=== PATIENT | male | born 1945 | race Caucasian/White ===

== ENCOUNTER 2016-04-23 08:18 | Emergency (ER) | payer MEDICARE ==
[2016-04-23 08:26] VITALS: BP 155/69; PULSE 93; RESP 18; TEMP 97
--- NOTE | 2016-04-23 08:52 | ED ---
General Adult HPI - General Source: patient, RN notes reviewed Mode of arrival: ambulatory Limitations: no limitations <Rickey Chatman - Last Filed: 04/23/16 08:49> <Grupo Lopez - Last Filed: 04/23/16 08:57> - General Chief complaint: Dental/Oral Stated complaint: POSS DENTAL ABSCESS Time Seen by Provider: 04/23/16 08:48 - History of Present Illness Initial comments: The patient is a 71-year-old male who presents emergency room today with a chief complaint of dental pain. He does admit that he had a sore tooth a few days ago. States that his noticed some increased swelling over the last day. States that similar symptoms in the past but usually go away on her own. Patient denies any other complaints or symptoms. Denies any drainage or discharge. Does admit to pain over tooth #26. Patient denies any recent fever, chills, shortness of breath, chest pain, back pain, abdominal pain, nausea or vomiting, numbness or tingling, dysuria or hematuria, constipation or diarrhea, headaches or visual changes, or any other complaints. (Rickey Chatman) - Related Data Home Medications Medication Instructions Recorded Confirmed Aspirin 81 mg PO DAILY 02/10/14 02/14/16 Atenolol [Tenormin] 25 mg PO DAILY 02/10/14 02/14/16 Atorvastatin [Lipitor] 40 mg PO DAILY 02/10/14 02/14/16 Dutasteride [Avodart] 0.5 mg PO DAILY 02/10/14 02/14/16 Ezetimibe [Zetia] 10 mg PO DAILY 02/10/14 02/14/16 Fenofibrate [Tricor] 145 mg PO DAILY 02/10/14 02/14/16 Folic Acid 1 mg PO DAILY 02/10/14 02/14/16 Lisinopril [Zestril] 10 mg PO DAILY 02/10/14 02/14/16 Methotrexate Sodium [Methotrexate] 25 mg PO WEEKLY 02/10/14 02/14/16 Multivitamin [Men's Multi-Vitamin] 1 each PO DAILY 02/10/14 02/14/16 Simponi 20 mg IV DIRECTED 02/10/14 02/14/16 Tamsulosin [Flomax] 0.4 mg PO DAILY 02/10/14 02/14/16 Levothyroxine Sodium [Synthroid] 25 mcg PO DAILY 02/26/15 02/14/16 Tadalafil [Cialis] 2.5 mg PO HS PRN 02/07/16 02/14/16 buPROPion HCL [Wellbutrin XL] 150 mg PO DAILY 02/07/16 02/14/16 Previous Rx's Medication Instructions Recorded Penicillin V Potassium [Pen Vee K] 500 mg PO QID 10 Days 04/23/16 Allergies Allergy/AdvReac Type Severity Reaction Status Date / Time Sulfa (Sulfonamide Allergy Rash/Hives Verified 04/23/16 08:26 Antibiotics) Review of Systems ROS Other: All systems not noted in ROS Statement are negative. <Rickey Chatman - Last Filed: 04/23/16 08:49> ROS Other: All systems not noted in ROS Statement are negative. <Grupo Lopez - Last Filed: 04/23/16 08:57> ROS Statement: Those systems with pertinent positive or pertinent negative responses have been documented in the HPI. Past Medical History Past Medical History: Cancer, Hyperlipidemia, Myocardial Infarction ([place]), Pneumonia, Prostate Disorder, Rheumatoid Arthritis ([place]) Additional Past Medical History / Comment(s): Lung CA- currently undergoing tx Last Myocardial Infarction Date:: 2003 History of Any Multi-Drug Resistant Organisms: None Reported Past Surgical History: Heart Catheterization With Stent Additional Past Surgical History / Comment(s): cardiac stents x2 Past Anesthesia/Blood Transfusion Reactions: No Reported Reaction Date of Last Stent Placement:: 05/07/03 Past Psychological History: Anxiety Additional Psychological History / Comment(s): anxiety related to health issues Smoking Status: Former smoker Past Alcohol Use History: Occasional Past Drug Use History: None Reported - Past Family History Father Family Medical History: Cancer, Diabetes Mellitus <Rickey Chatman - Last Filed: 04/23/16 08:49> General Exam Limitations: no limitations <Rickey Chatman - Last Filed: 04/23/16 08:49> <Grupo Lopez - Last Filed: 04/23/16 08:57> - General Exam Comments Initial Comments: General: The patient is awake and alert, in no distress, and does not appear acutely ill. Eye: Pupils are equal, round and reactive to light, extra-ocular movements are intact. No nystagmus. There is normal conjunctiva bilaterally. No signs of icterus. Ears, nose, mouth and throat: There are moist mucous membranes and no oral lesions. Patient does have tenderness over tooth and gumline of #26. Uvula midline. Swallows without difficulty. No obvious abscess to drain. Neck: The neck is supple, there is no tenderness or JVD. Cardiovascular: There is a regular rate and rhythm. No murmur, rub or gallop is appreciated. Respiratory: Lungs are clear to auscultation, respirations are non-labored, breath sounds are equal. No wheezes, stridor, rales, or rhonchi. Musculoskeletal: Normal ROM, no tenderness. Strength 5/5. Sensation intact. Pulses equal bilaterally 2+. Neurological: A&O x 3. CN II-XII intact, There are no obvious motor or sensory deficits. Coordination appears grossly intact. Speech is normal. Skin: Skin is warm and dry and no rashes or lesions are noted. Psychiatric: Cooperative, appropriate mood & affect, normal judgment. (Rickey Chatman) Course <Rickey Chatman - Last Filed: 04/23/16 08:49> <Grupo Lopez - Last Filed: 04/23/16 08:57> Vital Signs 04/23/16 08:23 Temperature 97.0 F L Pulse Rate 93 Respiratory 18 Rate Blood Pressure 155/69 O2 Sat by Pulse 100 Oximetry - Reevaluation(s) Reevaluation #1: 04/23/16 08:56 I did personally evaluate the patient with a [id number] examination. I did discuss the findings with him he complains some lower dental pain he does demonstrate some erythema to the gumline and erosion of the lower incisors. No submandibular lymphadenopathy. Patient is a start chemotherapy this week for lung cancer. I did advise him to follow-up with his dentist Dr. Day and also did notify Dr. Cannon of the development. He will be placed on oral antibiotics. (Grupo Lopez) Medical Decision Making <Rickey Chatman - Last Filed: 04/23/16 08:49> <Grupo Lopez - Last Filed: 04/23/16 08:57> - Medical Decision Making Patient advised to follow-up with his oncologist and dentist. He states he is supposed to start chemo again this coming week. He'll be placed on antibiotics of penicillin advised follow-up dentist over the next 2-3 days. Case discussed and seen by attending physician Dr. Lopez. (Rickey Chatman) Disposition Time of Disposition: 08:52 <Rickey Chatman - Last Filed: 04/23/16 08:49> <Grupo Lopez - Last Filed: 04/23/16 08:57> Clinical Impression: Pain, dental Disposition: HOME SELF-CARE Condition: Good Instructions: Dental Abscess (ED) Additional Instructions: Resolved her oncologist dentist over the next 1-2 days as discussed. Please use antibiotic as prescribed. Please return to emergency room if any symptoms increase or worsen or for any other concerns. Prescriptions: Penicillin V Potassium [Pen Vee K] 500 mg PO QID 10 Days Referrals: Talia Arzola DO [Primary Care Provider] - 1-2 days
== END 2016-04-23 09:01 | disposition home or self-care (01) ==
LOC: EC 08:18
DX: K08.89 Other specified disorders of teeth and supporting structures (principal); E78.5 Hyperlipidemia, unspecified; I25.2 Old myocardial infarction; C34.90 Malignant neoplasm of unspecified part of unspecified bronchus or lung; N42.9 Disorder of prostate, unspecified; M06.9 Rheumatoid arthritis, unspecified; Z87.891 Personal history of nicotine dependence; Z88.2 Allergy status to sulfonamides; Z79.82 Long term (current) use of aspirin; Z79.899 Other long term (current) drug therapy; Z95.1 Presence of aortocoronary bypass graft
CPT/HCPCS: 99282

== ENCOUNTER → 2016-05-13 | Outpatient (CLI) | payer MEDICARE ==
--- NOTE | 2016-05-16 13:31 | PE ---
Nuclear medicine PET/CT HISTORY: Lung carcinoma Patient received 14.6 mCi of F-18 FDG intravenously and delayed scanning was performed from the skull base through the mid thighs. Localization and attenuation correction CT scan was performed. Correlation to prior nuclear medicine PET/CT January Neck and CHEST: There is no evidence cervical adenopathy. No mediastinal, axillary, or hilar adenopat hy is present. Coronary artery calcifications are present, the heart is enlarged. There is a hiatal h ernia. No pleural or pericardial effusion. Left upper lobe lung mass is present with extension to the pleura medially and just posterior to the aorta, the mass measures approximately 2.8 cm in diameter. SUV is approximately 5.2. No additional hy permetabolic uptake. This shows a marked reduction in size. Interstitial changes are present within t he lungs. Honeycombing is present as well as emphysematous change. Abdomen pelvis: No suspicious mass. No suspicious hypermetabolic uptake. Diverticular changes associa [place] with the sigmoid colon. IMPRESSION: Interval decrease in size of mass in the left upper lobe as described. Additional finding s above.
== END | disposition home or self-care (01) ==
LOC: RADPETMAIN 09:30
PROVIDERS: ATTEND Internal Medicine Hematology & Oncology
DX: C34.92 Malignant neoplasm of unspecified part of left bronchus or lung (principal)
CPT/HCPCS: 78815; A9552

== ENCOUNTER 2016-08-14 18:38 | Inpatient (IN) | payer MEDICARE ==
[2016-08-14] MEDS ORDERED: IPRATROPIUM-ALBUTEROL 3 ML NEB INHALATION STA (19:05)
[2016-08-14] MEDS ORDERED: SODIUM CHLORIDE 0.9% 1,000 ML IV STA (19:05)
[2016-08-14] MEDS ORDERED: methylPREDNISolone SOD SUCCI 125 MG/2 ML VIAL IV STA (19:05)
[2016-08-14] MEDS ORDERED: SODIUM CHLORIDE 0.9% 500 ML IV STA (19:05)
[2016-08-14] MEDS ORDERED: RX INFO: IV CONTRAST WAS GIVEN 1 EACH MISC MISCELLANE PRN (19:06)
[2016-08-14 19:50] LABS: Anisocytosis Slight; Basophils # (A) 0.2 k/uL (0-0.2); Basophils % (A) 2 %; CH 29.5; CHCM 31.7; Eosinophils # (A) 0.1 k/uL (0-0.7); Eosinophils % (A) 1 %; HCT 33.5 % (39.0-53.0); HDW 2.69; HGB 10.8 gm/dL (13.0-17.5); Hypochromasia Slight; Luc # (Auto) 0.11; Luc % (Auto) 1; Lymphocytes # (A) 0.3 k/uL (1.0-4.8); Lymphocytes % (A) 4 %; MCH 30.1 pg (25.0-35.0); MCHC 32.2 g/dL (31.0-37.0); MCV 93.4 fL (80.0-100.0); Mean Platelet Volume 7.7; Monocytes # (A) 0.2 k/uL (0-1.0); Monocytes % (A) 3 %; Neutrophils # (A) 6.9 k/uL (1.3-7.7); Neutrophils % (A) 88 %; RBC 3.59 m/uL (4.30-5.90); RDW 17.1 % (11.5-15.5); WBC 7.8 k/uL (3.8-10.6); WBC (Perox) 7.56
[2016-08-14 19:53] LABS: INR 1.3 (<1.1); Partial Thromboplastin Time 23.7 sec (22.0-30.0); Prothrombin Time 12.9 sec (9.0-12.0)
[2016-08-14 20:08] LABS: ALT 105 U/L (21-72); AST 122 U/L (17-59); Alkaline Phosphatase 160 U/L (38-126); Anion Gap 8 mmol/L; Blood Urea Nitrogen 35 mg/dL (9-20); Calcium 9.1 mg/dL (8.4-10.2); Carbon Dioxide 24 mmol/L (22-30); Chloride 98 mmol/L (98-107); Glucose 113 mg/dL (74-99); Non-African American GFR(MDRD) 59 (>60 ml/min/1.73 sqM); Potassium 5.5 mmol/L (3.5-5.1); Sodium 130 mmol/L (137-145); Total Bilirubin 1.1 mg/dL (0.2-1.3); Total Protein 6.7 g/dL (6.3-8.2)
[2016-08-14 20:29] LABS: Creatine Kinase MB 3.4 ng/mL (0.0-2.4); Troponin I 0.58 ng/mL (0.000-0.034)
--- NOTE | 2016-08-14 20:46 | ED ---
SOB HPI - General Chief Complaint: Shortness of Breath Stated Complaint: diff breathing Time Seen by Provider: 08/14/16 18:58 Source: patient Mode of arrival: wheelchair Limitations: no limitations - History of Present Illness Initial Comments: This 71-year-old white male presents with a complaint of some shortness of breath. He does have a history of lung cancer which was treated with chemotherapy as well as surgery. He also had radiation therapy to his brain for prophylaxis. He states that the shortness of breath is been worse over the past few days. He recently traveled to [place] and just came back today. He was in the car for approximately 10 hours. He denies any chest pain or fever. He does present hypoxic. [place] apparently did some blood work as well as a chest x-ray and gave him some breathing treatments. He denies any leg pain or swelling. He denies any history of DVT or PE. No other complaints or modifying factors. - Related Data Home Medications Medication Instructions Recorded Confirmed Atenolol [Tenormin] 25 mg PO DAILY 02/10/14 08/14/16 Folic Acid 1 mg PO DAILY 02/10/14 08/14/16 Lisinopril [Zestril] 10 mg PO DAILY 02/10/14 08/14/16 Tamsulosin [Flomax] 0.4 mg PO DAILY 02/10/14 08/14/16 Atorvastatin Calcium [Lipitor] 40 mg PO DAILY 08/14/16 08/14/16 Fenofibrate Nanocrystallized 145 mg PO DAILY 08/14/16 08/14/16 [Tricor] Multivitamins, Thera [Multivitamin 1 tab PO DAILY 08/14/16 08/14/16 (formulary)] Omeprazole 20 mg PO DAILY 08/14/16 08/14/16 Tadalafil [Cialis] 20 mg PO DAILY PRN 08/14/16 08/14/16 Allergies Allergy/AdvReac Type Severity Reaction Status Date / Time Sulfa (Sulfonamide Allergy Rash/Hives Verified 08/14/16 19:04 Antibiotics) Review of Systems ROS Statement: Those systems with pertinent positive or pertinent negative responses have been documented in the HPI. ROS Other: All systems not noted in ROS Statement are negative. Past Medical History Past Medical History: Cancer, Hyperlipidemia, Myocardial Infarction ([place]), Pneumonia, Prostate Disorder, Rheumatoid Arthritis ([place]) Additional Past Medical History / Comment(s): Lung CA- currently undergoing tx Last Myocardial Infarction Date:: 2003 History of Any Multi-Drug Resistant Organisms: None Reported Past Surgical History: Heart Catheterization With Stent Additional Past Surgical History / Comment(s): cardiac stents x2 Past Anesthesia/Blood Transfusion Reactions: No Reported Reaction Date of Last Stent Placement:: 05/07/03 Past Psychological History: Anxiety Additional Psychological History / Comment(s): anxiety related to health issues Smoking Status: Former smoker Past Alcohol Use History: Occasional Past Drug Use History: None Reported - Past Family History Father Family Medical History: Cancer, Diabetes Mellitus General Exam - General Exam Comments Initial Comments: GENERAL: The patient is well nourished and well hydrated. VITAL SIGNS: Heart rate, blood pressure, respiratory rate reviewed as recorded in nurse's notes. EYES: Pupils are round and reactive. Extraocular movements are intact. No conjunctival / lid redness or swelling. ENT: No external evidence of injury, swelling, or ecchymosis. Airway is patent. Throat is clear. NECK: Nontender. No swelling or evidence of injury. No subcutaneous emphysema. Trachea is midline. No thyroid mass. HEART: Regular rate and rhythm. Good peripheral pulses. LUNGS/CHEST: Breath sounds clear and equal bilaterally. No rales, rhonchi, or wheezes. No ecchymosis, subcutaneous emphysema, or tenderness. ABDOMEN: Abdomen soft without tenderness. No palpable masses or organomegaly. No peritoneal signs. No abdominal wall swelling or ecchymosis. EXTREMITIES: No extremity tenderness. Normal muscle tone and function. No thoracolumbar tenderness. NEUROLOGIC: Sensation is grossly intact. Cranial nerve exam reveals face is symmetrical, tongue is midline, speech is clear. SKIN: No abrasions or ecchymosis is noted. No induration or masses noted. PSYCHIATRIC: Alert and oriented. Appropriate behavior and judgment. Limitations: no limitations Course Vital Signs 08/14/16 08/14/16 08/14/16 18:40 18:51 19:21 Temperature 96.7 F L Pulse Rate 110 H 99 Respiratory 20 24 22 Rate Blood Pressure 141/65 133/74 O2 Sat by Pulse 68 L 99 Oximetry 08/14/16 08/14/16 08/14/16 19:34 20:00 20:17 Temperature Pulse Rate 102 H 101 H 105 H Respiratory 20 Rate Blood Pressure 146/73 O2 Sat by Pulse 96 Oximetry 08/14/16 21:18 Temperature Pulse Rate 104 H Respiratory 20 Rate Blood Pressure 125/60 O2 Sat by Pulse 97 Oximetry Medical Decision Making - Medical Decision Making The patient was seen and examined. All diagnostics were reviewed. His EKG was completed and shows a sinus tachycardia at a rate of 104. There is evidence of a right bundle-branch block with associated ST-T wave changes noted. The WA interval is 176, QRS duration is 140 and the QTC intervals 465. The patient also had multiple lab abnormalities including an elevated troponin, elevated d- dimer, elevated potassium, transaminitis, elevated BNP, and a decreased sodium. He receives a DuoNeb breathing treatment as well as some Solu-Medrol. The CT angiogram was done of the chest as it is felt as though he is fairly high risk for pulmonary embolism with his history of lung cancer. The CT did not show any evidence of pulmonary embolism. The previously noted masses now not present. They do note significant parenchymal changes/inflammation. The laboratory shows multiple abnormalities including an elevated d-dimer, elevated troponin, elevated BNP, a decreased hemoglobin, and elevated potassium and decreased sodium. His pulse ox initially was 68% on arrival. On recheck he is approximately 92% on a nonrebreather. He is in no respiratory distress on recheck. He did receive some IV steroids as well as DuoNeb breathing treatments. Antibiotics will be started as well. It is felt as though he would require admission to the hospital. He started on heparin due to his elevated troponin possibility of a non-ST elevation myocardial infarction. The case is discussed with Dr. Sapp and he is agreeable to admission. He will take cardiology, oncology, and pulmonology to consult. Approximately 30 minutes of critical care time was utilized and the treatment of the patient. - Lab Data Result diagrams: 08/14/16 19:38 08/14/16 19:38 Lab Results 08/14/16 08/14/16 08/14/16 Range/Units 19:15 19:38 19:38 WBC 7.8 (3.8-10.6) k/uL RBC 3.59 L (4.30-5.90) m/uL Hgb 10.8 L (13.0-17.5) gm/dL Hct 33.5 L (39.0-53.0) % MCV 93.4 (80.0-100.0) fL MCH 30.1 (25.0-35.0) pg MCHC 32.2 (31.0-37.0) g/dL RDW 17.1 H (11.5-15.5) % Plt Count 133 L (150-450) k/uL Neutrophils % 88 % Lymphocytes % 4 % Monocytes % 3 % Eosinophils % 1 % Basophils % 2 % Neutrophils # 6.9 (1.3-7.7) k/uL Lymphocytes # 0.3 L (1.0-4.8) k/uL Monocytes # 0.2 (0-1.0) k/uL Eosinophils # 0.1 (0-0.7) k/uL Basophils # 0.2 (0-0.2) k/uL Hypochromasia Slight Anisocytosis Slight PT 12.9 H (9.0-12.0) sec INR 1.3 (<1.1) APTT 23.7 (22.0-30.0) sec D-Dimer (<0.60) mg/L FEU Sodium (137-145) mmol/L Potassium (3.5-5.1) mmol/L Chloride (98-107) mmol/L Carbon Dioxide (22-30) mmol/L Anion Gap mmol/L BUN (9-20) mg/dL Creatinine (0.66-1.25) mg/dL Est GFR (MDRD) Af Amer (>60 ml/min/1.73 sqM) Est GFR (MDRD) Non-Af (>60 ml/min/1.73 sqM) Glucose (74-99) mg/dL Calcium (8.4-10.2) mg/dL Total Bilirubin (0.2-1.3) mg/dL AST (17-59) U/L ALT (21-72) U/L Alkaline Phosphatase (38-126) U/L Total Creatine Kinase 66 (55-170) U/L CK-MB (CK-2) 3.4 H* (0.0-2.4) ng/mL CK-MB (CK-2) Rel Index 5.2 Troponin I 0.580 H* (0.000-0.034) ng/mL NT-Pro-B Natriuret Pep pg/mL Total Protein (6.3-8.2) g/dL Albumin (3.5-5.0) g/dL 08/14/16 08/14/16 08/14/16 Range/Units 19:38 19:38 19:38 WBC (3.8-10.6) k/uL RBC (4.30-5.90) m/uL Hgb (13.0-17.5) gm/dL Hct (39.0-53.0) % MCV (80.0-100.0) fL MCH (25.0-35.0) pg MCHC (31.0-37.0) g/dL RDW (11.5-15.5) % Plt Count (150-450) k/uL Neutrophils % % Lymphocytes % % Monocytes % % Eosinophils % % Basophils % % Neutrophils # (1.3-7.7) k/uL Lymphocytes # (1.0-4.8) k/uL Monocytes # (0-1.0) k/uL Eosinophils # (0-0.7) k/uL Basophils # (0-0.2) k/uL Hypochromasia Anisocytosis PT (9.0-12.0) sec INR (<1.1) APTT (22.0-30.0) sec D-Dimer 3.04 H (<0.60) mg/L FEU Sodium 130 L (137-145) mmol/L Potassium 5.5 H (3.5-5.1) mmol/L Chloride 98 (98-107) mmol/L Carbon Dioxide 24 (22-30) mmol/L Anion Gap 8 mmol/L BUN 35 H (9-20) mg/dL Creatinine 1.21 (0.66-1.25) mg/dL Est GFR (MDRD) Af Amer >60 (>60 ml/min/1.73 sqM) Est GFR (MDRD) Non-Af 59 (>60 ml/min/1.73 sqM) Glucose 113 H (74-99) mg/dL Calcium 9.1 (8.4-10.2) mg/dL Total Bilirubin 1.1 (0.2-1.3) mg/dL AST 122 H (17-59) U/L ALT 105 H (21-72) U/L Alkaline Phosphatase 160 H (38-126) U/L Total Creatine Kinase (55-170) U/L CK-MB (CK-2) (0.0-2.4) ng/mL CK-MB (CK-2) Rel Index Troponin I (0.000-0.034) ng/mL NT-Pro-B Natriuret Pep 1370 pg/mL Total Protein 6.7 (6.3-8.2) g/dL Albumin 2.8 L (3.5-5.0) g/dL Disposition Clinical Impression: Lung cancer, Acute respiratory failure, Elevated troponin, Elevated d-dimer, Hyponatremia, Transaminitis, Anemia, Dyspnea, Hyperkalemia, Non-ST elevated myocardial infarction, Acute exacerbation of chronic obstructive airways disease Disposition: ADMITTED IP TO THIS HOSP Condition: Fair Time of Disposition: 21:43 Decision Date: 08/14/16 Decision Time: :43
[2016-08-14] MEDS ORDERED: ASPIRIN 81 MG CHEW PO STA (20:55)
--- NOTE | 2016-08-14 21:15 | CT ---
EXAMINATION TYPE: CT ANGIO CHEST DATE OF EXAM: 08/14/2016 8:56 PM COMPARISON: NONE HISTORY: PT STATES OF DIFFICULTY BREATHING AND ELEVATED D-DIMER. HX OF LUNG CA. CT DLP: 352.4 mGycm Automated exposure control for dose reduction was used. TECHNIQUE: High-resolution departmental CTA technique. CTA scan of the thorax is performed with IV Co ntrast, patient injected with 60 mL of Visipaque 320, pulmonary embolism protocol, complete with mult iple 3-D reconstruction images. FINDINGS: AIRWAYS: The tracheobronchial tree is diffusely clear. PLEURAL SPACES: Negative LUNGS: There is a striking pattern of diffuse interstitial and airspace lung parenchymal disease thro ughout the upper, mid and lower lung zones, including cicatrizing changes and with pleural-parenchyma l thickening at the left lung base posterolaterally. There is interval resolution of the previously noted 2.8 cm left upper lobe apical segment pulmonary mass located posterior to the proximal descending thoracic aorta. MEDIASTINUM: There is satisfactory enhancement of the pulmonary artery and its branches, there is no CT evidence for pulmonary embolism. There are no greater than 1 cm hilar or mediastinal lymph nodes. No pericardial effusion is seen. There is mild cardiomegaly with panchamber enlargement and with e xtensive coronary calcifications and a left coronary stent. There is a 6 cm hiatal hernia present. IMPRESSION: 1. NEGATIVE FOR PULMONARY EMBOLISM. 2. POSITIVE FOR WIDESPREAD SEVERE PULMONARY DISEASE, MUCH MORE PROMINENT THAN SEEN ON THE 05/13/2016 P ET/CT.
[2016-08-14] MEDS ORDERED: HEPARIN SODIUM,PORCINE 5,000 UNIT/ML 1 ML VIAL IV PRN (21:32)
[2016-08-14] MEDS ORDERED: HEPARIN SODIUM,PORCINE 5,000 UNIT/ML 1 ML VIAL IV ONE (21:32)
[2016-08-14] MEDS ORDERED: guaiFENesin-Coden 100-10MG/5ML 10 ML CUP PO PRN (21:44)
[2016-08-14] MEDS ORDERED: LEVOFLOXACIN 750MG-D5W PMX 750 MG in DEXTROSE/WATER 1 150ML.BAG IVPB STA (21:44)
[2016-08-14] MEDS ORDERED: HEPARIN SODIUM,PORCINE/D5W PMX 25,000 UNIT in DEXTROSE/WATER 1 500ML.BAG IV SCH (21:45)
[2016-08-14] MEDS ORDERED: NITROGLYCERIN SL TABS 0.4 MG TAB SUBLINGUAL PRN (22:05)
[2016-08-15 02:41] LABS: Creatine Kinase MB 2.7 ng/mL (0.0-2.4); Troponin I 0.609 ng/mL (0.000-0.034)
[2016-08-15] MEDS: IPRATROPIUM-ALBUTEROL 3 ML NEB INHALATION SCH ×7 (04:05→20:14)
[2016-08-15 05:40] LABS: Glucose,Whole Blood 152 mg/dL (75-99)
[2016-08-15] MEDS: INSULIN LISPRO (humaLOG) 300 UNIT/3 ML VIAL SQ SCH ×4 (06:17→22:09)
[2016-08-15] MEDS: PANTOPRAZOLE 40 MG TABLET PO SCH (06:54)
[2016-08-15 07:07] LABS: Partial Thromboplastin Time 43.4 sec (22.0-30.0)
[2016-08-15 07:14] LABS: INR 1.5 (<1.1); Prothrombin Time 14.5 sec (9.0-12.0)
[2016-08-15] MEDS: BUDESONIDE 0.5 MG/2 ML NEBU INHALATION SCH ×2 (07:21→19:10)
[2016-08-15 07:29] LABS: Anion Gap 11 mmol/L; Blood Urea Nitrogen 32 mg/dL (9-20); Carbon Dioxide 17 mmol/L (22-30); Chloride 105 mmol/L (98-107); Cholesterol 137 mg/dL (<200); Glucose 155 mg/dL (74-99); HDL Cholesterol 27 mg/dL (40-60); Non-African American GFR(MDRD) >60 (>60 ml/min/1.73 sqM); Potassium 4.9 mmol/L (3.5-5.1); Sodium 133 mmol/L (137-145); Triglycerides 133 mg/dL (<150)
[2016-08-15 07:34] LABS: Anisocytosis Slight; Basophils % (A) 0 %; CH 28.7; CHCM 29.4; Eosinophils % (A) 0 %; HCT 33.5 % (39.0-53.0); HDW 2.54; HGB 10.2 gm/dL (13.0-17.5); Hypochromasia Marked; Luc # (Auto) 0.05; Luc % (Auto) 1; Lymphocytes # (A) 0.2 k/uL (1.0-4.8); Lymphocytes % (A) 3 %; MCH 29.8 pg (25.0-35.0); MCHC 30.4 g/dL (31.0-37.0); MCV 97.9 fL (80.0-100.0); Macrocytosis Slight; Mean Platelet Volume 7.9; Monocytes # (A) 0.1 k/uL (0-1.0); Monocytes % (A) 2 %; Neutrophils # (A) 5.9 k/uL (1.3-7.7); Neutrophils % (A) 94 %; RBC 3.42 m/uL (4.30-5.90); RDW 16.5 % (11.5-15.5); WBC 6.3 k/uL (3.8-10.6); WBC (Perox) 6.07
[2016-08-15 07:53] LABS: Creatine Kinase MB 3.5 ng/mL (0.0-2.4)
[2016-08-15 07:54] LABS: Troponin I 0.371 ng/mL (0.000-0.034)
[2016-08-15] MEDS ORDERED: ASPIRIN 325 MG TAB PO SCH (09:00)
[2016-08-15] MEDS ORDERED: NITROGLYCERIN OINT 1 INCH/GM PACKET TOPICAL SCH (09:00)
--- NOTE | 2016-08-15 09:15 | P.CRDCN ---
History of Present Illness Consult date: 08/15/16 Requesting physician: Aracely Sapp Consult reason: shortness of breath Chief complaint: Shortness of breath History of present illness: This is a pleasant 71-year-old gentleman with history of coronary artery disease and prior stent placement, hypertension, hyperlipidemia, lung cancer for which the patient underwent chemotherapy and radiation, most recently patient underwent surgery on the lung, he was also receiving chemotherapy for brain CA. Patient has not followed up in the office for the past several years. He presents to the hospital on this occasion with symptoms of progressively worsening shortness of breath. EKG on arrival showed a sinus tachycardia with a right bundle branch block pattern and nonspecific ST-T wave changes. CTA of the chest was performed which was negative for pulmonary embolism, positive for widespread severe pulmonary disease, much more prominent than CT performed in April. Dr. Davis chaves oncologist has also been requested to see the patient in consult and he felt that the changes on the chest x-ray along with patient's symptoms could be secondary to radiation pneumonitis. Patient denies having any chest discomfort. A cardiology consultation was requested because of abnormal troponin values. Troponins 0.58, 0.60, 0.37. BNP level 1370. AST 122, ALT 105, alk phos 160, sodium 133, potassium 4.9, d- dimer 3.04, PE ruled out. Hemoglobin 10.2 white blood cell count normal platelet count 112. Blood... pressure on arrival here 140/60 with a heart rate of 110, oxygen saturation 68% on admission. Blood pressure this morning 136/70 with a heart rate in the 80s, 96% on 10% Ventimask. Patient is currently on IV heparin. Past Medical History Past Medical History: Cancer, Hyperlipidemia, Myocardial Infarction ([place]), Pneumonia, Prostate Disorder, Rheumatoid Arthritis ([place]) Additional Past Medical History / Comment(s): Lung CA- currently undergoing tx Last Myocardial Infarction Date:: 2003 History of Any Multi-Drug Resistant Organisms: None Reported Past Surgical History: Heart Catheterization With Stent Additional Past Surgical History / Comment(s): cardiac stents x2 Past Anesthesia/Blood Transfusion Reactions: No Reported Reaction Date of Last Stent Placement:: 05/07/03 Past Psychological History: Anxiety Additional Psychological History / Comment(s): anxiety related to health issues Smoking Status: Former smoker Past Alcohol Use History: Occasional Past Drug Use History: None Reported - Past Family History Father Family Medical History: Cancer Medications and Allergies Home Medications Medication Instructions Recorded Confirmed Type Atenolol [Tenormin] 25 mg PO DAILY 02/10/14 08/14/16 History Folic Acid 1 mg PO DAILY 02/10/14 08/14/16 History Lisinopril [Zestril] 10 mg PO DAILY 02/10/14 08/14/16 History Tamsulosin [Flomax] 0.4 mg PO DAILY 02/10/14 08/14/16 History Atorvastatin Calcium [Lipitor] 40 mg PO DAILY 08/14/16 08/14/16 History Fenofibrate Nanocrystallized 145 mg PO DAILY 08/14/16 08/14/16 History [Tricor] Multivitamins, Thera [Multivitamin 1 tab PO DAILY 08/14/16 08/14/16 History (formulary)] Omeprazole 20 mg PO DAILY 08/14/16 08/14/16 History Tadalafil [Cialis] 20 mg PO DAILY PRN 08/14/16 08/14/16 History Allergies Allergy/AdvReac Type Severity Reaction Status Date / Time Sulfa (Sulfonamide Allergy Rash/Hives Verified 08/14/16 19:04 Antibiotics) Physical Exam Vitals: Vital Signs Temp Pulse Pulse Resp BP BP Pulse Ox 08/15/16 07:36 90 08/15/16 07:23 88 08/15/16 07:22 95 08/15/16 04:19 90 08/15/16 04:09 80 95 08/15/16 04:00 97.4 F L 80 20 137/73 96 08/15/16 00:10 97.4 F L 95 88 18 133/73 108/57 96 08/14/16 23:01 98.1 F 96 20 130/65 93 L Intake and Output 08/14/16 08/15/16 08/15/16 22:59 06:59 14:59 Intake Total 299.92 Output Total 400 Balance -100.08 Intake: IV 299.92 0.9 @20mls/hr 120 Heparin Sodium,Porcine/ 79.92 D5w Pmx 25,000 unit In Dextrose/Water 1 500ml. bag @ 11.3 UNITS/KG/HR 19 .98 mls/hr IV .Q24H [facility] Rx#:[id number] Levofloxacin 750Mg-D5w 100 Pmx 750 mg In Dextrose/ Water 1 150ml.bag @ 100 mls/hr IVPB HS [facility] Rx#: [id number] Output: Urine 400 Other: Voiding Method Urinal # Voids 1 Weight 89.5 kg PHYSICAL EXAMINATION: HEENT: Head is atraumatic, normocephalic. Pupils equal, round. Neck is supple. There is elevated jugular venous pressure. HEART EXAMINATION: Heart S1 and S2 systolic murmur is heard. CHEST EXAMINATION: Lungs reveal bilateral crackles to the bases. Decreased air exchange. ABDOMEN: Soft, nontender. Bowel sounds are heard. No organomegaly noted. EXTREMITIES: 2+ peripheral pulses with evidence of peripheral edema and no calf tenderness noted. NEUROLOGIC patient is awake, alert and oriented -3. . Results 08/15/16 06:40 08/15/16 06:40 Cardiac Enzymes 08/15/16 08/15/16 Range/Units 01:23 06:40 CK-MB (CK-2) 2.7 H* 3.5 H* (0.0-2.4) ng/mL Troponin I 0.609 H* 0.371 H* (0.000-0.034) ng/mL Coagulation 08/15/16 Range/Units 06:40 PT 14.5 H (9.0-12.0) sec APTT 43.4 H (22.0-30.0) sec Lipids 08/15/16 Range/Units 06:40 Triglycerides 133 (<150) mg/dL Cholesterol 137 (<200) mg/dL HDL Cholesterol 27 L (40-60) mg/dL CBC 08/15/16 Range/Units 06:40 WBC 6.3 (3.8-10.6) k/uL RBC 3.42 L (4.30-5.90) m/uL Hgb 10.2 L (13.0-17.5) gm/dL Hct 33.5 L (39.0-53.0) % Plt Count 112 L (150-450) k/uL Comprehensive Metabolic Panel 08/15/16 Range/Units 06:40 Sodium 133 L (137-145) mmol/L Potassium 4.9 (3.5-5.1) mmol/L Chloride 105 (98-107) mmol/L Carbon Dioxide 17 L (22-30) mmol/L BUN 32 H (9-20) mg/dL Creatinine 0.99 (0.66-1.25) mg/dL Glucose 155 H (74-99) mg/dL Calcium 9.0 (8.4-10.2) mg/dL Current Medications Generic Name Dose Route Start Last Admin Trade Name Freq PRN Reason Stop Dose Admin Albuterol/Ipratropium 3 ml 08/15/16 00:00 08/15/16 07:21 Duoneb 0.5 Mg-3 Mg/3 Ml Soln INHALATION 3 ml RT-Q4H [facility] Administration Aspirin 325 mg 08/15/16 09:00 Aspirin PO DAILY [facility] Atenolol 25 mg 08/15/16 09:00 Tenormin PO DAILY [facility] Atorvastatin Calcium 40 mg 08/15/16 09:00 Lipitor PO DAILY [facility] Budesonide 0.5 mg 08/15/16 08:00 08/15/16 07:21 Pulmicort INHALATION 0.5 mg RT-BID [facility] Administration Fenofibrate 160 mg 08/15/16 09:00 Lofibra PO DAILY [facility] Folic Acid 1 mg 08/15/16 09:00 Folic Acid PO DAILY [facility] Guaifenesin/Codeine Phosphate 10 ml 08/14/16 21:44 Robitussin Ac PO Q6H PRN Cough Heparin Sodium (Porcine) 0 unit 08/14/16 21:32 Heparin IV PER PROTOCOL PRN Low PTT Protocol Heparin Sodium/Dextrose 25,000 500 mls @ 19.98 mls/hr 08/14/16 21:45 22:59 unit/ IV Solution IV 11.3 units/kg/hr .Q24H [facility] 19.98 mls/hr Protocol Administration 11.3 UNITS/KG/HR Levofloxacin 750 mg/ IV 150 mls @ 100 mls/hr 08/15/16 21:00 Solution IVPB HS [facility] Insulin Human Lispro 0 unit 08/15/16 07:30 08/15/16 06:17 Humalog SQ Not Given ACHS [facility] Protocol Lisinopril 10 mg 08/15/16 09:00 Zestril PO DAILY [facility] Methylprednisolone Sodium Succinate 60 mg 08/16/16 09:00 Solu-Medrol IV QID [facility] Miscellaneous Information 1 each 08/14/16 19:06 08/14/16 19:26 Rx Info: Iv Contrast Was Given MISCELLANE 08/16/16 19:06 1 each DAILY PRN Administration Per Protocol Multivitamins 1 each 08/15/16 09:00 Theragran PO DAILY [facility] Nitroglycerin 0.4 mg 08/14/16 22:05 Nitrostat SUBLINGUAL Q5M PRN Chest Pain Pantoprazole Sodium 40 mg 08/15/16 07:30 08/15/16 06:54 Protonix PO Not Given AC-BRKFST [facility] Tamsulosin HCl 0.4 mg 08/15/16 09:00 Flomax PO DAILY [facility] Intake and Output 08/14/16 08/15/16 08/15/16 22:59 06:59 14:59 Intake Total 299.92 Output Total 400 Balance -100.08 Intake: IV 299.92 0.9 @20mls/hr 120 Heparin Sodium,Porcine/ 79.92 D5w Pmx 25,000 unit In Dextrose/Water 1 500ml. bag @ 11.3 UNITS/KG/HR 19 .98 mls/hr IV .Q24H [facility] Rx#:[id number] Levofloxacin 750Mg-D5w 100 Pmx 750 mg In Dextrose/ Water 1 150ml.bag @ 100 mls/hr IVPB HS [facility] Rx#: [id number] Output: Urine 400 Other: Voiding Method Urinal # Voids 1 Weight 89.5 kg 08/15/16 06:40 08/15/16 06:40 EKG Interpretations (text) EKG shows sinus tachycardia with a right bundle branch block pattern. Assessment and Plan Plan: Assessment and plan #1 symptoms of respiratory distress with significant hypoxia on admission, likely secondary to possible radiation pneumonitis and congestive cardiac failure. LV function unknown at this time. BNP level 1370. #2 known history of coronary artery disease with prior stent placement #3 abnormal troponins, not consistent with acute coronary syndrome, could be secondary to oxygen supply and demand mismatch #4 abnormal liver functions, could be secondary to congestion. #5 lung CA with recent chemotherapy and radiation, status post surgery. #6 status post radiation to the brain for prophylaxis #7 hyperlipidemia Plan We will obtain an echocardiogram with Doppler study. We will also start the patient on IV Lasix, monitor intake and output along with daily weights closely. Decrease aspirin 81 mg daily. Further recommendations to follow. DNP note has been reviewed, I agree with a documented findings and plan of care. Patient was seen and examined.
--- NOTE | 2016-08-15 09:24 | P.HPIM ---
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 Cannon, he presented to emergency room at [facility] his oxygen saturation was low d- dimer was significantly elevated and troponin level was elevated at 0.58, patient was started on IV heparin and was admitted to telemetry floor computed tomography scan of the chest was negative for pulmonary embolism, oncology consultation pulmonary consultation and cardiology consultation were initiated, computed tomography scan revealed patchy infiltrates in both lungs and patient was started on IV Levaquin in the emergency room. Past Medical History Past Medical History: Cancer, Hyperlipidemia, Myocardial Infarction ([place]), Pneumonia, Prostate Disorder, Rheumatoid Arthritis ([place]) Additional Past Medical History / Comment(s): Lung CA- currently undergoing tx Last Myocardial Infarction Date:: 2003 History of Any Multi-Drug Resistant Organisms: None Reported Past Surgical History: Heart Catheterization With Stent Additional Past Surgical History / Comment(s): cardiac stents x2 Past Anesthesia/Blood Transfusion Reactions: No Reported Reaction Date of Last Stent Placement:: 05/07/03 Past Psychological History: Anxiety Additional Psychological History / Comment(s): anxiety related to health issues Smoking Status: Former smoker Past Alcohol Use History: Occasional Past Drug Use History: None Reported - Past Family History Father Family Medical History: Cancer Medications and Allergies Home Medications Medication Instructions Recorded Confirmed Type Atenolol [Tenormin] 25 mg PO DAILY 02/10/14 08/14/16 History Folic Acid 1 mg PO DAILY 02/10/14 08/14/16 History Lisinopril [Zestril] 10 mg PO DAILY 02/10/14 08/14/16 History Tamsulosin [Flomax] 0.4 mg PO DAILY 02/10/14 08/14/16 History Atorvastatin Calcium [Lipitor] 40 mg PO DAILY 08/14/16 08/14/16 History Fenofibrate Nanocrystallized 145 mg PO DAILY 08/14/16 08/14/16 History [Tricor] Multivitamins, Thera [Multivitamin 1 tab PO DAILY 08/14/16 08/14/16 History (formulary)] Omeprazole 20 mg PO DAILY 08/14/16 08/14/16 History Tadalafil [Cialis] 20 mg PO DAILY PRN 08/14/16 08/14/16 History Allergies Allergy/AdvReac Type Severity Reaction Status Date / Time Sulfa (Sulfonamide Allergy Rash/Hives Verified 08/14/16 19:04 Antibiotics) Physical Exam Vitals: Vital Signs Temp Pulse Pulse Resp BP BP Pulse Ox 08/15/16 07:36 90 08/15/16 07:23 88 08/15/16 07:22 95 08/15/16 04:19 90 08/15/16 04:09 80 95 08/15/16 04:00 97.4 F L 80 20 137/73 96 08/15/16 00:10 97.4 F L 95 88 18 133/73 108/57 96 08/14/16 23:01 98.1 F 96 20 130/65 93 L Intake and Output 08/14/16 08/15/16 08/15/16 22:59 06:59 14:59 Intake Total 299.92 Output Total 400 Balance -100.08 Intake: IV 299.92 0.9 @20mls/hr 120 Heparin Sodium,Porcine/ 79.92 D5w Pmx 25,000 unit In Dextrose/Water 1 500ml. bag @ 11.3 UNITS/KG/HR 19 .98 mls/hr IV .Q24H [facility] Rx#:[id number] Levofloxacin 750Mg-D5w 100 Pmx 750 mg In Dextrose/ Water 1 150ml.bag @ 100 mls/hr IVPB HS [facility] Rx#: [id number] Output: Urine 400 Other: Voiding Method Urinal # Voids 1 Weight 89.5 kg In general patient is alert and oriented 3 in no apparent distress HEENT head normocephalic and atraumatic Neck is supple no JVD no goiter no lymphadenopathy Chest exam reveals tachypnea with scattered crackles in both lung ortega no wheezing Cardiac exam reveals tachycardia with S1 and S2 regular rhythm no gallops no murmurs Abdomen is soft nontender no organomegaly Extremity exam reveals no edema no cyanosis or clubbing Neurological examination reveals no focal deficit Skin exam reveals no open ulcers no rashes or ecchymoses Results CBC & Chem 7: 08/15/16 06:40 08/15/16 06:40 Labs: Abnormal Lab Results - Last 24 Hours (Table) 08/15/16 08/15/16 08/15/16 Range/Units 01:23 05:38 06:40 RBC 3.42 L (4.30-5.90) m/uL Hgb 10.2 L (13.0-17.5) gm/dL Hct 33.5 L (39.0-53.0) % MCHC 30.4 L (31.0-37.0) g/dL RDW 16.5 H (11.5-15.5) % Plt Count 112 L (150-450) k/uL Lymphocytes # 0.2 L (1.0-4.8) k/uL PT (9.0-12.0) sec APTT (22.0-30.0) sec Sodium (137-145) mmol/L Carbon Dioxide (22-30) mmol/L BUN (9-20) mg/dL Glucose (74-99) mg/dL POC Glucose (mg/dL) 152 H (75-99) mg/dL Total Creatine Kinase 52 L (55-170) U/L CK-MB (CK-2) 2.7 H* (0.0-2.4) ng/mL Troponin I 0.609 H* (0.000-0.034) ng/mL HDL Cholesterol (40-60) mg/dL 08/15/16 08/15/16 08/15/16 Range/Units 06:40 06:40 06:40 RBC (4.30-5.90) m/uL Hgb (13.0-17.5) gm/dL Hct (39.0-53.0) % MCHC (31.0-37.0) g/dL RDW (11.5-15.5) % Plt Count (150-450) k/uL Lymphocytes # (1.0-4.8) k/uL PT 14.5 H (9.0-12.0) sec APTT 43.4 H (22.0-30.0) sec Sodium 133 L (137-145) mmol/L Carbon Dioxide 17 L (22-30) mmol/L BUN 32 H (9-20) mg/dL Glucose 155 H (74-99) mg/dL POC Glucose (mg/dL) (75-99) mg/dL Total Creatine Kinase (55-170) U/L CK-MB (CK-2) 3.5 H* (0.0-2.4) ng/mL Troponin I 0.371 H* (0.000-0.034) ng/mL HDL Cholesterol 27 L (40-60) mg/dL Thrombosis Risk Factor Assmnt - Choose All That Apply Each Risk Factor Represents 2 Points: Age 61-74 years Other congenital or acquired thrombophilia - If yes, enter type in comment: No Thrombosis Risk Factor Assessment Total Risk Factor Score: 2 Thrombosis Risk Factor Assessment Level: Low Risk Assessment and Plan Plan: #1 acute hypoxic respiratory failure, pulse ox on presentation was 68% on room air, patient was started on nonrebreather mask and pulse ox was up to 99% Currently patient is on oxygen 6 L via nasal cannula and his pulse ox is 95%, patient was started on IV Solu-Medrol and inhaled bronchodilators #2 diffuse disease in both lung ortega possibly representing acute bronchitis with pneumonia, patient was started on IV Levaquin in the emergency room, will obtain sputum sample for culture and Gram stain pulmonary consultation has been requested #3 elevated troponin level patient denies any chest pain, he was started on IV heparin in the emergency room cardiology consultation has been requested #4 underlying history of lung cancer, awaiting consult from Dr. Cannon, to assess status of his malignancy. #5 hyponatremia on presentation improving with IV fluid #6 underlying history of hypertension well-controlled on current medications #7 underlying history of hyperlipidemia maintained on Lipitor and fenofibrate continue #8 elevated d-dimer with negative computed tomography scan of the chest without any evidence of pulmonary embolism #9 underlying history of benign prostatic hypertrophy maintained on Flomax continue Medication and labs were reviewed will continue was current management at this time will discuss case was cardiology pulmonary and oncology Prognosis is guarded due to history of lung cancer and evidence of diffuse disease on computed tomography scan will follow closely
[2016-08-15] MEDS: TAMSULOSIN 0.4 MG CAP.ER.24H PO SCH (09:37)
[2016-08-15] MEDS: ATORVASTATIN 40 MG TAB PO SCH (09:37)
[2016-08-15] MEDS: FENOFIBRATE 160 MG TAB PO SCH (09:37)
[2016-08-15] MEDS: MULTIVITAMINS, THERA 1 EACH TAB PO SCH (09:37)
[2016-08-15] MEDS: FOLIC ACID 1 MG TAB PO SCH (09:37)
[2016-08-15] MEDS: LISINOPRIL 10 MG TAB PO SCH (09:37)
[2016-08-15] MEDS: ATENOLOL 25 MG TAB PO SCH (09:38)
[2016-08-15] MEDS: FUROSEMIDE 10 MG/ML 4 ML VIAL IV SCH ×2 (10:03→20:38)
[2016-08-15 11:45] LABS: Glucose,Whole Blood 206 mg/dL (75-99)
--- NOTE | 2016-08-15 11:56 | ECHOF ---
Referral Reason:sob MEASUREMENTS -------- HEIGHT: 177.8 cm WEIGHT: 89.4 kg BP: 137/73 IVSd: 1.0 cm (0.6 - 1.1) LVIDd: 4.1 cm (3.9 - 5.3) LVPWd: 0.9 cm (0.6 - 1.1) IVSs: 1.4 cm LVIDs: 1.9 cm LVPWs: 1.4 cm Ao Diam: 3.2 cm (2.0 - 3.7) AV Cusp: 2.0 cm (1.5 - 2.6) LA Diam: 3.8 cm (2.7 - 3.8) MV EXCURSION: 15.965 mm (> 18.000) MV EF SLOPE: 88 mm/s (70 - 150) EPSS: 0.6 cm MV E Cb: 0.84 m/s MV DecT: 127 ms MV A Cb: 1.06 m/s MV E/A Ratio: 0.79 RAP: 5.00 mmHg RVSP: 60.11 mmHg FINDINGS -------- Sinus rhythm. This was a technically good study. There is mild concentric left ventricular hypertrophy. Overall left ventricular systolic function is normal with, an EF between 55 - 60 %. The right ventricle is normal in size and function. The left atrium is normal in size. The right atrium is normal in size. Aortic valve is trileaflet and is mildly thickened. The mitral valve leaflets are mildly thickened. Mild mitral regurgitation is present. Moderate tricuspid regurgitation present. There is moderate pulmonary hypertension. The right ventricular systolic pressure, as measured by Doppler, is 60.11mmHg. Pulmonic valve appears structurally normal. The aortic root size is normal. The pericardium is normal. CONCLUSIONS -------- 1. Sinus rhythm. 2. Mild mitral regurgitation is present. 3. Moderate tricuspid regurgitation present. 4. There is moderate pulmonary hypertension. 5. The right ventricular systolic pressure, as measured by Doppler, is 60.11mmHg. 6. Pulmonic valve appears structurally normal. 7. The aortic root size is normal. 8. The pericardium is normal. 9. This was a technically good study. 10. There is mild concentric left ventricular hypertrophy. 11. Overall left ventricular systolic function is normal with, an EF between 55 - 60 %. 12. The right ventricle is normal in size and function. 13. The left atrium is normal in size. 14. The right atrium is normal in size. 15. Aortic valve is trileaflet and is mildly thickened. 16. The mitral valve leaflets are mildly thickened. DINKEY OPERATOR SLAG: Jennifer Duque RDCS
--- NOTE | 2016-08-15 14:52 | P.CNPUL ---
History of Present Illness Consult date: 08/15/16 Requesting physician: Aracely Sapp Reason for consult: abnormal CXR/CT Chief complaint: Worsening shortness of breath History of present illness: This is a 71-year-old white male with history of small cell lung cancer which was diagnosed by CT-guided biopsy in January of 2016. Patient underwent radiation treatment and chemotherapy given to him by Dr. Cannon. Patient also underwent prophylactic brain radiation, and he was maintained on oxygen until recently. In June of 2016, patient continued to have residual tumor in the left lung, that did not improve much with radiation, hence the patient was referred to see Dr. Baron at [facility], and he underwent thoracotomy and wedge resection of the residual presumptively small cell lung cancer. However the patient was told that the biopsy report came back showing no evidence of active cancer in the lung tissue that was removed. His postoperative course was relatively uneventful, and going back to x-rays in the last 6 months, on his x-rays were showing that left lung mass, but none of them showed any significant urinary fibrosis or interstitial lung disease. Patient is known to be have history of rheumatoid arthritis, and he was on methotrexate until January of 2016 which was discontinued at the time he was receiving chemotherapy and radiation therapy. At any rate patient did relatively well post surgery in June of 2016, and he even went to visit family in [place]. While there, the patient developed increased shortness of breath, and he was taken to the [place] clinic where in he was noted to be hypoxemic, and a chest x-ray was significantly abnormal showing diffuse interstitial type of lung disease. Patient was told that he needs to be referred to a tertiary care center but he declined, and family decided to bring him back to [facility]. Patient was admitted yesterday with a picture of acute on chronic hypoxic respiratory failure and significantly abnormal CT of the chest showing diffuse severe pulmonary disease, much worse compared to 05/13/2016, consistent with diffuse interstitial and airspace lung parenchymal disease throughout both lungs including cicatrizing changes with pleural parenchymal thickening in the left lung base posterolaterally. However there is interval resolution of the previously noted 2.8 cm mass in the left upper lobe apical segment which apparently was recently removed by Dr. Baron at [facility]. Of course after reviewing the CT of the chest, the differential diagnoses would definitely include radiation type of pneumonitis, nonspecific interstitial pneumonitis related to rheumatoid arthritis, or underlying connective tissue disease, lymphangitic carcinomatosis, acute pneumonitis and congestive heart failure will be all considered in the picture of differential diagnosis. Today I have recommended that to retrieve the last biopsy report which was done at [facility] to determine what was actually read on the lung tissue which was obtained from thoracoscopic wedge resection of the left upper lobe abnormality. That by itself alone may give us an answer of what's happening in the lung parenchyma at this point. In the meantime the patient will be treated with antibiotics, steroids, and I will seriously consider bronchoscopy and transbronchial biopsy, however the patient is not the most ideal candidate for biopsy, he will likely desaturate significantly up on IV conscious sedation. Hence I proceeded. Empiric treatment for now with steroids and antibiotics. And closely follow up the chest x-ray changes over the next few days. Review of Systems Constitutional: Weight loss, no fever, no chills. No aches and pains. HEENT: Negative Pulmonary: Shortness of breath minimal dry hacking cough, no hemoptysis and no chest pain. Cardiac: Denies any chest pain, no palpitations, no symptoms to suggest angina. GI: No nausea no vomiting no abdominal pain no melena no hematemesis. Genitourinary: No hematuria dysuria frequency urgency. Neurologic: No headache, no blurred vision, no dizziness, patient had previous history of alcohol brain irradiation after the diagnosis of small cell lung cancer was made. Hematologic/oncologic: History of small cell lung cancer Rheumatologic: History of rheumatoid arthritis. Patient has been on treatment until January of 2017. Using methotrexate. Past Medical History Past Medical History: Cancer, Hyperlipidemia, Myocardial Infarction ([place]), Pneumonia, Prostate Disorder, Rheumatoid Arthritis ([place]) Additional Past Medical History / Comment(s): Lung CA- currently undergoing tx Last Myocardial Infarction Date:: 2003 History of Any Multi-Drug Resistant Organisms: None Reported Past Surgical History: Heart Catheterization With Stent Additional Past Surgical History / Comment(s): cardiac stents x2 Past Anesthesia/Blood Transfusion Reactions: No Reported Reaction Date of Last Stent Placement:: 05/07/03 Past Psychological History: Anxiety Additional Psychological History / Comment(s): anxiety related to health issues Smoking Status: Former smoker Past Alcohol Use History: Occasional Past Drug Use History: None Reported - Past Family History Father Family Medical History: Cancer Medications and Allergies Home Medications Medication Instructions Recorded Confirmed Type Atenolol [Tenormin] 25 mg PO DAILY 02/10/14 08/14/16 History Folic Acid 1 mg PO DAILY 02/10/14 08/14/16 History Lisinopril [Zestril] 10 mg PO DAILY 02/10/14 08/14/16 History Tamsulosin [Flomax] 0.4 mg PO DAILY 02/10/14 08/14/16 History Atorvastatin Calcium [Lipitor] 40 mg PO DAILY 08/14/16 08/14/16 History Fenofibrate Nanocrystallized 145 mg PO DAILY 08/14/16 08/14/16 History [Tricor] Multivitamins, Thera [Multivitamin 1 tab PO DAILY 08/14/16 08/14/16 History (formulary)] Omeprazole 20 mg PO DAILY 08/14/16 08/14/16 History Tadalafil [Cialis] 20 mg PO DAILY PRN 08/14/16 08/14/16 History Allergies Allergy/AdvReac Type Severity Reaction Status Date / Time Sulfa (Sulfonamide Allergy Rash/Hives Verified 08/14/16 19:04 Antibiotics) Physical Exam Vitals: Vital Signs Temp Pulse Pulse Resp BP BP Pulse Ox 08/15/16 11:51 72 18 110/60 92 L 08/15/16 11:16 90 08/15/16 11:01 90 08/15/16 08:00 98 F 96 18 115/64 90 L 08/15/16 07:36 90 08/15/16 07:23 88 08/15/16 07:22 95 08/15/16 04:19 90 08/15/16 04:09 80 95 08/15/16 04:00 97.4 F L 80 20 137/73 96 08/15/16 00:10 97.4 F L 95 88 18 133/73 108/57 96 08/14/16 23:01 98.1 F 96 20 130/65 93 L Intake and Output 08/14/16 08/15/16 08/15/16 22:59 06:59 14:59 Intake Total 299.92 236 Output Total 400 500 Balance -100.08 -264 Intake: IV 299.92 0.9 @20mls/hr 120 Heparin Sodium,Porcine/ 79.92 D5w Pmx 25,000 unit In Dextrose/Water 1 500ml. bag @ 11.3 UNITS/KG/HR 19 .98 mls/hr IV .Q24H [facility] Rx#:[id number] Levofloxacin 750Mg-D5w 100 Pmx 750 mg In Dextrose/ Water 1 150ml.bag @ 100 mls/hr IVPB HS [facility] Rx#: [id number] Oral 236 Output: Urine 400 500 Other: Voiding Method Urinal # Voids 1 Weight 89.5 kg Physical Exam: Revealed a 71-year-old white male, frail looking, chronically ill , pale, in mild respiratory distress. HEENT:[Neck is supple.] [No neck masses.] [No thyromegaly.] [No JVD.] Chest: [Rectal that the bases bilaterally. No wheezes noted.] Cardiac Exam: [Normal S1 and S2, no S3 gallop, no murmur.] Abdomen: [Soft, nontender, no megaly, no rebound, no guarding, normal bowel sounds.] Extremities: [No clubbing, no edema, no cyanosis.] Neurological Exam: [No focal neurologic deficit.] Lymphatics: No evidence of lymphadenopathy noted. Skin: No evidence of rashes or ecchymosis, no open ulcers. Results - Laboratory Findings CBC and BMP: 08/15/16 06:40 08/15/16 06:40 PT/INR, D-dimer PT 14.5 sec (9.0-12.0) H 08/15/16 06:40 INR 1.5 (<1.1) 08/15/16 06:40 D-Dimer 3.04 mg/L FEU (<0.60) H 08/14/16 19:38 Abnormal lab findings: Abnormal Labs 08/15/16 08/15/16 08/15/16 01:23 05:38 06:40 RBC 3.42 L Hgb 10.2 L Hct 33.5 L MCHC 30.4 L RDW 16.5 H Plt Count 112 L Lymphocytes # 0.2 L PT APTT Sodium Carbon Dioxide BUN Glucose POC Glucose (mg/dL) 152 H Total Creatine Kinase 52 L CK-MB (CK-2) 2.7 H* Troponin I 0.609 H* HDL Cholesterol 08/15/16 08/15/16 08/15/16 06:40 06:40 06:40 RBC Hgb Hct MCHC RDW Plt Count Lymphocytes # PT 14.5 H APTT 43.4 H Sodium 133 L Carbon Dioxide 17 L BUN 32 H Glucose 155 H POC Glucose (mg/dL) Total Creatine Kinase CK-MB (CK-2) 3.5 H* Troponin I 0.371 H* HDL Cholesterol 27 L 08/15/16 11:43 RBC Hgb Hct MCHC RDW Plt Count Lymphocytes # PT APTT Sodium Carbon Dioxide BUN Glucose POC Glucose (mg/dL) 206 H Total Creatine Kinase CK-MB (CK-2) Troponin I HDL Cholesterol - Diagnostic Findings Chest x-ray: image reviewed CT scan - chest: image reviewed (Agree with reading as per radiology.) Assessment and Plan Plan: Impression: 1 acute on chronic hypoxic respiratory failure secondary to severe interstitial and parenchymal lung disease. Differential diagnoses includes lymphangitic carcinomatosis, radiation pneumonitis which is unusual considering the patient had only radiation to the left upper lobe area only. Infection, and interstitial lung disease including UIP and NSIp/rheumatoid lungs. Atypical pulmonary edema 2 history of coronary artery disease and previous stent placement 3 abnormal troponins not consistent with acute coronary syndrome 4 history of small cell lung cancer with recent chemotherapy radiation therapy and recent wedge resection of the left upper lobe 5 history of rheumatoid arthritis 6 history of hyperlipidemia 7 abnormal liver enzymes, etiology is not clear at this point, could be secondary to passive congestion. However recommend ultrasound of the liver and further workup if liver enzymes persists to be elevated. Recommendation: Keep patient on antibiotics and steroids, continue diuretics, retrieve recent pathology report from [facility], apparently the patient had wedge resection of the left upper lobe mass, and that may give us a clue as to what is going on in the background on the biopsy. I would definitely consider bronchoscopy, BAL, and transbronchial lung biopsy of this patient, however the patient seems to be quite frail and ill, I'm afraid he may not be able to tolerate such procedure. Discussed my findings and recommendation with the family and with the patient at bedside. All their questions were answered, and we'll continue to follow. I'm hoping we could get the report from [facility] which was supposedly in June of 2016. Time with Patient: Greater than 30
[2016-08-15 16:51] LABS: Glucose,Whole Blood 166 mg/dL (75-99)
[2016-08-15 20:49] LABS: Glucose,Whole Blood 153 mg/dL (75-99)
--- NOTE | 2016-08-15 20:58 | P.CONS ---
History of Present Illness - Reason for Consult Consult date: 08/15/16 - History of Present Illness Mr Worthington is a pleasant WM, who had a screening low dose lung Ct based on smoking, on 01/20/16. This revealed a 5.8 x5.4 cm rounded soft tissue mass in the LLL, abutting the posteromedial pleural surface. Boderline nodes in the mediastinum were noted, the largest 9mm in the subcarinal region. He was thus referred here for further evaluation and recommendations. He denied any associated respiratory symptoms. A PET scan was done showing uptake only in the mass. CT guided biopsy on 02/13 was positive for small cell lung cancer. PET scan showed disease limited only to the lung. He was started on concurrent chemoRT, with a plan to consider surgery ( despite the histology) based on the lung limited stage, if he responded well He had cycle 1 with [employer] 16 and cisplatin. He developed MARKOS, with improvement with hydration. Thus he was changed to Carbo for cycle2. He is s/p 4 cycles of chemo, completing those by 05/04/16. He completed RT on 04/03/16. Repeat PET scan showed decrease in size of the mass to 2.8 cm, with SUV of 5.2 He was referred for a surgical evaluation and had a lobectomy with node sampling on 06/27/16. This revealed a necrotic mass with no viable tumor, and 0/ 12 nodes involved. He did well post surgery and proceeded to PCI completing that on 07/28/16 The pt presented to the ER with c/o progressive SOB since the past 7-8 days. He denied any cough/fever or chills. CTA of the chest and CXR were reviewed. He was found to have extensive interstitial changes. He was therefore admitted for further management. Consult was placed for further evaluation. Review of Systems Constitutional: Reports fatigue, Reports weakness Eyes: denies blurred vision, denies pain Ears: deny: decreased hearing, ear discharge, earache, tinnitus Ears, nose, mouth and throat: Denies headache, Denies sore throat Cardiovascular: Reports shortness of breath Respiratory: Reports as per HPI, Reports dyspnea Gastrointestinal: Denies abdominal pain, Denies diarrhea, Denies nausea, Denies vomiting Genitourinary: Reports as per HPI Musculoskeletal: Reports hot joints (h/o RA- currently in remission) Integumentary: Denies pruritus, Denies rash Neurological: Reports weakness Psychiatric: Denies anxiety, Denies depression Endocrine: Reports fatigue Hematologic/Lymphatic: Reports as per HPI Past Medical History Past Medical History: Cancer, Hyperlipidemia, Myocardial Infarction ([place]), Pneumonia, Prostate Disorder, Rheumatoid Arthritis ([place]) Additional Past Medical History / Comment(s): Lung CA- currently undergoing tx Last Myocardial Infarction Date:: 2003 History of Any Multi-Drug Resistant Organisms: None Reported Past Surgical History: Heart Catheterization With Stent Additional Past Surgical History / Comment(s): cardiac stents x2 Past Anesthesia/Blood Transfusion Reactions: No Reported Reaction Date of Last Stent Placement:: 05/07/03 Past Psychological History: Anxiety Additional Psychological History / Comment(s): anxiety related to health issues Smoking Status: Former smoker Past Alcohol Use History: Occasional Past Drug Use History: None Reported - Past Family History Father Family Medical History: Cancer Medications and Allergies Home Medications Medication Instructions Recorded Confirmed Type Atenolol [Tenormin] 25 mg PO DAILY 02/10/14 08/14/16 History Folic Acid 1 mg PO DAILY 02/10/14 08/14/16 History Lisinopril [Zestril] 10 mg PO DAILY 02/10/14 08/14/16 History Tamsulosin [Flomax] 0.4 mg PO DAILY 02/10/14 08/14/16 History Atorvastatin Calcium [Lipitor] 40 mg PO DAILY 08/14/16 08/14/16 History Fenofibrate Nanocrystallized 145 mg PO DAILY 08/14/16 08/14/16 History [Tricor] Multivitamins, Thera [Multivitamin 1 tab PO DAILY 08/14/16 08/14/16 History (formulary)] Omeprazole 20 mg PO DAILY 08/14/16 08/14/16 History Tadalafil [Cialis] 20 mg PO DAILY PRN 08/14/16 08/14/16 History Allergies Allergy/AdvReac Type Severity Reaction Status Date / Time Sulfa (Sulfonamide Allergy Rash/Hives Verified 08/14/16 19:04 Antibiotics) Physical Exam Vitals: Vital Signs Temp Pulse Pulse Resp BP BP Pulse Ox 08/15/16 15:43 18 92 L 08/15/16 15:41 96 18 89/55 88 L 08/15/16 15:35 92 08/15/16 15:21 90 08/15/16 11:51 72 18 110/60 92 L 08/15/16 11:16 90 08/15/16 11:01 90 08/15/16 08:00 98 F 96 18 115/64 90 L 08/15/16 07:36 90 08/15/16 07:23 88 08/15/16 07:22 95 08/15/16 04:19 90 08/15/16 04:09 80 95 08/15/16 04:00 97.4 F L 80 20 137/73 96 08/15/16 00:10 97.4 F L 95 88 18 133/73 108/57 96 08/14/16 23:01 98.1 F 96 20 130/65 93 L Intake and Output 08/15/16 08/15/16 08/15/16 06:59 14:59 22:59 Intake Total 299.92 496 Output Total 400 500 Balance -100.08 -4 Intake: IV 299.92 0.9 @20mls/hr 120 Heparin Sodium,Porcine/ 79.92 D5w Pmx 25,000 unit In Dextrose/Water 1 500ml. bag @ 11.3 UNITS/KG/HR 19 .98 mls/hr IV .Q24H [facility] Rx#:[id number] Levofloxacin 750Mg-D5w 100 Pmx 750 mg In Dextrose/ Water 1 150ml.bag @ 100 mls/hr IVPB HS [facility] Rx#: [id number] Oral 496 Output: Urine 400 500 Other: Voiding Method Urinal # Voids 1 Weight 89.5 kg - Constitutional General appearance: mild distress - EENT Eyes: EOMI, PERRLA ENT: hearing grossly normal, normal oropharynx - Neck Neck: no lymphadenopathy Thyroid: bilateral: normal size - Respiratory Respiratory: bilateral: rales (mild, fine) - Cardiovascular Rhythm: regular Heart sounds: normal: S1, S2 - Gastrointestinal General gastrointestinal: normal bowel sounds, soft - Integumentary Integumentary: normal - Neurologic Neurologic: CNII-XII intact - Musculoskeletal Musculoskeletal: strength equal bilaterally - Psychiatric Psychiatric: A&O x's 3, appropriate affect Results CBC & Chem 7: 08/15/16 06:40 08/15/16 06:40 Labs: Abnormal Lab Results - Last 24 Hours (Table) 08/15/16 08/15/16 08/15/16 Range/Units 01:23 05:38 06:40 RBC 3.42 L (4.30-5.90) m/uL Hgb 10.2 L (13.0-17.5) gm/dL Hct 33.5 L (39.0-53.0) % MCHC 30.4 L (31.0-37.0) g/dL RDW 16.5 H (11.5-15.5) % Plt Count 112 L (150-450) k/uL Lymphocytes # 0.2 L (1.0-4.8) k/uL PT (9.0-12.0) sec APTT (22.0-30.0) sec Sodium (137-145) mmol/L Carbon Dioxide (22-30) mmol/L BUN (9-20) mg/dL Glucose (74-99) mg/dL POC Glucose (mg/dL) 152 H (75-99) mg/dL Total Creatine Kinase 52 L (55-170) U/L CK-MB (CK-2) 2.7 H* (0.0-2.4) ng/mL Troponin I 0.609 H* (0.000-0.034) ng/mL HDL Cholesterol (40-60) mg/dL 08/15/16 08/15/16 08/15/16 Range/Units 06:40 06:40 06:40 RBC (4.30-5.90) m/uL Hgb (13.0-17.5) gm/dL Hct (39.0-53.0) % MCHC (31.0-37.0) g/dL RDW (11.5-15.5) % Plt Count (150-450) k/uL Lymphocytes # (1.0-4.8) k/uL PT 14.5 H (9.0-12.0) sec APTT 43.4 H (22.0-30.0) sec Sodium 133 L (137-145) mmol/L Carbon Dioxide 17 L (22-30) mmol/L BUN 32 H (9-20) mg/dL Glucose 155 H (74-99) mg/dL POC Glucose (mg/dL) (75-99) mg/dL Total Creatine Kinase (55-170) U/L CK-MB (CK-2) 3.5 H* (0.0-2.4) ng/mL Troponin I 0.371 H* (0.000-0.034) ng/mL HDL Cholesterol 27 L (40-60) mg/dL 08/15/16 08/15/16 Range/Units 11:43 16:48 RBC (4.30-5.90) m/uL Hgb (13.0-17.5) gm/dL Hct (39.0-53.0) % MCHC (31.0-37.0) g/dL RDW (11.5-15.5) % Plt Count (150-450) k/uL Lymphocytes # (1.0-4.8) k/uL PT (9.0-12.0) sec APTT (22.0-30.0) sec Sodium (137-145) mmol/L Carbon Dioxide (22-30) mmol/L BUN (9-20) mg/dL Glucose (74-99) mg/dL POC Glucose (mg/dL) 206 H 166 H (75-99) mg/dL Total Creatine Kinase (55-170) U/L CK-MB (CK-2) (0.0-2.4) ng/mL Troponin I (0.000-0.034) ng/mL HDL Cholesterol (40-60) mg/dL Chest x-ray: report reviewed CT scan - chest: report reviewed Assessment and Plan (1) Acute respiratory failure Narrative/Plan: The pt's symptoms are fairly acute in onset. with CTA showing new interstitial changes. The 2 main differentials in my opinion would be radiation pneumonitis vs infection. Case d/w IM. He is on steroids, O2 , breathing treatments and levaquin, which would cover both of these. Risk of atypical infections is not very high, as he has been off chemo for some months, and was not on prolonged steroids. Pulmonary consultation is pending. If he does not improve with the above, I would discuss with them re bronchoscopy Case d/w Rheumatology. He has been off methotrexate for some months. Thus methotrexate toxicity is unlikely. Rheumatoid involvement of the lung is also unlikely based on the acute presentation. Status: Acute (2) Elevated troponin Narrative/Plan: Case d/w Cardiology. A major ischemic event is not suspected, with the mild troponin leak felt to be due to hypoxia Status: Acute
[2016-08-15] MEDS ORDERED: LEVOFLOXACIN 750MG-D5W PMX 750 MG in DEXTROSE/WATER 1 150ML.BAG IVPB SCH (21:00)
[2016-08-16 05:43] LABS: Glucose,Whole Blood 104 mg/dL (75-99)
[2016-08-16] MEDS: INSULIN LISPRO (humaLOG) 300 UNIT/3 ML VIAL SQ SCH ×4 (06:31→21:40)
[2016-08-16] MEDS: PANTOPRAZOLE 40 MG TABLET PO SCH (06:31)
[2016-08-16 06:55] LABS: Anisocytosis Slight; Basophils % (A) 0 %; CH 29.4; CHCM 31.2; Eosinophils % (A) 0 %; HCT 31.6 % (39.0-53.0); HDW 2.64; HGB 9.7 gm/dL (13.0-17.5); Hypochromasia Slight; Luc # (Auto) 0.06; Luc % (Auto) 1; Lymphocytes # (A) 0.3 k/uL (1.0-4.8); Lymphocytes % (A) 3 %; MCH 29.1 pg (25.0-35.0); MCHC 30.8 g/dL (31.0-37.0); MCV 94.4 fL (80.0-100.0); Monocytes # (A) 0.2 k/uL (0-1.0); Monocytes % (A) 3 %; Neutrophils # (A) 8.3 k/uL (1.3-7.7); Neutrophils % (A) 93 %; RBC 3.35 m/uL (4.30-5.90); RDW 17.1 % (11.5-15.5); WBC 8.9 k/uL (3.8-10.6); WBC (Perox) 9.25
--- NOTE | 2016-08-16 08:19 | XR ---
EXAMINATION TYPE: XR chest 1V portable DATE OF EXAM: 08/16/2016 7:19 AM COMPARISON: Prior chest x-ray 14 February 2016 HISTORY: Pneumonitis, interstitial lung disease TECHNIQUE: Single frontal view of the chest is obtained. FINDINGS: Interstitial changes are somewhat more conspicuous as compared to prior exam bilaterally. There is obscured left hemidiaphragm and heart border, airspace disease suspected. No evident pneumot horax. Patient is rotated. Heart is likely enlarged. There are overlying cardiac leads. IMPRESSION: Findings may be due to interstitial lung disease, difficult to exclude pneumonia, associ ated airspace disease. Cardiomegaly. Prominence of the left hilum seen on prior exam is obscured, exa m is limited, follow-up is recommended
[2016-08-16] MEDS: IPRATROPIUM-ALBUTEROL 3 ML NEB INHALATION SCH ×4 (09:03→20:41)
[2016-08-16] MEDS: BUDESONIDE 0.5 MG/2 ML NEBU INHALATION SCH ×2 (09:03→20:41)
[2016-08-16] MEDS: IPRATROPIUM-ALBUTEROL 3 ML NEB INHALATION PRN (09:03)
[2016-08-16] MEDS: ATENOLOL 25 MG TAB PO SCH (09:11)
[2016-08-16] MEDS: ASPIRIN 81 MG CHEW PO SCH (09:11)
[2016-08-16] MEDS: FUROSEMIDE 10 MG/ML 4 ML VIAL IV SCH ×2 (09:12→20:52)
[2016-08-16] MEDS: FENOFIBRATE 160 MG TAB PO SCH (09:12)
[2016-08-16] MEDS: LISINOPRIL 10 MG TAB PO SCH (09:12)
[2016-08-16] MEDS: FOLIC ACID 1 MG TAB PO SCH (09:12)
[2016-08-16] MEDS: ATORVASTATIN 40 MG TAB PO SCH (09:12)
[2016-08-16] MEDS: TAMSULOSIN 0.4 MG CAP.ER.24H PO SCH (09:13)
[2016-08-16] MEDS: MULTIVITAMINS, THERA 1 EACH TAB PO SCH (09:13)
[2016-08-16] MEDS: methylPREDNISolone SOD SUCCI 125 MG/2 ML VIAL IV SCH ×4 (09:13→20:53)
[2016-08-16 12:35] LABS: Glucose,Whole Blood 104 mg/dL (75-99)
--- NOTE | 2016-08-16 12:40 | P.PN ---
Subjective Principal diagnosis: interstitial pneumonitis and hypoxic respiratory failure acte on chronic. 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 Patient underwent radiation treatment and chemotherapy given to him by Dr. Cannon. Patient also underwent prophylactic brain radiation, and he was maintained on oxygen until recently. In June of 2016, patient continued to have residual tumor in the left lung, that did not improve much with radiation, hence the patient was referred to see Dr. Baron at [facility], and he underwent thoracotomy and wedge resection of the residual presumptively small cell lung cancer. However the patient was told that the biopsy report came back showing no evidence of active cancer in the lung tissue that was removed. His postoperative course was relatively uneventful, and going back to x-rays in the last 6 months, on his x-rays were showing that left lung mass, but none of them showed any significant urinary fibrosis or interstitial lung disease. Patient is known to be have history of rheumatoid arthritis, and he was on methotrexate until January of 2016 which was discontinued at the time he was receiving chemotherapy and radiation therapy. At any rate patient did relatively well post surgery in June of 2016, and he even went to visit family in [place]. While there, the patient developed increased shortness of breath, and he was taken to the [place] [facility] where in he was noted to be hypoxemic, and a chest x-ray was significantly abnormal showing diffuse interstitial type of lung disease. Patient was told that he needs to be referred to a tertiary care center but he declined, and family decided to bring him back to [facility]. Patient was admitted yesterday with a picture of acute on chronic hypoxic respiratory failure and significantly abnormal CT of the chest showing diffuse severe pulmonary disease, much worse compared to 05/13/2016, consistent with diffuse interstitial and airspace lung parenchymal disease throughout both lungs including cicatrizing changes with pleural parenchymal thickening in the left lung base posterolaterally. However there is interval resolution of the previously noted 2.8 cm mass in the left upper lobe apical segment which apparently was recently removed by Dr. Baron at [facility]. Of course after reviewing the CT of the chest, the differential diagnoses would definitely include radiation type of pneumonitis, nonspecific interstitial pneumonitis related to rheumatoid arthritis, or underlying connective tissue disease, lymphangitic carcinomatosis, acute pneumonitis and congestive heart failure will be all considered in the picture of differential diagnosis. Today I have recommended that to retrieve the last biopsy report which was done at [facility] to determine what was actually read on the lung tissue which was obtained from thoracoscopic wedge resection of the left upper lobe abnormality. That by itself alone may give us an answer of what's happening in the lung parenchyma at this point. In the meantime the patient will be treated with antibiotics, steroids, and I will seriously consider bronchoscopy and transbronchial biopsy, however the patient is not the most ideal candidate for biopsy, he will likely desaturate significantly up on IV conscious sedation. Hence I proceeded. Empiric treatment for now with steroids and antibiotics. And closely follow up the chest x-ray changes over the next few days. Patient was reevaluated today on 09/12/2016, feeling better breathing a bit easier, patient again is on combination of steroids, antibiotics, and diuretics. no official pathology report noted from [facility], family stated that Dr. Cannon has the official pathology report, in his note he mentioned mostly findings of necrotic tissue, but I would like to look at the report in more details to see if there is any other background of pulmonary fibrosis or interstitial findings. at any rate patient remains on high flow nasal cannula about 8 L, clearly not the most ideal candidate to consider for bronchoscopy and biopsy at this point, but that could be considered however the patient may have to be done while he is on mechanical ventilation. I have a strong feeling that the patient will desaturate significantly upon initiation of IV conscious sedation. clinically however, the patient is feeling better, and I felt it is best to continue present supportive care measures and medications as listed although we have no specific dianoses at this point. Objective - Vital Signs Vital signs: Vital Signs Temp 96 F L 08/16/16 08:00 Pulse 93 08/16/16 12:00 Resp 16 08/16/16 12:00 BP 110/66 08/16/16 12:00 Pulse Ox 95 08/16/16 12:00 Intake & Output 08/15/16 08/16/16 08/16/16 18:59 06:59 18:59 Intake Total 496 300 200 Output Total 500 2700 Balance -4 -2400 200 Weight 87.5 kg Intake: IV 300 0.9 @20mls/hr 200 Levofloxacin 750Mg-D5w 100 Pmx 750 mg In Dextrose/ Water 1 150ml.bag @ 100 mls/hr IVPB HS [facility] Rx#: [id number] Oral 496 200 Output: Urine 500 2700 Other: Voiding Method Urinal Urinal - Exam Physical Exam: Revealed a 71-year-old white male, frail looking, chronically ill , pale, in mild respiratory distress. HEENT:[Neck is supple.] [No neck masses.] [No thyromegaly.] [No JVD.] Chest: [Rectal that the bases bilaterally. No wheezes noted.] Cardiac Exam: [Normal S1 and S2, no S3 gallop, no murmur.] Abdomen: [Soft, nontender, no megaly, no rebound, no guarding, normal bowel sounds.] Extremities: [No clubbing, no edema, no cyanosis.] Neurological Exam: [No focal neurologic deficit.] Lymphatics: No evidence of lymphadenopathy noted. Skin: No evidence of rashes or ecchymosis, no open ulcers. - Labs CBC & Chem 7: 08/16/16 05:54 08/15/16 06:40 Labs: Abnormal Lab Results - Last 24 Hours (Table) 08/15/16 08/15/16 08/16/16 Range/Units 16:48 20:48 05:42 RBC (4.30-5.90) m/uL Hgb (13.0-17.5) gm/dL Hct (39.0-53.0) % MCHC (31.0-37.0) g/dL RDW (11.5-15.5) % Plt Count (150-450) k/uL Neutrophils # (1.3-7.7) k/uL Lymphocytes # (1.0-4.8) k/uL POC Glucose (mg/dL) 166 H 153 H 104 H (75-99) mg/dL 08/16/16 08/16/16 Range/Units 05:54 12:33 RBC 3.35 L (4.30-5.90) m/uL Hgb 9.7 L (13.0-17.5) gm/dL Hct 31.6 L (39.0-53.0) % MCHC 30.8 L (31.0-37.0) g/dL RDW 17.1 H (11.5-15.5) % Plt Count 111 L (150-450) k/uL Neutrophils # 8.3 H (1.3-7.7) k/uL Lymphocytes # 0.3 L (1.0-4.8) k/uL POC Glucose (mg/dL) 104 H (75-99) mg/dL Assessment and Plan Plan: Impression: 1 acute on chronic hypoxic respiratory failure secondary to severe interstitial and parenchymal lung disease. Differential diagnoses includes lymphangitic carcinomatosis, radiation pneumonitis which is unusual considering the patient had only radiation to the left upper lobe area only. Infection, and interstitial lung disease including UIP and NSIp/rheumatoid lungs. Atypical pulmonary edema 2 history of coronary artery disease and previous stent placement 3 abnormal troponins not consistent with acute coronary syndrome 4 history of small cell lung cancer with recent chemotherapy radiation therapy and recent wedge resection of the left upper lobe 5 history of rheumatoid arthritis 6 history of hyperlipidemia 7 abnormal liver enzymes, etiology is not clear at this point, could be secondary to passive congestion. However recommend ultrasound of the liver and further workup if liver enzymes persists to be elevated. Recommendation: Keep patient on antibiotics and steroids, continue diuretics, retrieve recent pathology report from [facility], apparently the patient had wedge resection of the left lower lobe mass and that may give us a clue as to what is going on in the background on the biopsy. I would definitely consider bronchoscopy, BAL, and transbronchial lung biopsy of this patient, however the patient seems to be quite frail and ill, I'm afraid he may not be able to tolerate such procedure. Discussed my findings and recommendation with the family and with the patient at bedside. All their questions were answered, and we'll continue to follow. I'm hoping we could get the report from [facility] which was supposedly in June of 2016. Time with Patient: Less than 30
--- NOTE | 2016-08-16 13:38 | P.PN ---
Subjective Principal diagnosis: Acute on chronic hypoxic respiratory failure Patient is a 71-year-old male with known history of lung cancer who underwent left lower lobe resection and underwent radiation and chemotherapy in January 2016 and subsequently had prophylactic brain radiation, patient was maintained on home oxygen until recently, he discontinued using home oxygen and went to [place] for a family member graduation, he states that he was doing worse he was unable to sleep and was developing worsening shortness of breath, his [id number] is working on a base and patient was [place] to a [place] [facility] he was told that his oxygen with saturation was very low in the 70 % He was told he could not be treated in the [place] because he was not in the he was offered to be transferred to a regular hospital however patient decided to be discharged and decided to drive back with his and his daughter back to [place], patient is well known to Dr. Cannon, he presented to emergency room at [facility] his oxygen saturation was low d- dimer was significantly elevated and troponin level was elevated at 0.58, patient was started on IV heparin and was admitted to telemetry floor computed tomography scan of the chest was negative for pulmonary embolism, oncology consultation pulmonary consultation and cardiology consultation were initiated, computed tomography scan revealed patchy infiltrates in both lungs and patient was started on IV Levaquin in the emergency room. Since yesterday patient reports improvement in his shortness of breath he denies any new symptoms at this Objective - Vital Signs Vital signs: Vital Signs Temp 96 F L 08/16/16 08:00 Pulse 102 H 08/16/16 13:19 Resp 16 08/16/16 12:00 BP 110/66 08/16/16 12:00 Pulse Ox 95 08/16/16 12:00 Intake & Output 08/15/16 08/16/16 08/16/16 18:59 06:59 18:59 Intake Total 496 300 200 Output Total 500 2700 Balance -4 -2400 200 Weight 87.5 kg Intake: IV 300 0.9 @20mls/hr 200 Levofloxacin 750Mg-D5w 100 Pmx 750 mg In Dextrose/ Water 1 150ml.bag @ 100 mls/hr IVPB HS [facility] Rx#: [id number] Oral 496 200 Output: Urine 500 2700 Other: Voiding Method Urinal Urinal - Exam In general patient is alert and oriented 3 in no apparent distress HEENT head normocephalic and atraumatic Neck is supple no JVD no goiter no lymphadenopathy Chest exam reveals tachypnea with scattered crackles in both lung ortega no wheezing Cardiac exam reveals tachycardia with S1 and S2 regular rhythm no gallops no murmurs Abdomen is soft nontender no organomegaly Extremity exam reveals no edema no cyanosis or clubbing Neurological examination reveals no focal deficit Skin exam reveals no open ulcers no rashes or ecchymoses - Labs CBC & Chem 7: 08/16/16 05:54 08/15/16 06:40 Labs: Abnormal Lab Results - Last 24 Hours (Table) 08/15/16 08/15/16 08/16/16 Range/Units 16:48 20:48 05:42 RBC (4.30-5.90) m/uL Hgb (13.0-17.5) gm/dL Hct (39.0-53.0) % MCHC (31.0-37.0) g/dL RDW (11.5-15.5) % Plt Count (150-450) k/uL Neutrophils # (1.3-7.7) k/uL Lymphocytes # (1.0-4.8) k/uL POC Glucose (mg/dL) 166 H 153 H 104 H (75-99) mg/dL 08/16/16 08/16/16 Range/Units 05:54 12:33 RBC 3.35 L (4.30-5.90) m/uL Hgb 9.7 L (13.0-17.5) gm/dL Hct 31.6 L (39.0-53.0) % MCHC 30.8 L (31.0-37.0) g/dL RDW 17.1 H (11.5-15.5) % Plt Count 111 L (150-450) k/uL Neutrophils # 8.3 H (1.3-7.7) k/uL Lymphocytes # 0.3 L (1.0-4.8) k/uL POC Glucose (mg/dL) 104 H (75-99) mg/dL Assessment and Plan Plan: #1 acute hypoxic respiratory failure, pulse ox on presentation was 68% on room air, patient was started on nonrebreather mask and pulse ox was up to 99% Currently patient is on oxygen 6 L via nasal cannula and his pulse ox is 95%, patient was started on IV Solu-Medrol and inhaled bronchodilators #2 diffuse disease in both lung ortega possibly representing acute bronchitis with pneumonia, patient was started on IV Levaquin in the emergency room, will obtain sputum sample for culture and Gram stain pulmonary consultation has been requested #3 elevated troponin level patient denies any chest pain, he was started on IV heparin in the emergency room cardiology consultation has been requested #4 underlying history of lung cancer, awaiting consult from Dr. Cannon, to assess status of his malignancy. #5 hyponatremia on presentation improving with IV fluid #6 underlying history of hypertension well-controlled on current medications #7 underlying history of hyperlipidemia maintained on Lipitor and fenofibrate continue #8 elevated d-dimer with negative computed tomography scan of the chest without any evidence of pulmonary embolism #9 underlying history of benign prostatic hypertrophy maintained on Flomax continue Medication and labs were reviewed, patient is improving continue with current medications Prognosis is guarded
[2016-08-16 14:53] LABS: Anion Gap 9 mmol/L; Blood Urea Nitrogen 42 mg/dL (9-20); Calcium 9.6 mg/dL (8.4-10.2); Carbon Dioxide 25 mmol/L (22-30); Chloride 98 mmol/L (98-107); Glucose 165 mg/dL (74-99); Non-African American GFR(MDRD) >60 (>60 ml/min/1.73 sqM); Potassium 4.9 mmol/L (3.5-5.1); Sodium 132 mmol/L (137-145)
--- NOTE | 2016-08-16 15:00 | P.PN ---
Subjective Principal diagnosis: SOB This is a pleasant 71-year-old gentleman with history of coronary artery disease and prior chemotherapy and radiation, most recently patient underwent surgery of the lung he was also receiving chemotherapy for preventative brain CA. Patient has not followed up in the office over the past several years. He presented onto hospital with this occasion with symptoms of shortness of breath. He is currently being treated for congestive heart failure , diastolic in nature, as well as a possible radiation pneumonitis. Patient has diuresed through the night, he states that his breathing is somewhat improved today, much less tachypneic today. Lytes BUN and creatinine were not requested, if the patient's creatinine remains stable we will recommend to continue current dose of IV Lasix for 24 hours. Objective - Vital Signs Vital signs: Vital Signs Temp 96 F L 08/16/16 08:00 Pulse 102 H 08/16/16 13:19 Resp 16 08/16/16 12:00 BP 110/66 08/16/16 12:00 Pulse Ox 95 08/16/16 12:00 Intake & Output 08/15/16 08/16/16 08/16/16 18:59 06:59 18:59 Intake Total 496 300 200 Output Total 500 2700 Balance -4 -2400 200 Weight 87.5 kg Intake: IV 300 0.9 @20mls/hr 200 Levofloxacin 750Mg-D5w 100 Pmx 750 mg In Dextrose/ Water 1 150ml.bag @ 100 mls/hr IVPB HS [facility] Rx#: [id number] Oral 496 200 Output: Urine 500 2700 Other: Voiding Method Urinal Urinal - Exam PHYSICAL EXAMINATION: HEENT: Head is atraumatic, normocephalic. Pupils equal, round. Neck is supple. There is no elevated jugular venous pressure. HEART EXAMINATION: Heart S1 and S2 systolic murmur is heard. CHEST EXAMINATION: Lungs reveal improvement in air exchange bilaterally with fine crackles to the bases. ABDOMEN: Soft, nontender. Bowel sounds are heard. No organomegaly noted. EXTREMITIES: 2+ peripheral pulses with no evidence of peripheral edema and no calf tenderness noted. NEUROLOGIC patient is awake, alert and oriented -3. . - Labs CBC & Chem 7: 08/16/16 05:54 08/15/16 06:40 Labs: Abnormal Lab Results - Last 24 Hours (Table) 08/15/16 08/15/16 08/16/16 Range/Units 16:48 20:48 05:42 RBC (4.30-5.90) m/uL Hgb (13.0-17.5) gm/dL Hct (39.0-53.0) % MCHC (31.0-37.0) g/dL RDW (11.5-15.5) % Plt Count (150-450) k/uL Neutrophils # (1.3-7.7) k/uL Lymphocytes # (1.0-4.8) k/uL POC Glucose (mg/dL) 166 H 153 H 104 H (75-99) mg/dL 08/16/16 08/16/16 Range/Units 05:54 12:33 RBC 3.35 L (4.30-5.90) m/uL Hgb 9.7 L (13.0-17.5) gm/dL Hct 31.6 L (39.0-53.0) % MCHC 30.8 L (31.0-37.0) g/dL RDW 17.1 H (11.5-15.5) % Plt Count 111 L (150-450) k/uL Neutrophils # 8.3 H (1.3-7.7) k/uL Lymphocytes # 0.3 L (1.0-4.8) k/uL POC Glucose (mg/dL) 104 H (75-99) mg/dL Assessment and Plan Plan: Assessment and plan #1 symptoms of respiratory distress with significant hypoxia on admission, likely secondary to possible radiation pneumonitis and congestive cardiac failure diastolic, acute on chronic. #2 known history of coronary artery disease with prior stent placement #3 abnormal troponins, not consistent with acute coronary syndrome, could be secondary to oxygen supply and demand mismatch #4 abnormal liver functions, could be secondary to congestion. #5 lung CA with recent chemotherapy and radiation, status post surgery. #6 status post radiation to the brain for prophylaxis #7 hyperlipidemia Plan Echocardiogram with Doppler study was performed which revealed normal left ventricular systolic function. We will check the patient's lytes BUN and creatinine today, if creatinine remains stable, continue IV Lasix for 24 hours. DNP note has been reviewed, I agree with a documented findings and plan of care. Patient was seen and examined.
[2016-08-16 16:45] LABS: Glucose,Whole Blood 190 mg/dL (75-99)
[2016-08-16] MEDS: LEVOFLOXACIN 750 MG TAB PO SCH (20:53)
[2016-08-16 21:40] LABS: Glucose,Whole Blood 177 mg/dL (75-99)
[2016-08-17 06:17] LABS: Glucose,Whole Blood 132 mg/dL (75-99)
[2016-08-17] MEDS: INSULIN LISPRO (humaLOG) 300 UNIT/3 ML VIAL SQ SCH ×4 (06:43→21:31)
[2016-08-17] MEDS: PANTOPRAZOLE 40 MG TABLET PO SCH (06:43)
[2016-08-17 06:55] LABS: Anisocytosis Slight; Basophils % (A) 0 %; CH 29.5; CHCM 31.9; Eosinophils % (A) 0 %; HCT 30.2 % (39.0-53.0); HGB 9.7 gm/dL (13.0-17.5); Hypochromasia Slight; Luc # (Auto) 0.07; Luc % (Auto) 1; Lymphocytes # (A) 0.4 k/uL (1.0-4.8); Lymphocytes % (A) 5 %; MCH 29.7 pg (25.0-35.0); MCV 92.7 fL (80.0-100.0); Mean Platelet Volume 7.9; Monocytes # (A) 0.3 k/uL (0-1.0); Monocytes % (A) 3 %; Neutrophils # (A) 7.1 k/uL (1.3-7.7); Neutrophils % (A) 91 %; RBC 3.26 m/uL (4.30-5.90); RDW 17.1 % (11.5-15.5); WBC 7.8 k/uL (3.8-10.6)
[2016-08-17 07:25] LABS: Anion Gap 9 mmol/L; Blood Urea Nitrogen 47 mg/dL (9-20); Calcium 9.2 mg/dL (8.4-10.2); Carbon Dioxide 26 mmol/L (22-30); Chloride 99 mmol/L (98-107); Glucose 134 mg/dL (74-99); Non-African American GFR(MDRD) >60 (>60 ml/min/1.73 sqM); Potassium 4.6 mmol/L (3.5-5.1); Sodium 134 mmol/L (137-145)
[2016-08-17] MEDS: IPRATROPIUM-ALBUTEROL 3 ML NEB INHALATION SCH ×4 (09:00→20:32)
[2016-08-17] MEDS: BUDESONIDE 0.5 MG/2 ML NEBU INHALATION SCH ×2 (09:00→20:32)
[2016-08-17 09:07] LABS: ALT 102 U/L (21-72); AST 60 U/L (17-59); Alkaline Phosphatase 132 U/L (38-126); Total Bilirubin 0.6 mg/dL (0.2-1.3); Total Protein 6.1 g/dL (6.3-8.2)
[2016-08-17] MEDS: LISINOPRIL 10 MG TAB PO SCH (09:32)
[2016-08-17] MEDS: ATORVASTATIN 40 MG TAB PO SCH (09:32)
[2016-08-17] MEDS: MULTIVITAMINS, THERA 1 EACH TAB PO SCH (09:32)
[2016-08-17] MEDS: FOLIC ACID 1 MG TAB PO SCH (09:32)
[2016-08-17] MEDS: ATENOLOL 25 MG TAB PO SCH (09:32)
[2016-08-17] MEDS: FENOFIBRATE 160 MG TAB PO SCH (09:32)
[2016-08-17] MEDS: ASPIRIN 81 MG CHEW PO SCH (09:32)
[2016-08-17] MEDS: TAMSULOSIN 0.4 MG CAP.ER.24H PO SCH (09:32)
[2016-08-17] MEDS: FUROSEMIDE 10 MG/ML 4 ML VIAL IV SCH ×2 (09:33→20:36)
[2016-08-17] MEDS: methylPREDNISolone SOD SUCCI 125 MG/2 ML VIAL IV SCH ×4 (09:33→20:36)
--- NOTE | 2016-08-17 11:43 | P.PN ---
Subjective Principal diagnosis: interstitial pneumonitis and hypoxic respiratory failure acte on chronic. 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 Patient underwent radiation treatment and chemotherapy given to him by Dr. Cannon. Patient also underwent prophylactic brain radiation, and he was maintained on oxygen until recently. In June of 2016, patient continued to have residual tumor in the left lung, that did not improve much with radiation, hence the patient was referred to see Dr. Baron at [facility], and he underwent thoracotomy and wedge resection of the residual presumptively small cell lung cancer. However the patient was told that the biopsy report came back showing no evidence of active cancer in the lung tissue that was removed. His postoperative course was relatively uneventful, and going back to x-rays in the last 6 months, on his x-rays were showing that left lung mass, but none of them showed any significant urinary fibrosis or interstitial lung disease. Patient is known to be have history of rheumatoid arthritis, and he was on methotrexate until January of 2016 which was discontinued at the time he was receiving chemotherapy and radiation therapy. At any rate patient did relatively well post surgery in June of 2016, and he even went to visit family in [place]. While there, the patient developed increased shortness of breath, and he was taken to the [facility] where in he was noted to be hypoxemic, and a chest x-ray was significantly abnormal showing diffuse interstitial type of lung disease. Patient was told that he needs to be referred to a tertiary care center but he declined, and family decided to bring him back to [facility]. Patient was admitted yesterday with a picture of acute on chronic hypoxic respiratory failure and significantly abnormal CT of the chest showing diffuse severe pulmonary disease, much worse compared to 05/13/2016, consistent with diffuse interstitial and airspace lung parenchymal disease throughout both lungs including cicatrizing changes with pleural parenchymal thickening in the left lung base posterolaterally. However there is interval resolution of the previously noted 2.8 cm mass in the left upper lobe apical segment which apparently was recently removed by Dr. Baron at [facility]. Of course after reviewing the CT of the chest, the differential diagnoses would definitely include radiation type of pneumonitis, nonspecific interstitial pneumonitis related to rheumatoid arthritis, or underlying connective tissue disease, lymphangitic carcinomatosis, acute pneumonitis and congestive heart failure will be all considered in the picture of differential diagnosis. Today I have recommended that to retrieve the last biopsy report which was done at [facility] to determine what was actually read on the lung tissue which was obtained from thoracoscopic wedge resection of the left upper lobe abnormality. That by itself alone may give us an answer of what's happening in the lung parenchyma at this point. In the meantime the patient will be treated with antibiotics, steroids, and I will seriously consider bronchoscopy and transbronchial biopsy, however the patient is not the most ideal candidate for biopsy, he will likely desaturate significantly up on IV conscious sedation. Hence I proceeded. Empiric treatment for now with steroids and antibiotics. And closely follow up the chest x-ray changes over the next few days. Patient was reevaluated today on 08/16/2016, feeling better breathing a bit easier , patient again is on combination of steroids, antibiotics, and diuretics. no official pathology report noted from [facility], family stated that Dr. Cannon has the official pathology report, in his note he mentioned mostly findings of necrotic tissue, but I would like to look at the report in more details to see if there is any other background of pulmonary fibrosis or interstitial findings. at any rate patient remains on high flow nasal cannula about 8 L, clearly not the most ideal candidate to consider for bronchoscopy and biopsy at this point, but that could be considered however the patient may have to be done while he is on mechanical ventilation. I have a strong feeling that the patient will desaturate significantly upon initiation of IV conscious sedation. clinically however, the patient is feeling better, and I felt it is best to continue present supportive care measures and medications as listed although we have no specific dianoses at this point. Patient was reevaluated today on 08/17/2016, feeling slightly better, patient remains on the same antibiotics, bronchodilators, steroids, and diuretics. Remains on a high flow nasal cannula, and I still believe he is not the most ideal candidate at this point for bronchoscopy and transbronchial biopsy, I'm hoping we will see improvement with the present course of treatment over the next few days. If not improved by early next week, bronchoscopy and biopsy could be considered however the patient would have to be on mechanical ventilation during the procedure. In the meantime I have sent a request to retrieve the final official pathology report on his left lung from [facility]. Labs were reviewed including CBC and basic metabolic profile. Patient is noted to be slightly prerenal with BUN of 47 creatinine of 1.09. Objective - Vital Signs Vital signs: Vital Signs Temp 96 F L 08/17/16 07:49 Pulse 104 H 08/17/16 09:15 Resp 22 08/17/16 07:49 BP 96/55 08/17/16 07:49 Pulse Ox 94 L 08/17/16 09:00 Intake & Output 08/16/16 08/17/16 08/17/16 18:59 06:59 18:59 Intake Total 200 480 236 Output Total 890 1600 300 Balance -690 -1120 -64 Weight 86.1 kg Intake: IV 0 0.9 @20mls/hr 0 Oral 200 480 236 Output: Urine 890 1600 300 Other: Voiding Method Urinal Urinal # Voids 1 - Exam Physical Exam: Revealed a 71-year-old white male, frail looking, chronically ill , pale, in mild respiratory distress. HEENT:[Neck is supple.] [No neck masses.] [No thyromegaly.] [No JVD.] Chest: [Crackles at the bases bilaterally, more so on the left base.. No wheezes noted.] Cardiac Exam: [Normal S1 and S2, no S3 gallop, no murmur.] Abdomen: [Soft, nontender, no megaly, no rebound, no guarding, normal bowel sounds.] Extremities: [No clubbing, no edema, no cyanosis.] Neurological Exam: [No focal neurologic deficit.] Lymphatics: No evidence of lymphadenopathy noted. Skin: No evidence of rashes or ecchymosis, no open ulcers. - Labs CBC & Chem 7: 08/17/16 06:07 08/17/16 06:07 Labs: Abnormal Lab Results - Last 24 Hours (Table) 08/16/16 08/16/16 08/16/16 Range/Units 12:33 14:15 16:43 RBC (4.30-5.90) m/uL Hgb (13.0-17.5) gm/dL Hct (39.0-53.0) % RDW (11.5-15.5) % Plt Count (150-450) k/uL Lymphocytes # (1.0-4.8) k/uL Sodium 132 L (137-145) mmol/L BUN 42 H (9-20) mg/dL Glucose 165 H (74-99) mg/dL POC Glucose (mg/dL) 104 H 190 H (75-99) mg/dL AST (17-59) U/L ALT (21-72) U/L Alkaline Phosphatase (38-126) U/L Total Protein (6.3-8.2) g/dL Albumin (3.5-5.0) g/dL 08/16/16 08/17/16 08/17/16 Range/Units 21:39 06:07 06:07 RBC 3.26 L (4.30-5.90) m/uL Hgb 9.7 L (13.0-17.5) gm/dL Hct 30.2 L (39.0-53.0) % RDW 17.1 H (11.5-15.5) % Plt Count 104 L (150-450) k/uL Lymphocytes # 0.4 L (1.0-4.8) k/uL Sodium 134 L (137-145) mmol/L BUN 47 H (9-20) mg/dL Glucose 134 H (74-99) mg/dL POC Glucose (mg/dL) 177 H (75-99) mg/dL AST 60 H (17-59) U/L ALT 102 H (21-72) U/L Alkaline Phosphatase 132 H (38-126) U/L Total Protein 6.1 L (6.3-8.2) g/dL Albumin 2.6 L (3.5-5.0) g/dL 08/17/16 Range/Units 06:15 RBC (4.30-5.90) m/uL Hgb (13.0-17.5) gm/dL Hct (39.0-53.0) % RDW (11.5-15.5) % Plt Count (150-450) k/uL Lymphocytes # (1.0-4.8) k/uL Sodium (137-145) mmol/L BUN (9-20) mg/dL Glucose (74-99) mg/dL POC Glucose (mg/dL) 132 H (75-99) mg/dL AST (17-59) U/L ALT (21-72) U/L Alkaline Phosphatase (38-126) U/L Total Protein (6.3-8.2) g/dL Albumin (3.5-5.0) g/dL Assessment and Plan Plan: Impression: 1 acute on chronic hypoxic respiratory failure secondary to severe interstitial and parenchymal lung disease. Differential diagnoses includes lymphangitic carcinomatosis, radiation pneumonitis which is unusual considering the patient had only radiation to the left upper lobe area only. Infection, and interstitial lung disease including UIP and NSIp/rheumatoid lungs. Atypical pulmonary edema 2 history of coronary artery disease and previous stent placement 3 abnormal troponins not consistent with acute coronary syndrome 4 history of small cell lung cancer with recent chemotherapy radiation therapy and recent wedge resection of the left upper lobe 5 history of rheumatoid arthritis 6 history of hyperlipidemia 7 abnormal liver enzymes, etiology is not clear at this point, could be secondary to passive congestion. However recommend ultrasound of the liver and further workup if liver enzymes persists to be elevated. Recommendation: Keep patient on antibiotics and steroids, continue diuretics, retrieve recent pathology report from [facility], apparently the patient had wedge resection of the left lower lobe mass and that may give us a clue as to what is going on in the background on the biopsy. I would definitely consider bronchoscopy, BAL, and transbronchial lung biopsy of this patient, however the patient seems to be quite frail and ill, I'm afraid he may not be able to tolerate such procedure. If bronchoscopy and biopsy would have to be done, patient has to be on mechanical ventilation. This will likely be addressed next week depending on the response to treatment. Time with Patient: Less than 30
[2016-08-17 11:44] LABS: Glucose,Whole Blood 121 mg/dL (75-99)
--- NOTE | 2016-08-17 12:18 | P.PN ---
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 Cannon, he presented to emergency room at [facility] his oxygen saturation was low d- dimer was significantly elevated and troponin level was elevated at 0.58, patient was started on IV heparin and was admitted to telemetry floor computed tomography scan of the chest was negative for pulmonary embolism, oncology consultation pulmonary consultation and cardiology consultation were initiated, computed tomography scan revealed patchy infiltrates in both lungs and patient was started on IV Levaquin in the emergency room. 08/17/2016 patient had another episode shortness of breath when he was using the bathroom. Respiratory therapy gave him the treatment and had bumped up his oxygen to 15 L high flow. Patient reports that his shortness of breath has shown some improvement. Denies any cough. Denies any chest pain. Denies any nausea or vomiting. Denies any abdominal pain. Last bowel movement about 3 days ago. Objective - Vital Signs Vital signs: Vital Signs Temp 96 F L 08/17/16 07:49 Pulse 104 H 08/17/16 09:15 Resp 22 08/17/16 07:49 BP 96/55 08/17/16 07:49 Pulse Ox 94 L 08/17/16 09:00 Intake & Output 08/16/16 08/17/16 08/17/16 18:59 06:59 18:59 Intake Total 200 480 236 Output Total 890 1600 300 Balance -690 -1120 -64 Weight 86.1 kg Intake: IV 0 0.9 @20mls/hr 0 Oral 200 480 236 Output: Urine 890 1600 300 Other: Voiding Method Urinal Urinal # Voids 1 - Exam Head normocephalic Neck supple Lungs tight and diminished air movement Heart regular rate and rhythm S1-S2, no rub or gallop Abdomen is soft nontender nondistended positive bowel sounds no hepatosplenomegaly Extremities no edema Neuro alert and orientated to 3 - Labs CBC & Chem 7: 08/17/16 06:07 08/17/16 06:07 Labs: Abnormal Lab Results - Last 24 Hours (Table) 08/16/16 08/16/16 08/16/16 Range/Units 12:33 14:15 16:43 RBC (4.30-5.90) m/uL Hgb (13.0-17.5) gm/dL Hct (39.0-53.0) % RDW (11.5-15.5) % Plt Count (150-450) k/uL Lymphocytes # (1.0-4.8) k/uL Sodium 132 L (137-145) mmol/L BUN 42 H (9-20) mg/dL Glucose 165 H (74-99) mg/dL POC Glucose (mg/dL) 104 H 190 H (75-99) mg/dL AST (17-59) U/L ALT (21-72) U/L Alkaline Phosphatase (38-126) U/L Total Protein (6.3-8.2) g/dL Albumin (3.5-5.0) g/dL 08/16/16 08/17/16 08/17/16 Range/Units 21:39 06:07 06:07 RBC 3.26 L (4.30-5.90) m/uL Hgb 9.7 L (13.0-17.5) gm/dL Hct 30.2 L (39.0-53.0) % RDW 17.1 H (11.5-15.5) % Plt Count 104 L (150-450) k/uL Lymphocytes # 0.4 L (1.0-4.8) k/uL Sodium 134 L (137-145) mmol/L BUN 47 H (9-20) mg/dL Glucose 134 H (74-99) mg/dL POC Glucose (mg/dL) 177 H (75-99) mg/dL AST 60 H (17-59) U/L ALT 102 H (21-72) U/L Alkaline Phosphatase 132 H (38-126) U/L Total Protein 6.1 L (6.3-8.2) g/dL Albumin 2.6 L (3.5-5.0) g/dL 08/17/16 08/17/16 Range/Units 06:15 11:41 RBC (4.30-5.90) m/uL Hgb (13.0-17.5) gm/dL Hct (39.0-53.0) % RDW (11.5-15.5) % Plt Count (150-450) k/uL Lymphocytes # (1.0-4.8) k/uL Sodium (137-145) mmol/L BUN (9-20) mg/dL Glucose (74-99) mg/dL POC Glucose (mg/dL) 132 H 121 H (75-99) mg/dL AST (17-59) U/L ALT (21-72) U/L Alkaline Phosphatase (38-126) U/L Total Protein (6.3-8.2) g/dL Albumin (3.5-5.0) g/dL Assessment and Plan Plan: #1 acute on chronic hypoxic respiratory failure secondary to severe interstitial and parenchymal lung disease. Pulmonary workup in progress. There is discussion about possible bronchoscopy however patient is very frail and ill and may not tolerate procedure. We'll await further pulmonary recommendations. Patient is requiring 10 L of high flow nasal cannula satting at 91%. #2 diffuse disease in both lung ortega possibly representing acute bronchitis with pneumonia, patient was started on IV Levaquin in the emergency room, will obtain sputum sample for culture and Gram stain pulmonary consultation has been requested #3 elevated troponin level patient denies any chest pain, he was started on IV heparin in the emergency room cardiology consultation has been requested #4 underlying history of lung cancer with recent chemotherapy and radiation therapy. Also had recent wedge resection of the left upper lobe. Oncology and pulmonary following #5 hyponatremia on presentation improving with IV fluid #6 underlying history of hypertension well-controlled on current medications #7 underlying history of hyperlipidemia maintained on Lipitor and fenofibrate continue #8 elevated d-dimer with negative computed tomography scan of the chest without any evidence of pulmonary embolism #9 underlying history of benign prostatic hypertrophy maintained on Flomax continue #10 history of rheumatoid arthritis 11. Elevated liver enzymes likely related to passive congestion. Liver enzymes are trending down. We'll repeat labs in a.m. Patient denies any abdominal pain. 12. Acute on chronic diastolic CHF exacerbation. Cardiology following. They' ve ordered echo and start patient on IV Lasix. Continue to monitor. Patient's prognosis is guarded I performed an examination of the patient and discussed their management with the physician Surveyor Hydrographic. I have reviewed the Physician Surveyor Hydrographic's notes and agree with the documented findings and plan of care
[2016-08-17] MEDS: DOCUSATE 100 MG CAP PO SCH ×2 (12:39→20:36)
--- NOTE | 2016-08-17 14:20 | P.PN ---
Subjective Principal diagnosis: SOB This is a pleasant 71-year-old gentleman with history of coronary artery disease and prior chemotherapy and radiation, most recently patient underwent surgery of the lung he was also receiving chemotherapy for preventative brain CA. Patient has not followed up in the office over the past several years. He presented onto hospital with this occasion with symptoms of shortness of breath. He is currently being treated for congestive heart failure , diastolic in nature, as well as a possible radiation pneumonitis. Patient has diuresed through the night, he states that his breathing is somewhat improved today, much less tachypneic today. Hemoglobin 9.7, BUN 47, creatinine 1.0. We will continue with the IV Lasix for 24 hours. Check lytes BUN and creatinine in the morning. Objective - Vital Signs Vital signs: Vital Signs Temp 96.0 F L 08/17/16 12:00 Pulse 100 08/17/16 13:30 Resp 20 08/17/16 12:00 BP 111/63 08/17/16 12:00 Pulse Ox 93 L 08/17/16 12:00 Intake & Output 08/16/16 08/17/16 08/17/16 18:59 06:59 18:59 Intake Total 200 480 476 Output Total 890 1600 300 Balance -690 -1120 176 Weight 86.1 kg Intake: IV 0 0.9 @20mls/hr 0 Oral 200 480 476 Output: Urine 890 1600 300 Other: Voiding Method Urinal Urinal # Voids 1 - Exam PHYSICAL EXAMINATION: HEENT: Head is atraumatic, normocephalic. Pupils equal, round. Neck is supple. There is no elevated jugular venous pressure. HEART EXAMINATION: Heart S1 and S2 systolic murmur is heard. CHEST EXAMINATION: Lungs reveal improvement in air exchange bilaterally with fine crackles to the bases. ABDOMEN: Soft, nontender. Bowel sounds are heard. No organomegaly noted. EXTREMITIES: 2+ peripheral pulses with no evidence of peripheral edema and no calf tenderness noted. NEUROLOGIC patient is awake, alert and oriented -3. . - Labs CBC & Chem 7: 08/17/16 06:07 08/17/16 06:07 Labs: Abnormal Lab Results - Last 24 Hours (Table) 08/16/16 08/16/16 08/16/16 Range/Units 14:15 16:43 21:39 RBC (4.30-5.90) m/uL Hgb (13.0-17.5) gm/dL Hct (39.0-53.0) % RDW (11.5-15.5) % Plt Count (150-450) k/uL Lymphocytes # (1.0-4.8) k/uL Sodium 132 L (137-145) mmol/L BUN 42 H (9-20) mg/dL Glucose 165 H (74-99) mg/dL POC Glucose (mg/dL) 190 H 177 H (75-99) mg/dL AST (17-59) U/L ALT (21-72) U/L Alkaline Phosphatase (38-126) U/L Total Protein (6.3-8.2) g/dL Albumin (3.5-5.0) g/dL 08/17/16 08/17/16 08/17/16 Range/Units 06:07 06:07 06:15 RBC 3.26 L (4.30-5.90) m/uL Hgb 9.7 L (13.0-17.5) gm/dL Hct 30.2 L (39.0-53.0) % RDW 17.1 H (11.5-15.5) % Plt Count 104 L (150-450) k/uL Lymphocytes # 0.4 L (1.0-4.8) k/uL Sodium 134 L (137-145) mmol/L BUN 47 H (9-20) mg/dL Glucose 134 H (74-99) mg/dL POC Glucose (mg/dL) 132 H (75-99) mg/dL AST 60 H (17-59) U/L ALT 102 H (21-72) U/L Alkaline Phosphatase 132 H (38-126) U/L Total Protein 6.1 L (6.3-8.2) g/dL Albumin 2.6 L (3.5-5.0) g/dL 08/17/16 Range/Units 11:41 RBC (4.30-5.90) m/uL Hgb (13.0-17.5) gm/dL Hct (39.0-53.0) % RDW (11.5-15.5) % Plt Count (150-450) k/uL Lymphocytes # (1.0-4.8) k/uL Sodium (137-145) mmol/L BUN (9-20) mg/dL Glucose (74-99) mg/dL POC Glucose (mg/dL) 121 H (75-99) mg/dL AST (17-59) U/L ALT (21-72) U/L Alkaline Phosphatase (38-126) U/L Total Protein (6.3-8.2) g/dL Albumin (3.5-5.0) g/dL Assessment and Plan Plan: Assessment and plan #1 symptoms of respiratory distress with significant hypoxia on admission, likely secondary to possible radiation pneumonitis and congestive cardiac failure diastolic, acute on chronic. #2 known history of coronary artery disease with prior stent placement #3 abnormal troponins, not consistent with acute coronary syndrome, could be secondary to oxygen supply and demand mismatch #4 abnormal liver functions, could be secondary to congestion. #5 lung CA with recent chemotherapy and radiation, status post surgery. #6 status post radiation to the brain for prophylaxis #7 hyperlipidemia Plan Echocardiogram with Doppler study was performed which revealed normal left ventricular systolic function. We will check the patient's lytes BUN and creatinine today, if creatinine remains stable, continue IV Lasix for 24 hours. DNP note has been reviewed, I agree with a documented findings and plan of care. Patient was seen and examined.
[2016-08-17 16:42] LABS: Glucose,Whole Blood 215 mg/dL (75-99)
[2016-08-17] MEDS: LEVOFLOXACIN 750 MG TAB PO SCH (20:36)
[2016-08-17 21:21] LABS: Glucose,Whole Blood 163 mg/dL (75-99)
[2016-08-18 06:26] LABS: Glucose,Whole Blood 137 mg/dL (75-99)
[2016-08-18] MEDS: PANTOPRAZOLE 40 MG TABLET PO SCH (06:42)
[2016-08-18] MEDS: INSULIN LISPRO (humaLOG) 300 UNIT/3 ML VIAL SQ SCH ×4 (06:42→21:22)
[2016-08-18 07:23] LABS: Anisocytosis Slight; Basophils % (A) 0 %; CH 29.4; CHCM 31.3; Eosinophils % (A) 0 %; HCT 32.1 % (39.0-53.0); HDW 2.63; HGB 10.1 gm/dL (13.0-17.5); Hypochromasia Slight; Luc # (Auto) 0.07; Luc % (Auto) 1; Lymphocytes # (A) 0.4 k/uL (1.0-4.8); Lymphocytes % (A) 4 %; MCH 29.6 pg (25.0-35.0); MCHC 31.5 g/dL (31.0-37.0); Mean Platelet Volume 7.8; Monocytes # (A) 0.3 k/uL (0-1.0); Monocytes % (A) 3 %; Neutrophils % (A) 92 %; RBC 3.41 m/uL (4.30-5.90); RDW 17.1 % (11.5-15.5); WBC 10.8 k/uL (3.8-10.6); WBC (Perox) 11.28
[2016-08-18 07:36] LABS: ALT 89 U/L (21-72); AST 42 U/L (17-59); Alkaline Phosphatase 123 U/L (38-126); Anion Gap 9 mmol/L; Blood Urea Nitrogen 62 mg/dL (9-20); Calcium 9.2 mg/dL (8.4-10.2); Carbon Dioxide 31 mmol/L (22-30); Chloride 96 mmol/L (98-107); Glucose 120 mg/dL (74-99); Non-African American GFR(MDRD) 50 (>60 ml/min/1.73 sqM); Potassium 4.3 mmol/L (3.5-5.1); Sodium 136 mmol/L (137-145); Total Bilirubin 0.6 mg/dL (0.2-1.3); Total Protein 6.3 g/dL (6.3-8.2)
[2016-08-18] MEDS: IPRATROPIUM-ALBUTEROL 3 ML NEB INHALATION SCH ×4 (08:20→20:17)
[2016-08-18] MEDS: BUDESONIDE 0.5 MG/2 ML NEBU INHALATION SCH ×2 (08:20→20:15)
[2016-08-18] MEDS: methylPREDNISolone SOD SUCCI 125 MG/2 ML VIAL IV SCH ×4 (08:54→21:19)
[2016-08-18] MEDS: MULTIVITAMINS, THERA 1 EACH TAB PO SCH (08:54)
[2016-08-18] MEDS: ATORVASTATIN 40 MG TAB PO SCH (08:54)
[2016-08-18] MEDS: DOCUSATE 100 MG CAP PO SCH ×2 (08:54→19:58)
[2016-08-18] MEDS: ATENOLOL 25 MG TAB PO SCH (08:54)
[2016-08-18] MEDS: LISINOPRIL 10 MG TAB PO SCH (08:54)
[2016-08-18] MEDS: FOLIC ACID 1 MG TAB PO SCH (08:54)
[2016-08-18] MEDS: TAMSULOSIN 0.4 MG CAP.ER.24H PO SCH (08:54)
[2016-08-18] MEDS: FENOFIBRATE 160 MG TAB PO SCH (08:54)
[2016-08-18] MEDS: ASPIRIN 81 MG CHEW PO SCH (08:54)
--- NOTE | 2016-08-18 10:43 | P.PN ---
Subjective Principal diagnosis: Acute on chronic hypoxic respiratory failure Patient is a 71-year-old male with known history of lung cancer who underwent left lower lobe resection and underwent radiation and chemotherapy in January 2016 and subsequently had prophylactic brain radiation, patient was maintained on home oxygen until recently, he discontinued using home oxygen and went to [place] for a family member graduation, he states that he was doing worse he was unable to sleep and was developing worsening shortness of breath, his [id number] is working on a base and patient was [place] to a [place] hospital he was told that his oxygen with saturation was very low in the 70 % He was told he could not be treated in the [place] because he was not in the he was offered to be transferred to a regular hospital however patient decided to be discharged and decided to drive back with his and his daughter back to [place], patient is well known to Dr. Cannon, he presented to emergency room at [facility] his oxygen saturation was low d- dimer was significantly elevated and troponin level was elevated at 0.58, patient was started on IV heparin and was admitted to telemetry floor computed tomography scan of the chest was negative for pulmonary embolism, oncology consultation pulmonary consultation and cardiology consultation were initiated, computed tomography scan revealed patchy infiltrates in both lungs and patient was started on IV Levaquin in the emergency room. Since yesterday patient reports improvement in his shortness of breath he denies any new symptoms at this Objective - Vital Signs Vital signs: Vital Signs Temp 97.6 F 08/18/16 09:07 Pulse 99 08/18/16 09:07 Resp 18 08/18/16 09:07 BP 91/51 08/18/16 09:07 Pulse Ox 92 L 08/18/16 09:07 Intake & Output 08/17/16 08/18/16 08/18/16 18:59 06:59 18:59 Intake Total 594 480 120 Output Total 300 350 Balance 294 130 120 Weight 85.9 kg Intake: IV 0 0 0.9 @20mls/hr 0 0 Oral 594 480 120 Output: Urine 300 350 Other: Voiding Method Urinal Urinal - Exam In general patient is alert and oriented 3 in no apparent distress HEENT head normocephalic and atraumatic Neck is supple no JVD no goiter no lymphadenopathy Chest exam reveals tachypnea with scattered crackles in both lung ortega no wheezing Cardiac exam reveals tachycardia with S1 and S2 regular rhythm no gallops no murmurs Abdomen is soft nontender no organomegaly Extremity exam reveals no edema no cyanosis or clubbing Neurological examination reveals no focal deficit Skin exam reveals no open ulcers no rashes or ecchymoses - Labs CBC & Chem 7: 08/18/16 06:45 08/18/16 06:45 Labs: Abnormal Lab Results - Last 24 Hours (Table) 08/17/16 08/17/16 08/17/16 Range/Units 11:41 16:39 21:19 WBC (3.8-10.6) k/uL RBC (4.30-5.90) m/uL Hgb (13.0-17.5) gm/dL Hct (39.0-53.0) % RDW (11.5-15.5) % Plt Count (150-450) k/uL Neutrophils # (1.3-7.7) k/uL Lymphocytes # (1.0-4.8) k/uL Sodium (137-145) mmol/L Chloride (98-107) mmol/L Carbon Dioxide (22-30) mmol/L BUN (9-20) mg/dL Creatinine (0.66-1.25) mg/dL Glucose (74-99) mg/dL POC Glucose (mg/dL) 121 H 215 H 163 H (75-99) mg/dL ALT (21-72) U/L Albumin (3.5-5.0) g/dL 08/18/16 08/18/16 08/18/16 Range/Units 06:24 06:45 06:45 WBC 10.8 H (3.8-10.6) k/uL RBC 3.41 L (4.30-5.90) m/uL Hgb 10.1 L (13.0-17.5) gm/dL Hct 32.1 L (39.0-53.0) % RDW 17.1 H (11.5-15.5) % Plt Count 122 L (150-450) k/uL Neutrophils # 10.0 H (1.3-7.7) k/uL Lymphocytes # 0.4 L (1.0-4.8) k/uL Sodium 136 L (137-145) mmol/L Chloride 96 L (98-107) mmol/L Carbon Dioxide 31 H (22-30) mmol/L BUN 62 H (9-20) mg/dL Creatinine 1.41 H (0.66-1.25) mg/dL Glucose 120 H (74-99) mg/dL POC Glucose (mg/dL) 137 H (75-99) mg/dL ALT 89 H (21-72) U/L Albumin 2.7 L (3.5-5.0) g/dL Assessment and Plan Plan: #1 acute hypoxic respiratory failure, pulse ox on presentation was 68% on room air, patient was started on nonrebreather mask and pulse ox was up to 99% Currently patient is on oxygen 6 L via nasal cannula and his pulse ox is 95%, patient was started on IV Solu-Medrol and inhaled bronchodilators #2 diffuse disease in both lung ortega possibly representing acute bronchitis with pneumonia, patient was started on IV Levaquin in the emergency room, will obtain sputum sample for culture and Gram stain pulmonary consultation has been requested #3 elevated troponin level patient denies any chest pain, he was started on IV heparin in the emergency room cardiology consultation has been requested #4 underlying history of lung cancer, awaiting consult from Dr. Cannon, to assess status of his malignancy. 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 Devlin Still awaiting further information on his previous cancer workup Prognosis is guarded
[2016-08-18 11:49] LABS: Glucose,Whole Blood 109 mg/dL (75-99)
[2016-08-18] MEDS: FUROSEMIDE 10 MG/ML 4 ML VIAL IV SCH (12:03)
[2016-08-18] MEDS: ENOXAPARIN 40 MG/0.4 ML SYRINGE SQ SCH (12:03)
--- NOTE | 2016-08-18 12:12 | P.PN ---
Subjective Principal diagnosis: interstitial pneumonitis and hypoxic respiratory failure acte on chronic. 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 Patient underwent radiation treatment and chemotherapy given to him by Dr. Cannon. Patient also underwent prophylactic brain radiation, and he was maintained on oxygen until recently. In June of 2016, patient continued to have residual tumor in the left lung, that did not improve much with radiation, hence the patient was referred to see Dr. Baron at [facility], and he underwent thoracotomy and wedge resection of the residual presumptively small cell lung cancer. However the patient was told that the biopsy report came back showing no evidence of active cancer in the lung tissue that was removed. His postoperative course was relatively uneventful, and going back to x-rays in the last 6 months, on his x-rays were showing that left lung mass, but none of them showed any significant urinary fibrosis or interstitial lung disease. Patient is known to be have history of rheumatoid arthritis, and he was on methotrexate until January of 2016 which was discontinued at the time he was receiving chemotherapy and radiation therapy. At any rate patient did relatively well post surgery in June of 2016, and he even went to visit family in [place]. While there, the patient developed increased shortness of breath, and he was taken to the [place] [facility] where in he was noted to be hypoxemic, and a chest x-ray was significantly abnormal showing diffuse interstitial type of lung disease. Patient was told that he needs to be referred to a tertiary care center but he declined, and family decided to bring him back to [facility]. Patient was admitted yesterday with a picture of acute on chronic hypoxic respiratory failure and significantly abnormal CT of the chest showing diffuse severe pulmonary disease, much worse compared to 05/13/2016, consistent with diffuse interstitial and airspace lung parenchymal disease throughout both lungs including cicatrizing changes with pleural parenchymal thickening in the left lung base posterolaterally. However there is interval resolution of the previously noted 2.8 cm mass in the left upper lobe apical segment which apparently was recently removed by Dr. Baron at [facility]. Of course after reviewing the CT of the chest, the differential diagnoses would definitely include radiation type of pneumonitis, nonspecific interstitial pneumonitis related to rheumatoid arthritis, or underlying connective tissue disease, lymphangitic carcinomatosis, acute pneumonitis and congestive heart failure will be all considered in the picture of differential diagnosis. Today I have recommended that to retrieve the last biopsy report which was done at [facility] to determine what was actually read on the lung tissue which was obtained from thoracoscopic wedge resection of the left upper lobe abnormality. That by itself alone may give us an answer of what's happening in the lung parenchyma at this point. In the meantime the patient will be treated with antibiotics, steroids, and I will seriously consider bronchoscopy and transbronchial biopsy, however the patient is not the most ideal candidate for biopsy, he will likely desaturate significantly up on IV conscious sedation. Hence I proceeded. Empiric treatment for now with steroids and antibiotics. And closely follow up the chest x-ray changes over the next few days. Patient was reevaluated today on 08/16/2016, feeling better breathing a bit easier , patient again is on combination of steroids, antibiotics, and diuretics. no official pathology report noted from [facility], family stated that Dr. Cannon has the official pathology report, in his note he mentioned mostly findings of necrotic tissue, but I would like to look at the report in more details to see if there is any other background of pulmonary fibrosis or interstitial findings. at any rate patient remains on high flow nasal cannula about 8 L, clearly not the most ideal candidate to consider for bronchoscopy and biopsy at this point, but that could be considered however the patient may have to be done while he is on mechanical ventilation. I have a strong feeling that the patient will desaturate significantly upon initiation of IV conscious sedation. clinically however, the patient is feeling better, and I felt it is best to continue present supportive care measures and medications as listed although we have no specific diagnosis at this point. Patient was reevaluated today on 08/17/2016, feeling slightly better, patient remains on the same antibiotics, bronchodilators, steroids, and diuretics. Remains on a high flow nasal cannula, and I still believe he is not the most ideal candidate at this point for bronchoscopy and transbronchial biopsy, I'm hoping we will see improvement with the present course of treatment over the next few days. If not improved by early next week, bronchoscopy and biopsy could be considered however the patient would have to be on mechanical ventilation during the procedure. In the meantime I have sent a request to retrieve the final official pathology report on his left lung from [facility]. Labs were reviewed including CBC and basic metabolic profile. Patient is noted to be slightly prerenal with BUN of 47 creatinine of 1.09. Reevaluated again today on 08/18/2016, patient is reporting slight improvement in his shortness of breath. Slightly productive cough, no fever no chills no hemoptysis no chest pain. Remains on a high flow nasal cannula. All his labs were reviewed, CBC is relatively normal. Renal profile seems to be worsening, patient I believe is developing a picture of prerenal azotemia, hence will stop diuretics for now. Lasix was discontinued today, and we will continue to monitor his renal profile. Objective - Vital Signs Vital signs: Vital Signs Temp 97.6 F 08/18/16 11:42 Pulse 99 08/18/16 11:42 Resp 18 08/18/16 11:42 BP 110/65 08/18/16 11:42 Pulse Ox 96 08/18/16 11:42 Intake & Output 08/17/16 08/18/16 08/18/16 18:59 06:59 18:59 Intake Total 594 480 120 Output Total 300 350 Balance 294 130 120 Weight 85.9 kg Intake: IV 0 0 0.9 @20mls/hr 0 0 Oral 594 480 120 Output: Urine 300 350 Other: Voiding Method Urinal Urinal - Exam Physical Exam: Revealed a 71-year-old white male, frail looking, chronically ill , pale, in mild respiratory distress. HEENT:[Neck is supple.] [No neck masses.] [No thyromegaly.] [No JVD.] Chest: [Crackles at the bases bilaterally, more so on the left base.. No wheezes noted.] Cardiac Exam: [Normal S1 and S2, no S3 gallop, no murmur.] Abdomen: [Soft, nontender, no megaly, no rebound, no guarding, normal bowel sounds.] Extremities: [No clubbing, no edema, no cyanosis.] Neurological Exam: [No focal neurologic deficit.] Lymphatics: No evidence of lymphadenopathy noted. Skin: No evidence of rashes or ecchymosis, no open ulcers. - Labs CBC & Chem 7: 08/18/16 06:45 08/18/16 06:45 Labs: Abnormal Lab Results - Last 24 Hours (Table) 05/04/17 05/04/17 05/05/17 Range/Units 16:39 21:19 06:24 WBC (3.8-10.6) k/uL RBC (4.30-5.90) m/uL Hgb (13.0-17.5) gm/dL Hct (39.0-53.0) % RDW (11.5-15.5) % Plt Count (150-450) k/uL Neutrophils # (1.3-7.7) k/uL Lymphocytes # (1.0-4.8) k/uL Sodium (137-145) mmol/L Chloride (98-107) mmol/L Carbon Dioxide (22-30) mmol/L BUN (9-20) mg/dL Creatinine (0.66-1.25) mg/dL Glucose (74-99) mg/dL POC Glucose (mg/dL) 215 H 163 H 137 H (75-99) mg/dL ALT (21-72) U/L Albumin (3.5-5.0) g/dL 08/18/16 08/18/16 08/18/16 Range/Units 06:45 06:45 11:46 WBC 10.8 H (3.8-10.6) k/uL RBC 3.41 L (4.30-5.90) m/uL Hgb 10.1 L (13.0-17.5) gm/dL Hct 32.1 L (39.0-53.0) % RDW 17.1 H (11.5-15.5) % Plt Count 122 L (150-450) k/uL Neutrophils # 10.0 H (1.3-7.7) k/uL Lymphocytes # 0.4 L (1.0-4.8) k/uL Sodium 136 L (137-145) mmol/L Chloride 96 L (98-107) mmol/L Carbon Dioxide 31 H (22-30) mmol/L BUN 62 H (9-20) mg/dL Creatinine 1.41 H (0.66-1.25) mg/dL Glucose 120 H (74-99) mg/dL POC Glucose (mg/dL) 109 H (75-99) mg/dL ALT 89 H (21-72) U/L Albumin 2.7 L (3.5-5.0) g/dL Assessment and Plan Plan: Impression: 1 acute on chronic hypoxic respiratory failure secondary to severe interstitial and parenchymal lung disease. Differential diagnoses includes lymphangitic carcinomatosis, radiation pneumonitis which is unusual considering the patient had only radiation to the left upper lobe area only. Infection, and interstitial lung disease including UIP and NSIp/rheumatoid lungs. Atypical pulmonary edema 2 history of coronary artery disease and previous stent placement 3 abnormal troponins not consistent with acute coronary syndrome 4 history of small cell lung cancer with recent chemotherapy radiation therapy and recent wedge resection of the left upper lobe 5 history of rheumatoid arthritis 6 history of hyperlipidemia 7 abnormal liver enzymes, etiology is not clear at this point, could be secondary to passive congestion. However recommend ultrasound of the liver and further workup if liver enzymes persists to be elevated. 8 prerenal azotemia most likely secondary to diuresis. Hence Lasix will be discontinued today. Recommendation: Keep patient on antibiotics and steroids, discontinue diuretics , retrieve recent pathology report from [facility], apparently the patient had wedge resection of the left lower lobe mass and that may give us a clue as to what is going on in the background on the biopsy. I would definitely consider bronchoscopy, BAL, and transbronchial lung biopsy of this patient, however the patient seems to be quite frail and ill, I'm afraid he may not be able to tolerate such procedure. If bronchoscopy and biopsy would have to be done, patient has to be on mechanical ventilation. This will likely be addressed next week depending on the response to treatment. Discussed his condition with today. Time with Patient: Less than 30
--- NOTE | 2016-08-18 14:09 | P.PN ---
Subjective Principal diagnosis: Shortness of Breath This is a pleasant 71-year-old gentleman with a history of coronary artery disease and prior chemotherapy and radiation, most recently patient underwent surgery for lung CA and was also receiving chemotherapy for range CA. He presented to the hospital with symptoms of shortness of breath. He is currently being treated for congestive heart failure, diastolic in nature, as well as possible radiation pneumonitis. He has been on IV Lasix and his BUN and creatinine are up today at 62 and 1.41 respectively. He has diuresed fairly well and is breathing quite a bit better. Continues to be short of breath with exertion however comfortable at rest. Objective - Vital Signs Vital signs: Vital Signs Temp 97.6 F 08/18/16 11:42 Pulse 99 08/18/16 11:42 Resp 18 08/18/16 11:42 BP 110/65 08/18/16 11:42 Pulse Ox 96 08/18/16 11:42 Intake & Output 08/17/16 08/18/16 08/18/16 18:59 06:59 18:59 Intake Total 594 480 580 Output Total 300 350 Balance 294 130 580 Weight 85.9 kg Intake: IV 0 0 0.9 @20mls/hr 0 0 Oral 594 480 580 Output: Urine 300 350 Other: Voiding Method Urinal Urinal - Exam PHYSICAL EXAMINATION: HEENT: Head is atraumatic, normocephalic. Pupils equal, round. Neck is supple. There is no elevated jugular venous pressure. HEART EXAMINATION: Heart sounds regular, S1 and S2 systolic murmur. CHEST EXAMINATION: Lungs reveal fine crackles to bilateral bases. No chest wall tenderness is noted on palpation or with deep breathing. ABDOMEN: Soft, nontender. Bowel sounds are heard. No organomegaly noted. EXTREMITIES: 2+ peripheral pulses with no evidence of peripheral edema and no calf tenderness noted. NEUROLOGIC patient is awake, alert and oriented x3. . - Labs CBC & Chem 7: 08/18/16 06:45 08/18/16 06:45 Labs: Abnormal Lab Results - Last 24 Hours (Table) 08/17/16 08/17/16 08/18/16 Range/Units 16:39 21:19 06:24 WBC (3.8-10.6) k/uL RBC (4.30-5.90) m/uL Hgb (13.0-17.5) gm/dL Hct (39.0-53.0) % RDW (11.5-15.5) % Plt Count (150-450) k/uL Neutrophils # (1.3-7.7) k/uL Lymphocytes # (1.0-4.8) k/uL Sodium (137-145) mmol/L Chloride (98-107) mmol/L Carbon Dioxide (22-30) mmol/L BUN (9-20) mg/dL Creatinine (0.66-1.25) mg/dL Glucose (74-99) mg/dL POC Glucose (mg/dL) 215 H 163 H 137 H (75-99) mg/dL ALT (21-72) U/L Albumin (3.5-5.0) g/dL 08/18/16 08/18/16 08/18/16 Range/Units 06:45 06:45 11:46 WBC 10.8 H (3.8-10.6) k/uL RBC 3.41 L (4.30-5.90) m/uL Hgb 10.1 L (13.0-17.5) gm/dL Hct 32.1 L (39.0-53.0) % RDW 17.1 H (11.5-15.5) % Plt Count 122 L (150-450) k/uL Neutrophils # 10.0 H (1.3-7.7) k/uL Lymphocytes # 0.4 L (1.0-4.8) k/uL Sodium 136 L (137-145) mmol/L Chloride 96 L (98-107) mmol/L Carbon Dioxide 31 H (22-30) mmol/L BUN 62 H (9-20) mg/dL Creatinine 1.41 H (0.66-1.25) mg/dL Glucose 120 H (74-99) mg/dL POC Glucose (mg/dL) 109 H (75-99) mg/dL ALT 89 H (21-72) U/L Albumin 2.7 L (3.5-5.0) g/dL Assessment and Plan Plan: Assessment and plan #1 symptoms of respiratory distress with his significant hypoxia on admission, likely secondary to possible radiation pneumonitis and diastolic congestive heart failure, acute on chronic. #2 known history of coronary artery disease with prior stent placement #3 abnormal troponins, not consistent with acute coronary syndrome, could be secondary to oxygen supply and demand mismatch #4 abnormal liver functions, could be secondary to congestion #5 lung CA with recent chemotherapy and radiation, status post surgery #6 status post radiation to the brain for prophylaxis #7 hyperlipidemia Laboratory values were reviewed, BUN and creatinine are elevated from yesterday. Discontinue IV Lasix. Further recommendations to follow. HARDWARE INSTALLATION COORDINATOR note has been reviewed, I agree with a documented findings and plan of care. Patient was seen and examined.
[2016-08-18 17:12] LABS: Glucose,Whole Blood 160 mg/dL (75-99)
[2016-08-18] MEDS: LEVOFLOXACIN 750 MG TAB PO SCH (19:59)
[2016-08-18 20:49] LABS: Glucose,Whole Blood 245 mg/dL (75-99)
[2016-08-19 06:03] LABS: Glucose,Whole Blood 116 mg/dL (75-99)
[2016-08-19] MEDS: INSULIN LISPRO (humaLOG) 300 UNIT/3 ML VIAL SQ SCH ×4 (06:28→21:09)
[2016-08-19] MEDS: PANTOPRAZOLE 40 MG TABLET PO SCH (06:30)
[2016-08-19 06:49] LABS: Anisocytosis Slight; Basophils % (A) 0 %; CH 29.6; CHCM 31.3; Eosinophils % (A) 0 %; HCT 32.4 % (39.0-53.0); HDW 2.65; HGB 9.9 gm/dL (13.0-17.5); Hypochromasia Slight; Luc # (Auto) 0.06; Luc % (Auto) 1; Lymphocytes # (A) 0.4 k/uL (1.0-4.8); Lymphocytes % (A) 4 %; MCHC 30.7 g/dL (31.0-37.0); MCV 94.5 fL (80.0-100.0); Monocytes # (A) 0.4 k/uL (0-1.0); Monocytes % (A) 4 %; Neutrophils # (A) 9.2 k/uL (1.3-7.7); Neutrophils % (A) 92 %; RBC 3.43 m/uL (4.30-5.90); RDW 17.3 % (11.5-15.5); WBC (Perox) 10.66
[2016-08-19 06:57] LABS: ALT 73 U/L (21-72); AST 32 U/L (17-59); Alkaline Phosphatase 104 U/L (38-126); Anion Gap 8 mmol/L; Blood Urea Nitrogen 64 mg/dL (9-20); Calcium 9.1 mg/dL (8.4-10.2); Carbon Dioxide 29 mmol/L (22-30); Chloride 97 mmol/L (98-107); Glucose 114 mg/dL (74-99); Non-African American GFR(MDRD) 60 (>60 ml/min/1.73 sqM); Potassium 4.5 mmol/L (3.5-5.1); Sodium 134 mmol/L (137-145); Total Bilirubin 0.5 mg/dL (0.2-1.3); Total Protein 5.8 g/dL (6.3-8.2)
[2016-08-19] MEDS: ATORVASTATIN 40 MG TAB PO SCH (08:55)
[2016-08-19] MEDS: ATENOLOL 25 MG TAB PO SCH (08:55)
[2016-08-19] MEDS: MULTIVITAMINS, THERA 1 EACH TAB PO SCH (08:56)
[2016-08-19] MEDS: FOLIC ACID 1 MG TAB PO SCH (08:56)
[2016-08-19] MEDS: ENOXAPARIN 40 MG/0.4 ML SYRINGE SQ SCH (08:56)
[2016-08-19] MEDS: FENOFIBRATE 160 MG TAB PO SCH (08:56)
[2016-08-19] MEDS: LISINOPRIL 10 MG TAB PO SCH (08:56)
[2016-08-19] MEDS: DOCUSATE 100 MG CAP PO SCH ×2 (08:56→19:55)
[2016-08-19] MEDS: TAMSULOSIN 0.4 MG CAP.ER.24H PO SCH (08:56)
[2016-08-19] MEDS: ASPIRIN 81 MG CHEW PO SCH (08:56)
[2016-08-19] MEDS: methylPREDNISolone SOD SUCCI 125 MG/2 ML VIAL IV SCH ×4 (08:56→21:09)
[2016-08-19] MEDS: BUDESONIDE 0.5 MG/2 ML NEBU INHALATION SCH ×2 (09:21→19:59)
[2016-08-19] MEDS: IPRATROPIUM-ALBUTEROL 3 ML NEB INHALATION SCH ×4 (09:22→20:02)
--- NOTE | 2016-08-19 10:40 | P.PN ---
Subjective Principal diagnosis: interstitial pneumonitis and hypoxic respiratory failure acte on chronic. 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 Patient underwent radiation treatment and chemotherapy given to him by Dr. Cannon. Patient also underwent prophylactic brain radiation, and he was maintained on oxygen until recently. In June of 2016, patient continued to have residual tumor in the left lung, that did not improve much with radiation, hence the patient was referred to see Dr. Baron at [facility], and he underwent thoracotomy and wedge resection of the residual presumptively small cell lung cancer. However the patient was told that the biopsy report came back showing no evidence of active cancer in the lung tissue that was removed. His postoperative course was relatively uneventful, and going back to x-rays in the last 6 months, on his x-rays were showing that left lung mass, but none of them showed any significant urinary fibrosis or interstitial lung disease. Patient is known to be have history of rheumatoid arthritis, and he was on methotrexate until January of 2016 which was discontinued at the time he was receiving chemotherapy and radiation therapy. At any rate patient did relatively well post surgery in June of 2016, and he even went to visit family in [place]. While there, the patient developed increased shortness of breath, and he was taken to the [place] clinic where in he was noted to be hypoxemic, and a chest x-ray was significantly abnormal showing diffuse interstitial type of lung disease. Patient was told that he needs to be referred to a tertiary care center but he declined, and family decided to bring him back to [facility]. Patient was admitted yesterday with a picture of acute on chronic hypoxic respiratory failure and significantly abnormal CT of the chest showing diffuse severe pulmonary disease, much worse compared to 05/13/2016, consistent with diffuse interstitial and airspace lung parenchymal disease throughout both lungs including cicatrizing changes with pleural parenchymal thickening in the left lung base posterolaterally. However there is interval resolution of the previously noted 2.8 cm mass in the left upper lobe apical segment which apparently was recently removed by Dr. Baron at [facility]. Of course after reviewing the CT of the chest, the differential diagnoses would definitely include radiation type of pneumonitis, nonspecific interstitial pneumonitis related to rheumatoid arthritis, or underlying connective tissue disease, lymphangitic carcinomatosis, acute pneumonitis and congestive heart failure will be all considered in the picture of differential diagnosis. Today I have recommended that to retrieve the last biopsy report which was done at [facility] to determine what was actually read on the lung tissue which was obtained from thoracoscopic wedge resection of the left upper lobe abnormality. That by itself alone may give us an answer of what's happening in the lung parenchyma at this point. In the meantime the patient will be treated with antibiotics, steroids, and I will seriously consider bronchoscopy and transbronchial biopsy, however the patient is not the most ideal candidate for biopsy, he will likely desaturate significantly up on IV conscious sedation. Hence I proceeded. Empiric treatment for now with steroids and antibiotics. And closely follow up the chest x-ray changes over the next few days. Patient was reevaluated today on 08/16/2016, feeling better breathing a bit easier , patient again is on combination of steroids, antibiotics, and diuretics. no official pathology report noted from [facility], family stated that Dr. Cannon has the official pathology report, in his note he mentioned mostly findings of necrotic tissue, but I would like to look at the report in more details to see if there is any other background of pulmonary fibrosis or interstitial findings. at any rate patient remains on high flow nasal cannula about 8 L, clearly not the most ideal candidate to consider for bronchoscopy and biopsy at this point, but that could be considered however the patient may have to be done while he is on mechanical ventilation. I have a strong feeling that the patient will desaturate significantly upon initiation of IV conscious sedation. clinically however, the patient is feeling better, and I felt it is best to continue present supportive care measures and medications as listed although we have no specific diagnosis at this point. Patient was reevaluated today on 08/17/2016, feeling slightly better, patient remains on the same antibiotics, bronchodilators, steroids, and diuretics. Remains on a high flow nasal cannula, and I still believe he is not the most ideal candidate at this point for bronchoscopy and transbronchial biopsy, I'm hoping we will see improvement with the present course of treatment over the next few days. If not improved by early next week, bronchoscopy and biopsy could be considered however the patient would have to be on mechanical ventilation during the procedure. In the meantime I have sent a request to retrieve the final official pathology report on his left lung from [facility]. Labs were reviewed including CBC and basic metabolic profile. Patient is noted to be slightly prerenal with BUN of 47 creatinine of 1.09. Reevaluated again today on 08/18/2016, patient is reporting slight improvement in his shortness of breath. Slightly productive cough, no fever no chills no hemoptysis no chest pain. Remains on a high flow nasal cannula. All his labs were reviewed, CBC is relatively normal. Renal profile seems to be worsening, patient I believe is developing a picture of prerenal azotemia, hence will stop diuretics for now. Lasix was discontinued today, and we will continue to monitor his renal profile. Patient was reevaluated today on 08/19/2016, feeling a bit better, patient is down to 6 L nasal cannula high flow, oxygen saturation remains in the low 90s. Patient has dyspnea with any activity. I was able to review the results of his lung pathology from [facility], and there is background parenchymal necrosis, and possible chemoradiation changes from the lung tissue which was obtained. That may or may not reflect the rest of the lungs. But it is worthwhile considering radiation injury, possibility of lymphangitic carcinomatosis is still in the back of my mind. Especially if the patient's x- ray does not improve much with steroids and antibiotics. Hence sometime next week the patient may have to be bronchoscoped. Family was made aware of the findings. Objective - Vital Signs Vital signs: Vital Signs Temp 97.5 F L 08/19/16 09:04 Pulse 92 08/19/16 09:30 Resp 20 08/19/16 09:04 BP 93/56 08/19/16 09:04 Pulse Ox 93 L 08/19/16 09:22 Intake & Output 08/18/16 08/19/16 08/19/16 18:59 06:59 18:59 Intake Total 820 Output Total 725 Balance 820 -725 Weight 86.2 kg Intake: Oral 820 Output: Urine 725 Other: Voiding Method Urinal Urinal # Voids 2 - Exam Physical Exam: Revealed a 71-year-old white male, frail looking, chronically ill , pale, in mild respiratory distress. HEENT:[Neck is supple.] [No neck masses.] [No thyromegaly.] [No JVD.] Chest: [Crackles at the bases bilaterally, more so on the left base.. No wheezes noted.] Cardiac Exam: [Normal S1 and S2, no S3 gallop, no murmur.] Abdomen: [Soft, nontender, no megaly, no rebound, no guarding, normal bowel sounds.] Extremities: [No clubbing, no edema, no cyanosis.] Neurological Exam: [No focal neurologic deficit.] Lymphatics: No evidence of lymphadenopathy noted. Skin: No evidence of rashes or ecchymosis, no open ulcers. - Labs CBC & Chem 7: 08/19/16 06:00 08/19/16 06:00 Labs: Abnormal Lab Results - Last 24 Hours (Table) 08/18/16 08/18/16 08/18/16 Range/Units 11:46 16:52 20:48 RBC (4.30-5.90) m/uL Hgb (13.0-17.5) gm/dL Hct (39.0-53.0) % MCHC (31.0-37.0) g/dL RDW (11.5-15.5) % Plt Count (150-450) k/uL Neutrophils # (1.3-7.7) k/uL Lymphocytes # (1.0-4.8) k/uL Sodium (137-145) mmol/L Chloride (98-107) mmol/L BUN (9-20) mg/dL Glucose (74-99) mg/dL POC Glucose (mg/dL) 109 H 160 H 245 H (75-99) mg/dL ALT (21-72) U/L Total Protein (6.3-8.2) g/dL Albumin (3.5-5.0) g/dL 08/19/16 08/19/16 08/19/16 Range/Units 06:00 06:00 06:01 RBC 3.43 L (4.30-5.90) m/uL Hgb 9.9 L (13.0-17.5) gm/dL Hct 32.4 L (39.0-53.0) % MCHC 30.7 L (31.0-37.0) g/dL RDW 17.3 H (11.5-15.5) % Plt Count 119 L (150-450) k/uL Neutrophils # 9.2 H (1.3-7.7) k/uL Lymphocytes # 0.4 L (1.0-4.8) k/uL Sodium 134 L (137-145) mmol/L Chloride 97 L (98-107) mmol/L BUN 64 H (9-20) mg/dL Glucose 114 H (74-99) mg/dL POC Glucose (mg/dL) 116 H (75-99) mg/dL ALT 73 H (21-72) U/L Total Protein 5.8 L (6.3-8.2) g/dL Albumin 2.5 L (3.5-5.0) g/dL Assessment and Plan Plan: Impression: 1 acute on chronic hypoxic respiratory failure secondary to severe interstitial and parenchymal lung disease. Differential diagnoses includes lymphangitic carcinomatosis, radiation pneumonitis which is unusual considering the patient had only radiation to the left upper lobe area only. Infection, and interstitial lung disease including UIP and NSIp/rheumatoid lungs. Atypical pulmonary edema 2 history of coronary artery disease and previous stent placement 3 abnormal troponins not consistent with acute coronary syndrome 4 history of small cell lung cancer with recent chemotherapy radiation therapy and recent wedge resection of the left upper lobe 5 history of rheumatoid arthritis 6 history of hyperlipidemia 7 abnormal liver enzymes, etiology is not clear at this point, could be secondary to passive congestion. However recommend ultrasound of the liver and further workup if liver enzymes persists to be elevated. 8 prerenal azotemia most likely secondary to diuresis. Hence Lasix will be discontinued today. Recommendation: Keep patient on antibiotics and steroids, discontinue diuretics , reviewed recent pathology report from [facility], I would definitely consider bronchoscopy, BAL, and transbronchial lung biopsy of this patient, however the patient seems to be quite frail and ill, I'm afraid he may not be able to tolerate such procedure. If bronchoscopy and biopsy would have to be done, patient has to be on mechanical ventilation. This will likely be addressed next week depending on the response to treatment. Discussed his condition with the patient and his and daughter today. Time with Patient: Less than 30
--- NOTE | 2016-08-19 11:09 | P.PN ---
Subjective Principal diagnosis: Acute on chronic hypoxic respiratory failure Patient is a 71-year-old male with known history of lung cancer who underwent left lower lobe resection and underwent radiation and chemotherapy in January 2016 and subsequently had prophylactic brain radiation, patient was maintained on home oxygen until recently, he discontinued using home oxygen and went to [place] for a family member graduation, he states that he was doing worse he was unable to sleep and was developing worsening shortness of breath, his [id number] is working on a base and patient was admitted to a [place] hospital he was told that his oxygen with saturation was very low in the 70 % He was told he could not be treated in the [place] because he was not in the he was offered to be transferred to a regular hospital however patient decided to be discharged and decided to drive back with his and his daughter back to [place], patient is well known to Dr. Cannon, he presented to emergency room at [facility] his oxygen saturation was low d- dimer was significantly elevated and troponin level was elevated at 0.58, patient was started on IV heparin and was admitted to telemetry floor computed tomography scan of the chest was negative for pulmonary embolism, oncology consultation pulmonary consultation and cardiology consultation were initiated, computed tomography scan revealed patchy infiltrates in both lungs and patient was started on IV Levaquin in the emergency room. patient reports improvement in his shortness of breath he denies any new symptoms at this Objective - Vital Signs Vital signs: Vital Signs Temp 97.5 F L 08/19/16 09:04 Pulse 92 08/19/16 09:30 Resp 20 08/19/16 09:04 BP 93/56 08/19/16 09:04 Pulse Ox 93 L 08/19/16 09:22 Intake & Output 08/18/16 08/19/16 08/19/16 18:59 06:59 18:59 Intake Total 820 360 Output Total 725 Balance 820 -725 360 Weight 86.2 kg Intake: Oral 820 360 Output: Urine 725 Other: Voiding Method Urinal Urinal # Voids 2 - Exam In general patient is alert and oriented 3 in no apparent distress HEENT head normocephalic and atraumatic Neck is supple no JVD no goiter no lymphadenopathy Chest exam reveals tachypnea with scattered crackles in both lung ortega no wheezing Cardiac exam reveals tachycardia with S1 and S2 regular rhythm no gallops no murmurs Abdomen is soft nontender no organomegaly Extremity exam reveals no edema no cyanosis or clubbing Neurological examination reveals no focal deficit Skin exam reveals no open ulcers no rashes or ecchymoses - Labs CBC & Chem 7: 08/19/16 06:00 08/19/16 06:00 Labs: Abnormal Lab Results - Last 24 Hours (Table) 08/18/16 08/18/16 08/18/16 Range/Units 11:46 16:52 20:48 RBC (4.30-5.90) m/uL Hgb (13.0-17.5) gm/dL Hct (39.0-53.0) % MCHC (31.0-37.0) g/dL RDW (11.5-15.5) % Plt Count (150-450) k/uL Neutrophils # (1.3-7.7) k/uL Lymphocytes # (1.0-4.8) k/uL Sodium (137-145) mmol/L Chloride (98-107) mmol/L BUN (9-20) mg/dL Glucose (74-99) mg/dL POC Glucose (mg/dL) 109 H 160 H 245 H (75-99) mg/dL ALT (21-72) U/L Total Protein (6.3-8.2) g/dL Albumin (3.5-5.0) g/dL 08/19/16 08/19/16 08/19/16 Range/Units 06:00 06:00 06:01 RBC 3.43 L (4.30-5.90) m/uL Hgb 9.9 L (13.0-17.5) gm/dL Hct 32.4 L (39.0-53.0) % MCHC 30.7 L (31.0-37.0) g/dL RDW 17.3 H (11.5-15.5) % Plt Count 119 L (150-450) k/uL Neutrophils # 9.2 H (1.3-7.7) k/uL Lymphocytes # 0.4 L (1.0-4.8) k/uL Sodium 134 L (137-145) mmol/L Chloride 97 L (98-107) mmol/L BUN 64 H (9-20) mg/dL Glucose 114 H (74-99) mg/dL POC Glucose (mg/dL) 116 H (75-99) mg/dL ALT 73 H (21-72) U/L Total Protein 5.8 L (6.3-8.2) g/dL Albumin 2.5 L (3.5-5.0) g/dL Assessment and Plan Plan: #1 acute hypoxic respiratory failure, pulse ox on presentation was 68% on room air, patient was started on nonrebreather mask and pulse ox was up to 99% Currently patient is on oxygen 6 L via nasal cannula and his pulse ox is 95%, patient was started on IV Solu-Medrol and inhaled bronchodilators #2 diffuse disease in both lung ortega possibly representing acute bronchitis with pneumonia, patient was started on IV Levaquin in the emergency room, will obtain sputum sample for culture and Gram stain pulmonary consultation has been requested #3 elevated troponin level patient denies any chest pain, he was started on IV heparin in the emergency room cardiology consultation has been requested #4 underlying history of lung cancer, awaiting consult from Dr. Cannon, to assess status of his malignancy. #5 hyponatremia on presentation improving with IV fluid #6 underlying history of hypertension well-controlled on current medications #7 underlying history of hyperlipidemia maintained on Lipitor and fenofibrate continue #8 elevated d-dimer with negative computed tomography scan of the chest without any evidence of pulmonary embolism #9 underlying history of benign prostatic hypertrophy maintained on Flomax continue Medication and labs were reviewed, patient is improving continue with current medications, patient improving gradually
[2016-08-19 11:53] LABS: Glucose,Whole Blood 123 mg/dL (75-99)
--- NOTE | 2016-08-19 12:11 | P.PN ---
Subjective Principal diagnosis: Shortness of Breath This is a pleasant 71-year-old gentleman with a history of coronary artery disease and prior chemotherapy and radiation, most recently patient underwent surgery for lung CA and was also receiving chemotherapy for range CA. He presented to the hospital with symptoms of shortness of breath. He is currently being treated for congestive heart failure, diastolic in nature, as well as possible radiation pneumonitis. His renal function has improved slightly today with a creatinine of 1.2. He has diuresed fairly well and is breathing quite a bit better. Continues to be short of breath with exertion . Continues on nasal cannula oxygen at 6 L. Objective - Vital Signs Vital signs: Vital Signs Temp 97.5 F L 08/19/16 09:04 Pulse 94 08/19/16 11:50 Resp 20 08/19/16 09:04 BP 93/56 08/19/16 09:04 Pulse Ox 93 L 08/19/16 09:22 Intake & Output 08/18/16 08/19/16 08/19/16 18:59 06:59 18:59 Intake Total 820 360 Output Total 725 Balance 820 -725 360 Weight 86.2 kg Intake: Oral 820 360 Output: Urine 725 Other: Voiding Method Urinal Urinal # Voids 2 - Exam PHYSICAL EXAMINATION: HEENT: Head is atraumatic, normocephalic. Pupils equal, round. Neck is supple. There is no elevated jugular venous pressure. HEART EXAMINATION: Heart sounds regular, S1 and S2 systolic murmur. CHEST EXAMINATION: Lungs reveal fine crackles to bilateral bases. No chest wall tenderness is noted on palpation or with deep breathing. ABDOMEN: Soft, nontender. Bowel sounds are heard. No organomegaly noted. EXTREMITIES: 2+ peripheral pulses with no evidence of peripheral edema and no calf tenderness noted. NEUROLOGIC patient is awake, alert and oriented x3. . - Labs CBC & Chem 7: 08/19/16 06:00 08/19/16 06:00 Labs: Abnormal Lab Results - Last 24 Hours (Table) 08/18/16 08/18/16 08/19/16 Range/Units 16:52 20:48 06:00 RBC 3.43 L (4.30-5.90) m/uL Hgb 9.9 L (13.0-17.5) gm/dL Hct 32.4 L (39.0-53.0) % MCHC 30.7 L (31.0-37.0) g/dL RDW 17.3 H (11.5-15.5) % Plt Count 119 L (150-450) k/uL Neutrophils # 9.2 H (1.3-7.7) k/uL Lymphocytes # 0.4 L (1.0-4.8) k/uL Sodium (137-145) mmol/L Chloride (98-107) mmol/L BUN (9-20) mg/dL Glucose (74-99) mg/dL POC Glucose (mg/dL) 160 H 245 H (75-99) mg/dL ALT (21-72) U/L Total Protein (6.3-8.2) g/dL Albumin (3.5-5.0) g/dL 08/19/16 08/19/16 08/19/16 Range/Units 06:00 06:01 11:51 RBC (4.30-5.90) m/uL Hgb (13.0-17.5) gm/dL Hct (39.0-53.0) % MCHC (31.0-37.0) g/dL RDW (11.5-15.5) % Plt Count (150-450) k/uL Neutrophils # (1.3-7.7) k/uL Lymphocytes # (1.0-4.8) k/uL Sodium 134 L (137-145) mmol/L Chloride 97 L (98-107) mmol/L BUN 64 H (9-20) mg/dL Glucose 114 H (74-99) mg/dL POC Glucose (mg/dL) 116 H 123 H (75-99) mg/dL ALT 73 H (21-72) U/L Total Protein 5.8 L (6.3-8.2) g/dL Albumin 2.5 L (3.5-5.0) g/dL Assessment and Plan Plan: Assessment and plan #1 symptoms of respiratory distress with his significant hypoxia on admission, likely secondary to possible radiation pneumonitis and diastolic congestive heart failure, acute on chronic. #2 known history of coronary artery disease with prior stent placement #3 abnormal troponins, not consistent with acute coronary syndrome, could be secondary to oxygen supply and demand mismatch #4 abnormal liver functions, could be secondary to congestion #5 lung CA with recent chemotherapy and radiation, status post surgery #6 status post radiation to the brain for prophylaxis #7 hyperlipidemia Cardiology standpoint, medications were reviewed and we'll continue the same. Follow the patient now on an as-needed basis. These do not hesitate to call with questions. BRE[facility]FFER note has been reviewed, I agree with a documented findings and plan of care. Patient was seen and examined.
[2016-08-19 16:54] LABS: Glucose,Whole Blood 147 mg/dL (75-99)
[2016-08-19] MEDS: LEVOFLOXACIN 750 MG TAB PO SCH (19:55)
[2016-08-19 21:11] LABS: Glucose,Whole Blood 230 mg/dL (75-99)
[2016-08-20 06:25] LABS: Glucose,Whole Blood 91 mg/dL (75-99)
[2016-08-20] MEDS: PANTOPRAZOLE 40 MG TABLET PO SCH (06:37)
[2016-08-20] MEDS: INSULIN LISPRO (humaLOG) 300 UNIT/3 ML VIAL SQ SCH ×4 (06:37→21:29)
[2016-08-20] MEDS: IPRATROPIUM-ALBUTEROL 3 ML NEB INHALATION SCH ×4 (06:54→18:58)
[2016-08-20] MEDS: BUDESONIDE 0.5 MG/2 ML NEBU INHALATION SCH ×2 (06:54→18:58)
[2016-08-20 07:36] LABS: Anisocytosis Slight; Basophils % (A) 0 %; CH 29.5; CHCM 31.9; Eosinophils % (A) 0 %; HCT 31.6 % (39.0-53.0); HDW 2.77; HGB 10.1 gm/dL (13.0-17.5); Hypochromasia Slight; Luc # (Auto) 0.07; Luc % (Auto) 1; Lymphocytes # (A) 0.4 k/uL (1.0-4.8); Lymphocytes % (A) 4 %; MCH 29.7 pg (25.0-35.0); MCV 92.6 fL (80.0-100.0); Mean Platelet Volume 8.4; Monocytes # (A) 0.5 k/uL (0-1.0); Monocytes % (A) 5 %; Neutrophils # (A) 8.9 k/uL (1.3-7.7); Neutrophils % (A) 90 %; RBC 3.42 m/uL (4.30-5.90); RDW 16.9 % (11.5-15.5); WBC 9.9 k/uL (3.8-10.6)
[2016-08-20 07:40] LABS: ALT 65 U/L (21-72); AST 32 U/L (17-59); Alkaline Phosphatase 96 U/L (38-126); Anion Gap 6 mmol/L; Blood Urea Nitrogen 53 mg/dL (9-20); Calcium 8.6 mg/dL (8.4-10.2); Carbon Dioxide 30 mmol/L (22-30); Chloride 100 mmol/L (98-107); Glucose 94 mg/dL (74-99); Non-African American GFR(MDRD) >60 (>60 ml/min/1.73 sqM); Potassium 4.7 mmol/L (3.5-5.1); Sodium 136 mmol/L (137-145); Total Bilirubin 0.5 mg/dL (0.2-1.3); Total Protein 5.4 g/dL (6.3-8.2)
[2016-08-20] MEDS: ATORVASTATIN 40 MG TAB PO SCH (09:21)
[2016-08-20] MEDS: ENOXAPARIN 40 MG/0.4 ML SYRINGE SQ SCH (09:21)
[2016-08-20] MEDS: FOLIC ACID 1 MG TAB PO SCH (09:21)
[2016-08-20] MEDS: LISINOPRIL 10 MG TAB PO SCH (09:21)
[2016-08-20] MEDS: ASPIRIN 81 MG CHEW PO SCH (09:21)
[2016-08-20] MEDS: DOCUSATE 100 MG CAP PO SCH ×2 (09:21→21:29)
[2016-08-20] MEDS: TAMSULOSIN 0.4 MG CAP.ER.24H PO SCH (09:21)
[2016-08-20] MEDS: methylPREDNISolone SOD SUCCI 125 MG/2 ML VIAL IV SCH ×4 (09:22→21:29)
[2016-08-20] MEDS: FENOFIBRATE 160 MG TAB PO SCH (09:22)
[2016-08-20] MEDS: MULTIVITAMINS, THERA 1 EACH TAB PO SCH (09:22)
[2016-08-20] MEDS: ATENOLOL 25 MG TAB PO SCH (09:22)
--- NOTE | 2016-08-20 10:29 | P.PN ---
Subjective Principal diagnosis: interstitial pneumonitis and hypoxic respiratory failure acte on chronic. 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 Patient underwent radiation treatment and chemotherapy given to him by Dr. Cannon. Patient also underwent prophylactic brain radiation, and he was maintained on oxygen until recently. In June of 2016, patient continued to have residual tumor in the left lung, that did not improve much with radiation, hence the patient was referred to see Dr. Baron at [facility], and he underwent thoracotomy and wedge resection of the residual presumptively small cell lung cancer. However the patient was told that the biopsy report came back showing no evidence of active cancer in the lung tissue that was removed. His postoperative course was relatively uneventful, and going back to x-rays in the last 6 months, on his x-rays were showing that left lung mass, but none of them showed any significant urinary fibrosis or interstitial lung disease. Patient is known to be have history of rheumatoid arthritis, and he was on methotrexate until January of 2016 which was discontinued at the time he was receiving chemotherapy and radiation therapy. At any rate patient did relatively well post surgery in June of 2016, and he even went to visit family in [place]. While there, the patient developed increased shortness of breath, and he was taken to the [place] [facility] where in he was noted to be hypoxemic, and a chest x-ray was significantly abnormal showing diffuse interstitial type of lung disease. Patient was told that he needs to be referred to a tertiary care center but he declined, and family decided to bring him back to [facility]. Patient was admitted yesterday with a picture of acute on chronic hypoxic respiratory failure and significantly abnormal CT of the chest showing diffuse severe pulmonary disease, much worse compared to 05/13/2016, consistent with diffuse interstitial and airspace lung parenchymal disease throughout both lungs including cicatrizing changes with pleural parenchymal thickening in the left lung base posterolaterally. However there is interval resolution of the previously noted 2.8 cm mass in the left upper lobe apical segment which apparently was recently removed by Dr. Baron at [facility]. Of course after reviewing the CT of the chest, the differential diagnoses would definitely include radiation type of pneumonitis, nonspecific interstitial pneumonitis related to rheumatoid arthritis, or underlying connective tissue disease, lymphangitic carcinomatosis, acute pneumonitis and congestive heart failure will be all considered in the picture of differential diagnosis. Today I have recommended that to retrieve the last biopsy report which was done at [facility] to determine what was actually read on the lung tissue which was obtained from thoracoscopic wedge resection of the left upper lobe abnormality. That by itself alone may give us an answer of what's happening in the lung parenchyma at this point. In the meantime the patient will be treated with antibiotics, steroids, and I will seriously consider bronchoscopy and transbronchial biopsy, however the patient is not the most ideal candidate for biopsy, he will likely desaturate significantly up on IV conscious sedation. Hence I proceeded. Empiric treatment for now with steroids and antibiotics. And closely follow up the chest x-ray changes over the next few days. Patient was reevaluated today on 08/16/2016, feeling better breathing a bit easier , patient again is on combination of steroids, antibiotics, and diuretics. no official pathology report noted from [facility], family stated that Dr. Cannon has the official pathology report, in his note he mentioned mostly findings of necrotic tissue, but I would like to look at the report in more details to see if there is any other background of pulmonary fibrosis or interstitial findings. at any rate patient remains on high flow nasal cannula about 8 L, clearly not the most ideal candidate to consider for bronchoscopy and biopsy at this point, but that could be considered however the patient may have to be done while he is on mechanical ventilation. I have a strong feeling that the patient will desaturate significantly upon initiation of IV conscious sedation. clinically however, the patient is feeling better, and I felt it is best to continue present supportive care measures and medications as listed although we have no specific diagnosis at this point. Patient was reevaluated today on 08/17/2016, feeling slightly better, patient remains on the same antibiotics, bronchodilators, steroids, and diuretics. Remains on a high flow nasal cannula, and I still believe he is not the most ideal candidate at this point for bronchoscopy and transbronchial biopsy, I'm hoping we will see improvement with the present course of treatment over the next few days. If not improved by early next week, bronchoscopy and biopsy could be considered however the patient would have to be on mechanical ventilation during the procedure. In the meantime I have sent a request to retrieve the final official pathology report on his left lung from [facility]. Labs were reviewed including CBC and basic metabolic profile. Patient is noted to be slightly prerenal with BUN of 47 creatinine of 1.09. Reevaluated again today on 08/18/2016, patient is reporting slight improvement in his shortness of breath. Slightly productive cough, no fever no chills no hemoptysis no chest pain. Remains on a high flow nasal cannula. All his labs were reviewed, CBC is relatively normal. Renal profile seems to be worsening, patient I believe is developing a picture of prerenal azotemia, hence will stop diuretics for now. Lasix was discontinued today, and we will continue to monitor his renal profile. Patient was reevaluated today on 08/19/2016, feeling a bit better, patient is down to 6 L nasal cannula high flow, oxygen saturation remains in the low 90s. Patient has dyspnea with any activity. I was able to review the results of his lung pathology from [facility], and there is background parenchymal necrosis, and possible chemoradiation changes from the lung tissue which was obtained. That may or may not reflect the rest of the lungs. But it is worthwhile considering radiation injury, possibility of lymphangitic carcinomatosis is still in the back of my mind. Especially if the patient's x- ray does not improve much with steroids and antibiotics. Hence sometime next week the patient may have to be bronchoscoped. Family was made aware of the findings. Reevaluated today on 08/20/2016, patient is about the same, he is now on 8 L nasal cannula, high flow. Continues to have shortness of breath with any activity. Continues to have crackles at the bases bilaterally. Today I had a long discussion with the patient about possibly repeating a chest x-ray in the morning, and decisions will have to be made possibly referring him back to [facility], or if Dr. Marie is willing, he will need to have a bronchoscopy with transbronchial biopsy however this will most likely need to be done while he is on mechanical ventilation. Or he could be referred back to afford for thoracoscopic lung biopsy. However if his chest x-ray shows improvement, then we will continue to treatment with steroids antibiotics and diuretics. CBC is relatively normal basic metabolic profile is normal BUN is 53 creatinine is 1.10. Objective - Vital Signs Vital signs: Vital Signs Temp 97.6 F 08/20/16 09:30 Pulse 95 08/20/16 09:30 Resp 24 08/20/16 09:30 BP 98/60 08/20/16 09:30 Pulse Ox 91 L 08/20/16 09:30 Intake & Output 08/19/16 08/20/16 08/20/16 18:59 06:59 18:59 Intake Total 860 Output Total 560 300 Balance 300 -300 Weight 87.2 kg Intake: Oral 860 Output: Urine 560 300 Other: Voiding Method Urinal Urinal # Voids 0 - Exam Physical Exam: Revealed a 71-year-old white male, frail looking, chronically ill , pale, in mild respiratory distress. HEENT:[Neck is supple.] [No neck masses.] [No thyromegaly.] [No JVD.] Chest: [Crackles at the bases bilaterally, more so on the left base.. No wheezes noted.] Cardiac Exam: [Normal S1 and S2, no S3 gallop, no murmur.] Abdomen: [Soft, nontender, no megaly, no rebound, no guarding, normal bowel sounds.] Extremities: [Mild clubbing, no edema, no cyanosis.] Neurological Exam: [No focal neurologic deficit.] Lymphatics: No evidence of lymphadenopathy noted. Skin: No evidence of rashes or ecchymosis, no open ulcers. - Labs CBC & Chem 7: 08/20/16 06:44 08/20/16 06:44 Labs: Abnormal Lab Results - Last 24 Hours (Table) 08/19/16 08/19/16 08/19/16 Range/Units 11:51 16:46 21:06 RBC (4.30-5.90) m/uL Hgb (13.0-17.5) gm/dL Hct (39.0-53.0) % RDW (11.5-15.5) % Plt Count (150-450) k/uL Neutrophils # (1.3-7.7) k/uL Lymphocytes # (1.0-4.8) k/uL Sodium (137-145) mmol/L BUN (9-20) mg/dL POC Glucose (mg/dL) 123 H 147 H 230 H (75-99) mg/dL Total Protein (6.3-8.2) g/dL Albumin (3.5-5.0) g/dL 05/07/17 05/07/17 Range/Units 06:44 06:44 RBC 3.42 L (4.30-5.90) m/uL Hgb 10.1 L (13.0-17.5) gm/dL Hct 31.6 L (39.0-53.0) % RDW 16.9 H (11.5-15.5) % Plt Count 118 L (150-450) k/uL Neutrophils # 8.9 H (1.3-7.7) k/uL Lymphocytes # 0.4 L (1.0-4.8) k/uL Sodium 136 L (137-145) mmol/L BUN 53 H (9-20) mg/dL POC Glucose (mg/dL) (75-99) mg/dL Total Protein 5.4 L (6.3-8.2) g/dL Albumin 2.4 L (3.5-5.0) g/dL Assessment and Plan Plan: Impression: 1 acute on chronic hypoxic respiratory failure secondary to severe interstitial and parenchymal lung disease. Differential diagnoses includes lymphangitic carcinomatosis, radiation pneumonitis which is unusual considering the patient had only radiation to the left upper lobe area only. Infection, and interstitial lung disease including UIP and NSIp/rheumatoid lungs. Atypical pulmonary edema 2 history of coronary artery disease and previous stent placement 3 abnormal troponins not consistent with acute coronary syndrome 4 history of small cell lung cancer with recent chemotherapy radiation therapy and recent wedge resection of the left upper lobe 5 history of rheumatoid arthritis 6 history of hyperlipidemia 7 abnormal liver enzymes, etiology is not clear at this point, could be secondary to passive congestion. However recommend ultrasound of the liver and further workup if liver enzymes persists to be elevated. 8 prerenal azotemia most likely secondary to diuresis. Hence Lasix will be discontinued today. Recommendation: Keep patient on antibiotics and steroids, discontinue diuretics , reviewed recent pathology report from [facility], I would definitely consider bronchoscopy, BAL, and transbronchial lung biopsy of this patient, however the patient seems to be quite frail and ill, I'm afraid he may not be able to tolerate such procedure. If bronchoscopy and biopsy would have to be done, patient has to be on mechanical ventilation. Another option would be to consider referring the patient back to [place] for thoracoscopic lung biopsy. Patient was given the different options, however that will depend on the follow-up chest x-ray to determine whether there is any improvement whatsoever which I strongly doubt since the patient is still requiring a high flow FiO2. Prognosis is definitely poor and guarded. Time with Patient: Less than 30
[2016-08-20 12:01] LABS: Glucose,Whole Blood 132 mg/dL (75-99)
--- NOTE | 2016-08-20 14:17 | P.PN ---
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 Cannon, he presented to emergency room at [facility] his oxygen saturation was low d- dimer was significantly elevated and troponin level was elevated at 0.58, patient was started on IV heparin and was admitted to telemetry floor computed tomography scan of the chest was negative for pulmonary embolism, oncology consultation pulmonary consultation and cardiology consultation were initiated, computed tomography scan revealed patchy infiltrates in both lungs and patient was started on IV Levaquin in the emergency room. patient reports improvement in his shortness of breath he denies any new symptoms at this time Objective - Vital Signs Vital signs: Vital Signs Temp 97.6 F 08/20/16 09:30 Pulse 92 08/20/16 13:34 Resp 24 08/20/16 09:30 BP 98/60 08/20/16 09:30 Pulse Ox 91 L 08/20/16 09:30 Intake & Output 08/19/16 08/20/16 08/20/16 18:59 06:59 18:59 Intake Total 860 Output Total 560 300 Balance 300 -300 Weight 87.2 kg Intake: Oral 860 Output: Urine 560 300 Other: Voiding Method Urinal Urinal # Voids 0 - Exam In general patient is alert and oriented 3 in no apparent distress HEENT head normocephalic and atraumatic Neck is supple no JVD no goiter no lymphadenopathy Chest exam reveals crackles in both lung ortega no wheezing Cardiac exam reveals tachycardia with S1 and S2 regular rhythm no gallops no murmurs Abdomen is soft nontender no organomegaly Extremity exam reveals no edema no cyanosis or clubbing Neurological examination reveals no focal deficit - Labs CBC & Chem 7: 08/20/16 06:44 08/20/16 06:44 Labs: Abnormal Lab Results - Last 24 Hours (Table) 08/19/16 08/19/16 08/20/16 Range/Units 16:46 21:06 06:44 RBC 3.42 L (4.30-5.90) m/uL Hgb 10.1 L (13.0-17.5) gm/dL Hct 31.6 L (39.0-53.0) % RDW 16.9 H (11.5-15.5) % Plt Count 118 L (150-450) k/uL Neutrophils # 8.9 H (1.3-7.7) k/uL Lymphocytes # 0.4 L (1.0-4.8) k/uL Sodium (137-145) mmol/L BUN (9-20) mg/dL POC Glucose (mg/dL) 147 H 230 H (75-99) mg/dL Total Protein (6.3-8.2) g/dL Albumin (3.5-5.0) g/dL 08/20/16 08/20/16 Range/Units 06:44 11:42 RBC (4.30-5.90) m/uL Hgb (13.0-17.5) gm/dL Hct (39.0-53.0) % RDW (11.5-15.5) % Plt Count (150-450) k/uL Neutrophils # (1.3-7.7) k/uL Lymphocytes # (1.0-4.8) k/uL Sodium 136 L (137-145) mmol/L BUN 53 H (9-20) mg/dL POC Glucose (mg/dL) 132 H (75-99) mg/dL Total Protein 5.4 L (6.3-8.2) g/dL Albumin 2.4 L (3.5-5.0) g/dL Assessment and Plan Plan: #1 acute hypoxic respiratory failure, pulse ox on presentation was 68% on room air, patient was started on nonrebreather mask and pulse ox was up to 99% Currently patient is on oxygen 6 L via nasal cannula and his pulse ox is 95%, patient was started on IV Solu-Medrol and inhaled bronchodilators #2 diffuse disease in both lung ortega possibly representing acute bronchitis with pneumonia, patient was started on IV Levaquin in the emergency room, will obtain sputum sample for culture and Gram stain pulmonary consultation has been requested #3 elevated troponin level patient denies any chest pain, he was started on IV heparin in the emergency room cardiology consultation has been requested #4 underlying history of lung cancer, awaiting consult from Dr. Cannon, to assess status of his malignancy. #5 hyponatremia on presentation improving with IV fluid #6 underlying history of hypertension well-controlled on current medications #7 underlying history of hyperlipidemia maintained on Lipitor and fenofibrate continue #8 elevated d-dimer with negative computed tomography scan of the chest without any evidence of pulmonary embolism #9 underlying history of benign prostatic hypertrophy maintained on Flomax continue Medication and labs were reviewed, patient is improving gradually continue with current medications, input from cardiology and pulmonary reviewed Will follow closely
[2016-08-20 17:20] LABS: Glucose,Whole Blood 171 mg/dL (75-99)
[2016-08-20 20:49] LABS: Glucose,Whole Blood 193 mg/dL (75-99)
[2016-08-20] MEDS: LEVOFLOXACIN 750 MG TAB PO SCH (21:29)
[2016-08-21 06:50] LABS: Glucose,Whole Blood 77 mg/dL (75-99)
[2016-08-21] MEDS: INSULIN LISPRO (humaLOG) 300 UNIT/3 ML VIAL SQ SCH ×4 (06:53→21:45)
[2016-08-21] MEDS: PANTOPRAZOLE 40 MG TABLET PO SCH (06:54)
[2016-08-21] MEDS: ATENOLOL 25 MG TAB PO SCH (08:15)
[2016-08-21] MEDS: TAMSULOSIN 0.4 MG CAP.ER.24H PO SCH (08:15)
[2016-08-21] MEDS: MULTIVITAMINS, THERA 1 EACH TAB PO SCH (08:15)
[2016-08-21] MEDS: FOLIC ACID 1 MG TAB PO SCH (08:15)
[2016-08-21] MEDS: ATORVASTATIN 40 MG TAB PO SCH (08:15)
[2016-08-21] MEDS: DOCUSATE 100 MG CAP PO SCH ×2 (08:15→21:48)
[2016-08-21] MEDS: ENOXAPARIN 40 MG/0.4 ML SYRINGE SQ SCH (08:15)
[2016-08-21] MEDS: methylPREDNISolone SOD SUCCI 125 MG/2 ML VIAL IV SCH ×4 (08:16→21:44)
[2016-08-21] MEDS: ASPIRIN 81 MG CHEW PO SCH (08:16)
--- NOTE | 2016-08-21 08:19 | XR ---
EXAMINATION TYPE: XR chest 2V DATE OF EXAM: 08/21/2016 6:28 AM COMPARISON: 08/16/2016 TECHNIQUE: PA and lateral views submitted. HISTORY: Shortness of breath FINDINGS: Diffuse interstitial pattern persists with a more confluent area of consolidation and pleural effusio n on the left. No pneumothorax. Atherosclerotic change aorta. Heart size stable. IMPRESSION: 1. Stable interstitial pattern with the left-sided infiltrate and small unchanged in appearance. Diff erential include a venous congestion or atypical, interstitial pneumonitis. Lymphangitic metastases a lso in the differential.
[2016-08-21] MEDS: IPRATROPIUM-ALBUTEROL 3 ML NEB INHALATION SCH ×4 (08:53→20:01)
[2016-08-21] MEDS: BUDESONIDE 0.5 MG/2 ML NEBU INHALATION SCH ×2 (08:53→20:01)
[2016-08-21] MEDS: LISINOPRIL 10 MG TAB PO SCH (09:00)
[2016-08-21] MEDS: FENOFIBRATE 160 MG TAB PO SCH (09:00)
[2016-08-21 09:07] LABS: ALT 62 U/L (21-72); AST 36 U/L (17-59); Alkaline Phosphatase 110 U/L (38-126); Anion Gap 6 mmol/L; Blood Urea Nitrogen 41 mg/dL (9-20); Calcium 8.7 mg/dL (8.4-10.2); Carbon Dioxide 28 mmol/L (22-30); Chloride 100 mmol/L (98-107); Glucose 92 mg/dL (74-99); Non-African American GFR(MDRD) >60 (>60 ml/min/1.73 sqM); Potassium 4.3 mmol/L (3.5-5.1); Sodium 134 mmol/L (137-145); Total Bilirubin 0.6 mg/dL (0.2-1.3); Total Protein 6.1 g/dL (6.3-8.2)
[2016-08-21 09:24] LABS: Anisocytosis Slight; Basophils # (A) 0.1 k/uL (0-0.2); Basophils % (A) 0 %; CH 29.7; CHCM 31.7; Eosinophils % (A) 0 %; HCT 34.3 % (39.0-53.0); Hypochromasia Slight; Luc # (Auto) 0.07; Luc % (Auto) 1; Lymphocytes # (A) 0.5 k/uL (1.0-4.8); Lymphocytes % (A) 4 %; MCH 30.2 pg (25.0-35.0); MCHC 32.2 g/dL (31.0-37.0); MCV 93.8 fL (80.0-100.0); Monocytes # (A) 0.4 k/uL (0-1.0); Monocytes % (A) 3 %; Neutrophils # (A) 12.6 k/uL (1.3-7.7); Neutrophils % (A) 92 %; RBC 3.66 m/uL (4.30-5.90); RDW 16.9 % (11.5-15.5); WBC 13.7 k/uL (3.8-10.6); WBC (Perox) 13.47
--- NOTE | 2016-08-21 10:26 | P.PN ---
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 Cannon, he presented to emergency room at [facility] his oxygen saturation was low d- dimer was significantly elevated and troponin level was elevated at 0.58, patient was started on IV heparin and was admitted to telemetry floor computed tomography scan of the chest was negative for pulmonary embolism, oncology consultation pulmonary consultation and cardiology consultation were initiated, computed tomography scan revealed patchy infiltrates in both lungs and patient was started on IV Levaquin in the emergency room. 08/17/2016 patient had another episode shortness of breath when he was using the bathroom. Respiratory therapy gave him the treatment and had bumped up his oxygen to 15 L high flow. Patient reports that his shortness of breath has shown some improvement. Denies any cough. Denies any chest pain. Denies any nausea or vomiting. Denies any abdominal pain. Last bowel movement about 3 days ago. 08/21/2016 patient lying in bed comfortably family at bedside. Patient had chest x-ray more this morning and it is pending. Patient is still requiring 8 L of oxygen satting around 91%. He denies any chest pain. Still having shortness of breath only able to get bedside commode. Denies any nausea or vomiting. Denies any bowel movement changes or urinary symptoms. Objective - Vital Signs Vital signs: Vital Signs Temp 96.7 F L 08/21/16 08:00 Pulse 94 08/21/16 09:09 Resp 18 08/21/16 08:00 BP 119/70 08/21/16 08:00 Pulse Ox 95 08/21/16 08:00 Intake & Output 08/20/16 08/21/16 08/21/16 18:59 06:59 18:59 Intake Total 0 240 Output Total 300 350 Balance -300 -110 Weight 86.5 kg Intake: IV 0 0.9 @20mls/hr 0 Oral 240 Output: Urine 300 350 Other: Voiding Method Urinal - Exam Head normocephalic Neck supple Lungs coarse breath sounds noted bilaterally Heart regular rate and rhythm S1-S2, no rub or gallop Abdomen is soft nontender nondistended positive bowel sounds no hepatosplenomegaly Extremities no edema Neuro alert and orientated to 3 - Labs CBC & Chem 7: 08/21/16 08:39 08/21/16 08:39 Labs: Abnormal Lab Results - Last 24 Hours (Table) 08/20/16 08/20/16 08/20/16 Range/Units 11:42 16:55 20:48 WBC (3.8-10.6) k/uL RBC (4.30-5.90) m/uL Hgb (13.0-17.5) gm/dL Hct (39.0-53.0) % RDW (11.5-15.5) % Plt Count (150-450) k/uL Neutrophils # (1.3-7.7) k/uL Lymphocytes # (1.0-4.8) k/uL Sodium (137-145) mmol/L BUN (9-20) mg/dL POC Glucose (mg/dL) 132 H 171 H 193 H (75-99) mg/dL Total Protein (6.3-8.2) g/dL Albumin (3.5-5.0) g/dL 08/21/16 08/21/16 Range/Units 08:39 08:39 WBC 13.7 H (3.8-10.6) k/uL RBC 3.66 L (4.30-5.90) m/uL Hgb 11.0 L (13.0-17.5) gm/dL Hct 34.3 L (39.0-53.0) % RDW 16.9 H (11.5-15.5) % Plt Count 136 L (150-450) k/uL Neutrophils # 12.6 H (1.3-7.7) k/uL Lymphocytes # 0.5 L (1.0-4.8) k/uL Sodium 134 L (137-145) mmol/L BUN 41 H (9-20) mg/dL POC Glucose (mg/dL) (75-99) mg/dL Total Protein 6.1 L (6.3-8.2) g/dL Albumin 2.7 L (3.5-5.0) g/dL Assessment and Plan Plan: #1 acute on chronic hypoxic respiratory failure secondary to severe interstitial and parenchymal lung disease. Pulmonary workup in progress. There is discussion about possible bronchoscopy however patient is very frail and ill and may not tolerate procedure. We'll await further pulmonary recommendations. Patient is requiring 8 L of high flow nasal cannula satting at 91%. Awaiting further pulmonary recommendations guarding possible bronchoscopy versus transferred to [facility] for a thoracoscopic lung biopsy #2 diffuse disease in both lung ortega possibly representing acute bronchitis with pneumonia. Continue Levaquin #3 elevated troponin level patient denies any chest pain, evaluated by cardiology #4 underlying history of lung cancer with recent chemotherapy and radiation therapy. Also had recent wedge resection of the left upper lobe. Oncology and pulmonary following #5 hyponatremia on presentation improving with IV fluid #6 underlying history of hypertension well-controlled on current medications #7 underlying history of hyperlipidemia maintained on Lipitor and fenofibrate continue #8 elevated d-dimer with negative computed tomography scan of the chest without any evidence of pulmonary embolism #9 underlying history of benign prostatic hypertrophy maintained on Flomax continue #10 history of rheumatoid arthritis 11. Elevated liver enzymes likely related to passive congestion. Liver enzymes are trending down. We'll repeat labs in a.m. Patient denies any abdominal pain. 12. Acute on chronic diastolic CHF exacerbation. Currently on the Lasix. Had been evaluated by cardiology. They have signed off. DVT prophylaxis Lovenox Patient's prognosis is guarded I performed an examination of the patient and discussed their management with the physician Jewel Sorter. I have reviewed the Physician Jewel Sorter's notes and agree with the documented findings and plan of care
[2016-08-21 12:04] LABS: Glucose,Whole Blood 120 mg/dL (75-99)
[2016-08-21 16:58] LABS: Glucose,Whole Blood 142 mg/dL (75-99)
--- NOTE | 2016-08-21 19:49 | PN ---
This is a 71-year-old gentleman with a history of diffuse interstitial lung disease particularly involving the left lung. The patient was seen by my partner yesterday. The patient is still receiving high-flow oxygen. The patient's chest x-ray, in my opinion, really has not changed that much. Dr. Devlin mentioned possibly sending him back to [facility] for a procedure. Anyway, the patient is about the same as he was yesterday. The patient's BUN and creatinine were suggesting prerenal azotemia, and diuretics were discontinued. The patient is frail, and any sort of attempt at biopsy or even just simple BAL would probably land the patient on mechanical ventilation. In addition to the respiratory failure with diffuse and severe interstitial mostly left-sided lung disease, which may represent lymphangitic carcinomatosis, radiation pneumonitis or an unusual infectious process, the patient has a history of CAD with previous stent placement, small-cell lung cancer with recent chemotherapy, rheumatoid arthritis, hyperlipidemia, congestive hepatopathy and prerenal azotemia. Current vital signs include temperature 96.7, heart rate 87, respiratory rate 18, blood pressure 119/70, mean 86. Eight-liter high-flow oxygen is 95%. Appears in no acute distress. HEENT examination is grossly unremarkable. Mucous membranes are moist. No oral lesions. Neck is supple. Full range of motion. No adenopathy or thyromegaly. Neck veins are flat. Cardiovascular examination reveals regular rhythm rate. S1, S2 normal. Heart rate about 90. Soft systolic murmur is heard. No S3, S4. Lungs reveal some diffuse crackles. Breath sounds are diminished. There are some slight rhonchi. Breath sounds are diminished throughout. Breath sounds are equal. Abdomen is soft. Bowel sounds are heard. Extremities are intact. No cyanosis, clubbing or edema. Skin is without rash. Chest x-ray in my opinion does not show any major changes from the previous x-ray. Again chest x-ray is reviewed. Labs are reviewed. White count 13.7, hemoglobin 11, hematocrit 34.3, platelet count 136,000. Sodium 134, potassium, chloride and CO2 normal. BUN and creatinine were 41 and 0.98. The rest of the labs look okay. Medications are reviewed. ASSESSMENT: 1. Chronic respiratory failure with hypoxemia, secondary to diffuse lung disease, mostly left right-sided. Diagnostic possibilities include lymphangitic carcinomatosis, radiation pneumonitis, unusual infection or rheumatoid arthritis associated interstitial lung disease. 2. History of coronary artery disease with previous stent placement. 3. Abnormal troponins. 4. History of small-cell lung cancer with recent chemotherapy and radiation. 5. History of rheumatoid arthritis. 6. History of hyperlipidemia. 7. Passive congestive hepatopathy. 8. Prerenal azotemia. PLAN: I read Dr. Devlin's note from the weekend, and it appears the patient may benefit from being transferred. Will speak to the patient again in the primary service. Again any attempt at biopsy here with likely end up with the patient on the mechanical ventilator. To really get a good diagnostic sample, I think a VATS procedure would be more appropriate. Will again speak to the patient and to the primary service.
[2016-08-21 20:51] LABS: Glucose,Whole Blood 183 mg/dL (75-99)
[2016-08-21] MEDS: LEVOFLOXACIN 750 MG TAB PO SCH (21:47)
[2016-08-22 06:29] LABS: Glucose,Whole Blood 95 mg/dL (75-99)
[2016-08-22 07:40] LABS: Anisocytosis Slight; CH 29.6; CHCM 31.1; HCT 34.1 % (39.0-53.0); HDW 2.65; HGB 10.5 gm/dL (13.0-17.5); Hypochromasia Slight; Immature Gran Flag Moderate; MCH 29.4 pg (25.0-35.0); MCHC 30.8 g/dL (31.0-37.0); MCV 95.3 fL (80.0-100.0); Mean Platelet Volume 7.7; RBC 3.57 m/uL (4.30-5.90); RDW 17.2 % (11.5-15.5); WBC 10.5 k/uL (3.8-10.6); WBC (Perox) 11.41
[2016-08-22] MEDS: BUDESONIDE 0.5 MG/2 ML NEBU INHALATION SCH ×2 (08:01→19:25)
[2016-08-22] MEDS: IPRATROPIUM-ALBUTEROL 3 ML NEB INHALATION SCH ×4 (08:03→19:26)
[2016-08-22] MEDS: DOCUSATE 100 MG CAP PO SCH ×2 (08:22→21:12)
[2016-08-22] MEDS: ASPIRIN 81 MG CHEW PO SCH (08:22)
[2016-08-22] MEDS: MULTIVITAMINS, THERA 1 EACH TAB PO SCH (08:23)
[2016-08-22] MEDS: FOLIC ACID 1 MG TAB PO SCH (08:23)
[2016-08-22] MEDS: ENOXAPARIN 40 MG/0.4 ML SYRINGE SQ SCH (08:23)
[2016-08-22] MEDS: PANTOPRAZOLE 40 MG TABLET PO SCH (08:23)
[2016-08-22] MEDS: ATORVASTATIN 40 MG TAB PO SCH (08:23)
[2016-08-22] MEDS: ATENOLOL 25 MG TAB PO SCH (08:23)
[2016-08-22] MEDS: TAMSULOSIN 0.4 MG CAP.ER.24H PO SCH (08:23)
[2016-08-22] MEDS: INSULIN LISPRO (humaLOG) 300 UNIT/3 ML VIAL SQ SCH ×4 (08:23→21:11)
[2016-08-22] MEDS: FENOFIBRATE 160 MG TAB PO SCH (08:23)
[2016-08-22] MEDS: methylPREDNISolone SOD SUCCI 125 MG/2 ML VIAL IV SCH ×4 (08:25→21:13)
[2016-08-22 08:26] LABS: ALT 60 U/L (21-72); AST 31 U/L (17-59); Alkaline Phosphatase 101 U/L (38-126); Anion Gap 5 mmol/L; Blood Urea Nitrogen 37 mg/dL (9-20); Calcium 8.8 mg/dL (8.4-10.2); Carbon Dioxide 30 mmol/L (22-30); Chloride 100 mmol/L (98-107); Glucose 91 mg/dL (74-99); Non-African American GFR(MDRD) >60 (>60 ml/min/1.73 sqM); Potassium 4.6 mmol/L (3.5-5.1); Sodium 135 mmol/L (137-145); Total Bilirubin 0.6 mg/dL (0.2-1.3); Total Protein 5.7 g/dL (6.3-8.2)
[2016-08-22] MEDS: LISINOPRIL 10 MG TAB PO SCH (08:27)
[2016-08-22 11:19] LABS: Add Differential Manual Differential
[2016-08-22 11:23] LABS: Band Neutrophils % 1.5 %; Nucleated Red Blood Cells 0 /100 WBC (0-0); Total Cells Counted 200
[2016-08-22 11:24] LABS: Toxic Granulation Present
[2016-08-22 11:43] LABS: Glucose,Whole Blood 120 mg/dL (75-99)
--- NOTE | 2016-08-22 11:48 | P.PN ---
Subjective Principal diagnosis: A 21-year-old gentleman who follows with the [facility] for his primary medical needs. He has a history of fibrillation, coronary artery disease with previous coronary artery bypass surgery and aortic valve replacement with a tissue valve, congestive heart failure, obstructive uropathy requiring Waters catheter insertion, recent fall with right hip fracture post-ORIF, chronic lower extremity edema, ulceration of the lower extremities, severe pulmonary hypertension with a PA pressure of 84 treated with Revatio, degenerative arthritis, hypothyroidism. He was recently discharged from here and then readmitted again on 2016 after being brought in from an extended care facility with altered mental status and fever. He was reported at 101 on the day of admission. His urine was positive for pseudomonas aeruginosa and E coli. Currently on Zosyn. He is seen again today 08/22/2016 on follow-up on the tip care unit. He is currently sitting up in the chair at the bedside. He is awake and alert in no acute distress. He denies any worsening shortness of breath, cough or congestion. No chills or night sweats. HEENT obtaining good to OC saturations in the mid upper 90s on 2 L/m per nasal cannula. His been afebrile. No leukocytosis, current WBC 15.0. Hemoglobin 7.5. In our 4.3. BUN 39 creatinine 1.27. Objective - Vital Signs Vital signs: Vital Signs Temp 96.7 F L 08/22/16 08:00 Pulse 117 H 08/22/16 08:21 Resp 20 08/22/16 08:00 BP 108/59 08/22/16 08:00 Pulse Ox 96 08/22/16 08:03 Intake & Output 08/21/16 08/22/16 08/22/16 18:59 06:59 18:59 Intake Total 600 500 Output Total 1000 1475 Balance -400 -1475 500 Weight 86.5 kg 86 kg Intake: Oral 600 500 Output: Urine 1000 1475 Other: Voiding Method Urinal # Voids 1 # Bowel Movements 1 - Exam GENERAL EXAM: Alert, comfortable in no apparent distress. HEAD: Normocephalic. EYES: Normal reaction of pupils, equal size. NOSE: Clear with pink turbinates. THROAT: No erythema or exudates. NECK: No masses, no JVD. CHEST: No chest wall deformity. LUNGS: Equal air entry with crackles in the bilateral posterior bases. Diminished. CVS: S1 and S2 normal with no audible murmurs, regular rhythm. ABDOMEN: No hepatosplenomegaly, normal bowel sounds, no guarding or rigidity. Extremities: There is 1-2+ lower extremity edema. Changes of chronic venous stasis. No clubbing, no cyanosis. Peripheral pulses are intact. - Labs CBC & Chem 7: 08/22/16 07:03 08/22/16 07:03 Labs: Abnormal Lab Results - Last 24 Hours (Table) 08/21/16 08/21/16 08/21/16 Range/Units 12:02 16:43 20:50 RBC (4.30-5.90) m/uL Hgb (13.0-17.5) gm/dL Hct (39.0-53.0) % MCHC (31.0-37.0) g/dL RDW (11.5-15.5) % Plt Count (150-450) k/uL Neutrophils # (Manual) (1.3-7.7) k/uL Lymphocytes # (Manual) (1.0-4.8) k/uL Sodium (137-145) mmol/L BUN (9-20) mg/dL POC Glucose (mg/dL) 120 H 142 H 183 H (75-99) mg/dL Total Protein (6.3-8.2) g/dL Albumin (3.5-5.0) g/dL 08/22/16 08/22/16 Range/Units 07:03 07:03 RBC 3.57 L (4.30-5.90) m/uL Hgb 10.5 L (13.0-17.5) gm/dL Hct 34.1 L (39.0-53.0) % MCHC 30.8 L (31.0-37.0) g/dL RDW 17.2 H (11.5-15.5) % Plt Count 121 L (150-450) k/uL Neutrophils # (Manual) 9.5 H (1.3-7.7) k/uL Lymphocytes # (Manual) 0.3 L (1.0-4.8) k/uL Sodium 135 L (137-145) mmol/L BUN 37 H (9-20) mg/dL POC Glucose (mg/dL) (75-99) mg/dL Total Protein 5.7 L (6.3-8.2) g/dL Albumin 2.5 L (3.5-5.0) g/dL Assessment and Plan Plan: Pression: #1 Acute exacerbation of diastolic congestive heart failure #2 Severe pulmonary hypertension with RVSP 84 mmHg. #3 Urinary tract infection. #4 Coronary disease with previous coronary artery bypass grafting. #5 Aortic stenosis status post aortic valve replacement/tissue valve. #6 Chronic atrial fibrillation, anticoagulated with warfarin, supra therapeutic. #7 chronic lower extremity edema was stage I superficial ulceration. #8 Hyperlipidemia. #9 Hypothyroidism. #10 Osteoarthritis. #11 Poor overall functional performance in the above-mentioned multiple comorbidities. Plan: The patient was seen and evaluated by Dr. Marie. We'll continue with diuretics. He remains on an coagulation which will be held based on his INR 4.3. With bronchodilators, Symbicort, Revatio. He remains on antibiotics in the form of Zosyn. Will increase his activity as tolerated. We'll continue to follow and make further recommendations based on his clinical status. The patient's case was reviewed and discussed by Dr. Marie. The interim history , assessment and plan were dictated as recommendations by him.
--- NOTE | 2016-08-22 12:54 | P.PN ---
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 Patient underwent radiation treatment and chemotherapy given to him by Dr. Cannon. Patient also underwent prophylactic brain radiation, and he was maintained on oxygen until recently. In June of 2016, patient continued to have residual tumor in the left lung, that did not improve much with radiation, hence the patient was referred to see Dr. Baron at [facility], and he underwent thoracotomy and wedge resection of the residual presumptively small cell lung cancer. However the patient was told that the biopsy report came back showing no evidence of active cancer in the lung tissue that was removed. His postoperative course was relatively uneventful, and going back to x-rays in the last 6 months, on his x-rays were showing that left lung mass, but none of them showed any significant urinary fibrosis or interstitial lung disease. Patient is known to be have history of rheumatoid arthritis, and he was on methotrexate until January of 2016 which was discontinued at the time he was receiving chemotherapy and radiation therapy. At any rate patient did relatively well post surgery in June of 2016, and he even went to visit family in [place]. While there, the patient developed increased shortness of breath, and he was taken to the [place] [facility] where in he was noted to be hypoxemic, and a chest x-ray was significantly abnormal showing diffuse interstitial type of lung disease. Patient was told that he needs to be referred to a tertiary care center but he declined, and family decided to bring him back to [facility]. Patient was admitted yesterday with a picture of acute on chronic hypoxic respiratory failure and significantly abnormal CT of the chest showing diffuse severe pulmonary disease, much worse compared to 05/13/2016, consistent with diffuse interstitial and airspace lung parenchymal disease throughout both lungs including cicatrizing changes with pleural parenchymal thickening in the left lung base posterolaterally. However there is interval resolution of the previously noted 2.8 cm mass in the left upper lobe apical segment which apparently was recently removed by Dr. Baron at [facility]. Of course after reviewing the CT of the chest, the differential diagnoses would definitely include radiation type of pneumonitis, nonspecific interstitial pneumonitis related to rheumatoid arthritis, or underlying connective tissue disease, lymphangitic carcinomatosis, acute pneumonitis and congestive heart failure will be all considered in the picture of differential diagnosis. Today I have recommended that to retrieve the last biopsy report which was done at [facility] to determine what was actually read on the lung tissue which was obtained from thoracoscopic wedge resection of the left upper lobe abnormality. That by itself alone may give us an answer of what's happening in the lung parenchyma at this point. In the meantime the patient will be treated with antibiotics, steroids, and I will seriously consider bronchoscopy and transbronchial biopsy, however the patient is not the most ideal candidate for biopsy, he will likely desaturate significantly up on IV conscious sedation. Hence I proceeded. Empiric treatment for now with steroids and antibiotics. And closely follow up the chest x-ray changes over the next few days. Patient was reevaluated today on 08/16/2016, feeling better breathing a bit easier , patient again is on combination of steroids, antibiotics, and diuretics. no official pathology report noted from [facility], family stated that Dr. Cannon has the official pathology report, in his note he mentioned mostly findings of necrotic tissue, but I would like to look at the report in more details to see if there is any other background of pulmonary fibrosis or interstitial findings. at any rate patient remains on high flow nasal cannula about 8 L, clearly not the most ideal candidate to consider for bronchoscopy and biopsy at this point, but that could be considered however the patient may have to be done while he is on mechanical ventilation. I have a strong feeling that the patient will desaturate significantly upon initiation of IV conscious sedation. clinically however, the patient is feeling better, and I felt it is best to continue present supportive care measures and medications as listed although we have no specific diagnosis at this point. Patient was reevaluated today on 08/17/2016, feeling slightly better, patient remains on the same antibiotics, bronchodilators, steroids, and diuretics. Remains on a high flow nasal cannula, and I still believe he is not the most ideal candidate at this point for bronchoscopy and transbronchial biopsy, I'm hoping we will see improvement with the present course of treatment over the next few days. If not improved by early next week, bronchoscopy and biopsy could be considered however the patient would have to be on mechanical ventilation during the procedure. In the meantime I have sent a request to retrieve the final official pathology report on his left lung from [facility]. Labs were reviewed including CBC and basic metabolic profile. Patient is noted to be slightly prerenal with BUN of 47 creatinine of 1.09. Reevaluated again today on 08/18/2016, patient is reporting slight improvement in his shortness of breath. Slightly productive cough, no fever no chills no hemoptysis no chest pain. Remains on a high flow nasal cannula. All his labs were reviewed, CBC is relatively normal. Renal profile seems to be worsening, patient I believe is developing a picture of prerenal azotemia, hence will stop diuretics for now. Lasix was discontinued today, and we will continue to monitor his renal profile. Patient was reevaluated today on 08/19/2016, feeling a bit better, patient is down to 6 L nasal cannula high flow, oxygen saturation remains in the low 90s. Patient has dyspnea with any activity. I was able to review the results of his lung pathology from [facility], and there is background parenchymal necrosis, and possible chemoradiation changes from the lung tissue which was obtained. That may or may not reflect the rest of the lungs. But it is worthwhile considering radiation injury, possibility of lymphangitic carcinomatosis is still in the back of my mind. Especially if the patient's x- ray does not improve much with steroids and antibiotics. Hence sometime next week the patient may have to be bronchoscoped. Family was made aware of the findings. Reevaluated today on 08/20/2016, patient is about the same, he is now on 8 L nasal cannula, high flow. Continues to have shortness of breath with any activity. Continues to have crackles at the bases bilaterally. Today I had a long discussion with the patient about possibly repeating a chest x-ray in the morning, and decisions will have to be made possibly referring him back to [facility], or if Dr. Marie is willing, he will need to have a bronchoscopy with transbronchial biopsy however this will most likely need to be done while he is on mechanical ventilation. Or he could be referred back to afford for thoracoscopic lung biopsy. However if his chest x-ray shows improvement, then we will continue to treatment with steroids antibiotics and diuretics. CBC is relatively normal basic metabolic profile is normal BUN is 53 creatinine is 1.10. Patient is seen again today 08/22/2016 in follow-up on the selective care unit. He is awake and alert in no acute distress. His oxygen is down to 6 L/m per high flow nasal cannula. He states he is breathing easier today as compared to yesterday. He has a loose nonproductive cough. No chills or night sweats. Does reveal no growth to date. He is afebrile. No leukocytosis creatinine has improved to 0.99. Objective - Vital Signs Vital signs: Vital Signs Temp 96.8 F L 08/22/16 11:43 Pulse 108 H 08/22/16 11:50 Resp 18 08/22/16 11:43 BP 115/58 08/22/16 11:43 Pulse Ox 94 L 08/22/16 11:43 Intake & Output 08/21/16 08/22/16 08/22/16 18:59 06:59 18:59 Intake Total 600 500 Output Total 1000 1475 Balance -400 -1475 500 Weight 86.5 kg 86 kg Intake: Oral 600 500 Output: Urine 1000 1475 Other: Voiding Method Urinal # Voids 1 # Bowel Movements 1 - Exam GENERAL EXAM: Alert, comfortable in no apparent distress. HEAD: Normocephalic. EYES: Normal reaction of pupils, equal size. NOSE: Clear with pink turbinates. THROAT: No erythema or exudates. NECK: No masses, no JVD. CHEST: No chest wall deformity. LUNGS: Equal air entry with us in the posterior bases, wheezing bilaterally. Diminished. CVS: S1 and S2 normal with no audible murmurs, regular rhythm. ABDOMEN: No hepatosplenomegaly, normal bowel sounds, no guarding or rigidity. SPINE: No scoliosis or deformity SKIN: No rashes CENTRAL NERVOUS SYSTEM: No focal deficits, tone is normal in all 4 extremities. Extremities: There is no significant peripheral edema. No clubbing, no cyanosis. Peripheral pulses are intact. - Labs CBC & Chem 7: 08/22/16 07:03 08/22/16 07:03 Labs: Abnormal Lab Results - Last 24 Hours (Table) 08/21/16 08/21/16 08/22/16 Range/Units 16:43 20:50 07:03 RBC 3.57 L (4.30-5.90) m/uL Hgb 10.5 L (13.0-17.5) gm/dL Hct 34.1 L (39.0-53.0) % MCHC 30.8 L (31.0-37.0) g/dL RDW 17.2 H (11.5-15.5) % Plt Count 121 L (150-450) k/uL Neutrophils # (Manual) 9.5 H (1.3-7.7) k/uL Lymphocytes # (Manual) 0.3 L (1.0-4.8) k/uL Sodium (137-145) mmol/L BUN (9-20) mg/dL POC Glucose (mg/dL) 142 H 183 H (75-99) mg/dL Total Protein (6.3-8.2) g/dL Albumin (3.5-5.0) g/dL 08/22/16 08/22/16 Range/Units 07:03 11:41 RBC (4.30-5.90) m/uL Hgb (13.0-17.5) gm/dL Hct (39.0-53.0) % MCHC (31.0-37.0) g/dL RDW (11.5-15.5) % Plt Count (150-450) k/uL Neutrophils # (Manual) (1.3-7.7) k/uL Lymphocytes # (Manual) (1.0-4.8) k/uL Sodium 135 L (137-145) mmol/L BUN 37 H (9-20) mg/dL POC Glucose (mg/dL) 120 H (75-99) mg/dL Total Protein 5.7 L (6.3-8.2) g/dL Albumin 2.5 L (3.5-5.0) g/dL Assessment and Plan Plan: Impression: 1 acute on chronic hypoxic respiratory failure secondary to severe interstitial and parenchymal lung disease. Differential diagnoses includes lymphangitic carcinomatosis, radiation pneumonitis which is unusual considering the patient had only radiation to the left upper lobe area only. Infection, and interstitial lung disease including UIP and NSIp/rheumatoid lungs. Atypical pulmonary edema 2 history of coronary artery disease and previous stent placement 3 abnormal troponins not consistent with acute coronary syndrome 4 history of small cell lung cancer with recent chemotherapy radiation therapy and recent wedge resection of the left upper lobe 5 history of rheumatoid arthritis 6 history of hyperlipidemia 7 abnormal liver enzymes, etiology is not clear at this point, could be secondary to passive congestion. However recommend ultrasound of the liver and further workup if liver enzymes persists to be elevated. 8 prerenal azotemia most likely secondary to diuresis. Hence Lasix will be discontinued today. Plan: The patient was seen and evaluated by Dr. Marie. The patient is improved today as compared to yesterday. There is no plans for bronchoscopy with biopsy at this point. The patient is not keen on being transferred to [facility] either. We'll continue with his current medications. We'll continue to titrate down his FiO2 to maintain O2 saturations in the 90s. We will continue to follow.
[2016-08-22 16:37] LABS: Glucose,Whole Blood 168 mg/dL (75-99)
--- NOTE | 2016-08-22 17:25 | P.PN ---
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 Cannon, he presented to emergency room at [facility] his oxygen saturation was low d- dimer was significantly elevated and troponin level was elevated at 0.58, patient was started on IV heparin and was admitted to telemetry floor computed tomography scan of the chest was negative for pulmonary embolism, oncology consultation pulmonary consultation and cardiology consultation were initiated, computed tomography scan revealed patchy infiltrates in both lungs and patient was started on IV Levaquin in the emergency room. patient reports improvement in his shortness of breath he denies any new symptoms at this time Objective - Vital Signs Vital signs: Vital Signs Temp 96.9 F L 08/22/16 14:49 Pulse 103 H 08/22/16 15:30 Resp 18 08/22/16 14:49 BP 110/59 08/22/16 14:49 Pulse Ox 95 08/22/16 14:49 Intake & Output 08/21/16 08/22/16 08/22/16 18:59 06:59 18:59 Intake Total 600 736 Output Total 1000 1475 1250 Balance -400 -1475 -514 Weight 86.5 kg 86 kg Intake: Oral 600 736 Output: Urine 1000 1475 1250 Other: Voiding Method Urinal # Voids 1 # Bowel Movements 1 - Exam In general patient is alert and oriented 3 in no apparent distress HEENT head normocephalic and atraumatic Neck is supple no JVD no goiter no lymphadenopathy Chest exam reveals crackles in both lung ortega no wheezing Cardiac exam reveals tachycardia with S1 and S2 regular rhythm no gallops no murmurs Abdomen is soft nontender no organomegaly Extremity exam reveals no edema no cyanosis or clubbing Neurological examination reveals no focal deficit - Labs CBC & Chem 7: 08/22/16 07:03 08/22/16 07:03 Labs: Abnormal Lab Results - Last 24 Hours (Table) 08/21/16 08/22/16 08/22/16 Range/Units 20:50 07:03 07:03 RBC 3.57 L (4.30-5.90) m/uL Hgb 10.5 L (13.0-17.5) gm/dL Hct 34.1 L (39.0-53.0) % MCHC 30.8 L (31.0-37.0) g/dL RDW 17.2 H (11.5-15.5) % Plt Count 121 L (150-450) k/uL Neutrophils # (Manual) 9.5 H (1.3-7.7) k/uL Lymphocytes # (Manual) 0.3 L (1.0-4.8) k/uL Sodium 135 L (137-145) mmol/L BUN 37 H (9-20) mg/dL POC Glucose (mg/dL) 183 H (75-99) mg/dL Total Protein 5.7 L (6.3-8.2) g/dL Albumin 2.5 L (3.5-5.0) g/dL 08/22/16 08/22/16 Range/Units 11:41 16:35 RBC (4.30-5.90) m/uL Hgb (13.0-17.5) gm/dL Hct (39.0-53.0) % MCHC (31.0-37.0) g/dL RDW (11.5-15.5) % Plt Count (150-450) k/uL Neutrophils # (Manual) (1.3-7.7) k/uL Lymphocytes # (Manual) (1.0-4.8) k/uL Sodium (137-145) mmol/L BUN (9-20) mg/dL POC Glucose (mg/dL) 120 H 168 H (75-99) mg/dL Total Protein (6.3-8.2) g/dL Albumin (3.5-5.0) g/dL Assessment and Plan Plan: #1 acute hypoxic respiratory failure, pulse ox on presentation was 68% on room air, patient was started on nonrebreather mask and pulse ox was up to 99% Currently patient is on oxygen 6 L via nasal cannula and his pulse ox is 95%, patient was started on IV Solu-Medrol and inhaled bronchodilators #2 diffuse disease in both lung ortega possibly representing possible acute bronchitis with pneumonia, other for initial diagnosis possibilities are detailed in the person investigator note patient was started on IV Levaquin in the emergency room, will obtain sputum sample for culture and Gram stain he has been improving with current treatment #3 elevated troponin level patient denies any chest pain, he was started on IV heparin in the emergency room cardiology consultation has been requested #4 underlying history of lung cancer, awaiting consult from Dr. Cannon, to assess status of his malignancy. #5 hyponatremia on presentation improving with IV fluid #6 underlying history of hypertension well-controlled on current medications #7 underlying history of hyperlipidemia maintained on Lipitor and fenofibrate continue #8 elevated d-dimer with negative computed tomography scan of the chest without any evidence of pulmonary embolism #9 underlying history of benign prostatic hypertrophy maintained on Flomax continue Medication and labs were reviewed, patient is improving gradually continue with current medications, input from cardiology and pulmonary reviewed Will follow closely
[2016-08-22 20:57] LABS: Glucose,Whole Blood 153 mg/dL (75-99)
[2016-08-22] MEDS: LEVOFLOXACIN 750 MG TAB PO SCH (21:12)
[2016-08-23 06:32] LABS: Glucose,Whole Blood 92 mg/dL (75-99)
[2016-08-23 06:52] LABS: ALT 53 U/L (21-72); AST 30 U/L (17-59); Alkaline Phosphatase 93 U/L (38-126); Anion Gap 5 mmol/L; Anisocytosis Slight; Blood Urea Nitrogen 39 mg/dL (9-20); CH 30.2; CHCM 32.2; Calcium 8.7 mg/dL (8.4-10.2); Carbon Dioxide 28 mmol/L (22-30); Chloride 101 mmol/L (98-107); Glucose 96 mg/dL (74-99); HCT 34.1 % (39.0-53.0); HDW 2.82; Immature Gran Flag Slight; MCH 30.2 pg (25.0-35.0); MCHC 32.2 g/dL (31.0-37.0); Mean Platelet Volume 7.7; Non-African American GFR(MDRD) >60 (>60 ml/min/1.73 sqM); Potassium 4.8 mmol/L (3.5-5.1); RBC 3.63 m/uL (4.30-5.90); RDW 17.2 % (11.5-15.5); Sodium 134 mmol/L (137-145); Total Bilirubin 0.6 mg/dL (0.2-1.3); Total Protein 5.7 g/dL (6.3-8.2); WBC (Perox) 12.76
[2016-08-23] MEDS: BUDESONIDE 0.5 MG/2 ML NEBU INHALATION SCH ×2 (07:02→20:09)
[2016-08-23] MEDS: IPRATROPIUM-ALBUTEROL 3 ML NEB INHALATION SCH ×4 (07:02→20:09)
[2016-08-23] MEDS: INSULIN LISPRO (humaLOG) 300 UNIT/3 ML VIAL SQ SCH ×4 (07:24→22:16)
[2016-08-23] MEDS: PANTOPRAZOLE 40 MG TABLET PO SCH (07:25)
[2016-08-23 08:19] LABS: Add Differential Manual Differential
[2016-08-23 08:20] LABS: Nucleated Red Blood Cells 1 /100 WBC (0-0); Total Cells Counted 100
[2016-08-23 08:22] LABS: Manual Review Performed; Toxic Granulation Present; WBC 13.1 k/uL (3.8-10.6)
[2016-08-23] MEDS: methylPREDNISolone SOD SUCCI 125 MG/2 ML VIAL IV SCH ×4 (08:56→22:17)
[2016-08-23] MEDS: FENOFIBRATE 160 MG TAB PO SCH (08:56)
[2016-08-23] MEDS: ENOXAPARIN 40 MG/0.4 ML SYRINGE SQ SCH (08:56)
[2016-08-23] MEDS: LISINOPRIL 10 MG TAB PO SCH (08:56)
[2016-08-23] MEDS: ATENOLOL 25 MG TAB PO SCH (08:56)
[2016-08-23] MEDS: ATORVASTATIN 40 MG TAB PO SCH (08:56)
[2016-08-23] MEDS: ASPIRIN 81 MG CHEW PO SCH (08:56)
[2016-08-23] MEDS: DOCUSATE 100 MG CAP PO SCH ×2 (08:56→22:16)
[2016-08-23] MEDS: FOLIC ACID 1 MG TAB PO SCH (08:56)
[2016-08-23] MEDS: MULTIVITAMINS, THERA 1 EACH TAB PO SCH (08:57)
[2016-08-23] MEDS: TAMSULOSIN 0.4 MG CAP.ER.24H PO SCH (08:57)
[2016-08-23 11:52] LABS: Glucose,Whole Blood 99 mg/dL (75-99)
--- NOTE | 2016-08-23 14:32 | P.PN ---
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 Patient underwent radiation treatment and chemotherapy given to him by Dr. Cannon. Patient also underwent prophylactic brain radiation, and he was maintained on oxygen until recently. In June of 2016, patient continued to have residual tumor in the left lung, that did not improve much with radiation, hence the patient was referred to see Dr. Baron at [facility], and he underwent thoracotomy and wedge resection of the residual presumptively small cell lung cancer. However the patient was told that the biopsy report came back showing no evidence of active cancer in the lung tissue that was removed. His postoperative course was relatively uneventful, and going back to x-rays in the last 6 months, on his x-rays were showing that left lung mass, but none of them showed any significant urinary fibrosis or interstitial lung disease. Patient is known to be have history of rheumatoid arthritis, and he was on methotrexate until January of 2016 which was discontinued at the time he was receiving chemotherapy and radiation therapy. At any rate patient did relatively well post surgery in June of 2016, and he even went to visit family in [place]. While there, the patient developed increased shortness of breath, and he was taken to the [place] [facility] where in he was noted to be hypoxemic, and a chest x-ray was significantly abnormal showing diffuse interstitial type of lung disease. Patient was told that he needs to be referred to a tertiary care center but he declined, and family decided to bring him back to [facility]. Patient was admitted yesterday with a picture of acute on chronic hypoxic respiratory failure and significantly abnormal CT of the chest showing diffuse severe pulmonary disease, much worse compared to 05/13/2016, consistent with diffuse interstitial and airspace lung parenchymal disease throughout both lungs including cicatrizing changes with pleural parenchymal thickening in the left lung base posterolaterally. However there is interval resolution of the previously noted 2.8 cm mass in the left upper lobe apical segment which apparently was recently removed by Dr. Baron at [facility]. Of course after reviewing the CT of the chest, the differential diagnoses would definitely include radiation type of pneumonitis, nonspecific interstitial pneumonitis related to rheumatoid arthritis, or underlying connective tissue disease, lymphangitic carcinomatosis, acute pneumonitis and congestive heart failure will be all considered in the picture of differential diagnosis. Today I have recommended that to retrieve the last biopsy report which was done at [facility] to determine what was actually read on the lung tissue which was obtained from thoracoscopic wedge resection of the left upper lobe abnormality. That by itself alone may give us an answer of what's happening in the lung parenchyma at this point. In the meantime the patient will be treated with antibiotics, steroids, and I will seriously consider bronchoscopy and transbronchial biopsy, however the patient is not the most ideal candidate for biopsy, he will likely desaturate significantly up on IV conscious sedation. Hence I proceeded. Empiric treatment for now with steroids and antibiotics. And closely follow up the chest x-ray changes over the next few days. Patient was reevaluated today on 08/16/2016, feeling better breathing a bit easier , patient again is on combination of steroids, antibiotics, and diuretics. no official pathology report noted from [facility], family stated that Dr. Cannon has the official pathology report, in his note he mentioned mostly findings of necrotic tissue, but I would like to look at the report in more details to see if there is any other background of pulmonary fibrosis or interstitial findings. at any rate patient remains on high flow nasal cannula about 8 L, clearly not the most ideal candidate to consider for bronchoscopy and biopsy at this point, but that could be considered however the patient may have to be done while he is on mechanical ventilation. I have a strong feeling that the patient will desaturate significantly upon initiation of IV conscious sedation. clinically however, the patient is feeling better, and I felt it is best to continue present supportive care measures and medications as listed although we have no specific diagnosis at this point. Patient was reevaluated today on 08/17/2016, feeling slightly better, patient remains on the same antibiotics, bronchodilators, steroids, and diuretics. Remains on a high flow nasal cannula, and I still believe he is not the most ideal candidate at this point for bronchoscopy and transbronchial biopsy, I'm hoping we will see improvement with the present course of treatment over the next few days. If not improved by early next week, bronchoscopy and biopsy could be considered however the patient would have to be on mechanical ventilation during the procedure. In the meantime I have sent a request to retrieve the final official pathology report on his left lung from [facility]. Labs were reviewed including CBC and basic metabolic profile. Patient is noted to be slightly prerenal with BUN of 47 creatinine of 1.09. Reevaluated again today on 08/18/2016, patient is reporting slight improvement in his shortness of breath. Slightly productive cough, no fever no chills no hemoptysis no chest pain. Remains on a high flow nasal cannula. All his labs were reviewed, CBC is relatively normal. Renal profile seems to be worsening, patient I believe is developing a picture of prerenal azotemia, hence will stop diuretics for now. Lasix was discontinued today, and we will continue to monitor his renal profile. Patient was reevaluated today on 08/19/2016, feeling a bit better, patient is down to 6 L nasal cannula high flow, oxygen saturation remains in the low 90s. Patient has dyspnea with any activity. I was able to review the results of his lung pathology from [facility], and there is background parenchymal necrosis, and possible chemoradiation changes from the lung tissue which was obtained. That may or may not reflect the rest of the lungs. But it is worthwhile considering radiation injury, possibility of lymphangitic carcinomatosis is still in the back of my mind. Especially if the patient's x- ray does not improve much with steroids and antibiotics. Hence sometime next week the patient may have to be bronchoscoped. Family was made aware of the findings. Reevaluated today on 08/20/2016, patient is about the same, he is now on 8 L nasal cannula, high flow. Continues to have shortness of breath with any activity. Continues to have crackles at the bases bilaterally. Today I had a long discussion with the patient about possibly repeating a chest x-ray in the morning, and decisions will have to be made possibly referring him back to [facility], or if Dr. Marie is willing, he will need to have a bronchoscopy with transbronchial biopsy however this will most likely need to be done while he is on mechanical ventilation. Or he could be referred back to afford for thoracoscopic lung biopsy. However if his chest x-ray shows improvement, then we will continue to treatment with steroids antibiotics and diuretics. CBC is relatively normal basic metabolic profile is normal BUN is 53 creatinine is 1.10. Patient is seen again today 08/22/2016 in follow-up on the selective care unit. He is awake and alert in no acute distress. His oxygen is down to 6 L/m per high flow nasal cannula. He states he is breathing easier today as compared to yesterday. He has a loose nonproductive cough. No chills or night sweats. Does reveal no growth to date. He is afebrile. No leukocytosis creatinine has improved to 0.99. The patient is seen again today 08/23/2016 in follow-up on the selective care unit. He is awake and alert in no acute distress. His oxygen is down to 5 L/m per nasal cannula. He has been up with assistance at the bedside. As he continues to improve daily there are no plans for any intervention at this point. Tinea with his current medications. Objective - Vital Signs Vital signs: Vital Signs Temp 97.1 F L 08/23/16 12:24 Pulse 94 08/23/16 12:24 Resp 20 08/23/16 12:24 BP 119/68 08/23/16 12:24 Pulse Ox 95 08/23/16 12:24 Intake & Output 08/22/16 08/23/16 08/23/16 18:59 06:59 18:59 Intake Total 972 656 Output Total 1250 1650 700 Balance -278 -1650 -44 Weight 86.8 kg Intake: Oral 972 656 Output: Urine 1250 1650 700 Other: Voiding Method Urinal Urinal # Voids 1 2 - Exam GENERAL EXAM: Alert, comfortable in no apparent distress. HEAD: Normocephalic. EYES: Normal reaction of pupils, equal size. NOSE: Clear with pink turbinates. THROAT: No erythema or exudates. NECK: No masses, no JVD. CHEST: No chest wall deformity. LUNGS: Equal air entry with us in the posterior bases, wheezing bilaterally. Diminished. CVS: S1 and S2 normal with no audible murmurs, regular rhythm. ABDOMEN: No hepatosplenomegaly, normal bowel sounds, no guarding or rigidity. SPINE: No scoliosis or deformity SKIN: No rashes CENTRAL NERVOUS SYSTEM: No focal deficits, tone is normal in all 4 extremities. Extremities: There is no significant peripheral edema. No clubbing, no cyanosis. Peripheral pulses are intact. - Labs CBC & Chem 7: 08/23/16 05:57 08/23/16 05:57 Labs: Abnormal Lab Results - Last 24 Hours (Table) 08/22/16 08/22/16 08/23/16 Range/Units 16:35 20:55 05:57 WBC 13.1 H (3.8-10.6) k/uL RBC 3.63 L (4.30-5.90) m/uL Hgb 11.0 L (13.0-17.5) gm/dL Hct 34.1 L (39.0-53.0) % RDW 17.2 H (11.5-15.5) % Plt Count 137 L (150-450) k/uL Neutrophils # (Manual) 11.0 H (1.3-7.7) k/uL Lymphocytes # (Manual) 0.9 L (1.0-4.8) k/uL Nucleated RBCs 1 H (0-0) /100 WBC Sodium (137-145) mmol/L BUN (9-20) mg/dL POC Glucose (mg/dL) 168 H 153 H (75-99) mg/dL Total Protein (6.3-8.2) g/dL Albumin (3.5-5.0) g/dL 08/23/16 Range/Units 05:57 WBC (3.8-10.6) k/uL RBC (4.30-5.90) m/uL Hgb (13.0-17.5) gm/dL Hct (39.0-53.0) % RDW (11.5-15.5) % Plt Count (150-450) k/uL Neutrophils # (Manual) (1.3-7.7) k/uL Lymphocytes # (Manual) (1.0-4.8) k/uL Nucleated RBCs (0-0) /100 WBC Sodium 134 L (137-145) mmol/L BUN 39 H (9-20) mg/dL POC Glucose (mg/dL) (75-99) mg/dL Total Protein 5.7 L (6.3-8.2) g/dL Albumin 2.6 L (3.5-5.0) g/dL Assessment and Plan Plan: Impression: 1 acute on chronic hypoxic respiratory failure secondary to severe interstitial and parenchymal lung disease. Differential diagnoses includes lymphangitic carcinomatosis, radiation pneumonitis which is unusual considering the patient had only radiation to the left upper lobe area only. Infection, and interstitial lung disease including UIP and NSIp/rheumatoid lungs. Atypical pulmonary edema 2 history of coronary artery disease and previous stent placement 3 abnormal troponins not consistent with acute coronary syndrome 4 history of small cell lung cancer with recent chemotherapy radiation therapy and recent wedge resection of the left upper lobe 5 history of rheumatoid arthritis 6 history of hyperlipidemia 7 abnormal liver enzymes, etiology is not clear at this point, could be secondary to passive congestion. However recommend ultrasound of the liver and further workup if liver enzymes persists to be elevated. 8 prerenal azotemia most likely secondary to diuresis. Recovered. Plan: The patient was seen and evaluated by Dr. Marie. The patient continues to improve daily. There is no plans for bronchoscopy with biopsy at this point. The patient is not keen on being transferred to [facility] either. We' ll continue with his current medications. We'll continue to titrate down his FiO2 to maintain O2 saturations in the 90s. We will increase his activity as tolerated. We will continue to follow.
[2016-08-23 16:47] LABS: Glucose,Whole Blood 198 mg/dL (75-99)
--- NOTE | 2016-08-23 17:33 | P.PN ---
Subjective Principal diagnosis: Acute on chronic hypoxic respiratory failure Patient is a 71-year-old male with known history of lung cancer who underwent left lower lobe resection and underwent radiation and chemotherapy in January 2016 and subsequently had prophylactic brain radiation, patient was maintained on home oxygen until recently, he discontinued using home oxygen and went to [place] for a family member graduation, he states that he was doing worse he was unable to sleep and was developing worsening shortness of breath, his [id number] is working on a base and patient was admitted to a [place] hospital he was told that his oxygen with saturation was very low in the 70 % He was told he could not be treated in the [place] because he was not in the he was offered to be transferred to a regular hospital however patient decided to be discharged and decided to drive back with his and his daughter back to [place], patient is well known to Dr. Cannon, he presented to emergency room at [facility] his oxygen saturation was low d- dimer was significantly elevated and troponin level was elevated at 0.58, patient was started on IV heparin and was admitted to telemetry floor computed tomography scan of the chest was negative for pulmonary embolism, oncology consultation pulmonary consultation and cardiology consultation were initiated, computed tomography scan revealed patchy infiltrates in both lungs and patient was started on IV Levaquin in the emergency room. patient reports improvement in his shortness of breath he denies any other symptoms. Objective - Vital Signs Vital signs: Vital Signs Temp 97 F L 08/23/16 15:45 Pulse 88 08/23/16 16:14 Resp 20 08/23/16 17:15 BP 116/62 08/23/16 15:45 Pulse Ox 94 L 08/23/16 17:15 Intake & Output 08/22/16 08/23/16 08/23/16 18:59 06:59 18:59 Intake Total 972 656 Output Total 1250 1650 1225 Balance -278 -1650 -569 Weight 86.8 kg Intake: Oral 972 656 Output: Urine 1250 1650 1225 Other: Voiding Method Urinal Urinal # Voids 1 2 - Exam In general patient is alert and oriented 3 in no apparent distress HEENT head normocephalic and atraumatic Neck is supple no JVD no goiter no lymphadenopathy Chest exam reveals crackles in both lung ortega no wheezing Cardiac exam reveals tachycardia with S1 and S2 regular rhythm no gallops no murmurs Abdomen is soft nontender no organomegaly Extremity exam reveals no edema no cyanosis or clubbing Neurological examination reveals no focal deficit - Labs CBC & Chem 7: 08/23/16 05:57 08/23/16 05:57 Labs: Abnormal Lab Results - Last 24 Hours (Table) 08/22/16 08/23/16 08/23/16 Range/Units 20:55 05:57 05:57 WBC 13.1 H (3.8-10.6) k/uL RBC 3.63 L (4.30-5.90) m/uL Hgb 11.0 L (13.0-17.5) gm/dL Hct 34.1 L (39.0-53.0) % RDW 17.2 H (11.5-15.5) % Plt Count 137 L (150-450) k/uL Neutrophils # (Manual) 11.0 H (1.3-7.7) k/uL Lymphocytes # (Manual) 0.9 L (1.0-4.8) k/uL Nucleated RBCs 1 H (0-0) /100 WBC Sodium 134 L (137-145) mmol/L BUN 39 H (9-20) mg/dL POC Glucose (mg/dL) 153 H (75-99) mg/dL Total Protein 5.7 L (6.3-8.2) g/dL Albumin 2.6 L (3.5-5.0) g/dL 08/23/16 Range/Units 16:44 WBC (3.8-10.6) k/uL RBC (4.30-5.90) m/uL Hgb (13.0-17.5) gm/dL Hct (39.0-53.0) % RDW (11.5-15.5) % Plt Count (150-450) k/uL Neutrophils # (Manual) (1.3-7.7) k/uL Lymphocytes # (Manual) (1.0-4.8) k/uL Nucleated RBCs (0-0) /100 WBC Sodium (137-145) mmol/L BUN (9-20) mg/dL POC Glucose (mg/dL) 198 H (75-99) mg/dL Total Protein (6.3-8.2) g/dL Albumin (3.5-5.0) g/dL Assessment and Plan Plan: #1 acute hypoxic respiratory failure, pulse ox on presentation was 68% on room air, patient was started on nonrebreather mask and pulse ox was up to 99% Currently patient is on oxygen 6 L via nasal cannula and his pulse ox is 95%, patient was started on IV Solu-Medrol and inhaled bronchodilators #2 diffuse disease in both lung ortega possibly representing possible acute bronchitis with pneumonia, other for initial diagnosis possibilities are detailed in the systems engineer note patient was started on IV Levaquin in the emergency room, will obtain sputum sample for culture and Gram stain he has been improving with current treatment #3 elevated troponin level patient denies any chest pain, he was started on IV heparin in the emergency room cardiology consultation has been requested #4 underlying history of lung cancer, awaiting consult from Dr. Cannon, to assess status of his malignancy. #5 hyponatremia on presentation improving with IV fluid #6 underlying history of hypertension well-controlled on current medications #7 underlying history of hyperlipidemia maintained on Lipitor and fenofibrate continue #8 elevated d-dimer with negative computed tomography scan of the chest without any evidence of pulmonary embolism #9 underlying history of benign prostatic hypertrophy maintained on Flomax continue Medication and labs were reviewed, patient is improving gradually continue with current medications, input from cardiology and pulmonary reviewed Per pulmonary no plans for bronchoscopy at this time, no plans for transfer to [facility] patient is not interested in the transfer at this point Continue was current management patient is improving gradually
[2016-08-23 21:24] LABS: Glucose,Whole Blood 150 mg/dL (75-99)
[2016-08-23] MEDS: LEVOFLOXACIN 750 MG TAB PO SCH (22:17)
[2016-08-24 06:00] LABS: Anisocytosis Slight; Basophils % (A) 0 %; CH 29.3; CHCM 31.4; Eosinophils % (A) 0 %; HCT 34.4 % (39.0-53.0); HDW 2.75; HGB 10.6 gm/dL (13.0-17.5); Hypochromasia Slight; Luc # (Auto) 0.04; Luc % (Auto) 0; Lymphocytes # (A) 0.4 k/uL (1.0-4.8); Lymphocytes % (A) 3 %; MCH 28.7 pg (25.0-35.0); MCHC 30.7 g/dL (31.0-37.0); MCV 93.4 fL (80.0-100.0); Mean Platelet Volume 8.3; Monocytes # (A) 0.4 k/uL (0-1.0); Monocytes % (A) 3 %; Neutrophils # (A) 12.3 k/uL (1.3-7.7); Neutrophils % (A) 94 %; RBC 3.69 m/uL (4.30-5.90); RDW 17.4 % (11.5-15.5); WBC 13.2 k/uL (3.8-10.6); WBC (Perox) 13.95
[2016-08-24 06:08] LABS: ALT 53 U/L (21-72); AST 27 U/L (17-59); Alkaline Phosphatase 84 U/L (38-126); Anion Gap 6 mmol/L; Blood Urea Nitrogen 43 mg/dL (9-20); Calcium 8.8 mg/dL (8.4-10.2); Carbon Dioxide 27 mmol/L (22-30); Chloride 100 mmol/L (98-107); Glucose 109 mg/dL (74-99); Non-African American GFR(MDRD) >60 (>60 ml/min/1.73 sqM); Potassium 4.5 mmol/L (3.5-5.1); Sodium 133 mmol/L (137-145); Total Bilirubin 0.4 mg/dL (0.2-1.3); Total Protein 5.5 g/dL (6.3-8.2)
[2016-08-24 06:14] LABS: Glucose,Whole Blood 107 mg/dL (75-99)
[2016-08-24] MEDS: INSULIN LISPRO (humaLOG) 300 UNIT/3 ML VIAL SQ SCH ×4 (06:27→21:02)
[2016-08-24] MEDS: PANTOPRAZOLE 40 MG TABLET PO SCH (06:46)
[2016-08-24] MEDS: BUDESONIDE 0.5 MG/2 ML NEBU INHALATION SCH (06:58)
[2016-08-24] MEDS: IPRATROPIUM-ALBUTEROL 3 ML NEB INHALATION SCH ×4 (06:58→20:17)
[2016-08-24] MEDS: MULTIVITAMINS, THERA 1 EACH TAB PO SCH (08:00)
[2016-08-24] MEDS: DOCUSATE 100 MG CAP PO SCH ×2 (08:00→21:02)
[2016-08-24] MEDS: FOLIC ACID 1 MG TAB PO SCH (08:00)
[2016-08-24] MEDS: ENOXAPARIN 40 MG/0.4 ML SYRINGE SQ SCH (08:00)
[2016-08-24] MEDS: ATORVASTATIN 40 MG TAB PO SCH (08:00)
[2016-08-24] MEDS: methylPREDNISolone SOD SUCCI 125 MG/2 ML VIAL IV SCH ×4 (08:00→21:03)
[2016-08-24] MEDS: ATENOLOL 25 MG TAB PO SCH (08:00)
[2016-08-24] MEDS: TAMSULOSIN 0.4 MG CAP.ER.24H PO SCH (08:00)
[2016-08-24] MEDS: ASPIRIN 81 MG CHEW PO SCH (08:00)
[2016-08-24] MEDS: LISINOPRIL 10 MG TAB PO SCH (08:00)
[2016-08-24] MEDS: FENOFIBRATE 160 MG TAB PO SCH (08:00)
[2016-08-24 11:20] LABS: Glucose,Whole Blood 184 mg/dL (75-99)
--- NOTE | 2016-08-24 12:17 | P.PN ---
Subjective Acute on chronic hypoxic respiratory failure Patient is a 71-year-old male with known history of lung cancer who underwent left lower lobe resection and underwent radiation and chemotherapy in January 2016 and subsequently had prophylactic brain radiation, patient was maintained on home oxygen until recently, he discontinued using home oxygen and went to [place] for a family member graduation, he states that he was doing worse he was unable to sleep and was developing worsening shortness of breath, his [id number] is working on a [place] and [place] he was told that his oxygen with saturation was very low in the 70 % [facility] he was offered to be transferred to a regular hospital however patient decided to be discharged and decided to drive back with his and his daughter back to [place], patient is well known to Dr. Cannon, he presented to emergency room at [facility] his oxygen saturation was low d- dimer was significantly elevated and troponin level was elevated at 0.58, patient was started on IV heparin and was admitted to telemetry floor computed tomography scan of the chest was negative for pulmonary embolism, oncology consultation pulmonary consultation and cardiology consultation were initiated, computed tomography scan revealed patchy infiltrates in both lungs and patient was started on IV Levaquin in the emergency room. 08/17/2016 patient had another episode shortness of breath when he was using the bathroom. Respiratory therapy gave him the treatment and had bumped up his oxygen to 15 L high flow. Patient reports that his shortness of breath has shown some improvement. Denies any cough. Denies any chest pain. Denies any nausea or vomiting. Denies any abdominal pain. Last bowel movement about 3 days ago. 08/21/2016 patient lying in bed comfortably family at bedside. Patient had chest x-ray more this morning and it is pending. Patient is still requiring 8 L of oxygen satting around 91%. He denies any chest pain. Still having shortness of breath only able to get bedside commode. Denies any nausea or vomiting. Denies any bowel movement changes or urinary symptoms. 08/24/2016 patient has noted some improvement in his breathing. He is currently down to 4 L standing and 91%. Still has shortness of breath with activity. Pulmonary service following closely. Denies any chest pain. Denies any nausea or vomiting. Has regular bowel movements. Denies any difficulty urinating Objective - Vital Signs Vital signs: Vital Signs Temp 96.8 F L 08/24/16 08:00 Pulse 105 H 08/24/16 08:00 Resp 20 08/24/16 08:00 BP 121/65 08/24/16 08:00 Pulse Ox 91 L 08/24/16 08:00 Intake & Output 08/23/16 08/24/16 08/24/16 18:59 06:59 18:59 Intake Total 892 900 240 Output Total 1225 1300 Balance -333 -400 240 Weight 85.9 kg Intake: IV 0 0.9 @20mls/hr 0 Oral 892 900 240 Output: Urine 1225 1300 Other: Voiding Method Urinal Urinal Urinal # Voids 2 - Exam Head normocephalic Neck supple Lungs improvement in air movement Heart regular rate and rhythm S1-S2, no rub or gallop Abdomen is soft nontender nondistended positive bowel sounds no hepatosplenomegaly Extremities no edema Neuro alert and orientated to 3 - Labs CBC & Chem 7: 08/24/16 05:45 08/24/16 05:45 Labs: Abnormal Lab Results - Last 24 Hours (Table) 08/23/16 08/23/16 08/24/16 Range/Units 16:44 21:22 05:45 WBC 13.2 H (3.8-10.6) k/uL RBC 3.69 L (4.30-5.90) m/uL Hgb 10.6 L (13.0-17.5) gm/dL Hct 34.4 L (39.0-53.0) % MCHC 30.7 L (31.0-37.0) g/dL RDW 17.4 H (11.5-15.5) % Plt Count 116 L (150-450) k/uL Neutrophils # 12.3 H (1.3-7.7) k/uL Lymphocytes # 0.4 L (1.0-4.8) k/uL Sodium (137-145) mmol/L BUN (9-20) mg/dL Glucose (74-99) mg/dL POC Glucose (mg/dL) 198 H 150 H (75-99) mg/dL Total Protein (6.3-8.2) g/dL Albumin (3.5-5.0) g/dL 08/24/16 08/24/16 08/24/16 Range/Units 05:45 06:13 11:17 WBC (3.8-10.6) k/uL RBC (4.30-5.90) m/uL Hgb (13.0-17.5) gm/dL Hct (39.0-53.0) % MCHC (31.0-37.0) g/dL RDW (11.5-15.5) % Plt Count (150-450) k/uL Neutrophils # (1.3-7.7) k/uL Lymphocytes # (1.0-4.8) k/uL Sodium 133 L (137-145) mmol/L BUN 43 H (9-20) mg/dL Glucose 109 H (74-99) mg/dL POC Glucose (mg/dL) 107 H 184 H (75-99) mg/dL Total Protein 5.5 L (6.3-8.2) g/dL Albumin 2.6 L (3.5-5.0) g/dL Assessment and Plan Plan: #1 acute on chronic hypoxic respiratory failure secondary to severe interstitial and parenchymal lung disease. Pulmonary workup in progress. patient is on 4 L today and 91%. pulmonary service is following closely. No plans for bronchoscopy at this time #2 diffuse disease in both lung ortega possibly representing acute bronchitis with pneumonia. Continue Levaquin #3 elevated troponin level patient denies any chest pain, evaluated by cardiology. Neck consistent with acute coronary syndrome #4 underlying history of lung cancer with recent chemotherapy and radiation therapy. Also had recent wedge resection of the left upper lobe. Oncology and pulmonary following #5 hyponatremia on presentation improving with IV fluid #6 underlying history of hypertension well-controlled on current medications #7 underlying history of hyperlipidemia maintained on Lipitor and fenofibrate continue #8 elevated d-dimer with negative computed tomography scan of the chest without any evidence of pulmonary embolism #9 underlying history of benign prostatic hypertrophy maintained on Flomax continue #10 history of rheumatoid arthritis 11. Elevated liver enzymes likely related to passive congestion. Liver enzymes are trending down. We'll repeat labs in a.m. Patient denies any abdominal pain. 12. Acute on chronic diastolic CHF exacerbation. Currently on the Lasix. Had been evaluated by cardiology. They have signed off. 13. Acute renal failure secondary to diuresis and now resolved 14. Consult physical therapy DVT prophylaxis Lovenox Patient's prognosis is guarded Patient is being transferred to a regular medical floor I performed an examination of the patient and discussed their management with the physician Referral And Information Aide. I have reviewed the Physician Referral And Information Aide's notes and agree with the documented findings and plan of care
--- NOTE | 2016-08-24 15:04 | PN ---
This is a 71-year-old gentleman with history of shortness of breath with hypoxemic respiratory failure. Etiology is unclear, but we surmise that there is a couple different possibilities including either a diffuse infectious process such as pneumonia, lymphangitic carcinomatosis, radiation pneumonitis or rheumatoid lung. The patient also may have a pattern of atypical pneumonia. In addition he has a history of coronary artery disease with previous stent placement, abnormal troponins, not consistent with an acute coronary syndrome and also diagnosis of small cell lung cancer, with recent chemo and radiation therapy. He also suffers from history of rheumatoid arthritis, history of hyperlipidemia and congestive hepatopathy as well as prerenal azotemia. The patient is getting better on combination of breathing treatments, steroids, and antibiotics. Over the last couple days has dramatically improved since I saw him on Sunday. On Sunday he was on 10 or 12 or maybe even 15 liter high flow and he is down to less than 5 liters currently. Feeling much improved. Current vital signs include temperature 96.8, heart rate of 90, respiratory rate 20, blood pressure 121/65, mean 83, 4 liters saturation 93%. Appears in no acute distress. HEENT examination is grossly unremarkable. Mucous membranes are moist. No oral lesions. Neck is supple. Full range of motion. No adenopathy or thyromegaly. Neck veins are flat. Cardiovascular examination reveals regular rhythm and rate. S1, S2 normal. No S3, S4 or murmur. Lungs reveal diffuse coarse rhonchi. Breath sounds are diminished. There are a few scattered basilar crackles. Overall though, over the last 4 days, his lung sounds have improved. Abdomen is soft. Bowel sounds are heard. Extremities are intact. No cyanosis, clubbing or edema. Skin is without rash. Neurologic examination is brief but nonfocal. Labs are reviewed. White count 13.2, hemoglobin 10.6, hematocrit 34.4, platelet count 160,000. Sodium 133. Potassium, chloride, CO2 all normal. BUN and creatinine were 43 and 0.90 suggesting prerenal azotemia. The patient has had not had a recent chest x-ray. Medications are reviewed. ASSESSMENT: 1. Recently diagnosed small cell lung cancer with recent chemotherapy and radiation therapy. 2. History of coronary artery disease with previous stent placement. 3. Acute on chronic hypoxemic respiratory failure secondary to diffuse bilateral infiltrates, left greater than right, with differential diagnosis including lymphangitic carcinomatosis, radiation pneumonitis/fibrosis, unusual infection or rheumatoid associated lung disease. In addition, asymmetric pulmonary edema could give a similar pattern. 4. History of rheumatoid arthritis. 5. History of hyperlipidemia. 6. History of prerenal azotemia. PLAN: Will continue to follow. The patient was well enough to be transferred from the sixth floor down to the fifth floor. Will continue to monitor him closely. Medications are reviewed. Repeat x-ray to be done in the morning.
[2016-08-24 17:10] LABS: Glucose,Whole Blood 136 mg/dL (75-99)
[2016-08-24] MEDS: SYMBICORT 160-4.5 MCG INHALER INHALATION SCH (20:27)
[2016-08-24 20:54] LABS: Glucose,Whole Blood 154 mg/dL (75-99)
[2016-08-24] MEDS: LEVOFLOXACIN 750 MG TAB PO SCH (21:03)
[2016-08-24] MEDS: NYSTATIN 100,000 UNIT/ML SUSP 500,000 UNIT/5 ML CUP PO SCH (23:29)
[2016-08-25 07:04] LABS: Glucose,Whole Blood 98 mg/dL (75-99)
[2016-08-25] MEDS: IPRATROPIUM-ALBUTEROL 3 ML NEB INHALATION SCH ×4 (07:58→21:14)
[2016-08-25] MEDS: SYMBICORT 160-4.5 MCG INHALER INHALATION SCH ×2 (07:58→21:14)
--- NOTE | 2016-08-25 08:03 | XR ---
EXAMINATION TYPE: XR chest 2V DATE OF EXAM: 08/25/2016 7:26 AM COMPARISON: Shortness of breath TECHNIQUE: PA and lateral views submitted. HISTORY: 08/21/2016 FINDINGS: Diffuse interstitial pattern persists with a more confluent area of consolidation and pleural effusio n on the left. No pneumothorax. Atherosclerotic change aorta. Heart size stable. IMPRESSION: 1. Stable interstitial pattern with the left-sided infiltrate and small unchanged in appearance. Diff erential include a venous congestion or atypical, interstitial pneumonitis. Lymphangitic metastases a lso in the differential.
[2016-08-25 08:19] LABS: Anisocytosis Slight; Basophils # (A) 0.1 k/uL (0-0.2); Basophils % (A) 0 %; CH 29.4; CHCM 31.2; Eosinophils % (A) 0 %; HCT 37.2 % (39.0-53.0); HDW 2.72; HGB 11.5 gm/dL (13.0-17.5); Hypochromasia Slight; Luc % (Auto) 1; Lymphocytes # (A) 0.8 k/uL (1.0-4.8); Lymphocytes % (A) 4 %; MCH 29.3 pg (25.0-35.0); MCV 94.4 fL (80.0-100.0); Mean Platelet Volume 7.9; Monocytes # (A) 0.6 k/uL (0-1.0); Monocytes % (A) 3 %; Neutrophils # (A) 19.6 k/uL (1.3-7.7); Neutrophils % (A) 93 %; RBC 3.94 m/uL (4.30-5.90); RDW 17.4 % (11.5-15.5); WBC 21.1 k/uL (3.8-10.6); WBC (Perox) 21.95
[2016-08-25 08:32] LABS: ALT 53 U/L (21-72); AST 35 U/L (17-59); Alkaline Phosphatase 95 U/L (38-126); Anion Gap 7 mmol/L; Blood Urea Nitrogen 47 mg/dL (9-20); Calcium 9.1 mg/dL (8.4-10.2); Carbon Dioxide 27 mmol/L (22-30); Chloride 100 mmol/L (98-107); Glucose 91 mg/dL (74-99); Non-African American GFR(MDRD) >60 (>60 ml/min/1.73 sqM); Potassium 4.4 mmol/L (3.5-5.1); Sodium 134 mmol/L (137-145); Total Bilirubin 0.6 mg/dL (0.2-1.3); Total Protein 6.1 g/dL (6.3-8.2)
[2016-08-25] MEDS: INSULIN LISPRO (humaLOG) 300 UNIT/3 ML VIAL SQ SCH ×4 (08:41→21:06)
[2016-08-25] MEDS: ATORVASTATIN 40 MG TAB PO SCH (08:47)
[2016-08-25] MEDS: DOCUSATE 100 MG CAP PO SCH ×2 (08:47→21:04)
[2016-08-25] MEDS: FOLIC ACID 1 MG TAB PO SCH (08:47)
[2016-08-25] MEDS: ATENOLOL 25 MG TAB PO SCH (08:47)
[2016-08-25] MEDS: methylPREDNISolone SOD SUCCI 125 MG/2 ML VIAL IV SCH ×4 (08:47→23:25)
[2016-08-25] MEDS: ASPIRIN 81 MG CHEW PO SCH (08:47)
[2016-08-25] MEDS: LISINOPRIL 10 MG TAB PO SCH (08:47)
[2016-08-25] MEDS: PANTOPRAZOLE 40 MG TABLET PO SCH (08:47)
[2016-08-25] MEDS: FENOFIBRATE 160 MG TAB PO SCH (08:47)
[2016-08-25] MEDS: ENOXAPARIN 40 MG/0.4 ML SYRINGE SQ SCH (08:48)
[2016-08-25] MEDS: NYSTATIN 100,000 UNIT/ML SUSP 500,000 UNIT/5 ML CUP PO SCH ×4 (08:49→21:04)
[2016-08-25] MEDS: MULTIVITAMINS, THERA 1 EACH TAB PO SCH (08:50)
[2016-08-25] MEDS: TAMSULOSIN 0.4 MG CAP.ER.24H PO SCH (08:50)
--- NOTE | 2016-08-25 11:28 | P.PN ---
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 Cannon, he presented to emergency room at [facility] his oxygen saturation was low d- dimer was significantly elevated and troponin level was elevated at 0.58, patient was started on IV heparin and was admitted to telemetry floor computed tomography scan of the chest was negative for pulmonary embolism, oncology consultation pulmonary consultation and cardiology consultation were initiated, computed tomography scan revealed patchy infiltrates in both lungs and patient was started on IV Levaquin in the emergency room. 08/17/2016 patient had another episode shortness of breath when he was using the bathroom. Respiratory therapy gave him the treatment and had bumped up his oxygen to 15 L high flow. Patient reports that his shortness of breath has shown some improvement. Denies any cough. Denies any chest pain. Denies any nausea or vomiting. Denies any abdominal pain. Last bowel movement about 3 days ago. 08/21/2016 patient lying in bed comfortably family at bedside. Patient had chest x-ray more this morning and it is pending. Patient is still requiring 8 L of oxygen satting around 91%. He denies any chest pain. Still having shortness of breath only able to get bedside commode. Denies any nausea or vomiting. Denies any bowel movement changes or urinary symptoms. 08/24/2016 patient has noted some improvement in his breathing. He is currently down to 4 L standing and 91%. Still has shortness of breath with activity. Pulmonary service following closely. Denies any chest pain. Denies any nausea or vomiting. Has regular bowel movements. Denies any difficulty urinating 08/25/2016 patient is showing slow improvement. Still reporting shortness of breath with activity. He is able to ambulate to the door and back. Currently on 5 L and at 93%. Pulmonary following. Patient noted rash last night on the left upper thigh. Possible shingles. Infectious disease was consulted. Patient denies any pain or itching at the rash site. Objective - Vital Signs Vital signs: Vital Signs Temp 97.5 F L 08/25/16 07:00 Pulse 96 08/25/16 08:12 Resp 18 08/25/16 07:00 BP 126/74 08/25/16 07:00 Pulse Ox 93 L 08/25/16 07:00 Intake & Output 08/24/16 08/25/16 08/25/16 18:59 06:59 18:59 Intake Total 420 860 Output Total 300 300 300 Balance 120 560 -300 Weight 85.9 kg 90 kg Intake: IV 100 0.9 @20mls/hr 100 Oral 420 760 Output: Urine 300 300 300 Other: Voiding Method Urinal Urinal # Voids 2 3 3 - Exam Head normocephalic Neck supple Lungs coarse breath sounds with few crackles at bases Heart regular rate and rhythm S1-S2, no rub or gallop Abdomen is soft nontender nondistended positive bowel sounds no hepatosplenomegaly Extremities no edema. Left upper thigh medial aspect of the thigh there is a raised rash with some scabbing. The base of the rash is red. No drainage noted. Rash is also noted on the lateral aspect of the left upper thigh. The rash lesions are vascular and shape. But are dry. Neuro alert and orientated to 3 - Labs CBC & Chem 7: 08/25/16 07:43 08/25/16 07:43 Labs: Abnormal Lab Results - Last 24 Hours (Table) 08/24/16 08/24/16 08/25/16 Range/Units 16:55 20:52 07:43 WBC 21.1 H (3.8-10.6) k/uL RBC 3.94 L (4.30-5.90) m/uL Hgb 11.5 L (13.0-17.5) gm/dL Hct 37.2 L (39.0-53.0) % RDW 17.4 H (11.5-15.5) % Neutrophils # 19.6 H (1.3-7.7) k/uL Lymphocytes # 0.8 L (1.0-4.8) k/uL Sodium (137-145) mmol/L BUN (9-20) mg/dL POC Glucose (mg/dL) 136 H 154 H (75-99) mg/dL Total Protein (6.3-8.2) g/dL Albumin (3.5-5.0) g/dL 08/25/16 Range/Units 07:43 WBC (3.8-10.6) k/uL RBC (4.30-5.90) m/uL Hgb (13.0-17.5) gm/dL Hct (39.0-53.0) % RDW (11.5-15.5) % Neutrophils # (1.3-7.7) k/uL Lymphocytes # (1.0-4.8) k/uL Sodium 134 L (137-145) mmol/L BUN 47 H (9-20) mg/dL POC Glucose (mg/dL) (75-99) mg/dL Total Protein 6.1 L (6.3-8.2) g/dL Albumin 3.0 L (3.5-5.0) g/dL Assessment and Plan Plan: #1 acute on chronic hypoxic respiratory failure secondary to severe interstitial and parenchymal lung disease. Pulmonary workup in progress. patient is on 5 L today and 93%. pulmonary service is following closely. No plans for bronchoscopy at this time #2 diffuse disease in both lung ortega possibly representing acute bronchitis with pneumonia. Continue Levaquin #3 elevated troponin level patient denies any chest pain, evaluated by cardiology. Not consistent with acute coronary syndrome #4 underlying history of lung cancer with recent chemotherapy and radiation therapy. Also had recent wedge resection of the left upper lobe. Oncology and pulmonary following #5 hyponatremia on presentation improving with IV fluid #6 underlying history of hypertension well-controlled on current medications #7 underlying history of hyperlipidemia maintained on Lipitor and fenofibrate continue #8 elevated d-dimer with negative computed tomography scan of the chest without any evidence of pulmonary embolism #9 underlying history of benign prostatic hypertrophy maintained on Flomax continue #10 history of rheumatoid arthritis 11. Elevated liver enzymes likely related to passive congestion. Liver enzymes normalized 12. Acute on chronic diastolic CHF exacerbation. Currently off the Lasix. Had been evaluated by cardiology. They have signed off. 13. Acute renal failure secondary to diuresis and now resolved 14. Consult physical therapy 15. Possible shingles left upper thigh: Infectious disease consulted DVT prophylaxis Lovenox Patient's prognosis is guarded I performed an examination of the patient and discussed their management with the physician Geological Technician. I have reviewed the Physician Geological Technician's notes and agree with the documented findings and plan of care
[2016-08-25 11:50] LABS: Glucose,Whole Blood 106 mg/dL (75-99)
[2016-08-25] MEDS: valACYclovir HCL 1,000 MG TABLET PO SCH ×2 (13:37→21:04)
--- NOTE | 2016-08-25 14:15 | PN ---
This is a 71-year-old gentleman with history of shortness of breath and hypoxemic respiratory failure. Etiology is unclear. There is a couple different possibilities including diffuse infectious process such as atypical pneumonia, lymphangitic carcinomatosis, radiation pneumonitis, rheumatoid lung, asymmetric pulmonary edema or acute respiratory distress syndrome. The patient seemed to be improving. Clinically he is improved. His x-ray really has not improved all that much. He has basically been treated with antibiotics, steroids, and oxygen therapy. The patient was happy going along this way. He did have a previous history of CAD with previous stent placement, abnormal troponins consistent with an acute coronary syndrome and a recent diagnosis of small cell lung cancer with recent chemo and radiation therapy. Anyway, again, the patient has improved. He is down to 4 L nasal cannula. Currently, his temperature is 97.5, heart rate 85, respiratory rate 18, blood pressure 126/74, mean 91, 4 L saturation 93%. Appears in no acute distress. Lying in bed. HEENT examination is grossly unremarkable. Mucous membranes are moist. No oral lesions. Neck is supple. Full range of motion. No adenopathy or thyromegaly. Neck veins are flat. Cardiovascular examination reveals regular rhythm and rate. Heart rate 85. S1, S2 normal. No murmur. Lungs reveal a few scattered coarse rhonchi and crackles. Breath sounds diminished. There is slight prolongation. The breath sounds have improved over the course of the last 4 or 5 days. Abdomen is soft. Bowel sounds are heard. Extremities are intact. No cyanosis, clubbing or edema. Skin without rash or lesion. Neurologic examination is nonfocal. Labs are reviewed. White count 21.1, hemoglobin 11.5, hematocrit 37.2, platelet count 165,000. Sodium 134, potassium 4.4, chloride is 100, CO2 of 27. BUN and creatinine were 47 and 1.03. Medications have been reviewed. ASSESSMENT: 1. Diffuse bilateral lung disease, of unclear etiology manifesting itself as chronic hypoxemic respiratory failure. Diagnostic possibilities would include an atypical infection, asymmetric pulmonary edema, acute lung injury/ARDS, radiation pneumonitis, lymphangitic carcinomatosis and rheumatoid arthritis associated lung disease. 2. Recently diagnosed small cell lung cancer with recent chemo and radiation therapy. 3. History of coronary artery disease with previous stent placement. 4. History of rheumatoid arthritis. 5. Hyperlipidemia. 6. History of prerenal azotemia. PLAN: I will continue to follow and the patient seems to be doing relatively well. No additional recommendations are made. Prognosis is guarded. He may need another procedure at some time.
[2016-08-25 17:33] LABS: Glucose,Whole Blood 147 mg/dL (75-99)
[2016-08-25 20:18] LABS: Glucose,Whole Blood 187 mg/dL (75-99)
[2016-08-25] MEDS: LEVOFLOXACIN 750 MG TAB PO SCH (21:04)
[2016-08-26 07:38] LABS: Glucose,Whole Blood 68 mg/dL (75-99)
[2016-08-26 07:51] LABS: Glucose,Whole Blood 68 mg/dL (75-99)
[2016-08-26 07:58] LABS: Anisocytosis Slight; Basophils % (A) 0 %; CH 29.9; CHCM 32.2; Eosinophils % (A) 0 %; HCT 35.6 % (39.0-53.0); HGB 11.3 gm/dL (13.0-17.5); Luc # (Auto) 0.04; Luc % (Auto) 0; Lymphocytes # (A) 0.6 k/uL (1.0-4.8); Lymphocytes % (A) 4 %; MCH 29.6 pg (25.0-35.0); MCHC 31.8 g/dL (31.0-37.0); Mean Platelet Volume 7.6; Monocytes # (A) 0.6 k/uL (0-1.0); Monocytes % (A) 3 %; Neutrophils # (A) 15.8 k/uL (1.3-7.7); Neutrophils % (A) 92 %; RBC 3.83 m/uL (4.30-5.90); RDW 17.6 % (11.5-15.5); WBC 17.1 k/uL (3.8-10.6); WBC (Perox) 16.75
[2016-08-26 08:05] LABS: ALT 51 U/L (21-72); AST 33 U/L (17-59); Alkaline Phosphatase 77 U/L (38-126); Anion Gap 5 mmol/L; Blood Urea Nitrogen 44 mg/dL (9-20); Calcium 8.7 mg/dL (8.4-10.2); Carbon Dioxide 30 mmol/L (22-30); Chloride 99 mmol/L (98-107); Glucose 70 mg/dL (74-99); Non-African American GFR(MDRD) >60 (>60 ml/min/1.73 sqM); Potassium 4.6 mmol/L (3.5-5.1); Sodium 134 mmol/L (137-145); Total Bilirubin 0.6 mg/dL (0.2-1.3); Total Protein 5.6 g/dL (6.3-8.2)
[2016-08-26 08:14] LABS: Glucose,Whole Blood 71 mg/dL (75-99)
[2016-08-26] MEDS: INSULIN LISPRO (humaLOG) 300 UNIT/3 ML VIAL SQ SCH ×4 (08:15→20:17)
[2016-08-26] MEDS: ASPIRIN 81 MG CHEW PO SCH (08:17)
[2016-08-26] MEDS: DOCUSATE 100 MG CAP PO SCH ×2 (08:18→20:17)
[2016-08-26] MEDS: ENOXAPARIN 40 MG/0.4 ML SYRINGE SQ SCH (08:18)
[2016-08-26] MEDS: PANTOPRAZOLE 40 MG TABLET PO SCH (08:18)
[2016-08-26] MEDS: ATORVASTATIN 40 MG TAB PO SCH (08:18)
[2016-08-26] MEDS: ATENOLOL 25 MG TAB PO SCH (08:18)
[2016-08-26] MEDS: LISINOPRIL 10 MG TAB PO SCH (08:19)
[2016-08-26] MEDS: FOLIC ACID 1 MG TAB PO SCH (08:19)
[2016-08-26] MEDS: FENOFIBRATE 160 MG TAB PO SCH (08:19)
[2016-08-26] MEDS: MULTIVITAMINS, THERA 1 EACH TAB PO SCH (08:19)
[2016-08-26] MEDS: NYSTATIN 100,000 UNIT/ML SUSP 500,000 UNIT/5 ML CUP PO SCH ×4 (08:20→20:17)
[2016-08-26] MEDS: valACYclovir HCL 1,000 MG TABLET PO SCH ×3 (08:20→20:18)
[2016-08-26] MEDS: TAMSULOSIN 0.4 MG CAP.ER.24H PO SCH (08:20)
[2016-08-26] MEDS: IPRATROPIUM-ALBUTEROL 3 ML NEB INHALATION SCH ×4 (08:23→18:57)
[2016-08-26] MEDS: SYMBICORT 160-4.5 MCG INHALER INHALATION SCH ×2 (08:23→18:57)
[2016-08-26] MEDS: methylPREDNISolone SOD SUCCI 125 MG/2 ML VIAL IV SCH (08:23)
--- NOTE | 2016-08-26 10:23 | P.PN ---
Subjective Patient is doing well today. He denies shortness of breath. Objective - Vital Signs Vital signs: Vital Signs Temp 97.6 F 08/26/16 07:00 Pulse 92 08/26/16 08:40 Resp 18 08/26/16 08:00 BP 154/66 08/26/16 07:00 Pulse Ox 92 L 08/26/16 07:00 Intake & Output 08/25/16 08/26/16 08/26/16 18:59 06:59 18:59 Intake Total 1080 1080 Output Total 1300 400 Balance -220 680 Weight 90 kg 89.93 kg Intake: Oral 1080 1080 Output: Urine 1300 400 Other: Voiding Method Urinal Urinal Urinal # Voids 3 2 1 - Exam General: The patient is awake and alert, in no distress Eye: there is normal conjunctiva bilaterally. Neck: The neck is supple, there is no JVD. Cardiovascular: Normal S1-S2, no S3-S4, no murmurs. Respiratory: Lungs are diminished with no obvious wheezing Gastrointestinal: Abdomen is soft, nontender Musculoskeletal: There is no pedal edema. Neurological:. Speech is normal. Skin: Skin is warm and dry - Labs CBC & Chem 7: 08/26/16 07:23 08/26/16 07:23 Labs: Abnormal Lab Results - Last 24 Hours (Table) 08/25/16 08/25/16 08/25/16 Range/Units 11:49 17:31 20:14 WBC (3.8-10.6) k/uL RBC (4.30-5.90) m/uL Hgb (13.0-17.5) gm/dL Hct (39.0-53.0) % RDW (11.5-15.5) % Plt Count (150-450) k/uL Neutrophils # (1.3-7.7) k/uL Lymphocytes # (1.0-4.8) k/uL Sodium (137-145) mmol/L BUN (9-20) mg/dL Glucose (74-99) mg/dL POC Glucose (mg/dL) 106 H 147 H 187 H (75-99) mg/dL Total Protein (6.3-8.2) g/dL Albumin (3.5-5.0) g/dL 08/26/16 08/26/16 08/26/16 Range/Units 07:23 07:23 07:36 WBC 17.1 H (3.8-10.6) k/uL RBC 3.83 L (4.30-5.90) m/uL Hgb 11.3 L (13.0-17.5) gm/dL Hct 35.6 L (39.0-53.0) % RDW 17.6 H (11.5-15.5) % Plt Count 146 L (150-450) k/uL Neutrophils # 15.8 H (1.3-7.7) k/uL Lymphocytes # 0.6 L (1.0-4.8) k/uL Sodium 134 L (137-145) mmol/L BUN 44 H (9-20) mg/dL Glucose 70 L (74-99) mg/dL POC Glucose (mg/dL) 68 L (75-99) mg/dL Total Protein 5.6 L (6.3-8.2) g/dL Albumin 2.7 L (3.5-5.0) g/dL 08/26/16 08/26/16 Range/Units 07:48 08:13 WBC (3.8-10.6) k/uL RBC (4.30-5.90) m/uL Hgb (13.0-17.5) gm/dL Hct (39.0-53.0) % RDW (11.5-15.5) % Plt Count (150-450) k/uL Neutrophils # (1.3-7.7) k/uL Lymphocytes # (1.0-4.8) k/uL Sodium (137-145) mmol/L BUN (9-20) mg/dL Glucose (74-99) mg/dL POC Glucose (mg/dL) 68 L 71 L (75-99) mg/dL Total Protein (6.3-8.2) g/dL Albumin (3.5-5.0) g/dL Assessment and Plan Plan: #1 acute on chronic hypoxic respiratory failure secondary to severe interstitial and parenchymal lung disease. Pulmonary workup in progress. patient is on 5 L today and 93%. pulmonary service is following closely. No plans for bronchoscopy at this time #2 diffuse disease in both lung ortega possibly representing acute bronchitis with pneumonia. Continue Levaquin #3 elevated troponin level patient denies any chest pain, evaluated by cardiology. Not consistent with acute coronary syndrome #4 underlying history of lung cancer with recent chemotherapy and radiation therapy. Also had recent wedge resection of the left upper lobe. Oncology and pulmonary following #5 hyponatremia on presentation improving with IV fluid #6 underlying history of hypertension well-controlled on current medications #7 underlying history of hyperlipidemia maintained on Lipitor and fenofibrate continue #8 elevated d-dimer with negative computed tomography scan of the chest without any evidence of pulmonary embolism #9 underlying history of benign prostatic hypertrophy maintained on Flomax continue #10 history of rheumatoid arthritis 11. Elevated liver enzymes likely related to passive congestion. Liver enzymes normalized 12. Acute on chronic diastolic CHF exacerbation. Currently off the Lasix. Had been evaluated by cardiology. They have signed off. 13. Acute renal failure secondary to diuresis and now resolved 14. Consult physical therapy 15. Possible shingles left upper thigh: Infectious disease consulted DVT prophylaxis Lovenox Wean off IV Solu-Medrol and decrease the dose to 40 twice daily
--- NOTE | 2016-08-26 12:02 | CONS ---
DATE OF CONSULTATION: 08/25/2016 REASON FOR CONSULTATION: Rash and a question of zoster. HISTORY OF PRESENT ILLNESS: The patient is a 71-year-old male with recent diagnosis of the lung cancer for which the patient underwent left lower lobe resection, radiation, chemotherapy in January 2016 and sepsis where the patient did have radiation. The patient apparently was supposed to get home for a family member situation where the patient did get sick with increase in shortness of breath and hypoxemia. He was shortly admitted to the [facility], was subsequently discharged and came back to the [place], over an hour to the admission, the patient was noticed to have presented to the [facility] here with increase in shortness of breath and the cough and hypoxemia. Patient has been admitted to hospital and is being treated by Pulmonary, Oncology Services for underlying COPD exacerbation and possible pneumonia. Has been treated with steroids, bronchodilators and the Levaquin. Yesterday, patient noticed to have a rash starting on his scrotal area, this seems to have slightly went down to the left mid-thigh area. The rash is extremely this morning with concern for possible zoster. He was tried on Acyclovir. I was asked to see the patient for further examination. Patient does have history of chickenpox but did not recall any history of shingles in the past and did mention that he did receive a shingle vaccine. The patient denies any significant burning pain in the rash area. There is no significant redness surrounding to it. No skin breakdown, no drainage. The patient did mention that his breathing has improved. He has a very mild cough but not bringing up any sputum. Denies any significant swelling. The patient denies any abdominal pain. No nausea, vomiting or any diarrhea. REVIEW OF SYSTEMS: CONSTITUTIONAL: Positive for weakness but no fever. EYES: No complaint. ENT: No complaint. RESPIRATORY: As per HPI. CARDIOVASCULAR: No complaint. GENITOURINARY: No complaint. GASTROINTESTINAL: No complaint. MUSCULOSKELETAL: No complaint. INTEGUMENTARY: As per HPI. PSYCHOLOGIC: No complaint. ENDOCRINE: No complaint. NEUROLOGIC: No complaint. Past medical history is significant for hyperlipidemia, OR, pneumonia, lung cancer. PAST SURGICAL HISTORY: Left lower lobectomy, lung biopsy, PTCA with stent placement. SOCIAL HISTORY: Former smoker. No drinking or drug use. FAMILY HISTORY: Father had history of cancer. Allergies to SULFA. Medications include the patient is currently on Colace, Lovenox, Lofibra, Robitussin, Humalog, levofloxacin, Zestril, Solu-Medrol, Theragran, Nitrostat, Mycostatin Oral Suspension, Flomax and Valtrex. On examination, blood pressure is 103/64 with a pulse of 84, temperature 97.7. He is 92% on 5 L nasal cannula. General description is an elderly male, lying in bed in no distress. No tachypnea or accessory muscle of respiration use. HEENT examination shows no pallor, no scleral icterus. Oral mucous membranes dry. NECK: Trachea central with no thyromegaly. LUNGS: Unlabored breathing with decreased breath sounds at the base. No wheeze. HEART: S1, S2. Regular rate and rhythm. ABDOMEN: Soft, no tenderness. No guarding or rigidity. EXTREMITIES: No edema of the feet. Examination of the skin area showing a left scrotal rash, this is mostly in the distribution on the left side with evidence of a secondary cellulitis. NEUROLOGICAL: Patient awake, alert, oriented x3. Mood and affect normal. LABS: Hemoglobin is 11.5, white count of 21.1 with a BUN of 47, creatinine 1.03. Electrolytes have been normal. Liver enzymes are normal. Blood culture obtained on admission has been negative. DIAGNOSTIC IMPRESSION AND PLAN: Patient with a rash which is in the S 2 dermatome distribution on left side more likely is an acute herpes zoster, this being his first episode. The patient did have history of chickenpox, did receive a zoster vaccine which is usually 60% effective in preventing the zoster. patient had received surgery in addition and chemo but no evidence of any cellulitis. PLAN: 1. Valtrex 1 mg 3 times a day, continue to finish a 7-day course of therapy. The patient did have significant pain and swelling for adding Neurontin or Lyrica for possibility of those herpetic neuralgia 2- patient did have significant elevated white count, more likely due to underlying steroid use without evidence of any worsening infection. We be monitored closely. 3. Will follow on the clinical condition to further adjust the medication if needed. Thank you for this consultation. Will follow this patient along with you. BRADLEY
[2016-08-26 12:49] LABS: Glucose,Whole Blood 95 mg/dL (75-99)
[2016-08-26 17:28] LABS: Glucose,Whole Blood 142 mg/dL (75-99)
--- NOTE | 2016-08-26 17:42 | PN ---
This is a 71-year-old gentleman with history of shortness of breath. The patient's chest x-ray really has not changed significantly. His shortness of breath is of unclear etiology. He has hypoxemic respiratory failure, either from diffuse infectious process such as atypical pneumonia, lymphangitic carcinomatosis, radiation pneumonitis or rheumatoid lung. In addition, acute lung injury/ARDS or asymmetric pulmonary edema could present this way. Needless to say, clinically he is improved. He has been weaned down to 4 or 5 liters nasal O2. He was on much higher oxygen rates earlier. He is not coughing. He feels clinically better. Less short of breath on exertion. Not producing any phlegm. No fever, no chills. No nausea, vomiting, or diarrhea. Current vital signs include temperature 97.6, heart rate 85, respiratory rate 18, blood pressure 154/66, mean 95, 5 liters saturation 92%. Appears in no acute distress. HEENT examination is grossly unremarkable. Mucous membranes are moist. No oral lesions. Neck is supple. Full range of motion. No adenopathy or thyromegaly. Neck veins are flat. Cardiovascular examination reveals regular rhythm and rate. Heart rate 85. S1, S2 normal. No S3, S4. No distinct murmur. LUNGS: Reveal a few scattered coarse rhonchi. No wheezes or crackles. Breath sounds are sounding similar each day. Breath sounds are diminished. He is not really fully expanding his lungs and I did tell him to really take deep breaths and clear any secretions. When he does take a deep breath he does cough. ABDOMEN: Soft. Bowel sounds are heard. No masses or tenderness. EXTREMITIES: Intact. There is no cyanosis, clubbing or edema. Skin is without rash. Neurological examination is unchanged but nonfocal. Lab data is reviewed. White count 17.1, hemoglobin 11.3, hematocrit 35.6, platelet count 146,000. Sodium 134, potassium 4.6, chloride 99, CO2 of 30, BUN and creatinine were 44 and 0.93. The rest of the labs look okay. No new x-rays to review. Microbiology is negative. Medications were reviewed yesterday. ASSESSMENT: 1. Diffuse bilateral lung disease, left more than right-sided, in a patient with chronic hypoxemic respiratory failure which has improved, with unknown etiology. Diagnostic possibilities would include atypical infection, asymmetric pulmonary edema, acute lung injury/ARDS, radiation pneumonitis, lymphangitic carcinomatosis, and rheumatoid arthritis associated lung disease. 2. Recently diagnosed small cell lung cancer with recent chemo and radiation therapy. 3. History of coronary artery disease with previous stent placement. 4. History of rheumatoid arthritis. 5. Hyperlipidemia. 6. Prerenal azotemia. PLAN: The patient is doing much better. Continues to improve. He continues on breathing treatments, oxygen, steroids and antibiotics. Probably repeat the x-ray on Sunday.
[2016-08-26 20:03] LABS: Glucose,Whole Blood 134 mg/dL (75-99)
[2016-08-26] MEDS: LEVOFLOXACIN 750 MG TAB PO SCH (20:17)
[2016-08-26] MEDS ORDERED: methylPREDNISolone SOD SUCCI 40 MG/ML 1 ML VIAL ONE (21:00)
[2016-08-27 07:52] LABS: Glucose,Whole Blood 74 mg/dL (75-99)
--- NOTE | 2016-08-27 07:55 | PN ---
DATE OF SERVICE: 08/26/2016 Reason for follow-up is left S2 dermatome zoster. INTERVAL HISTORY: The patient is afebrile. He is breathing comfortably. He did have some occasional cough, but denies any worsening cough or sputum production. No chest pain. No abdominal pain. He denies any pain in the left buttock and upper thigh area. No worsening of the rash was noted. On examination, blood pressure 154/66 with a pulse of 92, temperature 97.6. He is 92% on 5-L nasal cannula. General description is an elderly male, lying in bed in no distress. RESPIRATORY SYSTEM: Unlabored breathing with decreased breath sounds at base. No wheeze. HEART: S1, S2 regular rate and rhythm. ABDOMEN: Soft. No tenderness. SKIN: The left S2 dermatome zoster rash is about the same. No worsening and no cellulitis. LABS: White count up down to 17.1 with a BUN of 44, creatinine 0.93. DIAGNOSTIC IMPRESSION AND PLAN: 1. Patient with left S2 dermatome zoster for which the patient will continue on Valtrex. 2. Patient with elevated white count, more likely related to the steroids and showing a downward trend. No evidence of any worsening infection. Will continue to monitor closely.
[2016-08-27] MEDS: IPRATROPIUM-ALBUTEROL 3 ML NEB INHALATION SCH ×4 (08:11→20:44)
[2016-08-27] MEDS: SYMBICORT 160-4.5 MCG INHALER INHALATION SCH ×2 (08:11→20:44)
[2016-08-27] MEDS: methylPREDNISolone SOD SUCCI 40 MG/ML 1 ML VIAL IV SCH ×2 (09:52→10:03)
[2016-08-27 09:53] LABS: Anisocytosis Slight; Basophils % (A) 0 %; CH 29.5; CHCM 31.3; Eosinophils % (A) 0 %; HDW 2.78; HGB 11.8 gm/dL (13.0-17.5); Hypochromasia Slight; Luc # (Auto) 0.03; Luc % (Auto) 0; Lymphocytes # (A) 0.5 k/uL (1.0-4.8); Lymphocytes % (A) 3 %; MCH 30.1 pg (25.0-35.0); MCHC 31.9 g/dL (31.0-37.0); MCV 94.4 fL (80.0-100.0); Mean Platelet Volume 8.2; Monocytes # (A) 0.3 k/uL (0-1.0); Monocytes % (A) 2 %; Neutrophils % (A) 94 %; RBC 3.92 m/uL (4.30-5.90); RDW 17.8 % (11.5-15.5); WBC (Perox) 16.74
[2016-08-27] MEDS: ENOXAPARIN 40 MG/0.4 ML SYRINGE SQ SCH (10:01)
[2016-08-27] MEDS: INSULIN LISPRO (humaLOG) 300 UNIT/3 ML VIAL SQ SCH ×4 (10:01→20:32)
[2016-08-27] MEDS: PANTOPRAZOLE 40 MG TABLET PO SCH (10:02)
[2016-08-27] MEDS: TAMSULOSIN 0.4 MG CAP.ER.24H PO SCH (10:02)
[2016-08-27] MEDS: FENOFIBRATE 160 MG TAB PO SCH (10:02)
[2016-08-27] MEDS: ATENOLOL 25 MG TAB PO SCH (10:02)
[2016-08-27] MEDS: DOCUSATE 100 MG CAP PO SCH ×2 (10:02→20:52)
[2016-08-27] MEDS: ATORVASTATIN 40 MG TAB PO SCH (10:03)
[2016-08-27] MEDS: FOLIC ACID 1 MG TAB PO SCH (10:03)
[2016-08-27] MEDS: ASPIRIN 81 MG CHEW PO SCH (10:03)
[2016-08-27] MEDS: LISINOPRIL 10 MG TAB PO SCH (10:03)
[2016-08-27] MEDS: MULTIVITAMINS, THERA 1 EACH TAB PO SCH (10:03)
[2016-08-27 10:05] LABS: ALT 47 U/L (21-72); AST 35 U/L (17-59); Alkaline Phosphatase 88 U/L (38-126); Anion Gap 6 mmol/L; Blood Urea Nitrogen 42 mg/dL (9-20); Carbon Dioxide 28 mmol/L (22-30); Chloride 98 mmol/L (98-107); Glucose 134 mg/dL (74-99); Non-African American GFR(MDRD) >60 (>60 ml/min/1.73 sqM); Potassium 4.1 mmol/L (3.5-5.1); Sodium 132 mmol/L (137-145); Total Bilirubin 0.7 mg/dL (0.2-1.3); Total Protein 5.9 g/dL (6.3-8.2)
[2016-08-27] MEDS: NYSTATIN 100,000 UNIT/ML SUSP 500,000 UNIT/5 ML CUP PO SCH ×4 (10:10→20:53)
[2016-08-27 11:36] LABS: Glucose,Whole Blood 101 mg/dL (75-99)
[2016-08-27] MEDS: valACYclovir HCL 1,000 MG TABLET PO SCH ×3 (11:45→20:53)
--- NOTE | 2016-08-27 14:08 | P.PN ---
Subjective Patient is doing well today. He denies shortness of breath. Objective - Vital Signs Vital signs: Vital Signs Temp 97.8 F 08/27/16 07:00 Pulse 86 08/27/16 11:05 Resp 18 08/27/16 08:00 BP 102/63 08/27/16 07:00 Pulse Ox 92 L 08/27/16 08:13 Intake & Output 08/26/16 08/27/16 08/27/16 18:59 06:59 18:59 Intake Total 240 590 Output Total 400 300 Balance -160 590 -300 Weight 90.1 kg Intake: Oral 240 590 Output: Gastric Drainage 300 Urine 400 Other: Voiding Method Urinal Urinal Urinal # Voids 1 2 1 - Exam General: The patient is awake and alert, in no distress Eye: there is normal conjunctiva bilaterally. Neck: The neck is supple, there is no JVD. Cardiovascular: Normal S1-S2, no S3-S4, no murmurs. Respiratory: Lungs are diminished with no obvious wheezing Gastrointestinal: Abdomen is soft, nontender Musculoskeletal: There is no pedal edema. Neurological:. Speech is normal. Skin: Skin is warm and dry - Labs CBC & Chem 7: 08/27/16 09:08 08/27/16 09:08 Labs: Abnormal Lab Results - Last 24 Hours (Table) 08/26/16 08/26/16 08/27/16 Range/Units 17:26 20:01 07:44 WBC (3.8-10.6) k/uL RBC (4.30-5.90) m/uL Hgb (13.0-17.5) gm/dL Hct (39.0-53.0) % RDW (11.5-15.5) % Plt Count (150-450) k/uL Neutrophils # (1.3-7.7) k/uL Lymphocytes # (1.0-4.8) k/uL Sodium (137-145) mmol/L BUN (9-20) mg/dL Glucose (74-99) mg/dL POC Glucose (mg/dL) 142 H 134 H 74 L (75-99) mg/dL Total Protein (6.3-8.2) g/dL Albumin (3.5-5.0) g/dL 05/14/17 05/14/17 05/14/17 Range/Units 09:08 09:08 11:34 WBC 16.0 H (3.8-10.6) k/uL RBC 3.92 L (4.30-5.90) m/uL Hgb 11.8 L (13.0-17.5) gm/dL Hct 37.0 L (39.0-53.0) % RDW 17.8 H (11.5-15.5) % Plt Count 139 L (150-450) k/uL Neutrophils # 15.0 H (1.3-7.7) k/uL Lymphocytes # 0.5 L (1.0-4.8) k/uL Sodium 132 L (137-145) mmol/L BUN 42 H (9-20) mg/dL Glucose 134 H (74-99) mg/dL POC Glucose (mg/dL) 101 H (75-99) mg/dL Total Protein 5.9 L (6.3-8.2) g/dL Albumin 2.9 L (3.5-5.0) g/dL Assessment and Plan Plan: #1 acute on chronic hypoxic respiratory failure secondary to severe interstitial and parenchymal lung disease. Pulmonary workup in progress. patient is on 5 L today and 93%. pulmonary service is following closely. No plans for bronchoscopy at this time #2 diffuse disease in both lung ortega possibly representing acute bronchitis with pneumonia. Continue Levaquin #3 elevated troponin level patient denies any chest pain, evaluated by cardiology. Not consistent with acute coronary syndrome #4 underlying history of lung cancer with recent chemotherapy and radiation therapy. Also had recent wedge resection of the left upper lobe. Oncology and pulmonary following #5 hyponatremia on presentation improving with IV fluid #6 underlying history of hypertension well-controlled on current medications #7 underlying history of hyperlipidemia maintained on Lipitor and fenofibrate continue #8 elevated d-dimer with negative computed tomography scan of the chest without any evidence of pulmonary embolism #9 underlying history of benign prostatic hypertrophy maintained on Flomax continue #10 history of rheumatoid arthritis 11. Elevated liver enzymes likely related to passive congestion. Liver enzymes normalized 12. Acute on chronic diastolic CHF exacerbation. Currently off the Lasix. Had been evaluated by cardiology. They have signed off. 13. Acute renal failure secondary to diuresis and now resolved 14. Consult physical therapy 15. Possible shingles left upper thigh: Infectious disease consulted DVT prophylaxis Lovenox Discontinue IV Solu-Medrol and switch to oral prednisone daily
[2016-08-27 16:44] LABS: Glucose,Whole Blood 145 mg/dL (75-99)
[2016-08-27 20:20] LABS: Glucose,Whole Blood 125 mg/dL (75-99)
[2016-08-27] MEDS: LEVOFLOXACIN 750 MG TAB PO SCH (20:53)
--- NOTE | 2016-08-28 06:14 | PN ---
A 71-year-old gentleman with history of diffuse bilateral lung disease, left more than right-sided. He has a history of chronic hypoxemic respiratory failure and is improved. He is down to 4 L nasal cannula. The etiology of his lung disease it is not clear. He may have lymphangitic carcinomatosis versus rheumatoid lung versus radiation pneumonitis versus ARDS versus atypical infection/pneumonia. A number of other possibilities exist as well. Anyway, he seems to be improving on oxygen, bronchodilators, antibiotics and steroids. The patient has a recent diagnosis of small cell lung cancer. He is status post chemoradiation therapy. He also has a history of CAD, previous stent placement, rheumatoid arthritis, hyperlipidemia, and prerenal azotemia. Currently, he is feeling well. The patient is still quite dyspneic on any exertion. Typically he has improved though. Temperature 97.8, heart rate 86, respiratory rate 18, blood pressure 102/63, mean 76, four liter saturation 98%. Appears in no acute distress. HEENT examination is grossly unremarkable. Mucous membranes are moist. No oral lesions. Neck is supple. Full range of motion. No adenopathy or thyromegaly. Cardiovascular examination reveals regular rhythm and rate. S1, S2 normal. No murmur. Lungs reveal diffuse bilateral rhonchus breath sounds. He is mildly restricted in his breathing. No crackles. No wheezes. Breath sounds are improved. Air entry and exit are improved. ABDOMEN: Soft. Bowel sounds are heard. No masses or tenderness. Extremities are intact. No cyanosis, clubbing or edema. Skin is without rash. Lab data is reviewed. White count 16, hemoglobin 11.8, hematocrit 37.0, platelet count 139,000. Sodium 132, potassium 4.1, chloride 98, CO2 of 28, BUN and creatinine were 42 and 0.91. ASSESSMENT: 1. Diffuse bilateral lung disease, left more than right sided in a patient with chronic hypoxemic respiratory failure, which has improved. Diagnostic possibilities would include atypical infection, asymmetric pulmonary edema, acute lung injury/ARDS, radiation pneumonitis, lymphangitic carcinomatosis and/or rheumatoid arthritis associated lung disease. 2. Recently diagnosed small cell lung cancer with recent chemo and radiation therapy. 3. History of coronary artery disease with previous stent placement. 4. History of rheumatoid arthritis. 5. Hyperlipidemia. 6. Prerenal azotemia. The patient continues to improve. We will repeat a chest x-ray tomorrow. We will continue to follow. No additional recommendations are made. Medications are evaluated.
[2016-08-28 06:45] LABS: Glucose,Whole Blood 85 mg/dL (75-99)
[2016-08-28] MEDS: IPRATROPIUM-ALBUTEROL 3 ML NEB INHALATION SCH ×4 (07:05→20:44)
[2016-08-28] MEDS: SYMBICORT 160-4.5 MCG INHALER INHALATION SCH ×2 (07:06→20:44)
[2016-08-28 07:08] LABS: ABG PCO2 26 mmHg (35-45); ABG PH 7.54 (7.35-7.45); ABG PO2 63 mmHg (83-108)
[2016-08-28 07:09] LABS: ABG Base Excess 0.1 mmol/L; ABG HCO3 23 mmol/L (21-25); ABG Oxygen Saturation 94.8 % (94-97); ABG TCO2 23 mmol/L (19-24)
--- NOTE | 2016-08-28 07:15 | XR ---
EXAMINATION TYPE: XR chest 1V DATE OF EXAM: 08/28/2016 7:03 AM COMPARISON: 08/25/2016 HISTORY: 71 year-old male shortness of breath TECHNIQUE: Single frontal view of the chest is obtained. FINDINGS: Left heart margin obscured by adjacent pleural parenchymal disease. Underlying upper lung lucencies a re present with cystic lucencies in the mid and lower lungs as well suggesting of underlying emphysem a. There is superimposed interstitial patchy and confluent airspace opacity particularly in the left lower lung and right midlung. Overall findings are slightly worsened from prior exam. IMPRESSION: Interstitial and airspace disease superimposed on emphysema. Overall findings have slightly worsened from 08/25/2016. Correlate for possible etiologies including multifocal pneumonia and pulmonary edema.
[2016-08-28 07:38] LABS: Anisocytosis Slight; Basophils % (A) 0 %; CH 29.8; Eosinophils # (A) 0.1 k/uL (0-0.7); Eosinophils % (A) 1 %; HCT 38.7 % (39.0-53.0); HDW 2.77; HGB 12.2 gm/dL (13.0-17.5); Luc # (Auto) 0.06; Luc % (Auto) 0; Lymphocytes # (A) 0.5 k/uL (1.0-4.8); Lymphocytes % (A) 3 %; MCH 29.4 pg (25.0-35.0); MCHC 31.6 g/dL (31.0-37.0); Mean Platelet Volume 7.5; Monocytes # (A) 0.5 k/uL (0-1.0); Monocytes % (A) 3 %; Neutrophils # (A) 16.1 k/uL (1.3-7.7); Neutrophils % (A) 93 %; RBC 4.16 m/uL (4.30-5.90); WBC 17.4 k/uL (3.8-10.6); WBC (Perox) 17.84
[2016-08-28] MEDS: INSULIN LISPRO (humaLOG) 300 UNIT/3 ML VIAL SQ SCH ×4 (07:50→20:35)
[2016-08-28 07:53] LABS: ALT 55 U/L (21-72); AST 53 U/L (17-59); Alkaline Phosphatase 94 U/L (38-126); Anion Gap 8 mmol/L; Blood Urea Nitrogen 44 mg/dL (9-20); Calcium 8.9 mg/dL (8.4-10.2); Carbon Dioxide 27 mmol/L (22-30); Chloride 97 mmol/L (98-107); Glucose 82 mg/dL (74-99); Non-African American GFR(MDRD) >60 (>60 ml/min/1.73 sqM); Potassium 4.9 mmol/L (3.5-5.1); Sodium 132 mmol/L (137-145); Total Bilirubin 1.1 mg/dL (0.2-1.3); Total Protein 6.1 g/dL (6.3-8.2)
[2016-08-28] MEDS ORDERED: NALOXONE 0.4 MG/ML 1 ML VIAL IV PRN (07:53)
[2016-08-28 08:36] LABS: Magnesium 1.7 mg/dL (1.6-2.3); Phosphorous 2.6 mg/dL (2.5-4.5)
[2016-08-28] MEDS: FOLIC ACID 1 MG TAB PO SCH (08:37)
[2016-08-28] MEDS: ATENOLOL 25 MG TAB PO SCH (08:37)
[2016-08-28] MEDS: LISINOPRIL 10 MG TAB PO SCH (08:37)
[2016-08-28] MEDS: ASPIRIN 81 MG CHEW PO SCH (08:37)
[2016-08-28] MEDS: FENOFIBRATE 160 MG TAB PO SCH (08:37)
[2016-08-28] MEDS: ENOXAPARIN 40 MG/0.4 ML SYRINGE SQ SCH (08:37)
[2016-08-28] MEDS: ATORVASTATIN 40 MG TAB PO SCH (08:37)
[2016-08-28] MEDS: DOCUSATE 100 MG CAP PO SCH ×2 (08:38→21:50)
[2016-08-28] MEDS: valACYclovir HCL 1,000 MG TABLET PO SCH ×3 (08:38→21:50)
[2016-08-28] MEDS: TAMSULOSIN 0.4 MG CAP.ER.24H PO SCH (08:38)
[2016-08-28] MEDS: MULTIVITAMINS, THERA 1 EACH TAB PO SCH (08:38)
[2016-08-28] MEDS: PANTOPRAZOLE 40 MG TABLET PO SCH (08:38)
[2016-08-28] MEDS: NYSTATIN 100,000 UNIT/ML SUSP 500,000 UNIT/5 ML CUP PO SCH ×4 (08:38→21:50)
[2016-08-28 08:39] LABS: INR 1.2 (<1.1); Prothrombin Time 12.1 sec (9.0-12.0)
[2016-08-28 08:40] LABS: Partial Thromboplastin Time 19.2 sec (22.0-30.0)
[2016-08-28] MEDS ORDERED: predniSONE 20 MG TAB PO SCH (09:00)
[2016-08-28] MEDS ORDERED: RX INFO: IV CONTRAST WAS GIVEN 1 EACH MISC MISCELLANE PRN (10:23)
--- NOTE | 2016-08-28 10:23 | P.PN ---
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 Patient was initially found to have a 5.8 x 5.4 cm mass in the left lower lobe on a low-dose CAT scan of the chest that was done for cancer screening secondary to smoking. The lesion was abutting the pleural surface. The patient also had borderline mediastinal lymph nodes largest measuring 9 mm in size and the subcarinal area. The patient received concurrent chemoradiation therapy. He received cis-upper skagit and [employer]OR-16 and subsequently was switched to carboplatin and as the patient developed an acute kidney injury. He received 4 cycles of systemic chemotherapy which she completed in April 2016. He completed radiation therapy in March 2016. His repeat PET scan that showed decrease in the size of the left lung mass going down to 2.8 cm in size along with an SUV of 5.2. He was referred for surgical evaluation of lobectomy with lymph node sampling on 06/27/2016 and surgery was done and the patient was found to have a necrotic mass with no viable tumor and lymph nodes were all negative. The patient postop did well without any significant complications. . This patient also has history of rheumatoid arthritis and he has been maintained on methotrexate until January 2016 and this treatment was discontinued as the patient was taken systemic chemotherapy and radiation therapy. The patient got hospitalized on 08/14/2016 because of increased shortness of breath. He was found to be hypoxemic and his chest x-ray showed diffuse interstitial pulmonary infiltrates. He was admitted with a acute hypoxic respiratory failure and the CAT scan of the chest shows diffuse breath and pulmonary infiltrates compared to his previous CAT scan from April 2016. The exact etiology of the infiltrates were not clear although the possibility that were entertained were radiation pneumonitis, nonspecific interstitial pneumonitis related to connective tissue disease and rheumatoid arthritis, lymphangitic carcinomatosis, and other regular and opportunistic pneumonias. CHF was also considered within the differential diagnosis. In any rate, the patient was treated with a combination of empiric antibiotics and steroids. He was in the medical floor and yesterday got moved to the intensive care unit because of worsening hypoxemia. Overnight, the patient was placed on a BiPAP at a pressure of 12 over 5 cm of water with an FiO2 of 50%. He seems to be more comfortable. Chest x-ray showing diffuse breath and pulmonary infiltrates , unchanged from the previous x-ray from 08/25/2016. Currently, the patient is on a combination of Levaquin as a broad-spectrum antibiotic coverage and is also taking prednisone as part of the burst taper. He is currently on 40 mg of prednisone. The blood gases from last night showed a pH of 7.54 with a pCO2 of 26 and pO2 of 63 and this was done 100% nonrebreather facemask. Objective - Vital Signs Vital signs: Vital Signs Temp 98.2 F 08/28/16 07:27 Pulse 123 H 08/28/16 08:00 Resp 42 H 08/28/16 08:00 BP 113/67 08/28/16 08:00 Pulse Ox 100 08/28/16 08:00 Intake & Output 08/27/16 08/28/16 08/28/16 18:59 06:59 18:59 Output Total 300 800 Balance -300 -800 Weight 88.6 kg Output: Gastric Drainage 300 Urine 800 Other: Voiding Method Urinal Urinal # Voids 1 1 - Exam Patient is in moderate degree of respiratory distress and currently is on 100% nonrebreather facemask.Head exam was generally normal. There was no scleral icterus or corneal arcus. Mucous membranes were moist. Patient has her loss related to previous radiation therapy to the head.Neck was supple and without jugular venous distension, thyromegaly, or carotid bruits. Carotids were easily palpable bilaterally. There was no adenopathy. Lung sounds are diminished and there are some coarse crackles at lung bases bilaterally.Cardiac exam revealed the PMI to be normally situated and sized. The rhythm was regular and no extrasystoles were noted during several minutes of auscultation. The first and second heart sounds were normal and physiologic splitting of the second heart sound was noted. There were no murmurs, rubs, clicks, or gallops.Abdominal exam revealed normal bowel sounds. The abdomen was soft, non-tender, and without masses, organomegaly, or appreciable enlargement of the abdominal aorta. Examination of the extremities revealed easily palpable radial, femoral and pedal pulses. There was no cyanosis, clubbing or edema. - Labs CBC & Chem 7: 08/28/16 07:20 08/28/16 07:20 Labs: Abnormal Lab Results - Last 24 Hours (Table) 08/27/16 08/27/16 08/27/16 Range/Units 09:08 09:08 11:34 WBC 16.0 H (3.8-10.6) k/uL RBC 3.92 L (4.30-5.90) m/uL Hgb 11.8 L (13.0-17.5) gm/dL Hct 37.0 L (39.0-53.0) % RDW 17.8 H (11.5-15.5) % Plt Count 139 L (150-450) k/uL Neutrophils # 15.0 H (1.3-7.7) k/uL Lymphocytes # 0.5 L (1.0-4.8) k/uL PT (9.0-12.0) sec APTT (22.0-30.0) sec D-Dimer (<0.60) mg/L FEU ABG pH (7.35-7.45) ABG pCO2 (35-45) mmHg ABG pO2 (83-108) mmHg Sodium 132 L (137-145) mmol/L Chloride (98-107) mmol/L BUN 42 H (9-20) mg/dL Glucose 134 H (74-99) mg/dL POC Glucose (mg/dL) 101 H (75-99) mg/dL Total Protein 5.9 L (6.3-8.2) g/dL Albumin 2.9 L (3.5-5.0) g/dL 08/27/16 08/27/16 08/28/16 Range/Units 16:42 20:18 06:53 WBC (3.8-10.6) k/uL RBC (4.30-5.90) m/uL Hgb (13.0-17.5) gm/dL Hct (39.0-53.0) % RDW (11.5-15.5) % Plt Count (150-450) k/uL Neutrophils # (1.3-7.7) k/uL Lymphocytes # (1.0-4.8) k/uL PT (9.0-12.0) sec APTT (22.0-30.0) sec D-Dimer (<0.60) mg/L FEU ABG pH 7.54 H (7.35-7.45) ABG pCO2 26 L (35-45) mmHg ABG pO2 63 L (83-108) mmHg Sodium (137-145) mmol/L Chloride (98-107) mmol/L BUN (9-20) mg/dL Glucose (74-99) mg/dL POC Glucose (mg/dL) 145 H 125 H (75-99) mg/dL Total Protein (6.3-8.2) g/dL Albumin (3.5-5.0) g/dL 08/28/16 08/28/16 08/28/16 Range/Units 07:20 07:20 07:20 WBC 17.4 H (3.8-10.6) k/uL RBC 4.16 L (4.30-5.90) m/uL Hgb 12.2 L (13.0-17.5) gm/dL Hct 38.7 L (39.0-53.0) % RDW 18.0 H (11.5-15.5) % Plt Count 144 L (150-450) k/uL Neutrophils # 16.1 H (1.3-7.7) k/uL Lymphocytes # 0.5 L (1.0-4.8) k/uL PT (9.0-12.0) sec APTT (22.0-30.0) sec D-Dimer 4.32 H (<0.60) mg/L FEU ABG pH (7.35-7.45) ABG pCO2 (35-45) mmHg ABG pO2 (83-108) mmHg Sodium 132 L (137-145) mmol/L Chloride 97 L (98-107) mmol/L BUN 44 H (9-20) mg/dL Glucose (74-99) mg/dL POC Glucose (mg/dL) (75-99) mg/dL Total Protein 6.1 L (6.3-8.2) g/dL Albumin 2.9 L (3.5-5.0) g/dL 08/28/16 Range/Units 07:20 WBC (3.8-10.6) k/uL RBC (4.30-5.90) m/uL Hgb (13.0-17.5) gm/dL Hct (39.0-53.0) % RDW (11.5-15.5) % Plt Count (150-450) k/uL Neutrophils # (1.3-7.7) k/uL Lymphocytes # (1.0-4.8) k/uL PT 12.1 H (9.0-12.0) sec APTT 19.2 L (22.0-30.0) sec D-Dimer (<0.60) mg/L FEU ABG pH (7.35-7.45) ABG pCO2 (35-45) mmHg ABG pO2 (83-108) mmHg Sodium (137-145) mmol/L Chloride (98-107) mmol/L BUN (9-20) mg/dL Glucose (74-99) mg/dL POC Glucose (mg/dL) (75-99) mg/dL Total Protein (6.3-8.2) g/dL Albumin (3.5-5.0) g/dL Assessment and Plan Plan: Assessment 1 acute hypoxic respiratory failure with diffuse bilateral pulmonary infiltrates. The exact nature of this but the pulmonary infiltrates are not clear. Suspect chronic infections with a possibility of an opportunistic infection. Acute lung injury/ARDS which could be postinfectious cannot be completely ruled out. Interstitial lung disease related pulmonary infiltrates cannot be completely ruled out. Malignancy is felt to be less likely especially with the progression of his small cell lung cancer treatment. 2 small cell lung cancer, status post concurrent chemoradiation therapy and total brain radiation. Most recent PET scan from April 2016 at shown improvement in the size of the left lower lobe mass and the patient had further surgical resection at [facility]. Back then, the lung windows showed emphysema without evidence of any interstitial lung disease. No further imaging between April and August 2016 3 coronary artery disease with previous stent placement, 4 rheumatoid arthritis 5 hyperlipidemia Plan In the winter worsening the patient's history status, a repeat computed tomography scan of the chest will be done with contrast and I would like to get a CT angios protocol to rule out any pulmonary embolism. At the same time we will look in the lung parenchyma and compared to the previous CAT scan of the chest. If that the bedside getting worse the patient will likely need further diagnostic including a bronchoscopy and transbronchial biopsy and lavage. This was discussed with the patient. He felt that he was very brittle and I agree with that. Is very much likely the patient will end up on a respirator if the procedure is performed. I gave her also definitely going back to [facility] for reevaluation. I discussed the case with infectious disease. We' ll continue same antibiotic coverage and the steroids and will review the CAT scan make further recommendations as far as the plan. Condition remains critical.
--- NOTE | 2016-08-28 10:31 | PN ---
DATE OF SERVICE: 08/27/2016 Reason for followup is left S2 dermatome zoster. INTERVAL HISTORY: The patient is afebrile. He is currently feeling better, breathing comfortably. Occasional cough. No significant purulent secretion. Denies any difficulty swallowing. No abdominal pain or diarrhea and no worsening rash or pain in the rash area has been noticed. On examination, blood pressure 98/61 with a pulse of 94, temperature 97.9. He is 90% on 2 L nasal cannula. General description is an elderly male lying in bed in no distress. RESPIRATORY SYSTEM: Unlabored breathing with decreased breath sounds. No wheeze. HEART: S1, S2. Regular rate and rhythm. ABDOMEN: Soft, no tenderness. LABS: Hemoglobin is 11.8, white count 16 with a BUN of 42, creatinine 0.91. DIAGNOSTIC IMPRESSION AND PLAN: 1. Patient with left S2 dermatome zoster for which the patient will continue on Valtrex, watching his kidney function closely . 2. Elevated white count v with no evidence of any worsening infection. Continue supportive care. MTDD
--- NOTE | 2016-08-28 10:48 | P.PN ---
Subjective Acute on chronic hypoxic respiratory failure Patient is a 71-year-old male with known history of lung cancer who underwent left lower lobe resection and underwent radiation and chemotherapy in January 2016 and subsequently had prophylactic brain radiation, patient was maintained on home oxygen until recently, he discontinued using home oxygen and went to [place] for a family member graduation, he states that he was doing worse he was unable to sleep and was developing worsening shortness of breath, his [id number] is working on a base and patient [facility] he was told that his oxygen with saturation was very low in the 70 % He was told [facility] because [facility] not [facility] the he was offered to be transferred to a regular hospital however patient decided to be discharged and decided to drive back with his and his daughter back to [place], patient is well known to Dr. Cannon, he presented to emergency room at [facility] his oxygen saturation was low d- dimer was significantly elevated and troponin level was elevated at 0.58, patient was started on IV heparin and was admitted to telemetry floor computed tomography scan of the chest was negative for pulmonary embolism, oncology consultation pulmonary consultation and cardiology consultation were initiated, computed tomography scan revealed patchy infiltrates in both lungs and patient was started on IV Levaquin in the emergency room. 08/17/2016 patient had another episode shortness of breath when he was using the bathroom. Respiratory therapy gave him the treatment and had bumped up his oxygen to 15 L high flow. Patient reports that his shortness of breath has shown some improvement. Denies any cough. Denies any chest pain. Denies any nausea or vomiting. Denies any abdominal pain. Last bowel movement about 3 days ago. 08/21/2016 patient lying in bed comfortably family at bedside. Patient had chest x-ray more this morning and it is pending. Patient is still requiring 8 L of oxygen satting around 91%. He denies any chest pain. Still having shortness of breath only able to get bedside commode. Denies any nausea or vomiting. Denies any bowel movement changes or urinary symptoms. 08/24/2016 patient has noted some improvement in his breathing. He is currently down to 4 L standing and 91%. Still has shortness of breath with activity. Pulmonary service following closely. Denies any chest pain. Denies any nausea or vomiting. Has regular bowel movements. Denies any difficulty urinating 08/25/2016 patient is showing slow improvement. Still reporting shortness of breath with activity. He is able to ambulate to the door and back. Currently on 5 L and at 93%. Pulmonary following. Patient noted rash last night on the left upper thigh. Possible shingles. Infectious disease was consulted. Patient denies any pain or itching at the rash site. 08/28/2016 over the weekend the patient had been on a regular medical floor. Yesterday patient had worsening shortness of breath and became hypoxemic. He required a transfer to the ICU and was placed on BiPAP. He is comfortable and denies any shortness breath at this time. He does report being anxious. He is followed closely by pulmonary service. ABGs showed a pH of 7.54 pCO2 of 26 pO2 63 Objective - Vital Signs Vital signs: Vital Signs Temp 98.2 F 08/28/16 07:27 Pulse 123 H 08/28/16 08:00 Resp 42 H 08/28/16 08:00 BP 113/67 08/28/16 08:00 Pulse Ox 100 08/28/16 08:00 Intake & Output 08/27/16 08/28/16 08/28/16 18:59 06:59 18:59 Output Total 300 800 Balance -300 -800 Weight 88.6 kg Output: Gastric Drainage 300 Urine 800 Other: Voiding Method Urinal Urinal # Voids 1 1 - Exam Head normocephalic Neck supple Lungs coarse breath sounds with few crackles at bases Heart regular rate and rhythm S1-S2, no rub or gallop Abdomen is soft nontender nondistended positive bowel sounds no hepatosplenomegaly Extremities no edema. Left upper thigh medial aspect of the thigh there is a raised rash with some scabbing. The base of the rash is red. No drainage noted. Rash is also noted on the lateral aspect of the left upper thigh. The rash lesions are vascular and shape. But are dry. Neuro alert and orientated to 3 - Labs CBC & Chem 7: 08/28/16 07:20 08/28/16 07:20 Labs: Abnormal Lab Results - Last 24 Hours (Table) 08/27/16 08/27/16 08/27/16 Range/Units 11:34 16:42 20:18 WBC (3.8-10.6) k/uL RBC (4.30-5.90) m/uL Hgb (13.0-17.5) gm/dL Hct (39.0-53.0) % RDW (11.5-15.5) % Plt Count (150-450) k/uL Neutrophils # (1.3-7.7) k/uL Lymphocytes # (1.0-4.8) k/uL PT (9.0-12.0) sec APTT (22.0-30.0) sec D-Dimer (<0.60) mg/L FEU ABG pH (7.35-7.45) ABG pCO2 (35-45) mmHg ABG pO2 (83-108) mmHg Sodium (137-145) mmol/L Chloride (98-107) mmol/L BUN (9-20) mg/dL POC Glucose (mg/dL) 101 H 145 H 125 H (75-99) mg/dL Total Protein (6.3-8.2) g/dL Albumin (3.5-5.0) g/dL 08/28/16 08/28/16 08/28/16 Range/Units 06:53 07:20 07:20 WBC 17.4 H (3.8-10.6) k/uL RBC 4.16 L (4.30-5.90) m/uL Hgb 12.2 L (13.0-17.5) gm/dL Hct 38.7 L (39.0-53.0) % RDW 18.0 H (11.5-15.5) % Plt Count 144 L (150-450) k/uL Neutrophils # 16.1 H (1.3-7.7) k/uL Lymphocytes # 0.5 L (1.0-4.8) k/uL PT (9.0-12.0) sec APTT (22.0-30.0) sec D-Dimer (<0.60) mg/L FEU ABG pH 7.54 H (7.35-7.45) ABG pCO2 26 L (35-45) mmHg ABG pO2 63 L (83-108) mmHg Sodium 132 L (137-145) mmol/L Chloride 97 L (98-107) mmol/L BUN 44 H (9-20) mg/dL POC Glucose (mg/dL) (75-99) mg/dL Total Protein 6.1 L (6.3-8.2) g/dL Albumin 2.9 L (3.5-5.0) g/dL 08/28/16 08/28/16 Range/Units 07:20 07:20 WBC (3.8-10.6) k/uL RBC (4.30-5.90) m/uL Hgb (13.0-17.5) gm/dL Hct (39.0-53.0) % RDW (11.5-15.5) % Plt Count (150-450) k/uL Neutrophils # (1.3-7.7) k/uL Lymphocytes # (1.0-4.8) k/uL PT 12.1 H (9.0-12.0) sec APTT 19.2 L (22.0-30.0) sec D-Dimer 4.32 H (<0.60) mg/L FEU ABG pH (7.35-7.45) ABG pCO2 (35-45) mmHg ABG pO2 (83-108) mmHg Sodium (137-145) mmol/L Chloride (98-107) mmol/L BUN (9-20) mg/dL POC Glucose (mg/dL) (75-99) mg/dL Total Protein (6.3-8.2) g/dL Albumin (3.5-5.0) g/dL Assessment and Plan Plan: #1 acute on chronic hypoxic respiratory failure with diffuse bilateral pulmonary infiltrates. Exact nature pulmonary infiltrates unclear. Pulmonary following closely. Chest x-ray shows worsening findings. It does show interstitial and airspace disease superimposed on emphysema. Pulmonary workup in progress. Patient with another episode of acute hypoxic respiratory failure. Now on BiPAP and in the ICU. Pulmonary is following closely. Exact etiology of patient's respiratory failure unclear. Await pulmonary recommendations regards to bronchoscopy. #2 diffuse disease in both lung ortega possibly representing acute bronchitis with pneumonia. Continue Levaquin #3 elevated troponin level patient denies any chest pain, evaluated by cardiology. Not consistent with acute coronary syndrome #4 underlying history of lung cancer with recent chemotherapy and radiation therapy. Also had recent wedge resection of the left upper lobe. Oncology and pulmonary following #5 hyponatremia on presentation improving with IV fluid #6 underlying history of hypertension well-controlled on current medications #7 underlying history of hyperlipidemia maintained on Lipitor and fenofibrate continue #8 elevated d-dimer with negative computed tomography scan of the chest without any evidence of pulmonary embolism #9 underlying history of benign prostatic hypertrophy maintained on Flomax continue #10 history of rheumatoid arthritis 11. Elevated liver enzymes likely related to passive congestion. Liver enzymes normalized 12. Acute on chronic diastolic CHF exacerbation. Currently off the Lasix. Had been evaluated by cardiology. They have signed off. 13. Acute renal failure secondary to diuresis and now resolved 14. Consult physical therapy 15. Shingles left upper thigh. Continue Valtrex DVT prophylaxis Lovenox Patient's prognosis is guarded I performed an examination of the patient and discussed their management with the physician Prison Teacher. I have reviewed the Physician Prison Teacher's notes and agree with the documented findings and plan of care
--- NOTE | 2016-08-28 11:52 | CT ---
EXAMINATION TYPE: CT angio chest DATE OF EXAM: 08/28/2016 11:35 AM COMPARISON: CTA chest August 14, 2016 and older studies. HISTORY: elevated d-dimer rule out pulmonary embolism CT DLP: 335.2 mGycm. Automated Exposure Control for Dose Reduction was Utilized. CONTRAST: CTA scan of the thorax is performed with IV Contrast, patient injected with 73cc mL of Omnipaque 350, pulmonary embolism protocol. MIP Images are created on CT scanner and reviewed. FINDINGS: LUNGS: There is redemonstration of background of moderate emphysematous change. There is persistent s mall to tiny left pleural fluid collection that does not completely layer dependently. Scattered area s of fibrosis and honeycombing are redemonstrated bilaterally involving upper and lower lungs, some p rogression from January 2016 is noted. There is persistent diffuse groundglass opacity with interlobu lar septal thickening seen bilaterally. Left-sided volume loss is again seen. Suspect acute on chroni c process. No pneumothorax is seen bilaterally. Tracheobronchial tree is patent. There is persistent 9 x 8 mm nodule posterior left midlung on axial image 54 felt stable in size from most recent CT MEDIASTINUM: There is suboptimal bolus with near equal contrast in right and left heart systems but t here is no convincing CT evidence for pulmonary embolism. There are no greater than 1 cm hilar or me diastinal lymph nodes. Surgical changes left infrahilar region are redemonstrated. Cardiomegaly is a gain seen. Moderate to severe right atrial and right ventricular dilatation is redemonstrated. Suspec t right heart failure. Coronary artery calcification is redemonstrated. No significant pericardial ef fusion is seen. There is new irregular air within the mediastinum. Some tortuosity to distal esophagu s is seen. There is persistent small to moderate size hiatal hernia. Mild to moderate mixed plaque in the aortic arch is redemonstrated. 4 vessel origin from aortic arch is present which is normal varia nt. OTHER: Liver remains hypodense suggesting fatty infiltration. There is disc space narrowing with vacu um disc phenomenon at T11-T12 level. Mild height loss or compression with sclerosis superior T12 endp late is noted. Suspect subacute or chronic fracture. Right-sided gynecomastia is noted. IMPRESSION: 1. Suboptimal bolus without CT evidence for pulmonary embolism. 2. Background of diffuse emphysematous change with acute on chronic process suspected, no significant change from recent CT. There is suspected interval left lung surgery with suspicious residual nodule . Suspect acute infectious process or edema background of chronic fibrosis possibly related to treatm ent changes there is progression from January 2016 noted. Lymphangitic spread of tumor is not exclude d. 3. Only significant new finding is new pneumomediastinum. No pneumothorax is present bilaterally.
--- NOTE | 2016-08-28 13:28 | P.DS ---
Providers Date of admission: 08/14/16 22:02 Expected date of discharge: 08/28/16 Attending physician: Aracely Sapp Consults: 08/24/16 20:20 Consult Physician Routine Consulting Provider: Sarwat Covington Consult Reason/Comments: shingles on left inner thigh Do you want consulting provider notified?: Yes Dr. Leon Primary care physician: Talia Arzola [facility] Course: Discharge diagnosis #1 acute on chronic hypoxic respiratory failure with diffuse bilateral pulmonary infiltrates. Exact nature pulmonary infiltrates unclear. Pulmonary following closely. Chest x-ray shows worsening findings. It does show interstitial and airspace disease superimposed on emphysema. Pulmonary workup in progress. Patient with another episode of acute hypoxic respiratory failure. Now on BiPAP and in the ICU. Pulmonary is following closely. Exact etiology of patient's respiratory failure unclear. Pulmonary recommending patient be transferred to [facility] for further evaluation and possible bronchoscopy and lung biopsy. #2 diffuse disease in both lung ortega possibly representing acute bronchitis with pneumonia. Continue Levaquin #3 elevated troponin level patient denies any chest pain, evaluated by cardiology. Not consistent with acute coronary syndrome #4 underlying history of small cell lung cancer with recent chemotherapy and radiation therapy. Also had recent wedge resection of the left upper lobe. Oncology and pulmonary following #5 hyponatremia on presentation improving with IV fluid #6 underlying history of hypertension well-controlled on current medications #7 underlying history of hyperlipidemia maintained on Lipitor and fenofibrate continue #8 elevated d-dimer with negative computed tomography scan of the chest without any evidence of pulmonary embolism #9 underlying history of benign prostatic hypertrophy maintained on Flomax continue #10 history of rheumatoid arthritis 11. Elevated liver enzymes likely related to passive congestion. Liver enzymes normalized 12. Acute on chronic diastolic CHF exacerbation. Currently off the Lasix. Had been evaluated by cardiology. They have signed off. 13. Acute renal failure secondary to diuresis and now resolved 14. Consult physical therapy 15. Shingles left upper thigh. Continue Valtrex Hospital course Patient is a 71-year-old male with known history of lung cancer who underwent left lower lobe resection and underwent radiation and chemotherapy in January 2016 and subsequently had prophylactic brain radiation, patient was maintained on home oxygen until recently, he discontinued using home oxygen and went to [place] for a family member graduation, he states that he was doing worse he was unable to sleep and was developing worsening shortness of breath, his [id number] is working on a base and patient [place] [facility] he was told that his oxygen with saturation was very low in the 70 % He was told [facility] because [facility] was not in the he was offered to be transferred to a regular hospital however patient decided to be discharged and decided to drive back with his and his daughter back to [place], patient is well known to Dr. Cannon, he presented to emergency room at [facility] his oxygen saturation was low d- dimer was significantly elevated and troponin level was elevated at 0.58, patient was started on IV heparin and was admitted to telemetry floor computed tomography scan of the chest was negative for pulmonary embolism, oncology consultation pulmonary consultation and cardiology consultation were initiated, computed tomography scan revealed patchy infiltrates in both lungs and patient was started on IV Levaquin in the emergency room for possible pneumonia. The exact etiology of the infiltrates were not clear although the possibility that were entertained were radiation pneumonitis, nonspecific interstitial pneumonitis related to connective tissue disease and rheumatoid arthritis, lymphangitic carcinomatosis, and other regular and opportunistic pneumonias. CHF was also considered within the differential diagnosis. Patient is followed closely by pulmonary service. Also was seen by cardiology was given a few doses of IV Lasix. And then did develop acute renal failure. Patient is been off of Lasix kidney function has stabilized. Last night patient went into acute respiratory distress became hypoxemic and was transferred to the ICU. He had been on a regular medical floor over the weekend and had shown some improvement in his oxygen saturation they decreased the oxygen level to his nasal cannula. However he did require to be placed on BiPAP and in the ICU. Pulmonary service did order another computed tomography scan of the chest which was negative for PE. Did reveal background of diffuse emphysematous change with acute on chronic process. There is a suspected interval left lung surgery with suspicious residual nodule. Suspect acute infection process or edema of chronic fibrosis possibly related to treatment changes. There is progression since January 2016. Lymphangitic spread of tumor is not excluded. There is a new pneumomediastinum. No pneumothorax. Are pulmonary service is highly recommending that patient be transferred to [facility]. They had suggested this last week as well. However patient wanted to remain close his family and in [place]. Since patient symptoms are worsening he is now agreeable to proceed with transfer to [facility]. Patient will likely need a bronchoscopy with transbronchial biopsies. Patient is frail and their concerns that patient will require to be placed on the respirator after the procedure is performed. Patient is stable for transfer to [facility]. Patient Condition at Discharge: Stable Plan - Discharge Summary Discharge Medication List Atenolol [Tenormin] 25 mg PO DAILY 02/10/14 [History] Folic Acid 1 mg PO DAILY 02/10/14 [History] Lisinopril [Zestril] 10 mg PO DAILY 02/10/14 [History] Tamsulosin [Flomax] 0.4 mg PO DAILY 02/10/14 [History] Atorvastatin Calcium [Lipitor] 40 mg PO DAILY 08/14/16 [History] Fenofibrate Nanocrystallized [Tricor] 145 mg PO DAILY 08/14/16 [History] Multivitamins, Thera [Multivitamin (formulary)] 1 tab PO DAILY 08/14/16 [History ] Omeprazole 20 mg PO DAILY 08/14/16 [History] Tadalafil [Cialis] 20 mg PO DAILY PRN 08/14/16 [History] Aspirin 81 mg PO DAILY chew 08/28/16 [Rx] Budesonide-Formot 160-4.5 Mcg [Symbicort 160-4.5 Mcg Inhaler] 2 puff INHALATION RT-BID puff 08/28/16 [Rx] Docusate [Colace] 100 mg PO BID cap 08/28/16 [Rx] Ipratropium-Albuterol Nebulize [Duoneb 0.5 mg-3 mg/3 ml Soln] 3 ml INHALATION RT -Q2H PRN #0 ampul.neb 08/28/16 [Rx] Ipratropium-Albuterol Nebulize [Duoneb 0.5 mg-3 mg/3 ml Soln] 3 ml INHALATION RT -QID ampul.neb 08/28/16 [Rx] Levofloxacin [Levaquin] 750 mg PO HS tab 08/28/16 [Rx] Nystatin 100,000 Unit/ml Susp [Mycostatin Oral Susp] 500,000 unit PO QID cup [Rx] guaiFENesin-Coden 100-10MG/5ML [Robitussin AC] 10 ml PO Q6H PRN #0 cup 05/15/17 [Rx] predniSONE 40 mg PO DAILY tab 08/28/16 [Rx] valACYclovir HCL [Valtrex] 1,000 mg PO TID tablet 08/28/16 [Rx] Activity/Diet/Wound Care/Special Instructions: Patient will be transferred to [facility] Discharge Disposition: OTHER INSTITUTION NOT DEFINED
[2016-08-28] MEDS: MEROPENEM 1 GM in SODIUM CHLORIDE 0.9% 100 ML IVPB SCH ×2 (16:16→23:07)
[2016-08-28 17:08] LABS: Appearance,Urine Clear (Clear); Bacteria,Urine Rare /hpf; Bilirubin,Urine Negative (Negative); Glucose,Urine (UA) Negative (Negative); Ketones,Urine Negative (Negative); Leukocyte Esterase,Urine Negative (Negative); Nitrite,Urine Negative (Negative); PH, Urine 6.5 (5.0-8.0); Particle Count 537; Protein,Urine Negative (Negative); RBC,Urine <1 /hpf (0-5); Specific Gravity,Urine 1.021 (1.001-1.035); UA Billing (MACRO vs. MICRO) MICRO; Urobilinogen,Urine <2.0 mg/dL (<2.0); WBC,Urine 1 /hpf (0-5)
[2016-08-28 18:24] LABS: Glucose,Whole Blood 111 mg/dL (75-99)
[2016-08-28] MEDS: methylPREDNISolone SOD SUCCI 125 MG/2 ML VIAL IV SCH ×2 (18:26→23:07)
[2016-08-28 19:53] LABS: Glucose,Whole Blood 147 mg/dL (75-99)
[2016-08-28] MEDS: PIPERACILLIN-TAZOBACTAM 3.375 GM in DEXTROSE/WATER 1 50ML.BAG IVPB SCH ×2 (20:02→23:12)
[2016-08-28] MEDS: LEVOFLOXACIN 750 MG TAB PO SCH (21:50)
[2016-08-29] MEDS: methylPREDNISolone SOD SUCCI 125 MG/2 ML VIAL IV SCH ×3 (05:38→16:59)
[2016-08-29 06:29] LABS: Anisocytosis Slight; Basophils % (A) 0 %; CH 29.6; Eosinophils % (A) 0 %; HCT 30.6 % (39.0-53.0); HDW 2.91; Hypochromasia Slight; Luc # (Auto) 0.04; Luc % (Auto) 0; Lymphocytes # (A) 0.2 k/uL (1.0-4.8); Lymphocytes % (A) 2 %; MCH 29.9 pg (25.0-35.0); MCHC 32.3 g/dL (31.0-37.0); MCV 92.7 fL (80.0-100.0); Mean Platelet Volume 7.8; Monocytes # (A) 0.4 k/uL (0-1.0); Monocytes % (A) 3 %; Neutrophils # (A) 11.5 k/uL (1.3-7.7); Neutrophils % (A) 94 %; RDW 17.6 % (11.5-15.5); WBC 12.2 k/uL (3.8-10.6); WBC (Perox) 11.28
[2016-08-29 06:48] LABS: ALT 44 U/L (21-72); AST 46 U/L (17-59); Alkaline Phosphatase 78 U/L (38-126); Anion Gap 7 mmol/L; Blood Urea Nitrogen 34 mg/dL (9-20); Calcium 8.1 mg/dL (8.4-10.2); Carbon Dioxide 22 mmol/L (22-30); Chloride 105 mmol/L (98-107); Glucose 110 mg/dL (74-99); Magnesium 1.9 mg/dL (1.6-2.3); Non-African American GFR(MDRD) >60 (>60 ml/min/1.73 sqM); Potassium 4.1 mmol/L (3.5-5.1); Sodium 134 mmol/L (137-145); Total Bilirubin 0.6 mg/dL (0.2-1.3); Total Protein 4.8 g/dL (6.3-8.2)
[2016-08-29 07:18] LABS: Glucose,Whole Blood 120 mg/dL (75-99)
[2016-08-29 07:40] LABS: HGB 9.9 gm/dL (13.0-17.5)
[2016-08-29] MEDS: INSULIN LISPRO (humaLOG) 300 UNIT/3 ML VIAL SQ SCH ×4 (07:51→19:58)
[2016-08-29] MEDS: MEROPENEM 1 GM in SODIUM CHLORIDE 0.9% 100 ML IVPB SCH ×2 (08:11→16:59)
[2016-08-29] MEDS: PIPERACILLIN-TAZOBACTAM 3.375 GM in DEXTROSE/WATER 1 50ML.BAG IVPB SCH (08:11)
[2016-08-29] MEDS: TAMSULOSIN 0.4 MG CAP.ER.24H PO SCH (08:12)
[2016-08-29] MEDS: valACYclovir HCL 1,000 MG TABLET PO SCH ×3 (08:12→21:00)
[2016-08-29] MEDS: PANTOPRAZOLE 40 MG TABLET PO SCH (08:12)
[2016-08-29] MEDS: ASPIRIN 81 MG CHEW PO SCH (08:12)
[2016-08-29] MEDS: ATENOLOL 25 MG TAB PO SCH (08:13)
[2016-08-29] MEDS: DOCUSATE 100 MG CAP PO SCH ×2 (08:13→19:59)
[2016-08-29] MEDS: ENOXAPARIN 40 MG/0.4 ML SYRINGE SQ SCH (08:16)
[2016-08-29] MEDS: FENOFIBRATE 160 MG TAB PO SCH (08:16)
[2016-08-29] MEDS: ATORVASTATIN 40 MG TAB PO SCH (08:16)
[2016-08-29] MEDS: NYSTATIN 100,000 UNIT/ML SUSP 500,000 UNIT/5 ML CUP PO SCH ×4 (08:17→21:00)
[2016-08-29] MEDS: MULTIVITAMINS, THERA 1 EACH TAB PO SCH (08:17)
[2016-08-29] MEDS: FOLIC ACID 1 MG TAB PO SCH (08:17)
--- NOTE | 2016-08-29 08:32 | XR ---
EXAMINATION TYPE: XR chest 1V portable DATE OF EXAM: 08/29/2016 6:23 AM COMPARISON: 08/28/2016 HISTORY: Shortness of breath TECHNIQUE: Single frontal view of the chest is obtained. FINDINGS: Diffuse interstitial and alveolar opacities are seen with small left pleural effusion. No pneumothorax. Heart size stable. IMPRESSION: 1. Stable diffuse airspace disease correlate for pulmonary edema or diffuse pneumonia. Underlying chr onic interstitial lung disease may be present. 2. 1 cm pulmonary nodule left upper lobe is noted by recent CT scan. Neoplasm in the differential.
[2016-08-29] MEDS: IPRATROPIUM-ALBUTEROL 3 ML NEB INHALATION SCH ×4 (08:48→20:38)
[2016-08-29] MEDS: SYMBICORT 160-4.5 MCG INHALER INHALATION SCH (08:48)
[2016-08-29] MEDS ORDERED: FUROSEMIDE 10 MG/ML 4 ML VIAL IV STA (09:18)
--- NOTE | 2016-08-29 09:18 | P.PN ---
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 Patient was initially found to have a 5.8 x 5.4 cm mass in the left lower lobe on a low-dose CAT scan of the chest that was done for cancer screening secondary to smoking. The lesion was abutting the pleural surface. The patient also had borderline mediastinal lymph nodes largest measuring 9 mm in size and the subcarinal area. The patient received concurrent chemoradiation therapy. He received cis-nikolski and [employer]GER-16 and subsequently was switched to carboplatin and as the patient developed an acute kidney injury. He received 4 cycles of systemic chemotherapy which she completed in April 2016. He completed radiation therapy in March 2016. His repeat PET scan that showed decrease in the size of the left lung mass going down to 2.8 cm in size along with an SUV of 5.2. He was referred for surgical evaluation of lobectomy with lymph node sampling on 06/27/2016 and surgery was done and the patient was found to have a necrotic mass with no viable tumor and lymph nodes were all negative. The patient postop did well without any significant complications. . This patient also has history of rheumatoid arthritis and he has been maintained on methotrexate until January 2016 and this treatment was discontinued as the patient was taken systemic chemotherapy and radiation therapy. The patient got hospitalized on 08/14/2016 because of increased shortness of breath. He was found to be hypoxemic and his chest x-ray showed diffuse interstitial pulmonary infiltrates. He was admitted with a acute hypoxic respiratory failure and the CAT scan of the chest shows diffuse breath and pulmonary infiltrates compared to his previous CAT scan from April 2016. The exact etiology of the infiltrates were not clear although the possibility that were entertained were radiation pneumonitis, nonspecific interstitial pneumonitis related to connective tissue disease and rheumatoid arthritis, lymphangitic carcinomatosis, and other regular and opportunistic pneumonias. CHF was also considered within the differential diagnosis. In any rate, the patient was treated with a combination of empiric antibiotics and steroids. He was in the medical floor and yesterday got moved to the intensive care unit because of worsening hypoxemia. Overnight, the patient was placed on a BiPAP at a pressure of 12 over 5 cm of water with an FiO2 of 50%. He seems to be more comfortable. Chest x-ray showing diffuse breath and pulmonary infiltrates , unchanged from the previous x-ray from 08/25/2016. Currently, the patient is on a combination of Levaquin as a broad-spectrum antibiotic coverage and is also taking prednisone as part of the burst taper. He is currently on 40 mg of prednisone. The blood gases from last night showed a pH of 7.54 with a pCO2 of 26 and pO2 of 63 and this was done 100% nonrebreather facemask. On 08/29/2016 I'm seeing this patient in follow-up. Had a lengthy discussion with the patient and his and daughter yesterday. We discussed the various options. We thought the bronchoscopy will be quite aggressive with this patient and his will put him into acute hypoxic respiratory failure requiring intubation mechanical ventilation. The alternatives were to step up his antibiotic treatment and use steroids and follow-up his condition accordingly. I also given the option of sending him to [facility] however the family opted to stay here and continued treatment throughout hospital. This morning, in follow-up, the patient is looking much improved compared to yesterday. He is awake and alert and is less short of breath. He is breathing comfortably. He spent all day on the BiPAP yesterday and this morning he is still on a BiPAP at a pressure of 12 over 5 cm of water with an FiO2 of 70%. His pulse ox is around 97-98% chest x-ray shows some limited improvement in the bilateral pulmonary infiltrates compared to yesterday. The CAT scan of the chest from yesterday was also noted. He is afebrile. He is on systemic steroids. He is on bronchodilators. He is eating soft diet. Is producing adequate amount of urine output. No hypotension. He has bowel sounds and bowel movements. I would say he seems to be much less short of breath compared to yesterday. Objective - Vital Signs Vital signs: Vital Signs Temp 98.6 F 08/29/16 04:00 Pulse 88 08/29/16 09:05 Resp 21 08/29/16 07:00 BP 114/70 08/29/16 07:00 Pulse Ox 98 08/29/16 07:00 Intake & Output 08/28/16 08/29/16 08/29/16 18:59 06:59 18:59 Intake Total 1120 700.0 Output Total 800 1700 Balance 320 -1000.0 Weight 88.6 kg 88.4 kg Intake: IV 1120 400 0.9 @20mls/hr 1120 400 Intake, IV Titration 300.0 Amount Meropenem 1 gm In Sodium 200 Chloride 0.9% 100 ml @ 200 mls/hr IVPB Q8HR [facility] Rx#:[id number] Piperacillin-Tazobactam 3 100.0 .375 gm In Dextrose/Water 1 50ml.bag @ 12.5 mls/hr IVPB Q8HR [facility] Rx#: [id number] Output: Urine 800 1700 Other: Voiding Method Urinal Urinal # Voids 1 - Exam Patient is tolerating a full face BiPAP mask and is calm and comfortable without signs of any significant respiratory distress..Head exam was generally normal. There was no scleral icterus or corneal arcus. Mucous membranes were moist. Patient has her loss related to previous radiation therapy to the head.Neck was supple and without jugular venous distension, thyromegaly, or carotid bruits. Carotids were easily palpable bilaterally. There was no adenopathy. Lung sounds are diminished and there are some fine crackles at lung bases bilaterally.Cardiac exam revealed the PMI to be normally situated and sized. The rhythm was regular and no extrasystoles were noted during several minutes of auscultation. The first and second heart sounds were normal and physiologic splitting of the second heart sound was noted. There were no murmurs, rubs, clicks, or gallops.Abdominal exam revealed normal bowel sounds. The abdomen was soft, non-tender, and without masses, organomegaly, or appreciable enlargement of the abdominal aorta. Examination of the extremities revealed easily palpable radial, femoral and pedal pulses. There was no cyanosis , clubbing or edema. - Labs CBC & Chem 7: 08/29/16 06:00 08/29/16 06:00 Labs: Abnormal Lab Results - Last 24 Hours (Table) 08/28/16 08/28/16 08/28/16 Range/Units 16:10 18:22 19:51 WBC (3.8-10.6) k/uL RBC (4.30-5.90) m/uL Hgb (13.0-17.5) gm/dL Hct (39.0-53.0) % RDW (11.5-15.5) % Plt Count (150-450) k/uL Neutrophils # (1.3-7.7) k/uL Lymphocytes # (1.0-4.8) k/uL Sodium (137-145) mmol/L BUN (9-20) mg/dL Glucose (74-99) mg/dL POC Glucose (mg/dL) 111 H 147 H (75-99) mg/dL Calcium (8.4-10.2) mg/dL Total Protein (6.3-8.2) g/dL Albumin (3.5-5.0) g/dL Urine Blood Trace H (Negative) Urine Bacteria Rare H (None) /hpf 08/29/16 08/29/16 08/29/16 Range/Units 06:00 06:00 07:15 WBC 12.2 H (3.8-10.6) k/uL RBC 3.30 L (4.30-5.90) m/uL Hgb 9.9 L D (13.0-17.5) gm/dL Hct 30.6 L (39.0-53.0) % RDW 17.6 H (11.5-15.5) % Plt Count 108 L (150-450) k/uL Neutrophils # 11.5 H (1.3-7.7) k/uL Lymphocytes # 0.2 L (1.0-4.8) k/uL Sodium 134 L (137-145) mmol/L BUN 34 H (9-20) mg/dL Glucose 110 H (74-99) mg/dL POC Glucose (mg/dL) 120 H (75-99) mg/dL Calcium 8.1 L (8.4-10.2) mg/dL Total Protein 4.8 L (6.3-8.2) g/dL Albumin 2.2 L (3.5-5.0) g/dL Urine Blood (Negative) Urine Bacteria (None) /hpf Microbiology - Last 24 Hours (Table) 08/28/16 16:10 Urine Culture - Preliminary Urine,Voided Assessment and Plan Plan: Assessment 1 acute hypoxic respiratory failure with diffuse bilateral pulmonary infiltrates. The exact nature of this but the pulmonary infiltrates are not clear. Suspect chronic infections with a possibility of an opportunistic infection. Acute lung injury/ARDS which could be postinfectious cannot be completely ruled out. Interstitial lung disease related pulmonary infiltrates cannot be completely ruled out. Malignancy is felt to be less likely especially with the progression of his small cell lung cancer treatment. On 08/29/2016, the patient is on broad-spectrum antibiotics and systemic steroids. Cultures of been all negative. Chest x-ray shows some limited improvement compared to yesterday. There is still however diffuse infiltrates and airspace disease bilaterally. The CAT scan of the chest from yesterday was also noted. There is no evidence of any pulmonary embolism. Clinically, the patient is much more rested and is breathing easier compared to yesterday. Crackles are soft. We'll continue to follow. 2 small cell lung cancer, status post concurrent chemoradiation therapy and total brain radiation. Most recent PET scan from April 2016 at shown improvement in the size of the left lower lobe mass and the patient had further surgical resection at [facility]. Back then, the lung windows showed emphysema without evidence of any interstitial lung disease. No further imaging between April and August 2016 3 coronary artery disease with previous stent placement, 4 rheumatoid arthritis 5 hyperlipidemia Plan Continue the broad-spectrum antibiotics. The patient will be kept on a combination of Merrem and Levaquin. The patient be kept on systemic steroids. Continue BiPAP on and off during the day and continuously at nighttime. We'll try to wean him off to high flow oxygen if possible and the patient provided a soft diet. The Symbicort will be discontinued this will be replaced with a combination of Perforomist and Pulmicort neb last 2 minutes twice a day, IDs on the case, we'll continue to follow. May consider bronchoscopy if there is some improvement in his oxygenation over the next 24-48 hours. The patient be kept here in ICU for further monitoring. Condition is critical. Prognosis still guarded baseline above-mentioned comorbidities. We'll give the patient also a dose of Lasix 40 mg IV push. This evaluation was done and 32 minutes. Time with Patient: Greater than 30
--- NOTE | 2016-08-29 10:16 | PN ---
DATE OF SERVICE: 08/28/2016 Reason for followup is: 1. Left S2 dermatomal zoster. 2. Persistent respiratory cystitis with a question of pneumonia. INTERVAL HISTORY: The patient overnight had noticed to have evidence of hyperoxemia requiring a BiPAP and transferred to the ICU. Patient did have respiratory distress. Patient denies having any chest pain though he did have a cough but not bringing up any sputum. No nausea, no vomiting or any diarrhea. On examination, blood pressure 91/55, pulse of 65, temperature 98. He is 91% on 100% of nonrebreather. General description is an elderly male, lying in bed in no distress. RESPIRATORY SYSTEM: Unlabored breathing with coarse crackles at the bases. No wheeze. HEART: S1, S2. Regular rate and rhythm. ABDOMEN: Soft, no tenderness. EXTREMITIES: No edema of the feet. LABS: Hemoglobin is 12.2 with a hemoglobin 17.4 with a BUN of 44, creatinine 1.03. DIAGNOSTIC IMPRESSION AND PLAN: Patient initially seen for the left S2 dermatomal zoster where the patient continued on the vent to finish the course of therapy in a patient with worsening respiratory distress. The patient was examined and discussed with Dr. Leon this morning. He was offered bronchoscopy and a biopsy which the patient declined. A CT of the chest was done which was negative for pulmonary embolism; however, it did show evidence of pneumomediastinum. Antibiotic has been brought in to the [facility]os[facility] to continue with the Levaquin and patient was to be transferred to the [facility] to be evaluated for possible bronchial biopsy where the patient's previous surgery has been done. Overall prognosis remains guarded. [facility]
[2016-08-29] MEDS: LISINOPRIL 10 MG TAB PO SCH (10:35)
[2016-08-29 11:56] LABS: Glucose,Whole Blood 196 mg/dL (75-99)
[2016-08-29 17:03] LABS: Glucose,Whole Blood 177 mg/dL (75-99)
--- NOTE | 2016-08-29 18:18 | PN ---
DATE OF SERVICE: 08/29/2016 REASON FOR FOLLOWUP: 1. Possible pneumonia. 2. Left S2 dermatomal zoster. INTERVAL HISTORY: The patient's overall respiratory symptoms have slightly improved. The patient and family wish to go to [facility]. The patient denies having any chest pain. He did have a cough, bringing up some clear sputum; no hemoptysis; no abdominal pain and no diarrhea. On examination, blood pressure is 92/57 with a pulse of 86, temperature 98.2. He is 94% on high-flow nasal oxygen. General description is an elderly male up in the bed in no distress. RESPIRATORY SYSTEM: Unlabored breathing with coarse breath sounds at the bases bilaterally. No wheeze. HEART: S1, S2. Regular rate and rhythm. ABDOMEN: Soft. No tenderness. LABS: White count is down to 12.2 from yesterday at 17.4 with a BUN of 34, creatinine 0.70. DIAGNOSTIC IMPRESSION AND PLAN: 1. Patient with difficulty in breathing which is likely multifactorial with a possibility of underlying pneumonia not entirely excluded. aspiration pneumonitis, currently responding to the addition of Zosyn that was started yesterday. The steroids will be continued. Will try to obtain another sputum. 2. Patient with left S2 dermatomal zoster. Continue with the Valtrex to finish a 7-day course of therapy. MTDD
[2016-08-29 19:47] LABS: Glucose,Whole Blood 177 mg/dL (75-99)
--- NOTE | 2016-08-29 19:57 | P.PN ---
Subjective Principal diagnosis: Acute on chronic hypoxic respiratory failure Patient is a 71-year-old male with known history of lung cancer who underwent left lower lobe resection and underwent radiation and chemotherapy in January 2016 and subsequently had prophylactic brain radiation, patient was maintained on home oxygen until recently, he discontinued using home oxygen and went to [place] for a family member graduation, he states that he was doing worse he was unable to sleep and was developing worsening shortness of breath, his [id number] is working on a base and patient was admitted to a [place] hospital he was told that his oxygen with saturation was very low in the 70 % He was told he could not be treated in the [place] because he was not in the he was offered to be transferred to a regular hospital however patient decided to be discharged and decided to drive back with his and his daughter back to [place], patient is well known to Dr. Cannon, he presented to emergency room at [facility] his oxygen saturation was low d- dimer was significantly elevated and troponin level was elevated at 0.58, patient was started on IV heparin and was admitted to telemetry floor computed tomography scan of the chest was negative for pulmonary embolism, oncology consultation pulmonary consultation and cardiology consultation were initiated, computed tomography scan revealed patchy infiltrates in both lungs and patient was started on IV Levaquin in the emergency room for possible pneumonia. The exact etiology of the infiltrates were not clear although the possibility that were entertained were radiation pneumonitis, nonspecific interstitial pneumonitis related to connective tissue disease and rheumatoid arthritis, lymphangitic carcinomatosis, and other regular and opportunistic pneumonias. CHF was also considered within the differential diagnosis. Patient is followed closely by pulmonary service. Also was seen by cardiology was given a few doses of IV Lasix. And then did develop acute renal failure. Patient is been off of Lasix kidney function has stabilized. Last night patient went into acute respiratory distress became hypoxemic and was transferred to the ICU. He had been on a regular medical floor over the weekend and had shown some improvement in his oxygen saturation they decreased the oxygen level to his nasal cannula. However he did require to be placed on BiPAP and in the ICU. Pulmonary service did order another computed tomography scan of the chest which was negative for PE. Did reveal background of diffuse emphysematous change with acute on chronic process. There is a suspected interval left lung surgery with suspicious residual nodule. Suspect acute infection process or edema of chronic fibrosis possibly related to treatment changes. There is progression since January 2016. Lymphangitic spread of tumor is not excluded. There is a new pneumomediastinum. No pneumothorax. Are pulmonary service is highly recommending that patient be transferred to [facility]. They had suggested this last week as well. However patient wanted to remain close his family and in [place]. Since patient symptoms are worsening he is now agreeable to proceed with transfer to [facility]. Patient will likely need a bronchoscopy with transbronchial biopsies. Patient is frail and their concerns that patient will require to be placed on the respirator after the procedure is performed. Objective - Vital Signs Vital signs: Vital Signs Temp 98.7 F 08/29/16 16:00 Pulse 99 08/29/16 19:00 Resp 18 08/29/16 19:00 BP 109/69 08/29/16 19:00 Pulse Ox 92 L 08/29/16 19:00 Intake & Output 08/29/16 08/29/16 08/30/16 06:59 18:59 06:59 Intake Total 700.0 1152.5 20 Output Total 1700 1100 Balance -1000.0 52.5 20 Weight 88.4 kg Intake: IV 400 220 20 0.9 @20mls/hr 400 220 20 Intake, IV Titration 300.0 212.5 Amount Meropenem 1 gm In Sodium 200 200 Chloride 0.9% 100 ml @ 200 mls/hr IVPB Q8HR [facility] Rx#:[id number] Piperacillin-Tazobactam 3 100.0 12.5 .375 gm In Dextrose/Water 1 50ml.bag @ 12.5 mls/hr IVPB Q8HR [facility] Rx#: [id number] Oral 720 Output: Urine 1700 1100 Other: Voiding Method Urinal Urinal # Voids 1 - Exam In general patient is alert and oriented 3 in no apparent distress HEENT head normocephalic and atraumatic Neck is supple no JVD no goiter no lymphadenopathy Chest exam reveals crackles in both lung ortega no wheezing Cardiac exam reveals tachycardia with S1 and S2 regular rhythm no gallops no murmurs Abdomen is soft nontender no organomegaly Extremity exam reveals no edema no cyanosis or clubbing Neurological examination reveals no focal deficit - Labs CBC & Chem 7: 08/29/16 06:00 08/29/16 06:00 Labs: Abnormal Lab Results - Last 24 Hours (Table) 05/16/17 05/16/17 05/16/17 Range/Units 06:00 06:00 07:15 WBC 12.2 H (3.8-10.6) k/uL RBC 3.30 L (4.30-5.90) m/uL Hgb 9.9 L D (13.0-17.5) gm/dL Hct 30.6 L (39.0-53.0) % RDW 17.6 H (11.5-15.5) % Plt Count 108 L (150-450) k/uL Neutrophils # 11.5 H (1.3-7.7) k/uL Lymphocytes # 0.2 L (1.0-4.8) k/uL Sodium 134 L (137-145) mmol/L BUN 34 H (9-20) mg/dL Glucose 110 H (74-99) mg/dL POC Glucose (mg/dL) 120 H (75-99) mg/dL Calcium 8.1 L (8.4-10.2) mg/dL Total Protein 4.8 L (6.3-8.2) g/dL Albumin 2.2 L (3.5-5.0) g/dL 08/29/16 08/29/16 08/29/16 Range/Units 11:55 17:01 19:45 WBC (3.8-10.6) k/uL RBC (4.30-5.90) m/uL Hgb (13.0-17.5) gm/dL Hct (39.0-53.0) % RDW (11.5-15.5) % Plt Count (150-450) k/uL Neutrophils # (1.3-7.7) k/uL Lymphocytes # (1.0-4.8) k/uL Sodium (137-145) mmol/L BUN (9-20) mg/dL Glucose (74-99) mg/dL POC Glucose (mg/dL) 196 H 177 H 177 H (75-99) mg/dL Calcium (8.4-10.2) mg/dL Total Protein (6.3-8.2) g/dL Albumin (3.5-5.0) g/dL Microbiology - Last 24 Hours (Table) 08/28/16 16:10 Urine Culture - Preliminary Urine,Voided Assessment and Plan Plan: #1 acute hypoxic respiratory failure, pulse ox on presentation was 68% on room air, patient was started on nonrebreather mask and pulse ox was up to 99% Currently patient is on oxygen 6 L via nasal cannula and his pulse ox is 95%, patient was started on IV Solu-Medrol and inhaled bronchodilators #2 diffuse disease in both lung ortega possibly representing possible acute bronchitis with pneumonia, other for initial diagnosis possibilities are detailed in the rapid outsole stitcher note patient was started on IV Levaquin in the emergency room, will obtain sputum sample for culture and Gram stain he has been improving with current treatment #3 elevated troponin level patient denies any chest pain, he was started on IV heparin in the emergency room cardiology consultation has been requested #4 underlying history of lung cancer, awaiting consult from Dr. Cannon, to assess status of his malignancy. #5 hyponatremia on presentation improving with IV fluid #6 underlying history of hypertension well-controlled on current medications #7 underlying history of hyperlipidemia maintained on Lipitor and fenofibrate continue #8 elevated d-dimer with negative computed tomography scan of the chest without any evidence of pulmonary embolism #9 underlying history of benign prostatic hypertrophy maintained on Flomax continue Medication and labs were reviewed, patient is improving gradually continue with current medications, input from cardiology and pulmonary reviewed Plan yesterday was to transfer patient to [facility] however he improved and rapid outsole stitcher decided to continue treatment at [facility] for the time being will follow closely.
[2016-08-29] MEDS: LEVOFLOXACIN 750 MG TAB PO SCH (19:59)
[2016-08-29] MEDS: FORMOTEROL FUMARATE 20 MCG/2 ML NEBU INHALATION SCH (20:38)
[2016-08-29] MEDS: BUDESONIDE 0.5 MG/2 ML NEBU INHALATION SCH (20:38)
[2016-08-30] MEDS: methylPREDNISolone SOD SUCCI 125 MG/2 ML VIAL IV SCH ×4 (00:10→18:00)
[2016-08-30] MEDS: MEROPENEM 1 GM in SODIUM CHLORIDE 0.9% 100 ML IVPB SCH ×3 (00:12→16:20)
[2016-08-30 05:42] LABS: Anion Gap 6 mmol/L; Blood Urea Nitrogen 43 mg/dL (9-20); Calcium 8.5 mg/dL (8.4-10.2); Carbon Dioxide 23 mmol/L (22-30); Chloride 102 mmol/L (98-107); Glucose 134 mg/dL (74-99); Magnesium 1.9 mg/dL (1.6-2.3); Non-African American GFR(MDRD) >60 (>60 ml/min/1.73 sqM); Phosphorous 2.6 mg/dL (2.5-4.5); Potassium 4.4 mmol/L (3.5-5.1); Sodium 131 mmol/L (137-145)
[2016-08-30 06:44] LABS: Anisocytosis Slight; Basophils % (A) 0 %; CH 29.7; CHCM 31.6; Eosinophils % (A) 0 %; HCT 29.2 % (39.0-53.0); HDW 2.78; HGB 9.4 gm/dL (13.0-17.5); Hypochromasia Slight; Luc # (Auto) 0.04; Luc % (Auto) 0; Lymphocytes # (A) 0.2 k/uL (1.0-4.8); Lymphocytes % (A) 2 %; MCH 30.2 pg (25.0-35.0); MCV 94.3 fL (80.0-100.0); Macrocytosis Slight; Mean Platelet Volume 8.5; Monocytes # (A) 0.4 k/uL (0-1.0); Monocytes % (A) 3 %; Neutrophils # (A) 11.8 k/uL (1.3-7.7); Neutrophils % (A) 95 %; WBC 12.4 k/uL (3.8-10.6)
[2016-08-30 07:47] LABS: Glucose,Whole Blood 133 mg/dL (75-99)
[2016-08-30] MEDS: ASPIRIN 81 MG CHEW PO SCH (08:35)
[2016-08-30] MEDS: INSULIN LISPRO (humaLOG) 300 UNIT/3 ML VIAL SQ SCH ×4 (08:35→22:04)
[2016-08-30] MEDS: PANTOPRAZOLE 40 MG TABLET PO SCH (08:35)
[2016-08-30] MEDS: ATENOLOL 25 MG TAB PO SCH (08:36)
[2016-08-30] MEDS: DOCUSATE 100 MG CAP PO SCH ×2 (08:36→22:03)
[2016-08-30] MEDS: ENOXAPARIN 40 MG/0.4 ML SYRINGE SQ SCH (08:36)
[2016-08-30] MEDS: ATORVASTATIN 40 MG TAB PO SCH (08:36)
[2016-08-30] MEDS: MULTIVITAMINS, THERA 1 EACH TAB PO SCH (08:37)
[2016-08-30] MEDS: FOLIC ACID 1 MG TAB PO SCH (08:37)
[2016-08-30] MEDS: TAMSULOSIN 0.4 MG CAP.ER.24H PO SCH (08:37)
[2016-08-30] MEDS: FENOFIBRATE 160 MG TAB PO SCH (08:37)
[2016-08-30] MEDS: valACYclovir HCL 1,000 MG TABLET PO SCH ×3 (08:41→22:04)
[2016-08-30] MEDS: NYSTATIN 100,000 UNIT/ML SUSP 500,000 UNIT/5 ML CUP PO SCH ×4 (08:41→22:04)
[2016-08-30] MEDS: FORMOTEROL FUMARATE 20 MCG/2 ML NEBU INHALATION SCH ×2 (08:42→20:22)
[2016-08-30] MEDS: BUDESONIDE 0.5 MG/2 ML NEBU INHALATION SCH ×2 (08:42→20:22)
[2016-08-30] MEDS: IPRATROPIUM-ALBUTEROL 3 ML NEB INHALATION SCH ×4 (08:42→20:23)
[2016-08-30] MEDS ORDERED: Magnesium Replacement Protocol 1 EACH MISC MISCELLANE PRN (08:58)
--- NOTE | 2016-08-30 09:12 | XR ---
EXAMINATION TYPE: XR chest 1V portable DATE OF EXAM: 08/30/2016 6:19 AM COMPARISON: 08/29/1969 HISTORY: Shortness of breath TECHNIQUE: Single frontal view of the chest is obtained. FINDINGS: Diffuse interstitial and alveolar opacities are seen with small left pleural effusion. No pneumothorax. Heart size stable. IMPRESSION: 1. Stable diffuse airspace disease correlate for pulmonary edema or diffuse pneumonia. Underlying chr onic interstitial lung disease may be present. 2. 1 cm pulmonary nodule left upper lobe is noted by recent CT scan. Neoplasm in the differential.
[2016-08-30] MEDS: MAGNESIUM SULFATE-D5W PMX 1 GM in DEXTROSE/WATER 1 100ML.BAG IVPB SCH ×2 (10:00→11:22)
--- NOTE | 2016-08-30 10:02 | P.PN ---
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 Patient was initially found to have a 5.8 x 5.4 cm mass in the left lower lobe on a low-dose CAT scan of the chest that was done for cancer screening secondary to smoking. The lesion was abutting the pleural surface. The patient also had borderline mediastinal lymph nodes largest measuring 9 mm in size and the subcarinal area. The patient received concurrent chemoradiation therapy. He received cis-chilkat and SUPER[employer] TRANSMISSION-16 and subsequently was switched to carboplatin and as the patient developed an acute kidney injury. He received 4 cycles of systemic chemotherapy which she completed in April 2016. He completed radiation therapy in March 2016. His repeat PET scan that showed decrease in the size of the left lung mass going down to 2.8 cm in size along with an SUV of 5.2. He was referred for surgical evaluation of lobectomy with lymph node sampling on 06/27/2016 and surgery was done and the patient was found to have a necrotic mass with no viable tumor and lymph nodes were all negative. The patient postop did well without any significant complications. . This patient also has history of rheumatoid arthritis and he has been maintained on methotrexate until January 2016 and this treatment was discontinued as the patient was taken systemic chemotherapy and radiation therapy. The patient got hospitalized on 08/14/2016 because of increased shortness of breath. He was found to be hypoxemic and his chest x-ray showed diffuse interstitial pulmonary infiltrates. He was admitted with a acute hypoxic respiratory failure and the CAT scan of the chest shows diffuse breath and pulmonary infiltrates compared to his previous CAT scan from April 2016. The exact etiology of the infiltrates were not clear although the possibility that were entertained were radiation pneumonitis, nonspecific interstitial pneumonitis related to connective tissue disease and rheumatoid arthritis, lymphangitic carcinomatosis, and other regular and opportunistic pneumonias. CHF was also considered within the differential diagnosis. In any rate, the patient was treated with a combination of empiric antibiotics and steroids. He was in the medical floor and yesterday got moved to the intensive care unit because of worsening hypoxemia. Overnight, the patient was placed on a BiPAP at a pressure of 12 over 5 cm of water with an FiO2 of 50%. He seems to be more comfortable. Chest x-ray showing diffuse breath and pulmonary infiltrates , unchanged from the previous x-ray from 08/25/2016. Currently, the patient is on a combination of Levaquin as a broad-spectrum antibiotic coverage and is also taking prednisone as part of the burst taper. He is currently on 40 mg of prednisone. The blood gases from last night showed a pH of 7.54 with a pCO2 of 26 and pO2 of 63 and this was done 100% nonrebreather facemask. On 08/29/2016 I'm seeing this patient in follow-up. Had a lengthy discussion with the patient and his and daughter yesterday. We discussed the various options. We thought the bronchoscopy will be quite aggressive with this patient and his will put him into acute hypoxic respiratory failure requiring intubation mechanical ventilation. The alternatives were to step up his antibiotic treatment and use steroids and follow-up his condition accordingly. I also given the option of sending him to [facility] however the family opted to stay here and continued treatment throughout hospital. This morning, in follow-up, the patient is looking much improved compared to yesterday. He is awake and alert and is less short of breath. He is breathing comfortably. He spent all day on the BiPAP yesterday and this morning he is still on a BiPAP at a pressure of 12 over 5 cm of water with an FiO2 of 70%. His pulse ox is around 97-98% chest x-ray shows some limited improvement in the bilateral pulmonary infiltrates compared to yesterday. The CAT scan of the chest from yesterday was also noted. He is afebrile. He is on systemic steroids. He is on bronchodilators. He is eating soft diet. Is producing adequate amount of urine output. No hypotension. He has bowel sounds and bowel movements. I would say he seems to be much less short of breath compared to yesterday. On 08/30/2016 I'm seeing this patient in follow-up. The patient is sitting up in his bed and is sitting up position. The patient is on a high flow oxygen at 50 L and is tolerating it well with a saturation of around 96% on his pulse ox. He is able to speak up . This is. No chest pain. No change in mental status. He is eating and tolerating diet without any issues. He is on a combination of Merrem and Levaquin. Is on IV Solu-Medrol in addition. Infectious diseases on the case. A sputum sample was sent and the results are still pending for now. Meanwhile, today's chest x-ray shows still diffuse breath and pulmonary infiltrates and consolidation without any major improvement compared to yesterday. There are coarse crackles in lung bases bilaterally still. Objective - Vital Signs Vital signs: Vital Signs Temp 98.4 F 08/30/16 08:00 Pulse 90 08/30/16 09:03 Resp 18 08/30/16 09:00 BP 120/69 08/30/16 09:00 Pulse Ox 93 L 08/30/16 09:00 Intake & Output 08/29/16 08/30/16 08/30/16 18:59 06:59 18:59 Intake Total 1152.5 820 160 Output Total 1100 1000 300 Balance 52.5 -180 -140 Weight 86.1 kg Intake: IV 220 220 60 0.9 @20mls/hr 220 220 60 Intake, IV Titration 212.5 100 100 Amount Meropenem 1 gm In Sodium 200 100 100 Chloride 0.9% 100 ml @ 200 mls/hr IVPB Q8HR [facility] Rx#:[id number] Piperacillin-Tazobactam 3 12.5 .375 gm In Dextrose/Water 1 50ml.bag @ 12.5 mls/hr IVPB Q8HR [facility] Rx#: [id number] Oral 720 500 Output: Urine 1100 1000 300 Other: Voiding Method Urinal Urinal Urinal - Exam Patient is tolerating high flow oxygen by nasal cannula. and is calm and comfortable without signs of any significant respiratory distress..Head exam was generally normal. There was no scleral icterus or corneal arcus. Mucous membranes were moist. Patient has her loss related to previous radiation therapy to the head.Neck was supple and without jugular venous distension, thyromegaly, or carotid bruits. Carotids were easily palpable bilaterally. There was no adenopathy. Lung sounds are diminished and there are some fine/ course crackles at lung bases bilaterally.Cardiac exam revealed the PMI to be normally situated and sized. The rhythm was regular and no extrasystoles were noted during several minutes of auscultation. The first and second heart sounds were normal and physiologic splitting of the second heart sound was noted. There were no murmurs, rubs, clicks, or gallops.Abdominal exam revealed normal bowel sounds. The abdomen was soft, non-tender, and without masses, organomegaly , or appreciable enlargement of the abdominal aorta. Examination of the extremities revealed easily palpable radial, femoral and pedal pulses. There was no cyanosis, clubbing or edema. - Labs CBC & Chem 7: 08/30/16 05:08 08/30/16 05:08 Labs: Abnormal Lab Results - Last 24 Hours (Table) 08/29/16 08/29/16 08/29/16 Range/Units 11:55 17:01 19:45 WBC (3.8-10.6) k/uL RBC (4.30-5.90) m/uL Hgb (13.0-17.5) gm/dL Hct (39.0-53.0) % RDW (11.5-15.5) % Plt Count (150-450) k/uL Neutrophils # (1.3-7.7) k/uL Lymphocytes # (1.0-4.8) k/uL Sodium (137-145) mmol/L BUN (9-20) mg/dL Glucose (74-99) mg/dL POC Glucose (mg/dL) 196 H 177 H 177 H (75-99) mg/dL 08/30/16 08/30/16 08/30/16 Range/Units 05:08 05:08 07:46 WBC 12.4 H (3.8-10.6) k/uL RBC 3.10 L (4.30-5.90) m/uL Hgb 9.4 L (13.0-17.5) gm/dL Hct 29.2 L (39.0-53.0) % RDW 18.0 H (11.5-15.5) % Plt Count 105 L (150-450) k/uL Neutrophils # 11.8 H (1.3-7.7) k/uL Lymphocytes # 0.2 L (1.0-4.8) k/uL Sodium 131 L (137-145) mmol/L BUN 43 H (9-20) mg/dL Glucose 134 H (74-99) mg/dL POC Glucose (mg/dL) 133 H (75-99) mg/dL Microbiology - Last 24 Hours (Table) 08/30/16 02:19 Sputum Culture - Preliminary Sputum Assessment and Plan Plan: Assessment 1 acute hypoxic respiratory failure with diffuse bilateral pulmonary infiltrates. The exact nature of this but the pulmonary infiltrates are not clear. Suspect chronic infections with a possibility of an opportunistic infection. Acute lung injury/ARDS which could be postinfectious cannot be completely ruled out. Interstitial lung disease related pulmonary infiltrates cannot be completely ruled out. Malignancy is felt to be less likely especially with the progression of his small cell lung cancer treatment. On 08/29/2016, the patient is on broad-spectrum antibiotics and systemic steroids. Cultures of been all negative. Chest x-ray shows some limited improvement compared to yesterday. There is still however diffuse infiltrates and airspace disease bilaterally. The CAT scan of the chest from yesterday was also noted. There is no evidence of any pulmonary embolism. Clinically, the patient is much more rested and is breathing easier compared to yesterday. Crackles are soft. We'll continue to follow. On 08/30/2016, the patient remains on broad-spectrum antibiotics and steroids. The patient is also on high flow oxygen. Chest x-ray findings are stable. Crackles are rather coarse today and the patient seems to be stable without any worsening or decompensation is adequately status. In fact he feels much more comfortable with a high flow oxygen which is running at 50 L/m. 2 small cell lung cancer, status post concurrent chemoradiation therapy and total brain radiation. Most recent PET scan from April 2016 at shown improvement in the size of the left lower lobe mass and the patient had further surgical resection at [facility]. Back then, the lung windows showed emphysema without evidence of any interstitial lung disease. No further imaging between April and August 2016 3 coronary artery disease with previous stent placement, 4 rheumatoid arthritis 5 hyperlipidemia 6 anemia, multifactorial Plan Continue the broad-spectrum antibiotics. The patient will be kept on a combination of Merrem and Levaquin. The patient be kept on systemic steroids. Keep the patient on high flow oxygen for now at 15 L. Wean FiO2 as tolerated to maintain a saturation above 92%. Advance diet as tolerated. I was suspicion that the patient had developed an acute lung injury/diffuse alveolar damage probably a postinfectious in nature. Less likely is the fact that he may have an underlying ongoing infection. Less likely is progression of his malignancy. In any rate, the patient will be treated conservatively. Daily chest x-rays. Unable to do a bronchioloalveolar lavage because of his borderline respiratory status. Family was updated on the condition. We'll continue to follow. Condition is still critical
[2016-08-30] MEDS ORDERED: MAGNESIUM SULFATE-D5W PMX 1 GM in DEXTROSE/WATER 1 100ML.BAG IVPB ONE (10:09)
[2016-08-30] MEDS: LISINOPRIL 10 MG TAB PO SCH (10:55)
[2016-08-30 11:42] LABS: Glucose,Whole Blood 163 mg/dL (75-99)
--- NOTE | 2016-08-30 15:12 | PN ---
DATE OF SERVICE: 08/30/2016 Reason for followup is: 1. Pneumonia. 2. Left S2 dermatomal zoster. INTERVAL HISTORY: The patient is afebrile. His breathing seems slightly improved. Patient denies significant chest pain, occasional cough. No hemoptysis. No abdominal pain. No diarrhea. On examination, blood pressure 138/74 with a pulse of 83, temperature 98. He is 94% on 50% high-flow oxygen. General description is an elderly male, up in the chair in no distress. RESPIRATORY SYSTEM: Unlabored breathing with decreased breath sounds. HEART: S1, S2. Regular rate and rhythm. ABDOMEN: Soft. No tenderness. LABS: Hemoglobin 9.4, white count of 12.4 with a BUN of 43, creatinine 0.80. Blood culture have been negative. Sputum that has been collected pending. DIAGNOSTIC IMPRESSION AND PLAN: 1. Patient with difficulty breathing, which is likely multifactorial with possible pneumonia. The antibiotic will be continued follow the culture to adjust antibiotic further. 2. Patient with left S2 dermatomal zoster. Continue patient on Valtrex to finish the course of the therapy. Family present at beside. Their questions were answered. BRADLEY
[2016-08-30 18:00] LABS: Glucose,Whole Blood 170 mg/dL (75-99)
--- NOTE | 2016-08-30 18:18 | P.PN ---
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 Cannon, he presented to emergency room at [facility] his oxygen saturation was low d- dimer was significantly elevated and troponin level was elevated at 0.58, patient was started on IV heparin and was admitted to telemetry floor computed tomography scan of the chest was negative for pulmonary embolism, oncology consultation pulmonary consultation and cardiology consultation were initiated, computed tomography scan revealed patchy infiltrates in both lungs and patient was started on IV Levaquin in the emergency room for possible pneumonia. The exact etiology of the infiltrates were not clear although the possibility that were entertained were radiation pneumonitis, nonspecific interstitial pneumonitis related to connective tissue disease and rheumatoid arthritis, lymphangitic carcinomatosis, and other regular and opportunistic pneumonias. CHF was also considered within the differential diagnosis. Patient is followed closely by pulmonary service. Also was seen by cardiology was given a few doses of IV Lasix. And then did develop acute renal failure. Patient is been off of Lasix kidney function has stabilized. Last night patient went into acute respiratory distress became hypoxemic and was transferred to the ICU. He had been on a regular medical floor over the weekend and had shown some improvement in his oxygen saturation they decreased the oxygen level to his nasal cannula. However he did require to be placed on BiPAP and in the ICU. Pulmonary service did order another computed tomography scan of the chest which was negative for PE. Did reveal background of diffuse emphysematous change with acute on chronic process. There is a suspected interval left lung surgery with suspicious residual nodule. Suspect acute infection process or edema of chronic fibrosis possibly related to treatment changes. There is progression since January 2016. Lymphangitic spread of tumor is not excluded. There is a new pneumomediastinum. No pneumothorax. Are pulmonary service is highly recommending that patient be transferred to [facility]. They had suggested this last week as well. However patient wanted to remain close his family and in [place]. Since patient symptoms are worsening he is now agreeable to proceed with transfer to [facility]. Patient will likely need a bronchoscopy with transbronchial biopsies. Patient is frail and their concerns that patient will require to be placed on the respirator after the procedure is performed. Objective - Vital Signs Vital signs: Vital Signs Temp 97.4 F L 08/30/16 16:00 Pulse 82 08/30/16 18:00 Resp 24 08/30/16 18:00 BP 107/65 08/30/16 18:00 Pulse Ox 91 L 08/30/16 18:00 Intake & Output 08/29/16 08/30/16 08/30/16 18:59 06:59 18:59 Intake Total 1152.5 820 540 Output Total 1100 1000 870 Balance 52.5 -180 -330 Weight 86.1 kg Intake: IV 220 220 240 0.9 @20mls/hr 220 220 240 Intake, IV Titration 212.5 100 300 Amount Magnesium Sulfate-D5w Pmx 100 1 gm In Dextrose/Water 1 100ml.bag @ 100 mls/hr IVPB ONCE ONE Rx#: [id number] Magnesium Sulfate-D5w Pmx 100 1 gm In Dextrose/Water 1 100ml.bag @ 100 mls/hr IVPB Q1H [facility] Rx#: [id number] Meropenem 1 gm In Sodium 200 100 100 Chloride 0.9% 100 ml @ 200 mls/hr IVPB Q8HR [facility] Rx#:[id number] Piperacillin-Tazobactam 3 12.5 .375 gm In Dextrose/Water 1 50ml.bag @ 12.5 mls/hr IVPB Q8HR [facility] Rx#: [id number] Oral 720 500 Output: Urine 1100 1000 870 Other: Voiding Method Urinal Urinal Urinal - Exam In general patient is alert and oriented 3 in no apparent distress HEENT head normocephalic and atraumatic Neck is supple no JVD no goiter no lymphadenopathy Chest exam reveals crackles in both lung ortega no wheezing Cardiac exam reveals tachycardia with S1 and S2 regular rhythm no gallops no murmurs Abdomen is soft nontender no organomegaly Extremity exam reveals no edema no cyanosis or clubbing Neurological examination reveals no focal deficit - Labs CBC & Chem 7: 08/30/16 05:08 08/30/16 05:08 Labs: Abnormal Lab Results - Last 24 Hours (Table) 08/29/16 08/30/16 08/30/16 Range/Units 19:45 05:08 05:08 WBC 12.4 H (3.8-10.6) k/uL RBC 3.10 L (4.30-5.90) m/uL Hgb 9.4 L (13.0-17.5) gm/dL Hct 29.2 L (39.0-53.0) % RDW 18.0 H (11.5-15.5) % Plt Count 105 L (150-450) k/uL Neutrophils # 11.8 H (1.3-7.7) k/uL Lymphocytes # 0.2 L (1.0-4.8) k/uL Sodium 131 L (137-145) mmol/L BUN 43 H (9-20) mg/dL Glucose 134 H (74-99) mg/dL POC Glucose (mg/dL) 177 H (75-99) mg/dL 08/30/16 08/30/16 08/30/16 Range/Units 07:46 11:40 17:59 WBC (3.8-10.6) k/uL RBC (4.30-5.90) m/uL Hgb (13.0-17.5) gm/dL Hct (39.0-53.0) % RDW (11.5-15.5) % Plt Count (150-450) k/uL Neutrophils # (1.3-7.7) k/uL Lymphocytes # (1.0-4.8) k/uL Sodium (137-145) mmol/L BUN (9-20) mg/dL Glucose (74-99) mg/dL POC Glucose (mg/dL) 133 H 163 H 170 H (75-99) mg/dL Microbiology - Last 24 Hours (Table) 08/30/16 02:19 Sputum Culture - Preliminary Sputum Assessment and Plan Plan: #1 acute hypoxic respiratory failure, pulse ox on presentation was 68% on room air, patient was started on nonrebreather mask and pulse ox was up to 99% Currently patient is on high flow oxygen, IV Solu-Medrol and inhaled bronchodilators #2 diffuse disease in both lung ortega possibly representing possible acute bronchitis with pneumonia, other for initial diagnosis possibilities are detailed in the home day care provider note patient was started on IV Levaquin in the emergency room, will obtain sputum sample for culture and Gram stain he has been improving with current treatment #3 elevated troponin level patient denies any chest pain, he was started on IV heparin in the emergency room cardiology consultation has been requested #4 underlying history of lung cancer, awaiting consult from Dr. Cannon, to assess status of his malignancy. #5 hyponatremia on presentation improving with IV fluid #6 underlying history of hypertension well-controlled on current medications #7 underlying history of hyperlipidemia maintained on Lipitor and fenofibrate continue #8 elevated d-dimer with negative computed tomography scan of the chest without any evidence of pulmonary embolism #9 underlying history of benign prostatic hypertrophy maintained on Flomax continue Medication and labs were reviewed, patient is improving gradually continue with current medications, input from cardiology and pulmonary reviewed patient improving slowly, will continue to follow
[2016-08-30 21:13] LABS: Glucose,Whole Blood 184 mg/dL (75-99)
[2016-08-30] MEDS: LEVOFLOXACIN 750 MG TAB PO SCH (22:03)
[2016-08-31] MEDS: methylPREDNISolone SOD SUCCI 125 MG/2 ML VIAL IV SCH ×5 (00:30→23:06)
[2016-08-31] MEDS: MEROPENEM 1 GM in SODIUM CHLORIDE 0.9% 100 ML IVPB SCH ×4 (00:31→23:05)
[2016-08-31 06:08] LABS: Glucose,Whole Blood 118 mg/dL (75-99)
[2016-08-31] MEDS: PANTOPRAZOLE 40 MG TABLET PO SCH (06:23)
[2016-08-31] MEDS: INSULIN LISPRO (humaLOG) 300 UNIT/3 ML VIAL SQ SCH ×4 (06:23→21:24)
[2016-08-31 06:53] LABS: Anisocytosis Slight; Basophils % (A) 0 %; CH 29.3; CHCM 31.3; Eosinophils % (A) 0 %; HCT 29.2 % (39.0-53.0); HDW 2.75; HGB 9.2 gm/dL (13.0-17.5); Hypochromasia Slight; Luc # (Auto) 0.03; Luc % (Auto) 0; Lymphocytes # (A) 0.2 k/uL (1.0-4.8); Lymphocytes % (A) 2 %; MCH 29.7 pg (25.0-35.0); MCHC 31.7 g/dL (31.0-37.0); MCV 93.9 fL (80.0-100.0); Macrocytosis Slight; Mean Platelet Volume 7.8; Monocytes # (A) 0.4 k/uL (0-1.0); Monocytes % (A) 4 %; Neutrophils # (A) 9.6 k/uL (1.3-7.7); Neutrophils % (A) 94 %; RBC 3.11 m/uL (4.30-5.90); RDW 18.2 % (11.5-15.5); WBC 10.2 k/uL (3.8-10.6); WBC (Perox) 10.21
[2016-08-31 07:08] LABS: Anion Gap 7 mmol/L; Blood Urea Nitrogen 36 mg/dL (9-20); Calcium 8.3 mg/dL (8.4-10.2); Carbon Dioxide 23 mmol/L (22-30); Chloride 105 mmol/L (98-107); Glucose 115 mg/dL (74-99); Magnesium 2.1 mg/dL (1.6-2.3); Non-African American GFR(MDRD) >60 (>60 ml/min/1.73 sqM); Phosphorous 2.7 mg/dL (2.5-4.5); Potassium 4.9 mmol/L (3.5-5.1); Sodium 135 mmol/L (137-145)
[2016-08-31 07:30] LABS: Manual Review Performed
[2016-08-31] MEDS: ASPIRIN 81 MG CHEW PO SCH (07:47)
[2016-08-31] MEDS: ATORVASTATIN 40 MG TAB PO SCH (07:47)
[2016-08-31] MEDS: ATENOLOL 25 MG TAB PO SCH (07:47)
[2016-08-31] MEDS: DOCUSATE 100 MG CAP PO SCH ×2 (07:48→20:16)
[2016-08-31] MEDS: FENOFIBRATE 160 MG TAB PO SCH (07:48)
[2016-08-31] MEDS: ENOXAPARIN 40 MG/0.4 ML SYRINGE SQ SCH (07:48)
[2016-08-31] MEDS: FOLIC ACID 1 MG TAB PO SCH (07:49)
[2016-08-31] MEDS: valACYclovir HCL 1,000 MG TABLET PO SCH ×3 (07:49→20:16)
[2016-08-31] MEDS: LISINOPRIL 10 MG TAB PO SCH (07:49)
[2016-08-31] MEDS: TAMSULOSIN 0.4 MG CAP.ER.24H PO SCH (07:49)
[2016-08-31] MEDS: MULTIVITAMINS, THERA 1 EACH TAB PO SCH (07:49)
[2016-08-31] MEDS: NYSTATIN 100,000 UNIT/ML SUSP 500,000 UNIT/5 ML CUP PO SCH ×4 (07:49→20:16)
[2016-08-31] MEDS: IPRATROPIUM-ALBUTEROL 3 ML NEB INHALATION SCH ×4 (08:44→20:29)
[2016-08-31] MEDS: FORMOTEROL FUMARATE 20 MCG/2 ML NEBU INHALATION SCH ×2 (08:44→20:29)
[2016-08-31] MEDS: BUDESONIDE 0.5 MG/2 ML NEBU INHALATION SCH ×2 (08:44→20:29)
[2016-08-31 11:30] LABS: Glucose,Whole Blood 127 mg/dL (75-99)
--- NOTE | 2016-08-31 12:30 | P.PN ---
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 Cannon, he presented to emergency room at [facility] his oxygen saturation was low d- dimer was significantly elevated and troponin level was elevated at 0.58, patient was started on IV heparin and was admitted to telemetry floor computed tomography scan of the chest was negative for pulmonary embolism, oncology consultation pulmonary consultation and cardiology consultation were initiated, computed tomography scan revealed patchy infiltrates in both lungs and patient was started on IV Levaquin in the emergency room. 08/17/2016 patient had another episode shortness of breath when he was using the bathroom. Respiratory therapy gave him the treatment and had bumped up his oxygen to 15 L high flow. Patient reports that his shortness of breath has shown some improvement. Denies any cough. Denies any chest pain. Denies any nausea or vomiting. Denies any abdominal pain. Last bowel movement about 3 days ago. 08/21/2016 patient lying in bed comfortably family at bedside. Patient had chest x-ray more this morning and it is pending. Patient is still requiring 8 L of oxygen satting around 91%. He denies any chest pain. Still having shortness of breath only able to get bedside commode. Denies any nausea or vomiting. Denies any bowel movement changes or urinary symptoms. 08/24/2016 patient has noted some improvement in his breathing. He is currently down to 4 L standing and 91%. Still has shortness of breath with activity. Pulmonary service following closely. Denies any chest pain. Denies any nausea or vomiting. Has regular bowel movements. Denies any difficulty urinating 08/25/2016 patient is showing slow improvement. Still reporting shortness of breath with activity. He is able to ambulate to the door and back. Currently on 5 L and at 93%. Pulmonary following. Patient noted rash last night on the left upper thigh. Possible shingles. Infectious disease was consulted. Patient denies any pain or itching at the rash site. 08/28/2016 over the weekend the patient had been on a regular medical floor. Yesterday patient had worsening shortness of breath and became hypoxemic. He required a transfer to the ICU and was placed on BiPAP. He is comfortable and denies any shortness breath at this time. He does report being anxious. He is followed closely by pulmonary service. ABGs showed a pH of 7.54 pCO2 of 26 pO2 63 08/31/2016 patient reports slight improvement in his breathing. He denies any chest pain. Denies any nausea or vomiting. Having regular bowel movements. Denies any difficulty urinating. He still on high flow oxygen seen and 91% Objective - Vital Signs Vital signs: Vital Signs Temp 97.0 F L 08/31/16 08:02 Pulse 100 08/31/16 11:10 Resp 20 08/31/16 08:02 BP 122/75 08/31/16 08:02 Pulse Ox 91 L 08/31/16 08:02 Intake & Output 08/30/16 08/31/16 08/31/16 18:59 06:59 18:59 Intake Total 540 225 120 Output Total 870 750 400 Balance -330 -525 -280 Weight 86.9 kg 86.9 kg Intake: IV 240 225 0.9 @20mls/hr 240 225 Intake, IV Titration 300 Amount Magnesium Sulfate-D5w Pmx 100 1 gm In Dextrose/Water 1 100ml.bag @ 100 mls/hr IVPB ONCE ONE Rx#: [id number] Magnesium Sulfate-D5w Pmx 100 1 gm In Dextrose/Water 1 100ml.bag @ 100 mls/hr IVPB Q1H [facility] Rx#: [id number] Meropenem 1 gm In Sodium 100 Chloride 0.9% 100 ml @ 200 mls/hr IVPB Q8HR [facility] Rx#:[id number] Oral 120 Output: Urine 870 750 400 Other: Voiding Method Urinal # Voids 1 # Bowel Movements 1 - Exam Head normocephalic Neck supple Lungs coarse breath sounds with few crackles at bases Heart regular rate and rhythm S1-S2, no rub or gallop Abdomen is soft nontender nondistended positive bowel sounds no hepatosplenomegaly Extremities no edema. Left upper thigh medial aspect of the thigh there is a raised rash with some scabbing. The base of the rash is red. No drainage noted. Rash is also noted on the lateral aspect of the left upper thigh. The rash lesions are vascular and shape. But are dry. Neuro alert and orientated to 3 - Labs CBC & Chem 7: 08/31/16 05:49 08/31/16 05:49 Labs: Abnormal Lab Results - Last 24 Hours (Table) 08/30/16 08/30/16 08/31/16 Range/Units 17:59 21:12 05:49 RBC 3.11 L (4.30-5.90) m/uL Hgb 9.2 L (13.0-17.5) gm/dL Hct 29.2 L (39.0-53.0) % RDW 18.2 H (11.5-15.5) % Plt Count 99 L (150-450) k/uL Neutrophils # 9.6 H (1.3-7.7) k/uL Lymphocytes # 0.2 L (1.0-4.8) k/uL Sodium (137-145) mmol/L BUN (9-20) mg/dL Creatinine (0.66-1.25) mg/dL Glucose (74-99) mg/dL POC Glucose (mg/dL) 170 H 184 H (75-99) mg/dL Calcium (8.4-10.2) mg/dL 08/31/16 08/31/16 08/31/16 Range/Units 05:49 06:06 11:22 RBC (4.30-5.90) m/uL Hgb (13.0-17.5) gm/dL Hct (39.0-53.0) % RDW (11.5-15.5) % Plt Count (150-450) k/uL Neutrophils # (1.3-7.7) k/uL Lymphocytes # (1.0-4.8) k/uL Sodium 135 L (137-145) mmol/L BUN 36 H (9-20) mg/dL Creatinine 0.61 L (0.66-1.25) mg/dL Glucose 115 H (74-99) mg/dL POC Glucose (mg/dL) 118 H 127 H (75-99) mg/dL Calcium 8.3 L (8.4-10.2) mg/dL Microbiology - Last 24 Hours (Table) 08/28/16 16:10 Urine Culture - Final Urine,Voided Escherichia coli 08/30/16 02:19 Gram Stain - Preliminary Sputum Sputum Culture - Preliminary Assessment and Plan Plan: #1 acute on chronic hypoxic respiratory failure with diffuse bilateral pulmonary infiltrates. Exact nature pulmonary infiltrates unclear. Pulmonary is following closely patient is currently on Levaquin and meropenem. Patient still requiring high flow oxygen. Pulmonary on able to do a bronchial alveolar lavage due to borderline respiratory status. #2 diffuse disease in both lung ortega possibly representing acute bronchitis with pneumonia. #3 elevated troponin level patient denies any chest pain, evaluated by cardiology. Not consistent with acute coronary syndrome #4 underlying history of lung cancer with recent chemotherapy and radiation therapy. Also had recent wedge resection of the left upper lobe. Oncology and pulmonary following #5 hyponatremia on presentation improving with IV fluid #6 underlying history of hypertension well-controlled on current medications #7 underlying history of hyperlipidemia maintained on Lipitor and fenofibrate continue #8 elevated d-dimer with negative computed tomography scan of the chest without any evidence of pulmonary embolism #9 underlying history of benign prostatic hypertrophy maintained on Flomax continue #10 history of rheumatoid arthritis 11. Elevated liver enzymes likely related to passive congestion. Liver enzymes normalized 12. Acute on chronic diastolic CHF exacerbation. Currently off the Lasix. Had been evaluated by cardiology. They have signed off. 13. Acute renal failure secondary to diuresis and now resolved 14. Consult physical therapy 15. Shingles left upper thigh. Continue Valtrex DVT prophylaxis Lovenox Patient's prognosis is guarded I performed an examination of the patient and discussed their management with the physician Art Director. I have reviewed the Physician Art Director's notes and agree with the documented findings and plan of care
--- NOTE | 2016-08-31 16:04 | P.PN ---
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 Patient was initially found to have a 5.8 x 5.4 cm mass in the left lower lobe on a low-dose CAT scan of the chest that was done for cancer screening secondary to smoking. The lesion was abutting the pleural surface. The patient also had borderline mediastinal lymph nodes largest measuring 9 mm in size and the subcarinal area. The patient received concurrent chemoradiation therapy. He received cis-[place] and ALLIGATOR TRAPPER-16 and subsequently was switched to carboplatin and as the patient developed an acute kidney injury. He received 4 cycles of systemic chemotherapy which she completed in April 2016. He completed radiation therapy in March 2016. His repeat PET scan that showed decrease in the size of the left lung mass going down to 2.8 cm in size along with an SUV of 5.2. He was referred for surgical evaluation of lobectomy with lymph node sampling on 06/27/2016 and surgery was done and the patient was found to have a necrotic mass with no viable tumor and lymph nodes were all negative. The patient postop did well without any significant complications. . This patient also has history of rheumatoid arthritis and he has been maintained on methotrexate until January 2016 and this treatment was discontinued as the patient was taken systemic chemotherapy and radiation therapy. The patient got hospitalized on 08/14/2016 because of increased shortness of breath. He was found to be hypoxemic and his chest x-ray showed diffuse interstitial pulmonary infiltrates. He was admitted with a acute hypoxic respiratory failure and the CAT scan of the chest shows diffuse breath and pulmonary infiltrates compared to his previous CAT scan from April 2016. The exact etiology of the infiltrates were not clear although the possibility that were entertained were radiation pneumonitis, nonspecific interstitial pneumonitis related to connective tissue disease and rheumatoid arthritis, lymphangitic carcinomatosis, and other regular and opportunistic pneumonias. CHF was also considered within the differential diagnosis. In any rate, the patient was treated with a combination of empiric antibiotics and steroids. He was in the medical floor and yesterday got moved to the intensive care unit because of worsening hypoxemia. Overnight, the patient was placed on a BiPAP at a pressure of 12 over 5 cm of water with an FiO2 of 50%. He seems to be more comfortable. Chest x-ray showing diffuse breath and pulmonary infiltrates , unchanged from the previous x-ray from 08/25/2016. Currently, the patient is on a combination of Levaquin as a broad-spectrum antibiotic coverage and is also taking prednisone as part of the burst taper. He is currently on 40 mg of prednisone. The blood gases from last night showed a pH of 7.54 with a pCO2 of 26 and pO2 of 63 and this was done 100% nonrebreather facemask. On 08/29/2016 I'm seeing this patient in follow-up. Had a lengthy discussion with the patient and his and daughter yesterday. We discussed the various options. We thought the bronchoscopy will be quite aggressive with this patient and his will put him into acute hypoxic respiratory failure requiring intubation mechanical ventilation. The alternatives were to step up his antibiotic treatment and use steroids and follow-up his condition accordingly. I also given the option of sending him to [facility] however the family opted to stay here and continued treatment throughout hospital. This morning, in follow-up, the patient is looking much improved compared to yesterday. He is awake and alert and is less short of breath. He is breathing comfortably. He spent all day on the BiPAP yesterday and this morning he is still on a BiPAP at a pressure of 12 over 5 cm of water with an FiO2 of 70%. His pulse ox is around 97-98% chest x-ray shows some limited improvement in the bilateral pulmonary infiltrates compared to yesterday. The CAT scan of the chest from yesterday was also noted. He is afebrile. He is on systemic steroids. He is on bronchodilators. He is eating soft diet. Is producing adequate amount of urine output. No hypotension. He has bowel sounds and bowel movements. I would say he seems to be much less short of breath compared to yesterday. On 08/30/2016 I'm seeing this patient in follow-up. The patient is sitting up in his bed and is sitting up position. The patient is on a high flow oxygen at 50 L and is tolerating it well with a saturation of around 96% on his pulse ox. He is able to speak up . This is. No chest pain. No change in mental status. He is eating and tolerating diet without any issues. He is on a combination of Merrem and Levaquin. Is on IV Solu-Medrol in addition. Infectious diseases on the case. A sputum sample was sent and the results are still pending for now. Meanwhile, today's chest x-ray shows still diffuse breath and pulmonary infiltrates and consolidation without any major improvement compared to yesterday. There are coarse crackles in lung bases bilaterally still. On 08/31/2016 the patient is essentially the same. He is on a high flow oxygen at 40 liters. Pulse ox is in the 90s. Despite all this, is not having any significant rest or distress. His resting comfortably in bed he is tolerating his diet. No change in mental status. Chest x-ray findings are essentially the same and unchanged. Remains on a combination of Merrem and Levaquin. Remains on IV Solu-Medrol. I think were dealing with an acute lung injury/ diffuse alveolar pattern which will ultimately need time for improvement. Fortunately the patient is not decompensating and he is quite stable without any interval worsening his condition noted any new changes in his chest x-ray. Hemodynamically stable. Afebrile. Objective - Vital Signs Vital signs: Vital Signs Temp 97.1 F L 08/31/16 11:50 Pulse 90 08/31/16 11:50 Resp 18 08/31/16 11:50 BP 113/68 08/31/16 11:50 Pulse Ox 88 L 08/31/16 11:50 Intake & Output 08/30/16 08/31/16 08/31/16 18:59 06:59 18:59 Intake Total 540 225 580 Output Total 870 750 600 Balance -330 -525 -20 Weight 86.9 kg 86.9 kg Intake: IV 240 225 240 0.9 @20mls/hr 240 225 240 Intake, IV Titration 300 100 Amount Magnesium Sulfate-D5w Pmx 100 1 gm In Dextrose/Water 1 100ml.bag @ 100 mls/hr IVPB ONCE ONE Rx#: [id number] Magnesium Sulfate-D5w Pmx 100 1 gm In Dextrose/Water 1 100ml.bag @ 100 mls/hr IVPB Q1H [facility] Rx#: [id number] Meropenem 1 gm In Sodium 100 100 Chloride 0.9% 100 ml @ 200 mls/hr IVPB Q8HR [facility] Rx#:[id number] Oral 240 Output: Urine 870 750 600 Other: Voiding Method Urinal # Voids 1 # Bowel Movements 1 - Exam Patient is tolerating high flow oxygen by nasal cannula. and is calm and comfortable without signs of any significant respiratory distress..Head exam was generally normal. There was no scleral icterus or corneal arcus. Mucous membranes were moist. Patient has her loss related to previous radiation therapy to the head.Neck was supple and without jugular venous distension, thyromegaly, or carotid bruits. Carotids were easily palpable bilaterally. There was no adenopathy. Lung sounds are diminished and there are some fine/ course crackles at lung bases bilaterally.Cardiac exam revealed the PMI to be normally situated and sized. The rhythm was regular and no extrasystoles were noted during several minutes of auscultation. The first and second heart sounds were normal and physiologic splitting of the second heart sound was noted. There were no murmurs, rubs, clicks, or gallops.Abdominal exam revealed normal bowel sounds. The abdomen was soft, non-tender, and without masses, organomegaly , or appreciable enlargement of the abdominal aorta. Examination of the extremities revealed easily palpable radial, femoral and pedal pulses. There was no cyanosis, clubbing or edema. - Labs CBC & Chem 7: 08/31/16 05:49 08/31/16 05:49 Labs: Abnormal Lab Results - Last 24 Hours (Table) 08/30/16 08/30/16 08/31/16 Range/Units 17:59 21:12 05:49 RBC 3.11 L (4.30-5.90) m/uL Hgb 9.2 L (13.0-17.5) gm/dL Hct 29.2 L (39.0-53.0) % RDW 18.2 H (11.5-15.5) % Plt Count 99 L (150-450) k/uL Neutrophils # 9.6 H (1.3-7.7) k/uL Lymphocytes # 0.2 L (1.0-4.8) k/uL Sodium (137-145) mmol/L BUN (9-20) mg/dL Creatinine (0.66-1.25) mg/dL Glucose (74-99) mg/dL POC Glucose (mg/dL) 170 H 184 H (75-99) mg/dL Calcium (8.4-10.2) mg/dL 08/31/16 08/31/16 08/31/16 Range/Units 05:49 06:06 11:22 RBC (4.30-5.90) m/uL Hgb (13.0-17.5) gm/dL Hct (39.0-53.0) % RDW (11.5-15.5) % Plt Count (150-450) k/uL Neutrophils # (1.3-7.7) k/uL Lymphocytes # (1.0-4.8) k/uL Sodium 135 L (137-145) mmol/L BUN 36 H (9-20) mg/dL Creatinine 0.61 L (0.66-1.25) mg/dL Glucose 115 H (74-99) mg/dL POC Glucose (mg/dL) 118 H 127 H (75-99) mg/dL Calcium 8.3 L (8.4-10.2) mg/dL Microbiology - Last 24 Hours (Table) 08/28/16 16:10 Urine Culture - Final Urine,Voided Escherichia coli 08/30/16 02:19 Gram Stain - Preliminary Sputum Sputum Culture - Preliminary Assessment and Plan Plan: Assessment 1 acute hypoxic respiratory failure with diffuse bilateral pulmonary infiltrates. The exact nature of this but the pulmonary infiltrates are not clear. Suspect chronic infections with a possibility of an opportunistic infection. Acute lung injury/ARDS which could be postinfectious cannot be completely ruled out. Interstitial lung disease related pulmonary infiltrates cannot be completely ruled out. Malignancy is felt to be less likely especially with the progression of his small cell lung cancer treatment. On 08/29/2016, the patient is on broad-spectrum antibiotics and systemic steroids. Cultures of been all negative. Chest x-ray shows some limited improvement compared to yesterday. There is still however diffuse infiltrates and airspace disease bilaterally. The CAT scan of the chest from yesterday was also noted. There is no evidence of any pulmonary embolism. Clinically, the patient is much more rested and is breathing easier compared to yesterday. Crackles are soft. We'll continue to follow. On 08/30/2016, the patient remains on broad-spectrum antibiotics and steroids. The patient is also on high flow oxygen. Chest x-ray findings are stable. Crackles are rather coarse today and the patient seems to be stable without any worsening or decompensation is adequately status. In fact he feels much more comfortable with a high flow oxygen which is running at 50 L/m. On 08/31/2016 the patient's condition is essentially the same. The patient is on 4 L of oxygen nasal cannula and the chest x-ray findings are essentially stable for now. No interval decompensated and is status. This is likely an acute lung injury/ARDS pattern with diffuse alveolar damage. The patient on systemic steroids. 2 small cell lung cancer, status post concurrent chemoradiation therapy and total brain radiation. Most recent PET scan from April 2016 at shown improvement in the size of the left lower lobe mass and the patient had further surgical resection at [facility]. Back then, the lung windows showed emphysema without evidence of any interstitial lung disease. No further imaging between April and August 2016 3 coronary artery disease with previous stent placement, 4 rheumatoid arthritis 5 hyperlipidemia 6 anemia, multifactorial Plan Continue the broad-spectrum antibiotics. The patient will be kept on a combination of Merrem and Levaquin. The patient be kept on systemic steroids. Keep the patient on high flow oxygen for at 40 L. Tolerating diet. Repeat cxr in the morning. We'll continue to follow.
[2016-08-31 17:17] LABS: Glucose,Whole Blood 144 mg/dL (75-99)
[2016-08-31] MEDS: LEVOFLOXACIN 750 MG TAB PO SCH (20:16)
[2016-08-31 21:21] LABS: Glucose,Whole Blood 227 mg/dL (75-99)
--- NOTE | 2016-08-31 21:52 | PN ---
DATE OF SERVICE: 08/31/2016 REASON FOR FOLLOWUP: 1. Pneumonia. 2. Left S2 dermatome zoster. INTERVAL HISTORY: The patient is afebrile. His breathing has improved. He has been transferred out of ICU. Denies significant chest pain. Occasional cough. No abdominal pain. No nausea, vomiting or any diarrhea. Denies any worsening of rash to the left thigh and buttock area. On examination, blood pressure is 110/60 with a pulse of 84, temperature 97.3. He is 93% on high-flow nasal cannula oxygen. General description is an elderly male up in the chair in no distress. RESPIRATORY SYSTEM: Unlabored breathing. Some coarse breath sounds at the base. No wheeze. HEART: S1, S2. Regular rate and rhythm. ABDOMEN: Soft. No tenderness. LABS: Hemoglobin 9.2, white count 10.2 with a BUN of 36, creatinine 0.61. DIAGNOSTIC IMPRESSION AND PLAN: 1. Patient with difficulty in breathing, hypoxemia, multifactorial, with a component of possible pneumonia. He is currently covered with Meropenem. That will be continued, waiting for the sputum culture to finalize. 2. Patient with left S2 dermatome zoster. He will continue on Levaquin to finish a 7-day course of therapy. Continue supportive care.
[2016-09-01 06:04] LABS: Glucose,Whole Blood 104 mg/dL (75-99)
[2016-09-01 06:29] LABS: Anisocytosis Slight; Basophils % (A) 0 %; CH 29.9; CHCM 32.1; Eosinophils # (A) 0.1 k/uL (0-0.7); Eosinophils % (A) 1 %; HCT 31.6 % (39.0-53.0); HDW 2.94; HGB 10.3 gm/dL (13.0-17.5); Hypochromasia Slight; Luc # (Auto) 0.05; Luc % (Auto) 0; Lymphocytes # (A) 0.4 k/uL (1.0-4.8); Lymphocytes % (A) 3 %; MCH 30.3 pg (25.0-35.0); MCHC 32.5 g/dL (31.0-37.0); MCV 93.3 fL (80.0-100.0); Mean Platelet Volume 7.1; Monocytes # (A) 0.6 k/uL (0-1.0); Monocytes % (A) 4 %; Neutrophils # (A) 12.1 k/uL (1.3-7.7); Neutrophils % (A) 92 %; RBC 3.38 m/uL (4.30-5.90); RDW 18.4 % (11.5-15.5); WBC 13.2 k/uL (3.8-10.6); WBC (Perox) 13.75
[2016-09-01] MEDS: INSULIN LISPRO (humaLOG) 300 UNIT/3 ML VIAL SQ SCH ×4 (06:35→21:45)
[2016-09-01] MEDS: methylPREDNISolone SOD SUCCI 125 MG/2 ML VIAL IV SCH ×2 (06:36→12:22)
[2016-09-01] MEDS: PANTOPRAZOLE 40 MG TABLET PO SCH (06:36)
[2016-09-01 06:39] LABS: Anion Gap 7 mmol/L; Blood Urea Nitrogen 31 mg/dL (9-20); Calcium 8.6 mg/dL (8.4-10.2); Carbon Dioxide 23 mmol/L (22-30); Chloride 103 mmol/L (98-107); Glucose 98 mg/dL (74-99); Non-African American GFR(MDRD) >60 (>60 ml/min/1.73 sqM); Phosphorous 2.6 mg/dL (2.5-4.5); Potassium 4.8 mmol/L (3.5-5.1); Sodium 133 mmol/L (137-145)
[2016-09-01] MEDS: IPRATROPIUM-ALBUTEROL 3 ML NEB INHALATION SCH ×5 (08:16→21:21)
[2016-09-01] MEDS: FORMOTEROL FUMARATE 20 MCG/2 ML NEBU INHALATION SCH ×3 (08:16→21:21)
[2016-09-01] MEDS: BUDESONIDE 0.5 MG/2 ML NEBU INHALATION SCH ×3 (08:17→21:21)
[2016-09-01] MEDS: ASPIRIN 81 MG CHEW PO SCH (09:01)
[2016-09-01] MEDS: MEROPENEM 1 GM in SODIUM CHLORIDE 0.9% 100 ML IVPB SCH ×3 (09:01→23:03)
[2016-09-01] MEDS: MULTIVITAMINS, THERA 1 EACH TAB PO SCH (09:01)
[2016-09-01] MEDS: ENOXAPARIN 40 MG/0.4 ML SYRINGE SQ SCH (09:01)
[2016-09-01] MEDS: DOCUSATE 100 MG CAP PO SCH ×2 (09:02→21:56)
[2016-09-01] MEDS: ATENOLOL 25 MG TAB PO SCH (09:02)
[2016-09-01] MEDS: ATORVASTATIN 40 MG TAB PO SCH (09:02)
[2016-09-01] MEDS: FOLIC ACID 1 MG TAB PO SCH (09:02)
[2016-09-01] MEDS: TAMSULOSIN 0.4 MG CAP.ER.24H PO SCH (09:03)
[2016-09-01] MEDS: NYSTATIN 100,000 UNIT/ML SUSP 500,000 UNIT/5 ML CUP PO SCH ×4 (09:03→22:13)
[2016-09-01] MEDS: valACYclovir HCL 1,000 MG TABLET PO SCH ×3 (09:03→22:13)
[2016-09-01] MEDS: FENOFIBRATE 160 MG TAB PO SCH (09:03)
[2016-09-01] MEDS: LISINOPRIL 10 MG TAB PO SCH (09:03)
--- NOTE | 2016-09-01 10:11 | XR ---
EXAMINATION TYPE: XR chest 1V DATE OF EXAM: 09/01/2016 9:32 AM COMPARISON: 08/30/2016 INDICATION: Pneumonia short of breath TECHNIQUE: Single frontal view of the chest is obtained. FINDINGS: The heart size is normal. The pulmonary vasculature is normal. Multiple diffuse increased lung markings are present bilaterally. This greater at the left base. Marilynn elate for pneumonia. Atypical pulmonary edema could be considered. IMPRESSION: 1. Increasing bilateral lung infiltrates greater at the left base. Correlate for pneumonia and atypic al pulmonary edema.
[2016-09-01 12:13] LABS: Glucose,Whole Blood 99 mg/dL (75-99)
--- NOTE | 2016-09-01 12:56 | P.PN ---
Subjective Principal diagnosis: Acute on chronic hypoxic respiratory failure Patient is a 71-year-old male with known history of lung cancer who underwent left lower lobe resection and underwent radiation and chemotherapy in January 2016 and subsequently had prophylactic brain radiation, patient was maintained on home oxygen until recently, he discontinued using home oxygen and went to [place] for a family member graduation, he states that he was doing worse he was unable to sleep and was developing worsening shortness of breath, his [id number] is working on a base and patient was admitted to a [place] [facility] he was told that his oxygen with saturation was very low in the 70 % He was told he could not be treated in the [place] because he was not in the he was offered to be transferred to a regular hospital however patient decided to be discharged and decided to drive back with his and his daughter back to [place], patient is well known to Dr. Cannon, he presented to emergency room at [facility] his oxygen saturation was low d- dimer was significantly elevated and troponin level was elevated at 0.58, patient was started on IV heparin and was admitted to telemetry floor computed tomography scan of the chest was negative for pulmonary embolism, oncology consultation pulmonary consultation and cardiology consultation were initiated, computed tomography scan revealed patchy infiltrates in both lungs and patient was started on IV Levaquin in the emergency room for possible pneumonia. The exact etiology of the infiltrates were not clear although the possibility that were entertained were radiation pneumonitis, nonspecific interstitial pneumonitis related to connective tissue disease and rheumatoid arthritis, lymphangitic carcinomatosis, and other regular and opportunistic pneumonias. CHF was also considered within the differential diagnosis. Patient is followed closely by pulmonary service. Also was seen by cardiology was given a few doses of IV Lasix. And then did develop acute renal failure. Patient is been off of Lasix kidney function has stabilized. Last night patient went into acute respiratory distress became hypoxemic and was transferred to the ICU. He had been on a regular medical floor over the weekend and had shown some improvement in his oxygen saturation they decreased the oxygen level to his nasal cannula. However he did require to be placed on BiPAP and in the ICU. Pulmonary service did order another computed tomography scan of the chest which was negative for PE. Did reveal background of diffuse emphysematous change with acute on chronic process. There is a suspected interval left lung surgery with suspicious residual nodule. Suspect acute infection process or edema of chronic fibrosis possibly related to treatment changes. There is progression since January 2016. Lymphangitic spread of tumor is not excluded. There is a new pneumomediastinum. No pneumothorax. Are pulmonary service is highly recommending that patient be transferred to [facility]. They had suggested this last week as well. However patient wanted to remain close his family and in [place]. Since patient symptoms are worsening he is now agreeable to proceed with transfer to [facility]. Patient will likely need a bronchoscopy with transbronchial biopsies. Patient is frail and their concerns that patient will require to be placed on the respirator after the procedure is performed. Patient reevaluated on 09/01/2016 he is maintained on high flow oxygen via nasal cannula he is feeling better clinically white blood count went up from 10- 13,000 chest x-ray reveals slight worsening Objective - Vital Signs Vital signs: Vital Signs Temp 97.0 F L 09/01/16 08:00 Pulse 90 09/01/16 12:10 Resp 18 09/01/16 08:00 BP 132/67 09/01/16 08:00 Pulse Ox 94 L 09/01/16 08:00 Intake & Output 08/31/16 09/01/16 09/01/16 18:59 06:59 18:59 Intake Total 700 420 Output Total 1000 1300 Balance -300 -880 Weight 86.9 kg 86.5 kg Intake: IV 240 420 0.9 @20mls/hr 240 320 Meropenem 1 gm In Sodium 100 Chloride 0.9% 100 ml @ 200 mls/hr IVPB Q8HR [facility] Rx#:[id number] Intake, IV Titration 100 Amount Meropenem 1 gm In Sodium 100 Chloride 0.9% 100 ml @ 200 mls/hr IVPB Q8HR [facility] Rx#:[id number] Oral 360 Output: Urine 1000 1300 Other: Voiding Method Urinal Urinal # Voids 1 # Bowel Movements 0 - Exam In general patient is alert and oriented 3 in no apparent distress HEENT head normocephalic and atraumatic Neck is supple no JVD no goiter no lymphadenopathy Chest exam reveals crackles in both lung ortega no wheezing Cardiac exam reveals tachycardia with S1 and S2 regular rhythm no gallops no murmurs Abdomen is soft nontender no organomegaly Extremity exam reveals no edema no cyanosis or clubbing Neurological examination reveals no focal deficit - Labs CBC & Chem 7: 09/01/16 06:10 05/19/17 06:10 Labs: Abnormal Lab Results - Last 24 Hours (Table) 08/31/16 08/31/16 09/01/16 Range/Units 16:56 21:20 06:03 WBC (3.8-10.6) k/uL RBC (4.30-5.90) m/uL Hgb (13.0-17.5) gm/dL Hct (39.0-53.0) % RDW (11.5-15.5) % Plt Count (150-450) k/uL Neutrophils # (1.3-7.7) k/uL Lymphocytes # (1.0-4.8) k/uL Sodium (137-145) mmol/L BUN (9-20) mg/dL Creatinine (0.66-1.25) mg/dL POC Glucose (mg/dL) 144 H 227 H 104 H (75-99) mg/dL 09/01/16 09/01/16 Range/Units 06:10 06:10 WBC 13.2 H (3.8-10.6) k/uL RBC 3.38 L (4.30-5.90) m/uL Hgb 10.3 L (13.0-17.5) gm/dL Hct 31.6 L (39.0-53.0) % RDW 18.4 H (11.5-15.5) % Plt Count 103 L (150-450) k/uL Neutrophils # 12.1 H (1.3-7.7) k/uL Lymphocytes # 0.4 L (1.0-4.8) k/uL Sodium 133 L (137-145) mmol/L BUN 31 H (9-20) mg/dL Creatinine 0.60 L (0.66-1.25) mg/dL POC Glucose (mg/dL) (75-99) mg/dL Microbiology - Last 24 Hours (Table) 08/30/16 02:19 Gram Stain - Final Sputum Sputum Culture - Final Assessment and Plan Plan: #1 acute hypoxic respiratory failure, pulse ox , patient pulse ox is 94% Currently patient is on high flow oxygen, IV Solu-Medrol and inhaled bronchodilators #2 diffuse disease in both lung ortega possibly representing possible acute bronchitis with pneumonia, other for initial diagnosis possibilities are detailed in the sign hanger note patient was started on IV Levaquin in the emergency room, Levaquin was discontinued yesterday. Sputum sample revealed normal respiratory rodney #3 elevated troponin level patient denies any chest pain, he was started on IV heparin in the emergency room cardiology consultation has been requested #4 underlying history of lung cancer, awaiting consult from Dr. Cannon, to assess status of his malignancy. #5 hyponatremia on presentation improving with IV fluid #6 underlying history of hypertension well-controlled on current medications #7 underlying history of hyperlipidemia maintained on Lipitor and fenofibrate continue #8 elevated d-dimer with negative computed tomography scan of the chest without any evidence of pulmonary embolism #9 underlying history of benign prostatic hypertrophy maintained on Flomax continue Medication and labs were reviewed, patient is improving gradually continue with current medications, input from cardiology and pulmonary reviewed patient improving slowly, will continue to follow
--- NOTE | 2016-09-01 15:07 | P.PN ---
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 Patient underwent radiation treatment and chemotherapy given to him by Dr. Cannon. Patient also underwent prophylactic brain radiation, and he was maintained on oxygen until recently. In June of 2016, patient continued to have residual tumor in the left lung, that did not improve much with radiation, hence the patient was referred to see Dr. Baron at [facility], and he underwent thoracotomy and wedge resection of the residual presumptively small cell lung cancer. However the patient was told that the biopsy report came back showing no evidence of active cancer in the lung tissue that was removed. His postoperative course was relatively uneventful, and going back to x-rays in the last 6 months, on his x-rays were showing that left lung mass, but none of them showed any significant urinary fibrosis or interstitial lung disease. Patient is known to be have history of rheumatoid arthritis, and he was on methotrexate until January of 2016 which was discontinued at the time he was receiving chemotherapy and radiation therapy. At any rate patient did relatively well post surgery in June of 2016, and he even went to visit family in [place]. While there, the patient developed increased shortness of breath, and he was taken to the [facility] where in he was noted to be hypoxemic, and a chest x-ray was significantly abnormal showing diffuse interstitial type of lung disease. Patient was told that he needs to be referred to a tertiary care center but he declined, and family decided to bring him back to [facility]. Patient was admitted yesterday with a picture of acute on chronic hypoxic respiratory failure and significantly abnormal CT of the chest showing diffuse severe pulmonary disease, much worse compared to 05/13/2016, consistent with diffuse interstitial and airspace lung parenchymal disease throughout both lungs including cicatrizing changes with pleural parenchymal thickening in the left lung base posterolaterally. However there is interval resolution of the previously noted 2.8 cm mass in the left upper lobe apical segment which apparently was recently removed by Dr. Baron at [facility]. Of course after reviewing the CT of the chest, the differential diagnoses would definitely include radiation type of pneumonitis, nonspecific interstitial pneumonitis related to rheumatoid arthritis, or underlying connective tissue disease, lymphangitic carcinomatosis, acute pneumonitis and congestive heart failure will be all considered in the picture of differential diagnosis. Today I have recommended that to retrieve the last biopsy report which was done at [facility] to determine what was actually read on the lung tissue which was obtained from thoracoscopic wedge resection of the left upper lobe abnormality. That by itself alone may give us an answer of what's happening in the lung parenchyma at this point. In the meantime the patient will be treated with antibiotics, steroids, and I will seriously consider bronchoscopy and transbronchial biopsy, however the patient is not the most ideal candidate for biopsy, he will likely desaturate significantly up on IV conscious sedation. Hence I proceeded. Empiric treatment for now with steroids and antibiotics. And closely follow up the chest x-ray changes over the next few days. Patient was reevaluated today on 08/16/2016, feeling better breathing a bit easier , patient again is on combination of steroids, antibiotics, and diuretics. no official pathology report noted from [facility], family stated that Dr. Cannon has the official pathology report, in his note he mentioned mostly findings of necrotic tissue, but I would like to look at the report in more details to see if there is any other background of pulmonary fibrosis or interstitial findings. at any rate patient remains on high flow nasal cannula about 8 L, clearly not the most ideal candidate to consider for bronchoscopy and biopsy at this point, but that could be considered however the patient may have to be done while he is on mechanical ventilation. I have a strong feeling that the patient will desaturate significantly upon initiation of IV conscious sedation. clinically however, the patient is feeling better, and I felt it is best to continue present supportive care measures and medications as listed although we have no specific diagnosis at this point. Patient was reevaluated today on 08/17/2016, feeling slightly better, patient remains on the same antibiotics, bronchodilators, steroids, and diuretics. Remains on a high flow nasal cannula, and I still believe he is not the most ideal candidate at this point for bronchoscopy and transbronchial biopsy, I'm hoping we will see improvement with the present course of treatment over the next few days. If not improved by early next week, bronchoscopy and biopsy could be considered however the patient would have to be on mechanical ventilation during the procedure. In the meantime I have sent a request to retrieve the final official pathology report on his left lung from [facility]. Labs were reviewed including CBC and basic metabolic profile. Patient is noted to be slightly prerenal with BUN of 47 creatinine of 1.09. Reevaluated again today on 08/18/2016, patient is reporting slight improvement in his shortness of breath. Slightly productive cough, no fever no chills no hemoptysis no chest pain. Remains on a high flow nasal cannula. All his labs were reviewed, CBC is relatively normal. Renal profile seems to be worsening, patient I believe is developing a picture of prerenal azotemia, hence will stop diuretics for now. Lasix was discontinued today, and we will continue to monitor his renal profile. Patient was reevaluated today on 08/19/2016, feeling a bit better, patient is down to 6 L nasal cannula high flow, oxygen saturation remains in the low 90s. Patient has dyspnea with any activity. I was able to review the results of his lung pathology from [facility], and there is background parenchymal necrosis, and possible chemoradiation changes from the lung tissue which was obtained. That may or may not reflect the rest of the lungs. But it is worthwhile considering radiation injury, possibility of lymphangitic carcinomatosis is still in the back of my mind. Especially if the patient's x- ray does not improve much with steroids and antibiotics. Hence sometime next week the patient may have to be bronchoscoped. Family was made aware of the findings. Reevaluated today on 08/20/2016, patient is about the same, he is now on 8 L nasal cannula, high flow. Continues to have shortness of breath with any activity. Continues to have crackles at the bases bilaterally. Today I had a long discussion with the patient about possibly repeating a chest x-ray in the morning, and decisions will have to be made possibly referring him back to [facility], or if Dr. Marie is willing, he will need to have a bronchoscopy with transbronchial biopsy however this will most likely need to be done while he is on mechanical ventilation. Or he could be referred back to afford for thoracoscopic lung biopsy. However if his chest x-ray shows improvement, then we will continue to treatment with steroids antibiotics and diuretics. CBC is relatively normal basic metabolic profile is normal BUN is 53 creatinine is 1.10. Patient is seen again today 08/22/2016 in follow-up on the selective care unit. He is awake and alert in no acute distress. His oxygen is down to 6 L/m per high flow nasal cannula. He states he is breathing easier today as compared to yesterday. He has a loose nonproductive cough. No chills or night sweats. Does reveal no growth to date. He is afebrile. No leukocytosis creatinine has improved to 0.99. The patient is seen again today 08/23/2016 in follow-up on the selective care unit. He is awake and alert in no acute distress. His oxygen is down to 5 L/m per nasal cannula. He has been up with assistance at the bedside. As he continues to improve daily there are no plans for any intervention at this point. Tinea with his current medications. On 08/29/2016 I'm seeing this patient in follow-up. Had a lengthy discussion with the patient and his and daughter yesterday. We discussed the various options. We thought the bronchoscopy will be quite aggressive with this patient and his will put him into acute hypoxic respiratory failure requiring intubation mechanical ventilation. The alternatives were to step up his antibiotic treatment and use steroids and follow-up his condition accordingly. I also given the option of sending him to [facility] however the family opted to stay here and continued treatment throughout hospital. This morning, in follow-up, the patient is looking much improved compared to yesterday. He is awake and alert and is less short of breath. He is breathing comfortably. He spent all day on the BiPAP yesterday and this morning he is still on a BiPAP at a pressure of 12 over 5 cm of water with an FiO2 of 70%. His pulse ox is around 97-98% chest x-ray shows some limited improvement in the bilateral pulmonary infiltrates compared to yesterday. The CAT scan of the chest from yesterday was also noted. He is afebrile. He is on systemic steroids. He is on bronchodilators. He is eating soft diet. Is producing adequate amount of urine output. No hypotension. He has bowel sounds and bowel movements. I would say he seems to be much less short of breath compared to yesterday. On 08/30/2016 I'm seeing this patient in follow-up. The patient is sitting up in his bed and is sitting up position. The patient is on a high flow oxygen at 50 L and is tolerating it well with a saturation of around 96% on his pulse ox. He is able to speak up . This is. No chest pain. No change in mental status. He is eating and tolerating diet without any issues. He is on a combination of Merrem and Levaquin. Is on IV Solu-Medrol in addition. Infectious diseases on the case. A sputum sample was sent and the results are still pending for now. Meanwhile, today's chest x-ray shows still diffuse breath and pulmonary infiltrates and consolidation without any major improvement compared to yesterday. There are coarse crackles in lung bases bilaterally still. On 08/31/2016 the patient is essentially the same. He is on a high flow oxygen at 40 liters. Pulse ox is in the 90s. Despite all this, is not having any significant rest or distress. His resting comfortably in bed he is tolerating his diet. No change in mental status. Chest x-ray findings are essentially the same and unchanged. Remains on a combination of Merrem and Levaquin. Remains on IV Solu-Medrol. I think were dealing with an acute lung injury/ diffuse alveolar pattern which will ultimately need time for improvement. Fortunately the patient is not decompensating and he is quite stable without any interval worsening his condition noted any new changes in his chest x-ray. Hemodynamically stable. Afebrile. The patient is seen again today 09/01/2016 on the selective care unit. He is awake and alert in no acute distress. He is breathing easier today as compared to yesterday. He is currently tolerating the AirVo 2 device currently at 50 L with an FiO2 of 85% and maintaining oxygen saturations at 95%. He is currently afebrile. Minimal leukocytosis. His urine culture was positive for E. coli. He remains on meropenem. Objective - Vital Signs Vital signs: Vital Signs Temp 97.0 F L 09/01/16 08:00 Pulse 90 09/01/16 12:10 Resp 18 09/01/16 08:00 BP 132/67 09/01/16 08:00 Pulse Ox 94 L 09/01/16 08:00 Intake & Output 08/31/16 09/01/16 09/01/16 18:59 06:59 18:59 Intake Total 700 420 Output Total 1000 1300 Balance -300 -880 Weight 86.9 kg 86.5 kg Intake: IV 240 420 0.9 @20mls/hr 240 320 Meropenem 1 gm In Sodium 100 Chloride 0.9% 100 ml @ 200 mls/hr IV[facility] Rx#:[id number] Intake, IV Titration 100 Amount Meropenem 1 gm In Sodium 100 Chloride 0.9% 100 ml @ 200 mls/hr IVPB Q[facility] Rx#:[id number] Oral 360 Output: Urine 1000 1300 Other: Voiding Method Urinal Urinal # Voids 1 # Bowel Movements 0 - Exam GENERAL EXAM: Alert, comfortable in no apparent distress. HEAD: Normocephalic. EYES: Normal reaction of pupils, equal size. NOSE: Clear with pink turbinates. THROAT: No erythema or exudates. NECK: No masses, no JVD. CHEST: No chest wall deformity. LUNGS: Equal air entry with us in the posterior bases, wheezing bilaterally. Diminished. CVS: S1 and S2 normal with no audible murmurs, regular rhythm. ABDOMEN: No hepatosplenomegaly, normal bowel sounds, no guarding or rigidity. SPINE: No scoliosis or deformity SKIN: No rashes CENTRAL NERVOUS SYSTEM: No focal deficits, tone is normal in all 4 extremities. Extremities: There is no significant peripheral edema. No clubbing, no cyanosis. Peripheral pulses are intact. - Labs CBC & Chem 7: 09/01/16 06:10 09/01/16 06:10 Labs: Abnormal Lab Results - Last 24 Hours (Table) 08/31/16 08/31/16 09/01/16 Range/Units 16:56 21:20 06:03 WBC (3.8-10.6) k/uL RBC (4.30-5.90) m/uL Hgb (13.0-17.5) gm/dL Hct (39.0-53.0) % RDW (11.5-15.5) % Plt Count (150-450) k/uL Neutrophils # (1.3-7.7) k/uL Lymphocytes # (1.0-4.8) k/uL Sodium (137-145) mmol/L BUN (9-20) mg/dL Creatinine (0.66-1.25) mg/dL POC Glucose (mg/dL) 144 H 227 H 104 H (75-99) mg/dL 09/01/16 09/01/16 Range/Units 06:10 06:10 WBC 13.2 H (3.8-10.6) k/uL RBC 3.38 L (4.30-5.90) m/uL Hgb 10.3 L (13.0-17.5) gm/dL Hct 31.6 L (39.0-53.0) % RDW 18.4 H (11.5-15.5) % Plt Count 103 L (150-450) k/uL Neutrophils # 12.1 H (1.3-7.7) k/uL Lymphocytes # 0.4 L (1.0-4.8) k/uL Sodium 133 L (137-145) mmol/L BUN 31 H (9-20) mg/dL Creatinine 0.60 L (0.66-1.25) mg/dL POC Glucose (mg/dL) (75-99) mg/dL Microbiology - Last 24 Hours (Table) 08/30/16 02:19 Gram Stain - Final Sputum Sputum Culture - Final Assessment and Plan Plan: Impression: 1 acute on chronic hypoxic respiratory failure secondary to severe interstitial and parenchymal lung disease. Differential diagnoses includes lymphangitic carcinomatosis, radiation pneumonitis which is unusual considering the patient had only radiation to the left upper lobe area only. Infection, and interstitial lung disease including UIP and NSIp/rheumatoid lungs. Atypical pulmonary edema 2 history of coronary artery disease and previous stent placement 3 abnormal troponins not consistent with acute coronary syndrome 4 history of small cell lung cancer with recent chemotherapy radiation therapy and recent wedge resection of the left upper lobe 5 history of rheumatoid arthritis 6 history of hyperlipidemia 7 abnormal liver enzymes, etiology is not clear at this point, could be secondary to passive congestion. However recommend ultrasound of the liver and further workup if liver enzymes persists to be elevated. 8 prerenal azotemia most likely secondary to diuresis. Recovered. Plan: The patient was seen and evaluated by Dr. Leon. We'll go ahead and switch him from IV Solu-Medrol to prednisone taper. We'll continue with his current bronchodilators. He remains on meropenem. He remains on Lovenox for DVT prophylaxis. We will increase his activity as tolerated. We'll continue to follow.
--- NOTE | 2016-09-01 16:48 | PN ---
DATE OF SERVICE: 09/01/2016 REASON FOR FOLLOWUP: 1. Pneumonia. 2. Left S2 dermatome zoster. INTERVAL HISTORY: The patient is afebrile. His breathing has improved. The patient denies significant chest pain. Occasional cough. Not bringing up any sputum. No abdominal pain. No significant UTI symptoms. No worsening of the rash on the left thigh and gluteal area. On examination, blood pressure is 137/68 with a pulse of 90, temperature 97.5. He is 97% on 50% high-flow nasal oxygen. General description is an elderly male up in the bed in no distress. RESPIRATORY SYSTEM: Unlabored breathing with decreased intensity of breath sounds. No wheeze. HEART: S1, S2. Regular rate and rhythm. ABDOMEN: Soft. No tenderness. LABS: Hemoglobin is 10.3, white count of 13.2 with a BUN of 31, creatinine 0.60. Sputum culture is currently pending. Urine is showing an E coli. DIAGNOSTIC IMPRESSION AND PLAN: 1. Patient with difficulty in breathing and hypoxemia, likely multifactorial in a patient who does have underlying chronic obstructive pulmonary disease and also possibility of pneumonitis. Pneumonia not entirely excluded. Currently on Meropenem. That will be continued. 2. Patient with left S2 dermatome zoster. Finished 7-day course of therapy. Did discontinue the Valtrex. MTDD
[2016-09-01 17:10] LABS: Glucose,Whole Blood 128 mg/dL (75-99)
[2016-09-01 21:42] LABS: Anisocytosis Slight; Basophils # (A) 0.1 k/uL (0-0.2); Basophils % (A) 0 %; CH 29.5; CHCM 31.2; Eosinophils # (A) 0.1 k/uL (0-0.7); Eosinophils % (A) 1 %; HCT 35.6 % (39.0-53.0); HDW 2.77; HGB 11.4 gm/dL (13.0-17.5); Hypochromasia Slight; Luc # (Auto) 0.05; Luc % (Auto) 0; Lymphocytes # (A) 0.4 k/uL (1.0-4.8); Lymphocytes % (A) 3 %; MCH 30.3 pg (25.0-35.0); MCV 94.6 fL (80.0-100.0); Macrocytosis Slight; Mean Platelet Volume 7.6; Monocytes # (A) 0.4 k/uL (0-1.0); Monocytes % (A) 3 %; Neutrophils # (A) 13.7 k/uL (1.3-7.7); Neutrophils % (A) 93 %; RBC 3.76 m/uL (4.30-5.90); RDW 18.3 % (11.5-15.5); WBC 14.7 k/uL (3.8-10.6); WBC (Perox) 16.08
[2016-09-01 21:44] LABS: Glucose,Whole Blood 115 mg/dL (75-99)
[2016-09-02] MEDS: IPRATROPIUM-ALBUTEROL 3 ML NEB INHALATION PRN (04:34)
[2016-09-02] MEDS ORDERED: FUROSEMIDE 10 MG/ML 10 ML VIAL IV STA (05:07)
[2016-09-02] MEDS ORDERED: FUROSEMIDE 10 MG/ML 4 ML VIAL ONE (05:32)
[2016-09-02] MEDS ORDERED: PROPOFOL 50 ML IV ONE ×3 (06:46→11:36)
--- NOTE | 2016-09-02 06:55 | XR ---
EXAM: 2 AP views of the chest. INDICATION: 71 year-old male shortness of breath. COMPARISON: 09/01/2016 at 0924 hrs. FINDINGS: 2 AP portable upright views of the chest show diffuse interstitial lung markings with hazy groundglass opacity superimposed slightly worsened compared to prior examination. There is blunting of the left costophrenic angle which may relate to pleural effusion. Right infrahilar and perihilar consolidations developed in the interim. No pneumothorax. Aorta is tortuous and partially calcified. Osseous structures appear intact. IMPRESSION: Worsening chest.
--- NOTE | 2016-09-02 07:01 | XR ---
EXAM: Single view of the chest INDICATION: Postintubation COMPARISON: 09/02/2016 at 0610 hours FINDINGS: Interval placement of an endotracheal tube with tip 2.8 cm the masha. Interval placement of an enteric tube with tip at the level of the gastroesophageal junction. Interstitial and airspace opacities throughout both lungs with blunting of the left costophrenic angle, as before. No significant change. Aorta is tortuous and partially calcified. Osseous structures appear intact. IMPRESSION: 1. Interval placement of endotracheal tube with tip 2.8 cm above the masha. 2. Enteric tube with tip at the level of the gastroesophageal junction. Consider advancing. 3. Otherwise, stable appearance of the chest.
[2016-09-02] MEDS: INSULIN LISPRO (humaLOG) 300 UNIT/3 ML VIAL SQ SCH ×4 (07:08→21:45)
[2016-09-02] MEDS: PANTOPRAZOLE 40 MG TABLET PO SCH (07:08)
[2016-09-02 08:07] LABS: Anisocytosis Slight; CH 29.8; CHCM 32.2; HCT 39.1 % (39.0-53.0); HDW 2.93; HGB 12.9 gm/dL (13.0-17.5); Hypochromasia Slight; MCH 30.6 pg (25.0-35.0); MCV 92.8 fL (80.0-100.0); Mean Platelet Volume 8.4; RBC 4.21 m/uL (4.30-5.90); RDW 18.3 % (11.5-15.5); WBC (Perox) 17.91
[2016-09-02 08:11] LABS: ALT 112 U/L (21-72); AST 95 U/L (17-59); Alkaline Phosphatase 202 U/L (38-126); Anion Gap 9 mmol/L; Blood Urea Nitrogen 35 mg/dL (9-20); Calcium 8.8 mg/dL (8.4-10.2); Carbon Dioxide 28 mmol/L (22-30); Chloride 99 mmol/L (98-107); Glucose 108 mg/dL (74-99); Magnesium 1.9 mg/dL (1.6-2.3); Non-African American GFR(MDRD) >60 (>60 ml/min/1.73 sqM); Phosphorous 2.9 mg/dL (2.5-4.5); Potassium 4.2 mmol/L (3.5-5.1); Sodium 136 mmol/L (137-145); Total Bilirubin 1.4 mg/dL (0.2-1.3); Total Protein 6.6 g/dL (6.3-8.2)
[2016-09-02 08:24] LABS: Add Differential Manual Differential
[2016-09-02 08:26] LABS: Band Neutrophils % 0.5 %; Manual Review Performed; Nucleated Red Blood Cells 1 /100 WBC (0-0); Total Cells Counted 200; WBC 20.1 k/uL (3.8-10.6)
[2016-09-02 08:27] LABS: ABG Base Excess 4.7 mmol/L; ABG HCO3 30 mmol/L (21-25); ABG PCO2 56 mmHg (35-45); ABG PH 7.35 (7.35-7.45); ABG PO2 72 mmHg (83-108); ABG TCO2 32 mmol/L (19-24)
[2016-09-02 09:29] LABS: Glucose,Whole Blood 96 mg/dL (75-99)
[2016-09-02] MEDS ORDERED: IV FLUID CONTINUATION 1,000 ML IV ONE (09:44)
[2016-09-02] MEDS ORDERED: CISATRACURIUM 2 MG/ML 5 ML VIAL IV ONE ×3 (10:06→19:53)
[2016-09-02] MEDS ORDERED: IV VANCOMYCIN PER PHARMACY 1 EACH MISC MISCELLANE PRN (10:22)
[2016-09-02 10:46] VITALS: BMI 28.0
--- NOTE | 2016-09-02 11:02 | P.PN ---
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 Patient was initially found to have a 5.8 x 5.4 cm mass in the left lower lobe on a low-dose CAT scan of the chest that was done for cancer screening secondary to smoking. The lesion was abutting the pleural surface. The patient also had borderline mediastinal lymph nodes largest measuring 9 mm in size and the subcarinal area. The patient received concurrent chemoradiation therapy. He received cis-akiak and DISSOLVER OPERATOR-16 and subsequently was switched to carboplatin and as the patient developed an acute kidney injury. He received 4 cycles of systemic chemotherapy which she completed in April 2016. He completed radiation therapy in March 2016. His repeat PET scan that showed decrease in the size of the left lung mass going down to 2.8 cm in size along with an SUV of 5.2. He was referred for surgical evaluation of lobectomy with lymph node sampling on 06/27/2016 and surgery was done and the patient was found to have a necrotic mass with no viable tumor and lymph nodes were all negative. The patient postop did well without any significant complications. . This patient also has history of rheumatoid arthritis and he has been maintained on methotrexate until January 2016 and this treatment was discontinued as the patient was taken systemic chemotherapy and radiation therapy. The patient got hospitalized on 08/14/2016 because of increased shortness of breath. He was found to be hypoxemic and his chest x-ray showed diffuse interstitial pulmonary infiltrates. He was admitted with a acute hypoxic respiratory failure and the CAT scan of the chest shows diffuse breath and pulmonary infiltrates compared to his previous CAT scan from April 2016. The exact etiology of the infiltrates were not clear although the possibility that were entertained were radiation pneumonitis, nonspecific interstitial pneumonitis related to connective tissue disease and rheumatoid arthritis, lymphangitic carcinomatosis, and other regular and opportunistic pneumonias. CHF was also considered within the differential diagnosis. In any rate, the patient was treated with a combination of empiric antibiotics and steroids. He was in the medical floor and yesterday got moved to the intensive care unit because of worsening hypoxemia. Overnight, the patient was placed on a BiPAP at a pressure of 12 over 5 cm of water with an FiO2 of 50%. He seems to be more comfortable. Chest x-ray showing diffuse breath and pulmonary infiltrates , unchanged from the previous x-ray from 08/25/2016. Currently, the patient is on a combination of Levaquin as a broad-spectrum antibiotic coverage and is also taking prednisone as part of the burst taper. He is currently on 40 mg of prednisone. The blood gases from last night showed a pH of 7.54 with a pCO2 of 26 and pO2 of 63 and this was done 100% nonrebreather facemask. On 08/29/2016 I'm seeing this patient in follow-up. Had a lengthy discussion with the patient and his and daughter yesterday. We discussed the various options. We thought the bronchoscopy will be quite aggressive with this patient and his will put him into acute hypoxic respiratory failure requiring intubation mechanical ventilation. The alternatives were to step up his antibiotic treatment and use steroids and follow-up his condition accordingly. I also given the option of sending him to [facility] however the family opted to stay here and continued treatment throughout hospital. This morning, in follow-up, the patient is looking much improved compared to yesterday. He is awake and alert and is less short of breath. He is breathing comfortably. He spent all day on the BiPAP yesterday and this morning he is still on a BiPAP at a pressure of 12 over 5 cm of water with an FiO2 of 70%. His pulse ox is around 97-98% chest x-ray shows some limited improvement in the bilateral pulmonary infiltrates compared to yesterday. The CAT scan of the chest from yesterday was also noted. He is afebrile. He is on systemic steroids. He is on bronchodilators. He is eating soft diet. Is producing adequate amount of urine output. No hypotension. He has bowel sounds and bowel movements. I would say he seems to be much less short of breath compared to yesterday. On 08/30/2016 I'm seeing this patient in follow-up. The patient is sitting up in his bed and is sitting up position. The patient is on a high flow oxygen at 50 L and is tolerating it well with a saturation of around 96% on his pulse ox. He is able to speak up . This is. No chest pain. No change in mental status. He is eating and tolerating diet without any issues. He is on a combination of Merrem and Levaquin. Is on IV Solu-Medrol in addition. Infectious diseases on the case. A sputum sample was sent and the results are still pending for now. Meanwhile, today's chest x-ray shows still diffuse breath and pulmonary infiltrates and consolidation without any major improvement compared to yesterday. There are coarse crackles in lung bases bilaterally still. On 08/31/2016 the patient is essentially the same. He is on a high flow oxygen at 40 liters. Pulse ox is in the 90s. Despite all this, is not having any significant rest or distress. His resting comfortably in bed he is tolerating his diet. No change in mental status. Chest x-ray findings are essentially the same and unchanged. Remains on a combination of Merrem and Levaquin. Remains on IV Solu-Medrol. I think were dealing with an acute lung injury/ diffuse alveolar pattern which will ultimately need time for improvement. Fortunately the patient is not decompensating and he is quite stable without any interval worsening his condition noted any new changes in his chest x-ray. Hemodynamically stable. Afebrile. On 09/01/2016 the patient was still stable on a telemetry unit, and he was being monitored and treated conservatively. Subsequently, on 09/02/2016, the patient's respiratory status decompensated early this morning. He became profoundly hypoxic and he was unable to maintain a saturation above 70% despite being on high flow oxygen. At that point, the patient was intubated and placed on a mechanical ventilator and he was brought into the intensive care unit. He remained hemodynamically stable throughout the process without any significant hypotension or drop in the blood pressure. At this point in time, I have this patient on a pressure control mode of ventilation at the rate of 26, pressure control of 22, PEEP of 7 and FiO2 of 100%. He seems to more success with the mechanical ventilator. Sedated with Diprivan which is currently running at 50 mics. A triple lumen catheter inserted was inserted into the right subclavian. The patient also had a bronchoscopy and bronchial lavage of the right middle lobe was done and the samples were sent for microbial cultures and analysis. Chest x-ray post intubation showed diffuse bilateral pulmonary infiltrates typical of an underlying ARDS. He remains afebrile. The case It findings are essentially benign and the patient did not have any significant orotracheal secretions at all. Bronchioloalveolar lavage of the right middle lobe was done. Objective - Vital Signs Vital signs: Vital Signs Temp 98.1 F 09/02/16 04:00 Pulse 120 H 09/02/16 07:15 Resp 32 H 09/02/16 07:15 BP 175/85 09/02/16 07:15 Pulse Ox 92 L 09/02/16 07:15 Intake & Output 09/01/16 09/02/16 09/02/16 18:59 06:59 18:59 Intake Total 160 90 Output Total 600 1300 Balance -440 -1210 Weight 94 kg 94 kg Intake: IV 160 90 0.9 @20mls/hr 160 40 Output: Urine 600 1300 Other: Voiding Method Urinal Urinal # Voids 1 # Bowel Movements 1 - Exam Patient is intubated on a mechanical ventilator. Orogastric and orotracheal tube are both in place.Head exam was generally normal. There was no scleral icterus or corneal arcus. Mucous membranes were moist.Neck was supple and without jugular venous distension, thyromegaly, or carotid bruits. Carotids were easily palpable bilaterally. There was no adenopathy. Lung sounds are diminished bilaterally along with some crackles in the mid and lower lung ortega. No wheezes. No other abnormalities otherwise. Breath sounds are equal and symmetrical.Cardiac exam revealed the PMI to be normally situated and sized. The rhythm was regular and no extrasystoles were noted during several minutes of auscultation. The first and second heart sounds were normal and physiologic splitting of the second heart sound was noted. There were no murmurs , rubs, clicks, or gallops.Abdominal exam revealed normal bowel sounds. The abdomen was soft, non-tender, and without masses, organomegaly, or appreciable enlargement of the abdominal aorta.Examination of the extremities revealed easily palpable radial, femoral and pedal pulses. There was no cyanosis, clubbing or edema. - Labs CBC & Chem 7: 09/02/16 07:10 09/02/16 07:10 Labs: Abnormal Lab Results - Last 24 Hours (Table) 09/01/16 09/01/16 09/01/16 Range/Units 16:50 21:24 21:43 WBC 14.7 H (3.8-10.6) k/uL RBC 3.76 L (4.30-5.90) m/uL Hgb 11.4 L (13.0-17.5) gm/dL Hct 35.6 L (39.0-53.0) % RDW 18.3 H (11.5-15.5) % Plt Count 107 L (150-450) k/uL Neutrophils # 13.7 H (1.3-7.7) k/uL Neutrophils # (Manual) (1.3-7.7) k/uL Lymphocytes # 0.4 L (1.0-4.8) k/uL Lymphocytes # (Manual) (1.0-4.8) k/uL Nucleated RBCs (0-0) /100 WBC ABG pCO2 (35-45) mmHg ABG pO2 (83-108) mmHg ABG HCO3 (21-25) mmol/L ABG Total CO2 (19-24) mmol/L ABG O2 Saturation (94-97) % Sodium (137-145) mmol/L BUN (9-20) mg/dL Creatinine (0.66-1.25) mg/dL Glucose (74-99) mg/dL POC Glucose (mg/dL) 128 H 115 H (75-99) mg/dL Total Bilirubin (0.2-1.3) mg/dL AST (17-59) U/L ALT (21-72) U/L Alkaline Phosphatase (38-126) U/L Albumin (3.5-5.0) g/dL 09/02/16 09/02/16 09/02/16 Range/Units 07:10 07:10 07:25 WBC 20.1 H (3.8-10.6) k/uL RBC 4.21 L (4.30-5.90) m/uL Hgb 12.9 L (13.0-17.5) gm/dL Hct (39.0-53.0) % RDW 18.3 H (11.5-15.5) % Plt Count 107 L (150-450) k/uL Neutrophils # (1.3-7.7) k/uL Neutrophils # (Manual) 17.6 H (1.3-7.7) k/uL Lymphocytes # (1.0-4.8) k/uL Lymphocytes # (Manual) 0.8 L (1.0-4.8) k/uL Nucleated RBCs 1 H (0-0) /100 WBC ABG pCO2 56 H (35-45) mmHg ABG pO2 72 L (83-108) mmHg ABG HCO3 30 H (21-25) mmol/L ABG Total CO2 32 H (19-24) mmol/L ABG O2 Saturation 93.0 L (94-97) % Sodium 136 L (137-145) mmol/L BUN 35 H (9-20) mg/dL Creatinine 0.64 L (0.66-1.25) mg/dL Glucose 108 H (74-99) mg/dL POC Glucose (mg/dL) (75-99) mg/dL Total Bilirubin 1.4 H (0.2-1.3) mg/dL AST 95 H (17-59) U/L ALT 112 H (21-72) U/L Alkaline Phosphatase 202 H (38-126) U/L Albumin 3.3 L (3.5-5.0) g/dL Microbiology - Last 24 Hours (Table) 08/30/16 02:19 Gram Stain - Final Sputum Sputum Culture - Final Assessment and Plan Plan: Assessment 1 acute hypoxic respiratory failure with diffuse bilateral pulmonary infiltrates. The exact nature of this but the pulmonary infiltrates are not clear. Suspect chronic infections with a possibility of an opportunistic infection. Acute lung injury/ARDS which could be postinfectious cannot be completely ruled out. Interstitial lung disease related pulmonary infiltrates cannot be completely ruled out. Malignancy is felt to be less likely especially with the progression of his small cell lung cancer treatment. On 09/02/2016, the patient's respiratory status decompensated. The patient developed worsening in by the pulmonary infiltrates and subsequently went into hypoxic respiratory failure and his pulse ox drop despite being on high flow oxygen. He was in significant respiratory distress and based on that the patient was intubated and placed on a mechanical ventilator. Currently is on a pressure control mode of ventilation. Orotracheal tube is in place. Blood gases are still pending postintubation. Otherwise he remains hemodynamically stable. Bronchoscopy bronchioloalveolar lavage of the right middle lobe was done. He remains on on Merrem and vancomycin will be added. The patient was on systemic steroids and he was weaned off yesterday to her prednisone oral. He is off IV Solu-Medrol for now. 2 small cell lung cancer, status post concurrent chemoradiation therapy and total brain radiation. Most recent PET scan from April 2016 at shown improvement in the size of the left lower lobe mass and the patient had further surgical resection at [facility]. Back then, the lung windows showed emphysema without evidence of any interstitial lung disease. No further imaging between April and August 2016 3 coronary artery disease with previous stent placement, 4 rheumatoid arthritis 5 hyperlipidemia 6 anemia, multifactorial Plan Continue vent support with a pressure control mode of ventilation. Keep the patient sedated. Obtain a blood gas and sensitive and changes. I have him and a PEEP of 7 and FiO2 of 100%. He is on a pressure control mode with a pressure of 22 and a PEEP of 7. Rate is at 26. Triple-lumen catheter was inserted. Bronchoscopy was done and the right middle lobe lavage was obtained and sent for microbial cultures. The patient on a combination of Merrem and vancomycin. The patient is on oral prednisone. Tube feeds will be initiated. Treatment is supportive. We'll continue to follow make further recommendations based on his progress. Family was informed of the above-mentioned changes. Condition is critical. This carries a high mortality risk. We'll continue to follow make further recommendations based on his progress. Critically ill care evaluation. More than 30 minutes. Excluding time to do any procedures. Time with Patient: Greater than 30
--- NOTE | 2016-09-02 11:06 | P.PCN ---
Date of Procedure: 09/02/16 Preoperative Diagnosis: Diffuse bilateral pulmonary infiltrates, acute respiratory failure Postoperative Diagnosis: Same Procedure(s) Performed: Flexible bronchoscopy, bronchoalveolar lavage of the right middle lobe Implants: Anesthesia: MAC Surgeon: Maximino Leon Pathology: other Condition: stable Disposition: ICU Indications for Procedure: Operative Findings: This procedure was done in the intensive care unit. The patient was already intubated. The patient was on a mechanical ventilator and the procedure was done as the patient was being adequately ventilated and oxygenated. The patient was on Diprivan for sedation. An adapter was attached to the orotracheal tube. Following that, as the patient being mechanically ventilated, the flexible bronchoscope was advanced into the orotracheal tube and wasn't present to the lower trachea. The tip of the ET tube was seen 2 cm above the masha. The masha was sharp in the midline. The bilateral mainstem bronchi were essentially within normal limits. Airway inspection was done and the visualized airways into the right upper lobe bronchus, bronchus intermedius, right middle lobe bronchus, right lower lobe bronchus, left upper lobe bronchus and left lower lobe bronchus along status segments and subsegments. All of these airways were patent. There was no secretions identified. No purulent material. The airways were patent and there was no evidence of any the bronchial tumors or lesions or abnormalities detected. At this point, the bronchoscope was moved to the right middle lobe and the bronchioloalveolar lavage was done. A total of 120 mL of fluid was infused and 35-40 mL of fluid was aspirated without any major complications. The aspirate was a bit turbid but not bloody. At this point, the procedure was completed and the bronchoscope was removed and the patient tolerated the procedure well without any major complications, hypotension, or any oxygen desaturation. Description of Procedure:
[2016-09-02] MEDS ORDERED: NOREPINEPHRIN 4 MG-0.9% NS PMX 4 MG/250 ML ML IV ONE ×2 (11:13→16:35)
[2016-09-02] MEDS: BUDESONIDE 0.5 MG/2 ML NEBU INHALATION SCH ×2 (11:18→20:17)
[2016-09-02] MEDS: IPRATROPIUM-ALBUTEROL 3 ML NEB INHALATION SCH ×4 (11:18→20:17)
[2016-09-02] MEDS: FORMOTEROL FUMARATE 20 MCG/2 ML NEBU INHALATION SCH ×2 (11:18→20:17)
[2016-09-02] MEDS ORDERED: VANCOMYCIN 2,500 MG in SODIUM CHLORIDE 0.9% 500 ML IVPB ONE (11:30)
--- NOTE | 2016-09-02 11:34 | P.PN ---
Subjective Principal diagnosis: Acute on chronic hypoxic respiratory failure Patient is a 71-year-old male with known history of lung cancer who underwent left lower lobe resection and underwent radiation and chemotherapy in January 2016 and subsequently had prophylactic brain radiation, patient was maintained on home oxygen until recently, he discontinued using home oxygen and went to [place] for a family member graduation, he states that he was doing worse he was unable to sleep and was developing worsening shortness of breath, his [id number] is working on a base and patient was [facility] a [facility] he was told that his oxygen with saturation was very low in the 70 % He was told he could not be treated in the [place] because he was not in the he was offered to be transferred to a regular hospital however patient decided to be discharged and decided to drive back with his and his daughter back to [place], patient is well known to Dr. Cannon, he presented to emergency room at [facility] his oxygen saturation was low d- dimer was significantly elevated and troponin level was elevated at 0.58, patient was started on IV heparin and was admitted to telemetry floor computed tomography scan of the chest was negative for pulmonary embolism, oncology consultation pulmonary consultation and cardiology consultation were initiated, computed tomography scan revealed patchy infiltrates in both lungs and patient was started on IV Levaquin in the emergency room for possible pneumonia. The exact etiology of the infiltrates were not clear although the possibility that were entertained were radiation pneumonitis, nonspecific interstitial pneumonitis related to connective tissue disease and rheumatoid arthritis, lymphangitic carcinomatosis, and other regular and opportunistic pneumonias. CHF was also considered within the differential diagnosis. Patient is followed closely by pulmonary service. Also was seen by cardiology was given a few doses of IV Lasix. And then did develop acute renal failure. Patient is been off of Lasix kidney function has stabilized. Last night patient went into acute respiratory distress became hypoxemic and was transferred to the ICU. He had been on a regular medical floor over the weekend and had shown some improvement in his oxygen saturation they decreased the oxygen level to his nasal cannula. However he did require to be placed on BiPAP and in the ICU. Pulmonary service did order another computed tomography scan of the chest which was negative for PE. Did reveal background of diffuse emphysematous change with acute on chronic process. There is a suspected interval left lung surgery with suspicious residual nodule. Suspect acute infection process or edema of chronic fibrosis possibly related to treatment changes. There is progression since January 2016. Lymphangitic spread of tumor is not excluded. There is a new pneumomediastinum. No pneumothorax. Are pulmonary service is highly recommending that patient be transferred to [facility]. They had suggested this last week as well. However patient wanted to remain close his family and in [place]. Since patient symptoms are worsening he is now agreeable to proceed with transfer to [facility]. Patient will likely need a bronchoscopy with transbronchial biopsies. Patient is frail and their concerns that patient will require to be placed on the respirator after the procedure is performed. Patient reevaluated on 09/01/2016 he is maintained on high flow oxygen via nasal cannula he is feeling better clinically white blood count went up from 10- 13,000 chest x-ray reveals slight worsening Patient reevaluated on 09/02/2016 his condition has deteriorated significantly through the night required transfer to intensive care unit intubation and mechanical ventilation Objective - Vital Signs Vital signs: Vital Signs Temp 98.1 F 09/02/16 04:00 Pulse 120 H 09/02/16 07:15 Resp 32 H 09/02/16 07:15 BP 175/85 09/02/16 07:15 Pulse Ox 92 L 09/02/16 07:15 Intake & Output 09/01/16 09/02/16 09/02/16 18:59 06:59 18:59 Intake Total 160 90 Output Total 600 1300 Balance -440 -1210 Weight 94 kg 94 kg Intake: IV 160 90 0.9 @20mls/hr 160 40 Output: Urine 600 1300 Other: Voiding Method Urinal Urinal # Voids 1 # Bowel Movements 1 - Exam In general patient is intubated sedated maintained on mechanical ventilation HEENT head normocephalic and atraumatic Neck is supple no JVD no goiter no lymphadenopathy Chest exam reveals crackles in both lung ortega no wheezing Cardiac exam reveals tachycardia with S1 and S2 regular rhythm no gallops no murmurs Abdomen is soft nontender no organomegaly Extremity exam reveals no edema no cyanosis or clubbing Neurological examination reveals no focal deficit - Labs CBC & Chem 7: 09/02/16 07:10 09/02/16 07:10 Labs: Abnormal Lab Results - Last 24 Hours (Table) 09/01/16 09/01/16 09/01/16 Range/Units 16:50 21:24 21:43 WBC 14.7 H (3.8-10.6) k/uL RBC 3.76 L (4.30-5.90) m/uL Hgb 11.4 L (13.0-17.5) gm/dL Hct 35.6 L (39.0-53.0) % RDW 18.3 H (11.5-15.5) % Plt Count 107 L (150-450) k/uL Neutrophils # 13.7 H (1.3-7.7) k/uL Neutrophils # (Manual) (1.3-7.7) k/uL Lymphocytes # 0.4 L (1.0-4.8) k/uL Lymphocytes # (Manual) (1.0-4.8) k/uL Nucleated RBCs (0-0) /100 WBC ABG pCO2 (35-45) mmHg ABG pO2 (83-108) mmHg ABG HCO3 (21-25) mmol/L ABG Total CO2 (19-24) mmol/L ABG O2 Saturation (94-97) % Sodium (137-145) mmol/L BUN (9-20) mg/dL Creatinine (0.66-1.25) mg/dL Glucose (74-99) mg/dL POC Glucose (mg/dL) 128 H 115 H (75-99) mg/dL Total Bilirubin (0.2-1.3) mg/dL AST (17-59) U/L ALT (21-72) U/L Alkaline Phosphatase (38-126) U/L Albumin (3.5-5.0) g/dL 09/02/16 09/02/16 09/02/16 Range/Units 07:10 07:10 07:25 WBC 20.1 H (3.8-10.6) k/uL RBC 4.21 L (4.30-5.90) m/uL Hgb 12.9 L (13.0-17.5) gm/dL Hct (39.0-53.0) % RDW 18.3 H (11.5-15.5) % Plt Count 107 L (150-450) k/uL Neutrophils # (1.3-7.7) k/uL Neutrophils # (Manual) 17.6 H (1.3-7.7) k/uL Lymphocytes # (1.0-4.8) k/uL Lymphocytes # (Manual) 0.8 L (1.0-4.8) k/uL Nucleated RBCs 1 H (0-0) /100 WBC ABG pCO2 56 H (35-45) mmHg ABG pO2 72 L (83-108) mmHg ABG HCO3 30 H (21-25) mmol/L ABG Total CO2 32 H (19-24) mmol/L ABG O2 Saturation 93.0 L (94-97) % Sodium 136 L (137-145) mmol/L BUN 35 H (9-20) mg/dL Creatinine 0.64 L (0.66-1.25) mg/dL Glucose 108 H (74-99) mg/dL POC Glucose (mg/dL) (75-99) mg/dL Total Bilirubin 1.4 H (0.2-1.3) mg/dL AST 95 H (17-59) U/L ALT 112 H (21-72) U/L Alkaline Phosphatase 202 H (38-126) U/L Albumin 3.3 L (3.5-5.0) g/dL Microbiology - Last 24 Hours (Table) 08/30/16 02:19 Gram Stain - Final Sputum Sputum Culture - Final Assessment and Plan Plan: #1 acute hypoxic respiratory failure, requiring reintubation and mechanical ventilation at this time on IV Solu-Medrol and inhaled bronchodilators #2 diffuse disease in both lung ortega possibly representing possible acute bronchitis with pneumonia, other for initial diagnosis possibilities are detailed in the tubing machine tender note patient was started on IV Levaquin in the emergency room, Levaquin was discontinued yesterday. Sputum sample revealed normal respiratory rodney #3 elevated troponin level patient denies any chest pain, he was started on IV heparin in the emergency room cardiology consultation has been requested #4 underlying history of lung cancer, awaiting consult from Dr. Cannon, to assess status of his malignancy. #5 hyponatremia on presentation improving with IV fluid #6 underlying history of hypertension well-controlled on current medications #7 underlying history of hyperlipidemia maintained on Lipitor and fenofibrate continue #8 elevated d-dimer with negative computed tomography scan of the chest without any evidence of pulmonary embolism #9 underlying history of benign prostatic hypertrophy maintained on Flomax continue Medication and labs were reviewed, patient is improving gradually continue with current medications, input from cardiology and pulmonary reviewed Case was discussed in details with Dr. Leon
--- NOTE | 2016-09-02 12:00 | XR ---
EXAMINATION TYPE: XR chest 1V DATE OF EXAM: 09/02/2016 11:41 AM COMPARISON: Earlier today HISTORY: 71-year-old male line placement TECHNIQUE: Single frontal view of the chest is obtained. FINDINGS: Left subclavian CVC tip at the lower SVC. Tube is satisfactory. NG tube courses below the diaphragm b ut the tip is not well seen. It may be located just below the GE junction as the sidehole seems to pr oject over the heart. Continued diffuse interstitial and confluent airspace opacity, right greater th an left and small left pleural effusion. Findings are stable to slightly worsened. IMPRESSION: 1. Satisfactory left-sided subclavian CVC. 2. NG tube may be somewhat proximal in position as the sidehole is located at the level of the lower thorax. The tip is not well-seen but probably just below the GE junction. 3. Stable to slight worsening diffuse interstitial and airspace disease and continued small left effu katelynn.
[2016-09-02] MEDS: ENOXAPARIN 40 MG/0.4 ML SYRINGE SQ SCH (12:21)
[2016-09-02] MEDS: FOLIC ACID 1 MG TAB PO SCH (12:21)
[2016-09-02] MEDS: ATORVASTATIN 40 MG TAB PO SCH (12:21)
[2016-09-02] MEDS: ATENOLOL 25 MG TAB PO SCH (12:21)
[2016-09-02] MEDS: ASPIRIN 81 MG CHEW PO SCH (12:21)
[2016-09-02] MEDS: valACYclovir HCL 1,000 MG TABLET PO SCH ×3 (12:21→22:45)
[2016-09-02] MEDS: FENOFIBRATE 160 MG TAB PO SCH (12:22)
[2016-09-02] MEDS: DOCUSATE 100 MG CAP PO SCH ×2 (12:22→21:43)
[2016-09-02] MEDS: CHLORHEXIDINE GLUCONATE 15 ML CUP MUCOUS MEM SCH ×2 (12:22→21:45)
[2016-09-02] MEDS: MULTIVITAMINS, THERA 1 EACH TAB PO SCH (12:22)
[2016-09-02] MEDS: predniSONE 20 MG TAB PO SCH (12:22)
[2016-09-02] MEDS: NYSTATIN 100,000 UNIT/ML SUSP 500,000 UNIT/5 ML CUP PO SCH ×4 (12:23→22:45)
[2016-09-02] MEDS: TAMSULOSIN 0.4 MG CAP.ER.24H PO SCH (12:23)
[2016-09-02] MEDS: LISINOPRIL 10 MG TAB PO SCH (12:23)
[2016-09-02] MEDS: SODIUM CHLORIDE 0.9% 1,000 ML IV SCH ×2 (12:24→13:22)
--- NOTE | 2016-09-02 12:28 | PCN ---
DATE OF PROCEDURE: PROCEDURE: Insertion of triple-lumen catheter in left subclavian vein. INDICATION: Hemodynamic monitoring/intravenous access. A time-out was completed verifying correct patient, procedure, site, positioning, and implant(s) or special equipment if applicable. The patient was placed in a dependent position appropriate for triple-lumen catheter placement based on the vein to be cannulated. The patient's left shoulder was prepped and draped in sterile fashion. Lidocaine 1% was used to anesthetize the surrounding skin area. A triple-lumen 9F Cordis catheter was introduced into the subclavian vein using Seldinger technique. The catheter was threaded smoothly over the guidewire and appropriate blood return was obtained. Each lumen of the catheter was evacuated of air and flushed with sterile saline. The catheter was then sutured in place to the skin and a sterile dressing applied. Perfusion to the extremity distal to the point of catheter insertion was checked and found to be adequate.
[2016-09-02] MEDS ORDERED: NOREPINEPHRIN 16 MG-0.9%NS PMX 16 MG/250 ML ML IV SCH (12:30)
[2016-09-02] MEDS ORDERED: EMPTY BAG 1 BAG with PROPOFOL 500 MG IV SCH (12:30)
--- NOTE | 2016-09-02 12:30 | PCN ---
DATE OF PROCEDURE: PROCEDURE: Insertion of arterial line catheter in right femoral artery. INDICATION: Hemodynamic monitoring. PREOPERATIVE DIAGNOSIS: Respiratory failure. POSTOPERATIVE DIAGNOSIS: Respiratory failure. A time-out was completed verifying correct patient, procedure, site, positioning, and implant(s) or special equipment if applicable. Morales's test was performed to ensure adequate perfusion. The patient's right groin was prepped and draped in sterile fashion. Lidocaine 1% was used to anesthetize the area. An 18G Arrow arterial line was introduced into the femoral artery. The catheter was threaded over the guidewire and the needle was removed with appropriate pulsatile blood return. Blood loss was minimal. The catheter was then sutured in place to the skin and a sterile dressing applied. Perfusion to the extremity distal to the point of catheter insertion was checked and found to be adequate. The patient tolerated the procedure well and there were no bedside complications or bleeding.
[2016-09-02 12:35] LABS: ABG Base Excess 1.6 mmol/L; ABG HCO3 26 mmol/L (21-25); ABG PCO2 43 mmHg (35-45); ABG PO2 110 mmHg (83-108); ABG TCO2 27 mmol/L (19-24)
[2016-09-02 12:43] LABS: RBC, Body Fluid 36350 /uL
[2016-09-02] MEDS ORDERED: CISATRACURIUM 200 MG in SODIUM CHLORIDE 0.9% 180 ML IV SCH (13:00)
[2016-09-02] MEDS: MEROPENEM 1 GM in SODIUM CHLORIDE 0.9% 100 ML IVPB SCH ×2 (13:20→21:45)
[2016-09-02] MEDS: ARTIFICIAL TEARS-HYPROMELLOSE DROPS 15 ML BTL BOTH EYES SCH ×2 (13:28→16:57)
[2016-09-02 13:29] LABS: Glucose,Whole Blood 97 mg/dL (75-99)
[2016-09-02 15:20] LABS: Appearance,Urine Clear (Clear); Bacteria,Urine Rare /hpf; Bilirubin,Urine Negative (Negative); Glucose,Urine (UA) Negative (Negative); Ketones,Urine Negative (Negative); Leukocyte Esterase,Urine Negative (Negative); Mucus,Urine Rare /hpf; Nitrite,Urine Negative (Negative); PH, Urine 5.5 (5.0-8.0); Particle Count 1305; Protein,Urine Negative (Negative); RBC,Urine 1 /hpf (0-5); Specific Gravity,Urine 1.007 (1.001-1.035); UA Billing (MACRO vs. MICRO) MICRO; Urobilinogen,Urine <2.0 mg/dL (<2.0); WBC,Urine 2 /hpf (0-5)
[2016-09-02 17:28] LABS: Glucose,Whole Blood 134 mg/dL (75-99)
[2016-09-02] MEDS: PROPOFOL 500 MG in EMPTY BAG 1 BAG IV SCH ×2 (21:30→22:53)
[2016-09-02 21:40] LABS: Glucose,Whole Blood 140 mg/dL (75-99)
[2016-09-02] MEDS: VANCOMYCIN 1,500 MG in SODIUM CHLORIDE 0.9% 250 ML IVPB SCH (21:45)
[2016-09-02] MEDS ORDERED: ATROPINE SULFATE 0.1 MG/ML 10ML SYRINGE ONE (21:54)
[2016-09-02 22:15] LABS: ABG Base Excess -0.6 mmol/L; ABG HCO3 24 mmol/L (21-25); ABG PCO2 42 mmHg (35-45); ABG PH 7.38 (7.35-7.45); ABG PO2 98 mmHg (83-108); ABG TCO2 25 mmol/L (19-24)
[2016-09-02 22:27] LABS: Ionized Calcium 4.9 mg/dL (4.5-5.3)
[2016-09-02 22:35] LABS: ALT 91 U/L (21-72); AST 60 U/L (17-59); Alkaline Phosphatase 159 U/L (38-126); Anion Gap 6 mmol/L; Blood Urea Nitrogen 27 mg/dL (9-20); Calcium 7.9 mg/dL (8.4-10.2); Carbon Dioxide 25 mmol/L (22-30); Chloride 107 mmol/L (98-107); Glucose 149 mg/dL (74-99); Magnesium 1.9 mg/dL (1.6-2.3); Non-African American GFR(MDRD) >60 (>60 ml/min/1.73 sqM); Phosphorous 3.5 mg/dL (2.5-4.5); Potassium 3.8 mmol/L (3.5-5.1); Sodium 138 mmol/L (137-145); Total Protein 4.8 g/dL (6.3-8.2)
[2016-09-02] MEDS ORDERED: POTASSIUM CHLORIDE ORAL LIQUID 40 MEQ/30 ML CUP NG-TUBE SCH (23:00)
[2016-09-02 23:01] LABS: Anisocytosis Slight; Basophils % (A) 0 %; CH 30.1; Eosinophils # (A) 0.2 k/uL (0-0.7); Eosinophils % (A) 1 %; HCT 32.5 % (39.0-53.0); HDW 3.07; HGB 10.6 gm/dL (13.0-17.5); Hypochromasia Slight; Luc # (Auto) 0.05; Luc % (Auto) 0; Lymphocytes # (A) 0.8 k/uL (1.0-4.8); Lymphocytes % (A) 5 %; MCH 30.6 pg (25.0-35.0); MCHC 32.4 g/dL (31.0-37.0); MCV 94.5 fL (80.0-100.0); Macrocytosis Slight; Mean Platelet Volume 7.8; Monocytes # (A) 0.6 k/uL (0-1.0); Monocytes % (A) 4 %; Neutrophils # (A) 14.4 k/uL (1.3-7.7); Neutrophils % (A) 90 %; RBC 3.44 m/uL (4.30-5.90); RDW 18.8 % (11.5-15.5); WBC 16.1 k/uL (3.8-10.6); WBC (Perox) 14.88
[2016-09-02] MEDS: MAGNESIUM SULFATE-D5W PMX 1 GM in DEXTROSE/WATER 1 100ML.BAG IVPB SCH (23:16)
[2016-09-03 00:10] LABS: Glucose,Whole Blood 144 mg/dL (75-99)
[2016-09-03] MEDS: INSULIN LISPRO (humaLOG) 300 UNIT/3 ML VIAL SQ SCH ×3 (00:15→11:47)
[2016-09-03] MEDS: MAGNESIUM SULFATE-D5W PMX 1 GM in DEXTROSE/WATER 1 100ML.BAG IVPB SCH (00:17)
[2016-09-03] MEDS: PROPOFOL 500 MG in EMPTY BAG 1 BAG IV SCH ×8 (00:45→12:33)
[2016-09-03] MEDS: MEROPENEM 1 GM in SODIUM CHLORIDE 0.9% 100 ML IVPB SCH ×2 (04:43→12:29)
[2016-09-03] MEDS: VANCOMYCIN 1,500 MG in SODIUM CHLORIDE 0.9% 250 ML IVPB SCH (04:46)
[2016-09-03 05:33] LABS: Anisocytosis Slight; Basophils % (A) 0 %; CH 29.8; CHCM 31.5; Eosinophils # (A) 0.3 k/uL (0-0.7); Eosinophils % (A) 3 %; HCT 29.9 % (39.0-53.0); HDW 2.97; HGB 9.4 gm/dL (13.0-17.5); Hypochromasia Slight; Luc # (Auto) 0.01; Luc % (Auto) 0; Lymphocytes # (A) 0.3 k/uL (1.0-4.8); Lymphocytes % (A) 4 %; MCHC 31.5 g/dL (31.0-37.0); MCV 95.1 fL (80.0-100.0); Macrocytosis Slight; Mean Platelet Volume 7.8; Monocytes # (A) 0.2 k/uL (0-1.0); Monocytes % (A) 2 %; Neutrophils # (A) 8.3 k/uL (1.3-7.7); Neutrophils % (A) 91 %; RBC 3.14 m/uL (4.30-5.90); RDW 18.8 % (11.5-15.5); WBC 9.2 k/uL (3.8-10.6); WBC (Perox) 9.25
[2016-09-03 05:55] LABS: ABG Base Excess 0.6 mmol/L; ABG HCO3 25 mmol/L (21-25); ABG PCO2 38 mmHg (35-45); ABG PH 7.43 (7.35-7.45); ABG PO2 56 mmHg (83-108); ABG TCO2 26 mmol/L (19-24)
[2016-09-03 06:33] LABS: Anion Gap 6 mmol/L; Blood Urea Nitrogen 22 mg/dL (9-20); Calcium 7.8 mg/dL (8.4-10.2); Carbon Dioxide 25 mmol/L (22-30); Chloride 108 mmol/L (98-107); Glucose 121 mg/dL (74-99); Magnesium 2.4 mg/dL (1.6-2.3); Non-African American GFR(MDRD) >60 (>60 ml/min/1.73 sqM); Phosphorous 2.5 mg/dL (2.5-4.5); Sodium 139 mmol/L (137-145)
[2016-09-03 06:40] LABS: Glucose,Whole Blood 107 mg/dL (75-99)
[2016-09-03] MEDS: BUDESONIDE 0.5 MG/2 ML NEBU INHALATION SCH (08:13)
[2016-09-03] MEDS: FORMOTEROL FUMARATE 20 MCG/2 ML NEBU INHALATION SCH (08:13)
[2016-09-03] MEDS: IPRATROPIUM-ALBUTEROL 3 ML NEB INHALATION SCH ×2 (08:13→11:49)
[2016-09-03] MEDS: PANTOPRAZOLE 40 MG TABLET PO SCH (08:30)
[2016-09-03] MEDS: ATENOLOL 25 MG TAB PO SCH (08:31)
[2016-09-03] MEDS: CHLORHEXIDINE GLUCONATE 15 ML CUP MUCOUS MEM SCH (08:33)
[2016-09-03] MEDS: ATORVASTATIN 40 MG TAB PO SCH (08:33)
[2016-09-03] MEDS: FOLIC ACID 1 MG TAB PO SCH (08:34)
[2016-09-03] MEDS: FENOFIBRATE 160 MG TAB PO SCH (08:34)
[2016-09-03] MEDS: MULTIVITAMINS, THERA 1 EACH TAB PO SCH (08:35)
[2016-09-03] MEDS: ENOXAPARIN 40 MG/0.4 ML SYRINGE SQ SCH (08:35)
[2016-09-03] MEDS: LISINOPRIL 10 MG TAB PO SCH (08:35)
[2016-09-03] MEDS: NYSTATIN 100,000 UNIT/ML SUSP 500,000 UNIT/5 ML CUP PO SCH (08:36)
[2016-09-03] MEDS: valACYclovir HCL 1,000 MG TABLET PO SCH (08:36)
[2016-09-03] MEDS: predniSONE 20 MG TAB PO SCH (08:36)
[2016-09-03] MEDS: TAMSULOSIN 0.4 MG CAP.ER.24H PO SCH (08:37)
--- NOTE | 2016-09-03 09:23 | XR ---
EXAMINATION TYPE: XR chest 1V portable DATE OF EXAM: 09/03/2016 6:53 AM COMPARISON: 09/02/2016 INDICATION: Previous abnormal chest TECHNIQUE: Single frontal view of the chest is obtained. FINDINGS: The heart size is prominent. The pulmonary vasculature is prominent. There is diffuse increased lung markings bilaterally. Correlate for congestive heart failure, pulmona ry edema, and ARDS. An endotracheal tube is present with the tip above the masha. Nasogastric tube transverses the thora x with tip in the proximal left upper quadrant of the abdomen. Left central venous catheter is presen t with the tip in the superior vena cava region. IMPRESSION: 1. Clinical correlation recommended for CHF and pulmonary edema or ARDS.
[2016-09-03] MEDS ORDERED: CISATRACURIUM 2 MG/ML 5 ML VIAL IV ONE ×3 (09:50→11:25)
[2016-09-03] MEDS ORDERED: CISATRACURIUM 200 MG in SODIUM CHLORIDE 0.9% 180 ML IV SCH (09:56)
--- NOTE | 2016-09-03 10:09 | P.PN ---
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 Patient was initially found to have a 5.8 x 5.4 cm mass in the left lower lobe on a low-dose CAT scan of the chest that was done for cancer screening secondary to smoking. The lesion was abutting the pleural surface. The patient also had borderline mediastinal lymph nodes largest measuring 9 mm in size and the subcarinal area. The patient received concurrent chemoradiation therapy. He received cis-orutsararmiut and CONTRACT ADMIN-16 and subsequently was switched to carboplatin and as the patient developed an acute kidney injury. He received 4 cycles of systemic chemotherapy which she completed in April 2016. He completed radiation therapy in March 2016. His repeat PET scan that showed decrease in the size of the left lung mass going down to 2.8 cm in size along with an SUV of 5.2. He was referred for surgical evaluation of lobectomy with lymph node sampling on 06/27/2016 and surgery was done and the patient was found to have a necrotic mass with no viable tumor and lymph nodes were all negative. The patient postop did well without any significant complications. . This patient also has history of rheumatoid arthritis and he has been maintained on methotrexate until January 2016 and this treatment was discontinued as the patient was taken systemic chemotherapy and radiation therapy. The patient got hospitalized on 08/14/2016 because of increased shortness of breath. He was found to be hypoxemic and his chest x-ray showed diffuse interstitial pulmonary infiltrates. He was admitted with a acute hypoxic respiratory failure and the CAT scan of the chest shows diffuse breath and pulmonary infiltrates compared to his previous CAT scan from April 2016. The exact etiology of the infiltrates were not clear although the possibility that were entertained were radiation pneumonitis, nonspecific interstitial pneumonitis related to connective tissue disease and rheumatoid arthritis, lymphangitic carcinomatosis, and other regular and opportunistic pneumonias. CHF was also considered within the differential diagnosis. In any rate, the patient was treated with a combination of empiric antibiotics and steroids. He was in the medical floor and yesterday got moved to the intensive care unit because of worsening hypoxemia. Overnight, the patient was placed on a BiPAP at a pressure of 12 over 5 cm of water with an FiO2 of 50%. He seems to be more comfortable. Chest x-ray showing diffuse breath and pulmonary infiltrates , unchanged from the previous x-ray from 08/25/2016. Currently, the patient is on a combination of Levaquin as a broad-spectrum antibiotic coverage and is also taking prednisone as part of the burst taper. He is currently on 40 mg of prednisone. The blood gases from last night showed a pH of 7.54 with a pCO2 of 26 and pO2 of 63 and this was done 100% nonrebreather facemask. On 08/29/2016 I'm seeing this patient in follow-up. Had a lengthy discussion with the patient and his and daughter yesterday. We discussed the various options. We thought the bronchoscopy will be quite aggressive with this patient and his will put him into acute hypoxic respiratory failure requiring intubation mechanical ventilation. The alternatives were to step up his antibiotic treatment and use steroids and follow-up his condition accordingly. I also given the option of sending him to [facility] however the family opted to stay here and continued treatment throughout hospital. This morning, in follow-up, the patient is looking much improved compared to yesterday. He is awake and alert and is less short of breath. He is breathing comfortably. He spent all day on the BiPAP yesterday and this morning he is still on a BiPAP at a pressure of 12 over 5 cm of water with an FiO2 of 70%. His pulse ox is around 97-98% chest x-ray shows some limited improvement in the bilateral pulmonary infiltrates compared to yesterday. The CAT scan of the chest from yesterday was also noted. He is afebrile. He is on systemic steroids. He is on bronchodilators. He is eating soft diet. Is producing adequate amount of urine output. No hypotension. He has bowel sounds and bowel movements. I would say he seems to be much less short of breath compared to yesterday. On 08/30/2016 I'm seeing this patient in follow-up. The patient is sitting up in his bed and is sitting up position. The patient is on a high flow oxygen at 50 L and is tolerating it well with a saturation of around 96% on his pulse ox. He is able to speak up . This is. No chest pain. No change in mental status. He is eating and tolerating diet without any issues. He is on a combination of Merrem and Levaquin. Is on IV Solu-Medrol in addition. Infectious diseases on the case. A sputum sample was sent and the results are still pending for now. Meanwhile, today's chest x-ray shows still diffuse breath and pulmonary infiltrates and consolidation without any major improvement compared to yesterday. There are coarse crackles in lung bases bilaterally still. On 08/31/2016 the patient is essentially the same. He is on a high flow oxygen at 40 liters. Pulse ox is in the 90s. Despite all this, is not having any significant rest or distress. His resting comfortably in bed he is tolerating his diet. No change in mental status. Chest x-ray findings are essentially the same and unchanged. Remains on a combination of Merrem and Levaquin. Remains on IV Solu-Medrol. I think were dealing with an acute lung injury/ diffuse alveolar pattern which will ultimately need time for improvement. Fortunately the patient is not decompensating and he is quite stable without any interval worsening his condition noted any new changes in his chest x-ray. Hemodynamically stable. Afebrile. On 09/01/2016 the patient was still stable on a telemetry unit, and he was being monitored and treated conservatively. Subsequently, on 09/02/2016, the patient's respiratory status decompensated early this morning. He became profoundly hypoxic and he was unable to maintain a saturation above 70% despite being on high flow oxygen. At that point, the patient was intubated and placed on a mechanical ventilator and he was brought into the intensive care unit. He remained hemodynamically stable throughout the process without any significant hypotension or drop in the blood pressure. At this point in time, I have this patient on a pressure control mode of ventilation at the rate of 26, pressure control of 22, PEEP of 7 and FiO2 of 100%. He seems to more success with the mechanical ventilator. Sedated with Diprivan which is currently running at 50 mics. A triple lumen catheter inserted was inserted into the right subclavian. The patient also had a bronchoscopy and bronchial lavage of the right middle lobe was done and the samples were sent for microbial cultures and analysis. Chest x-ray post intubation showed diffuse bilateral pulmonary infiltrates typical of an underlying ARDS. He remains afebrile. The case It findings are essentially benign and the patient did not have any significant orotracheal secretions at all. Bronchioloalveolar lavage of the right middle lobe was done. On 09/02/2016 the patient remains in full-blown ARDS, and respiratory failure, intubated on a mechanical ventilator. He remains on a pressure control mode of ventilation and earlier this morning the patient was not quite synchronous with the mechanical ventilator. As such the patient was placed and paralytic is on my plan is to paralyze him for the next 24 hours. Meanwhile, I increased the PEEP up to 10, The pressure control at 22, he is at an FiO2 of 80% and a rate of 22. The patient has a nighttime of 1 second and his I:E ratio is 1-1 at this point. He seems to be much more improved while being on the maxillary paralysis. Meanwhile he is on Diprivan for sedation and he is at 50 mics. Hemodynamically, the patient was having labile blood pressure. He got resuscitated IV fluids and he received 2 L overnight and currently is on a maintenance fluid of 0.9 saline today to 100 mL an hour. He is producing adequate amount of urine output. He was on norepinephrine infusion for blood pressure control and at one point he was on 15 mics and currently is down to 10 mics. He has a triple lumen catheter in his left subclavian. Artline catheter is not functioning appropriately.. I performed a bronchoscopy and bronchial lavage on him yesterday. All of the microbial cultures are still negative. The patient is on a combination of Merrem and vancomycin. The patient is also on oral prednisone. He is receiving tube feeds and he is on vital at the rate of 40 mL an hour. Objective - Vital Signs Vital signs: Vital Signs Temp 98.3 F 09/03/16 09:30 Pulse 124 H 09/03/16 09:30 Resp 36 H 09/03/16 09:30 BP 118/57 09/03/16 09:30 Pulse Ox 89 L 09/03/16 09:30 Intake & Output 09/02/16 09/03/16 09/03/16 18:59 06:59 18:59 Intake Total 3080 2443.377 567.78 Output Total 2840 985 265 Balance 240 1458.377 302.78 Weight 94 kg 87.4 kg Intake: IV 3080 1775 300 0.9 @20mls/hr 2680 1200 300 Meropenem 1 gm In Sodium 100 200 Chloride 0.9% 100 ml @ 200 mls/hr IVPB Q8HR [facility] Rx#:[id number] Vancomycin 1,500 mg In 250 375 Sodium Chloride 0.9% 250 ml @ 125 mls/hr IVPB Q8H [facility] Rx#:[id number] Intake, IV Titration 313.377 157.78 Amount Norepinephrin 16 mg-0.9% 75.017 80.05 Ns Pmx 16 mg In 250 ml @ Titrate IV .Q0M [facility] Rx#: [id number] Propofol 500 mg In Empty 238.36 77.73 Bag 1 bag @ Titrate IV . Q0M [facility] Rx#:[id number] Tube Feeding 220 80 Other 135 30 Output: Urine 2840 985 265 Other: Voiding Method Indwelling Catheter Indwelling Catheter ABP, PAP, CO, CI - Last Documented Arterial Blood Pressure 104/60 - Exam Patient is intubated on a mechanical ventilator. Orogastric and orotracheal tube are both in place.Head exam was generally normal. There was no scleral icterus or corneal arcus. Mucous membranes were moist.Neck was supple and without jugular venous distension, thyromegaly, or carotid bruits. Carotids were easily palpable bilaterally. There was no adenopathy. Lung sounds are diminished bilaterally along with some crackles in the mid and lower lung ortega. No wheezes. No other abnormalities otherwise. Breath sounds are equal and symmetrical.Cardiac exam revealed the PMI to be normally situated and sized. The rhythm was regular and no extrasystoles were noted during several minutes of auscultation. The first and second heart sounds were normal and physiologic splitting of the second heart sound was noted. There were no murmurs , rubs, clicks, or gallops.Abdominal exam revealed normal bowel sounds. The abdomen was soft, non-tender, and without masses, organomegaly, or appreciable enlargement of the abdominal aorta.Examination of the extremities revealed easily palpable radial, femoral and pedal pulses. There was no cyanosis, clubbing and there is some increased edema both in the upper and lower extremities. - Labs CBC & Chem 7: 09/03/16 04:50 09/03/16 04:50 Labs: Abnormal Lab Results - Last 24 Hours (Table) 09/02/16 09/02/16 09/02/16 Range/Units 12:04 14:50 17:26 WBC (3.8-10.6) k/uL RBC (4.30-5.90) m/uL Hgb (13.0-17.5) gm/dL Hct (39.0-53.0) % RDW (11.5-15.5) % Plt Count (150-450) k/uL Neutrophils # (1.3-7.7) k/uL Lymphocytes # (1.0-4.8) k/uL ABG pO2 110 H (83-108) mmHg ABG HCO3 26 H (21-25) mmol/L ABG Total CO2 27 H (19-24) mmol/L ABG O2 Saturation 98.0 H (94-97) % Chloride (98-107) mmol/L BUN (9-20) mg/dL Creatinine (0.66-1.25) mg/dL Glucose (74-99) mg/dL POC Glucose (mg/dL) 134 H (75-99) mg/dL Calcium (8.4-10.2) mg/dL Magnesium (1.6-2.3) mg/dL AST (17-59) U/L ALT (21-72) U/L Alkaline Phosphatase (38-126) U/L Total Protein (6.3-8.2) g/dL Albumin (3.5-5.0) g/dL Urine Blood Small H (Negative) Urine Bacteria Rare H (None) /hpf Urine Mucus Rare H (None) /hpf 09/02/16 09/02/16 09/02/16 Range/Units 21:39 22:10 22:10 WBC 16.1 H (3.8-10.6) k/uL RBC 3.44 L (4.30-5.90) m/uL Hgb 10.6 L (13.0-17.5) gm/dL Hct 32.5 L (39.0-53.0) % RDW 18.8 H (11.5-15.5) % Plt Count 96 L (150-450) k/uL Neutrophils # 14.4 H (1.3-7.7) k/uL Lymphocytes # 0.8 L (1.0-4.8) k/uL ABG pO2 (83-108) mmHg ABG HCO3 (21-25) mmol/L ABG Total CO2 (19-24) mmol/L ABG O2 Saturation (94-97) % Chloride (98-107) mmol/L BUN 27 H (9-20) mg/dL Creatinine 0.60 L (0.66-1.25) mg/dL Glucose 149 H (74-99) mg/dL POC Glucose (mg/dL) 140 H (75-99) mg/dL Calcium 7.9 L (8.4-10.2) mg/dL Magnesium (1.6-2.3) mg/dL AST 60 H (17-59) U/L ALT 91 H (21-72) U/L Alkaline Phosphatase 159 H (38-126) U/L Total Protein 4.8 L (6.3-8.2) g/dL Albumin 2.3 L (3.5-5.0) g/dL Urine Blood (Negative) Urine Bacteria (None) /hpf Urine Mucus (None) /hpf 09/02/16 09/03/16 09/03/16 Range/Units 22:10 00:08 04:50 WBC (3.8-10.6) k/uL RBC 3.14 L (4.30-5.90) m/uL Hgb 9.4 L (13.0-17.5) gm/dL Hct 29.9 L (39.0-53.0) % RDW 18.8 H (11.5-15.5) % Plt Count 81 L (150-450) k/uL Neutrophils # 8.3 H (1.3-7.7) k/uL Lymphocytes # 0.3 L (1.0-4.8) k/uL ABG pO2 (83-108) mmHg ABG HCO3 (21-25) mmol/L ABG Total CO2 25 H (19-24) mmol/L ABG O2 Saturation 98.0 H (94-97) % Chloride (98-107) mmol/L BUN (9-20) mg/dL Creatinine (0.66-1.25) mg/dL Glucose (74-99) mg/dL POC Glucose (mg/dL) 144 H (75-99) mg/dL Calcium (8.4-10.2) mg/dL Magnesium (1.6-2.3) mg/dL AST (17-59) U/L ALT (21-72) U/L Alkaline Phosphatase (38-126) U/L Total Protein (6.3-8.2) g/dL Albumin (3.5-5.0) g/dL Urine Blood (Negative) Urine Bacteria (None) /hpf Urine Mucus (None) /hpf 09/03/16 09/03/16 09/03/16 Range/Units 04:50 05:32 06:38 WBC (3.8-10.6) k/uL RBC (4.30-5.90) m/uL Hgb (13.0-17.5) gm/dL Hct (39.0-53.0) % RDW (11.5-15.5) % Plt Count (150-450) k/uL Neutrophils # (1.3-7.7) k/uL Lymphocytes # (1.0-4.8) k/uL ABG pO2 56 L (83-108) mmHg ABG HCO3 (21-25) mmol/L ABG Total CO2 26 H (19-24) mmol/L ABG O2 Saturation 90.0 L (94-97) % Chloride 108 H (98-107) mmol/L BUN 22 H (9-20) mg/dL Creatinine 0.50 L (0.66-1.25) mg/dL Glucose 121 H (74-99) mg/dL POC Glucose (mg/dL) 107 H (75-99) mg/dL Calcium 7.8 L (8.4-10.2) mg/dL Magnesium 2.4 H (1.6-2.3) mg/dL AST (17-59) U/L ALT (21-72) U/L Alkaline Phosphatase (38-126) U/L Total Protein (6.3-8.2) g/dL Albumin (3.5-5.0) g/dL Urine Blood (Negative) Urine Bacteria (None) /hpf Urine Mucus (None) /hpf Microbiology - Last 24 Hours (Table) 09/02/16 09:30 Gram Stain - Preliminary Bronchoalviolar Lavage - Right Bronchial Washings Culture - Preliminary 09/02/16 09:30 Acid Fast Bacilli Culture - Preliminary Bronchoalviolar Lavage - Right 09/02/16 09:30 Fungal Culture - Preliminary Bronchoalviolar Lavage - Right Assessment and Plan Plan: Assessment 1 acute hypoxic respiratory failure with diffuse bilateral pulmonary infiltrates. The exact nature of this but the pulmonary infiltrates are not clear. Suspect chronic infections with a possibility of an opportunistic infection. Acute lung injury/ARDS which could be postinfectious cannot be completely ruled out. Interstitial lung disease related pulmonary infiltrates cannot be completely ruled out. Malignancy is felt to be less likely especially with the progression of his small cell lung cancer treatment. On 09/02/2016, the patient's respiratory status decompensated. The patient developed worsening in by the pulmonary infiltrates and subsequently went into hypoxic respiratory failure and his pulse ox drop despite being on high flow oxygen. He was in significant respiratory distress and based on that the patient was intubated and placed on a mechanical ventilator. Currently is on a pressure control mode of ventilation. Orotracheal tube is in place. Blood gases are still pending postintubation. Otherwise he remains hemodynamically stable. Bronchoscopy bronchioloalveolar lavage of the right middle lobe was done. He remains on on Merrem and vancomycin will be added. The patient was on systemic steroids and he was weaned off yesterday to her prednisone oral. He is off IV Solu-Medrol for now. On 09/03/2016, the patient remains intubated on a mechanical ventilator. The patient is in full-blown ARDS. He is on a pressure control mode of ventilation. He is sedated. He is paralyzed. Follow-up blood pending for now. Meanwhile, he is on broad-spectrum antibiotics, he is on steroids and the bronchoscopy and bronchial lavage was done and the microbial cultures of been negative thus far. 2 small cell lung cancer, status post concurrent chemoradiation therapy and total brain radiation. Most recent PET scan from April 2016 at shown improvement in the size of the left lower lobe mass and the patient had further surgical resection at [facility]. Back then, the lung windows showed emphysema without evidence of any interstitial lung disease. No further imaging between April and August 2016 3 coronary artery disease with previous stent placement, 4 rheumatoid arthritis 5 hyperlipidemia 6 anemia, multifactorial 7 hypotension currently on pressors, specifically on 10 mics of norepinephrine infusion. Plan Continue the vent support. Unfortunately the patient carries a poor prognosis with his underlying ARDS and respiratory failure. We'll continue supportive care for now. The necessity vent changes will be done. Continued antibiotics. Continue the systemic steroids. Atelectatic discussion with the patient's family. They're aware of his critical condition at this point. We'll be awaiting the results of the bronchoscopy and the bronchioloalveolar lavage. Continue same antibiotic coverage. Continue the oral prednisone. Continue to tube feeds. Keep the patient paralyze for 24 hours to improve secondary with a mechanical ventilator and oxygenation. We'll continue to follow make further recommendations accordingly. Critically care evaluation. More than 30 minutes. Time with Patient: Greater than 30
[2016-09-03] MEDS ORDERED: PANTOPRAZOLE 40 MG/10 ML VIAL IVP SCH (10:15)
[2016-09-03] MEDS: ASPIRIN 81 MG CHEW PO SCH (10:40)
[2016-09-03] MEDS: HYDROmorphone 1 MG/ML 1 ML SYRINGE IVP SCH ×2 (10:42→12:28)
[2016-09-03] MEDS ORDERED: ACETAMINOPHEN TAB 325 MG TAB PO PRN (11:13)
[2016-09-03] MEDS: DOCUSATE 100 MG CAP PO SCH (11:32)
[2016-09-03 11:47] LABS: Glucose,Whole Blood 164 mg/dL (75-99)
[2016-09-03 11:55] LABS: ABG Base Excess -0.3 mmol/L; ABG HCO3 27 mmol/L (21-25); ABG PCO2 67 mmHg (35-45); ABG PH 7.22 (7.35-7.45); ABG PO2 74 mmHg (83-108); ABG TCO2 29 mmol/L (19-24)
[2016-09-03 12:10] LABS: Glucose,Whole Blood 167 mg/dL (75-99)
[2016-09-03 12:16] LABS: ABG Base Excess -2.5 mmol/L; ABG HCO3 26 mmol/L (21-25); ABG PCO2 85 mmHg (35-45); ABG PH 7.11 (7.35-7.45); ABG PO2 77 mmHg (83-108); ABG TCO2 29 mmol/L (19-24)
--- NOTE | 2016-09-03 12:44 | P.DS ---
Providers Date of admission: 08/14/16 22:02 Expected date of discharge: 09/03/16 Attending physician: Aracely Sapp Consults: 08/14/16 22:02 Consult Physician Routine Consulting Provider: Maximino Leon Consult Reason/Comments: Resp Failure, lung cancer Do you want consulting provider notified?: Yes Consult Physician Routine Consulting Provider: Any Armstrong Consult Reason/Comments: Elevated troponin Do you want consulting provider notified?: Yes Consult Physician Routine Consulting Provider: Jaswinder Cannon Consult Reason/Comments: lung cancer Do you want consulting provider notified?: Yes 08/24/16 20:20 Consult Physician Routine Consulting Provider: Sarwat Covington Consult Reason/Comments: shingles on left inner thigh Do you want consulting provider notified?: Yes Primary care physician: Talia Arzola [facility] Course: Patient is a 71-year-old male with known history of lung cancer who underwent left lower lobe resection and underwent radiation and chemotherapy in January 2016 and subsequently had prophylactic brain radiation, patient was maintained on home oxygen until recently, he discontinued using home oxygen and went to [place] for a family member graduation, he states that he was doing worse he was unable to sleep and was developing worsening shortness of breath, his [id number] is working on a base and [place] he was told that his oxygen with saturation was very low in the 70 % He was told [facility] because [facility] not [facility] the he was offered to be transferred to a regular hospital however patient decided to be discharged and decided to drive back with his and his daughter back to [place], patient is well known to Dr. Cannon, he presented to emergency room at [facility] his oxygen saturation was low d- dimer was significantly elevated and troponin level was elevated at 0.58, patient was started on IV heparin and was admitted to telemetry floor computed tomography scan of the chest was negative for pulmonary embolism, oncology consultation pulmonary consultation and cardiology consultation were initiated, computed tomography scan revealed patchy infiltrates in both lungs and patient was started on IV Levaquin in the emergency room for possible pneumonia. The exact etiology of the infiltrates were not clear although the possibility that were entertained were radiation pneumonitis, nonspecific interstitial pneumonitis related to connective tissue disease and rheumatoid arthritis, lymphangitic carcinomatosis, and other regular and opportunistic pneumonias. CHF was also considered within the differential diagnosis. Patient is followed closely by pulmonary service. Also was seen by cardiology was given a few doses of IV Lasix. And then did develop acute renal failure. Patient is been off of Lasix kidney function has stabilized. Last night patient went into acute respiratory distress became hypoxemic and was transferred to the ICU. He had been on a regular medical floor over the weekend and had shown some improvement in his oxygen saturation they decreased the oxygen level to his nasal cannula. However he did require to be placed on BiPAP and in the ICU. Pulmonary service did order another computed tomography scan of the chest which was negative for PE. Did reveal background of diffuse emphysematous change with acute on chronic process. There is a suspected interval left lung surgery with suspicious residual nodule. Suspect acute infection process or edema of chronic fibrosis possibly related to treatment changes. There is progression since January 2016. Lymphangitic spread of tumor is not excluded. There is a new pneumomediastinum. No pneumothorax. Are pulmonary service is highly recommending that patient be transferred to [facility]. Patient was readmitted to intensive care unit several times, each time he improves and gets transferred out of ICU for 2-3 days he would relapse again and requires readmission to intensive care unit with intubation and mechanical ventilation. Case was discussed with Dr. Leon driver license technician at this time recommendation is to proceed with transfer to [facility]. Diagnosis on discharge 1 acute hypoxic respiratory failure with diffuse bilateral pulmonary infiltrates. The exact nature of this but the pulmonary infiltrates are not clear. Suspect chronic infections with a possibility of an opportunistic infection. Acute lung injury/ARDS which could be postinfectious cannot be completely ruled out. Interstitial lung disease related pulmonary infiltrates cannot be completely ruled out. Malignancy is felt to be less likely especially with the progression of his small cell lung cancer treatment. On 09/02/2016, the patient's respiratory status decompensated. The patient developed worsening in by the pulmonary infiltrates and subsequently went into hypoxic respiratory failure and his pulse ox drop despite being on high flow oxygen. He was in significant respiratory distress and based on that the patient was intubated and placed on a mechanical ventilator. Currently is on a pressure control mode of ventilation. Orotracheal tube is in place. Blood gases are still pending postintubation. Otherwise he remains hemodynamically stable. Bronchoscopy bronchioloalveolar lavage of the right middle lobe was done. He remains on on Merrem and vancomycin will be added. The patient was on systemic steroids and he was weaned off yesterday to her prednisone oral. He is off IV Solu-Medrol for now. On 09/03/2016, the patient remains intubated on a mechanical ventilator. The patient is in full-blown ARDS. He is on a pressure control mode of ventilation. He is sedated. He is paralyzed. Follow-up blood pending for now. Meanwhile, he is on broad-spectrum antibiotics, he is on steroids and the bronchoscopy and bronchial lavage was done and the microbial cultures of been negative thus far. 2 small cell lung cancer, status post concurrent chemoradiation therapy and total brain radiation. Most recent PET scan from April 2016 at shown improvement in the size of the left lower lobe mass and the patient had further surgical resection at [facility]. Back then, the lung windows showed emphysema without evidence of any interstitial lung disease. No further imaging between April and August 2016 3 coronary artery disease with previous stent placement, 4 rheumatoid arthritis 5 hyperlipidemia 6 anemia, multifactorial 7 hypotension currently on pressors, specifically on 10 mics of norepinephrine infusion. Patient Condition at Discharge: Stable Plan - Discharge Summary Discharge Medication List Atenolol [Tenormin] 25 mg PO DAILY 02/10/14 [History] Folic Acid 1 mg PO DAILY 02/10/14 [History] Lisinopril [Zestril] 10 mg PO DAILY 02/10/14 [History] Tamsulosin [Flomax] 0.4 mg PO DAILY 02/10/14 [History] Atorvastatin Calcium [Lipitor] 40 mg PO DAILY 08/14/16 [History] Fenofibrate Nanocrystallized [Tricor] 145 mg PO DAILY 08/14/16 [History] Multivitamins, Thera [Multivitamin (formulary)] 1 tab PO DAILY 08/14/16 [History ] Omeprazole 20 mg PO DAILY 08/14/16 [History] Tadalafil [Cialis] 20 mg PO DAILY PRN 08/14/16 [History] Aspirin 81 mg PO DAILY chew 08/28/16 [Rx] Budesonide-Formot 160-4.5 Mcg [Symbicort 160-4.5 Mcg Inhaler] 2 puff INHALATION RT-BID puff 08/28/16 [Rx] Docusate [Colace] 100 mg PO BID cap 08/28/16 [Rx] Ipratropium-Albuterol Nebulize [Duoneb 0.5 mg-3 mg/3 ml Soln] 3 ml INHALATION RT -Q2H PRN #0 ampul.neb 08/28/16 [Rx] Ipratropium-Albuterol Nebulize [Duoneb 0.5 mg-3 mg/3 ml Soln] 3 ml INHALATION RT -QID ampul.neb 08/28/16 [Rx] Levofloxacin [Levaquin] 750 mg PO HS tab 08/28/16 [Rx] Nystatin 100,000 Unit/ml Susp [Mycostatin Oral Susp] 500,000 unit PO QID cup [Rx] guaiFENesin-Coden 100-10MG/5ML [Robitussin AC] 10 ml PO Q6H PRN #0 cup 08/28/16 [Rx] predniSONE 40 mg PO DAILY tab 08/28/16 [Rx] valACYclovir HCL [Valtrex] 1,000 mg PO TID tablet 08/28/16 [Rx] Activity/Diet/Wound Care/Special Instructions: Patient will be transferred to [facility] Discharge Disposition: OTHER INSTITUTION NOT DEFINED
[2016-09-03 12:48] VITALS: RESP 32; TEMP 100.3
[2016-09-03 14:23] VITALS: BP 100/58; PULSE 133
== END 2016-09-03 14:56 | disposition short-term general hospital (02) | DRG 166 ==
LOC: EC 18:38 → 6SEL 22:02 → 5MS5E 08-24 10:33 → 6ICU 08-28 07:08 → 6SEL 08-30 20:59 → 6ICU 09-02 08:42
PROVIDERS: ADMIT Internal Medicine; ATTEND Internal Medicine
PROC: 5A09457 Assistance with Respiratory Ventilation, 24-96 Consecutive Hours, Continuous Positive Airway Pressure (ICD-10-PCS; 2016-08-25)
PROC: 04HY32Z Insertion of Monitoring Device into Lower Artery, Percutaneous Approach (ICD-10-PCS; 2016-09-02)
PROC: 05H633Z Insertion of Infusion Device into Left Subclavian Vein, Percutaneous Approach (ICD-10-PCS; 2016-09-02)
PROC: 5A1945Z Respiratory Ventilation, 24-96 Consecutive Hours (ICD-10-PCS; 2016-09-02)
PROC: 0BH17EZ Insertion of Endotracheal Airway into Trachea, Via Natural or Artificial Opening (ICD-10-PCS; 2016-09-02)
PROC: 0B9D8ZX Drainage of Right Middle Lung Lobe, Via Natural or Artificial Opening Endoscopic, Diagnostic (ICD-10-PCS; principal; 2016-09-02 09:41)
DX: J84.112 Idiopathic pulmonary fibrosis (principal); J96.21 Acute and chronic respiratory failure with hypoxia; I50.33 Acute on chronic diastolic (congestive) heart failure; N17.9 Acute kidney failure, unspecified; J70.0 Acute pulmonary manifestations due to radiation; C80.0 Disseminated malignant neoplasm, unspecified; J44.0 Chronic obstructive pulmonary disease with (acute) lower respiratory infection; E87.1 Hypo-osmolality and hyponatremia; C34.92 Malignant neoplasm of unspecified part of left bronchus or lung; J44.1 Chronic obstructive pulmonary disease with (acute) exacerbation; J80 Acute respiratory distress syndrome; I27.2 Other secondary pulmonary hypertension; J84.9 Interstitial pulmonary disease, unspecified; I95.9 Hypotension, unspecified; J84.89 Other specified interstitial pulmonary diseases; E87.5 Hyperkalemia; M05.10 Rheumatoid lung disease with rheumatoid arthritis of unspecified site; I11.0 Hypertensive heart disease with heart failure; B02.9 Zoster without complications; K76.1 Chronic passive congestion of liver; D64.9 Anemia, unspecified; I45.10 Unspecified right bundle-branch block; E03.9 Hypothyroidism, unspecified; E78.5 Hyperlipidemia, unspecified; F41.9 Anxiety disorder, unspecified; I25.10 Atherosclerotic heart disease of native coronary artery without angina pectoris; I25.2 Old myocardial infarction; N40.0 Benign prostatic hyperplasia without lower urinary tract symptoms; T38.0X5A Adverse effect of glucocorticoids and synthetic analogues, initial encounter; T50.2X5A Adverse effect of carbonic-anhydrase inhibitors, benzothiadiazides and other diuretics, initial encounter; M19.90 Unspecified osteoarthritis, unspecified site; R01.1 Cardiac murmur, unspecified; R74.8 Abnormal levels of other serum enzymes; D72.829 Elevated white blood cell count, unspecified; Z79.899 Other long term (current) drug therapy; Z95.5 Presence of coronary angioplasty implant and graft; Z95.1 Presence of aortocoronary bypass graft; Z95.3 Presence of xenogenic heart valve; Z99.81 Dependence on supplemental oxygen; Z87.891 Personal history of nicotine dependence; Z88.2 Allergy status to sulfonamides; Z80.9 Family history of malignant neoplasm, unspecified
CPT/HCPCS: 31500; 31624; 36415; 36600; 71010; 71020; 71275; 80048; 80053; 80061; 81001; 82330; 82550; 82553; 82805; 83605; 83735; 83880; 84100; 84484; 85025; 85379; 85610; 85730; 87040; 87070; 87077; 87086; 87102; 87116; 87186; 87205; 87206; 87252; 87496; 87498; 87502; 87529; 87798; 88108; 88305; 89050; 93005; 93306; 94002; 94003; 94640; 94660; 94760